=== PATIENT | male | born 1960 | race Caucasian/White ===

== ENCOUNTER 2020-11-04 15:15 | Outpatient (REF) | payer MEDICARE, SELFPAY | END 2020-11-04 15:16 | disposition home or self-care (01) | LOC: HO.LNP 15:15 | PROVIDERS: Visit Provider Internal Medicine | DX: S90.511A Abrasion, right ankle, initial encounter (principal); X58.XXXA Exposure to other specified factors, initial encounter; Y93.9 Activity, unspecified; Y92.9 Unspecified place or not applicable; Y99.9 Unspecified external cause status | CPT/HCPCS: 87071; 87077; 87186; 87205 ==

== ENCOUNTER 2020-12-09 09:47 | Outpatient (REF) | payer MEDICARE, SELFPAY ==
[2020-12-09 11:23] LABS: MANUAL DIFF FLAG NO
[2020-12-09 11:31] LABS: Basophils Percent Auto 0.4 % (0-2); Eosinophils Absolute Auto 0.1 X10*3/uL (0.0-0.4); Eosinophils Percent Auto 0.9 % (0-4); Hematocrit 45.7 % (42-52); Hemoglobin 15.3 g/dl (14.0-18.0); Imm Gran Abs Auto 0.03 X10*3/uL (0.00-0.03); Imm Gran Pct Auto 0.5 % (0.0-0.4); Lymphocytes Absolute Auto 1.3 X10*3/uL (1.2-4.9); Lymphocytes Percent Auto 23.7 % (20-40); Mean Corpuscular HGB Conc 33.5 g/dl (31.0-36.0); Mean Corpuscular Hemoglobin 31.7 pg (27.0-33.0); Mean Corpuscular Volume 94.8 fL (80-98); Mean Platelet Volume 9.1 fL (9.4-12.4); Monocytes Absolute Auto 0.7 X10*3/uL (0.1-1.2); Monocytes Percent Auto 12.5 % (2-11); Neutrophils Absolute Auto 3.4 X10*3/uL (2.0-8.3); Platelet Count 234 X10*3/uL (160-400); Red Blood Count 4.82 X10*6/uL (4.60-5.80); Red Cell Distribution Width 12.8 % (11.0-16.0); White Blood Count 5.5 X10*3/uL (4.8-10.8)
[2020-12-09 11:45] LABS: Lithium 0.26 mmol/L (0.60-1.20)
[2020-12-09 11:48] LABS: Alanine Aminotransferase 26 U/L (0-40); Albumin Level 4.5 g/dL (3.5-5.0); Alkaline Phosphatase 56 U/L (39-117); Anion Gap 12 (12-20); Aspartate Amino Transferase 20 U/L (5-37); Blood Urea Nitrogen 14 mg/dL (9-16); Calcium 9.5 mg/dL (8.4-10.2); Carbon Dioxide 25 mmol/L (22-29); Chloride 105 mmol/L (96-108); Cholesterol 202 mg/dL; Estimated Glomerular Filt Rate > 60; Glucose Fasting 99 mg/dL (60-99); HDL Cholesterol 53 mg/dL; LDL Cholesterol Calculated 138 mg/dl; Potassium 4.4 mmol/L (3.3-5.1); Sodium 138 mmol/L (135-145); Total Protein 7.7 g/dL (6.5-8.0); Triglycerides 59 mg/dL
[2020-12-09 11:59] LABS: Prostate Specific Antigen 1.25 ng/mL (<0.05-4.0)
== END 2020-12-09 09:48 | disposition home or self-care (01) ==
LOC: HO.HMGCLDS 09:47
PROVIDERS: PCP Internal Medicine; Visit Provider Internal Medicine
DX: Z00.00 Encounter for general adult medical examination without abnormal findings (principal); Z12.5 Encounter for screening for malignant neoplasm of prostate
CPT/HCPCS: 36415; 80053; 80061; 80178; 84153; 85025

== ENCOUNTER 2021-05-18 12:08 | Outpatient (REF) | payer MEDICARE, SELFPAY ==
[2021-05-18 14:17] LABS: Influenza A PCR NEGATIVE (Negative); Influenza B PCR NEGATIVE (Negative); Resp Syncy Virus RNA Qual PCR NEGATIVE (Negative); SARS COV2 PCR INHOUSE POSITIVE (Negative)
== END 2021-05-18 12:09 | disposition home or self-care (01) ==
LOC: HO.10HDLNP 12:08
PROVIDERS: Visit Provider Internal Medicine
DX: J02.9 Acute pharyngitis, unspecified (principal); R51.9 Headache, unspecified; Z20.822 Contact with and (suspected) exposure to COVID-19
CPT/HCPCS: 0241U

== ENCOUNTER 2021-10-20 09:46 | Outpatient (REF) | payer MEDICARE, SELFPAY ==
--- NOTE | ~2021-10-20 | XR_ITS ---
EXAMINATION: XR HIP, RIGHT CLINICAL INFORMATION: Right hip pain. ?osteoarthritis. COMPARISON: None. TECHNIQUE: Two views of the right hip. FINDINGS: There is no evidence of acute fracture or dislocation of the right hip. There is marginal spurring seen about the acetabulum. No destructive bony lesions are identified. There is some calcification with question of some degree of fragmentation of the superior labrum. There is a small bump seen about the superior aspect of the femoral neck which may be related to impingement syndrome. XR/XR hip RT min 2V IMPRESSION: Degenerative change of the right hip with findings suggestive of impingement syndrome. No acute fracture, dislocation, or destructive bony lesion appreciated.
== END 2021-10-20 09:47 | disposition home or self-care (01) ==
LOC: HO.HMGCX 09:46
PROVIDERS: PCP Internal Medicine; Visit Provider Internal Medicine
DX: M25.552 Pain in left hip (principal)
CPT/HCPCS: 73502

== ENCOUNTER → 2021-12-01 12:38 | Outpatient (BNVA) | payer MEDICARE, SELFPAY | PROVIDERS: PCP Internal Medicine; Visit Provider Physician Assistant | DX: M16.11 Unilateral primary osteoarthritis, right hip (principal) | CPT/HCPCS: 99202 ==

== ENCOUNTER 2021-12-14 13:19 | Outpatient (REF) | payer MEDICARE, SELFPAY ==
--- NOTE | ~2021-12-14 | FL_ITS ---
EXAMINATION: FL ARTHROGRAM HIP, RIGHT PROCEDURE: STEROID INJECTION HIP, RIGHT CLINICAL INFORMATION: Osteoarthritis right hip. COMPARISON: None TECHNIQUE: Following explaining fluoroscopy-guided right hip steroid injection procedure, benefits and risks, a written consent was obtained. Patient was placed supine on fluoroscopy table and anterior aspect of right hip was marked for entry site. The entry site was cleaned and draped in usual sterile manner. 1% lidocaine was injected at puncture site. A 22-gauge spinal needle was advanced from the skin to the lateral border of right femoral neck. 1-2% of contrast was injected and a single image was obtained confirming needle position in the joint space. 80 mg of prednisone and 8 mL of 1% lidocaine was injected and needle withdrawn. Complete hemostasis achieved at puncture site with a sterile Band-Aid applied. Patient tolerated procedure well. FINDINGS: On preliminary right hip imaging there is mild right periarticular spurring. No visible acute fracture or bony abnormality seen. The soft tissues are normal. Fluoroscopy-guided right hip steroid injection was performed. FLUOROSCOPY TIME: 0.8 minutes. DOSE AREA PRODUCT: 4.696 uGy-m2 (microgray-meter squared) FL/FL arthrogram hip RT IMPRESSION: Successful fluoroscopy-guided right hip steroid injection performed without immediate complications.
== END 2021-12-14 13:20 | disposition home or self-care (01) ==
LOC: HO.XRAY 13:19
PROVIDERS: PCP Internal Medicine; Visit Provider Physician Assistant
DX: M16.11 Unilateral primary osteoarthritis, right hip (principal)
CPT/HCPCS: 27093; 73525

== ENCOUNTER → 2022-01-12 09:29 | Outpatient (BNVA) | payer MEDICARE, SELFPAY | PROVIDERS: PCP Internal Medicine; Visit Provider Physician Assistant | DX: M16.11 Unilateral primary osteoarthritis, right hip (principal) | CPT/HCPCS: 99212 ==

== ENCOUNTER 2022-03-04 07:15 | Outpatient (REF) | payer MEDICARE, SELFPAY ==
[2022-03-04 11:00] LABS: MANUAL DIFF FLAG NO
[2022-03-04 11:14] LABS: Basophils Percent Auto 0.6 % (0-2); Eosinophils Absolute Auto 0.2 X10*3/uL (0.0-0.4); Hemoglobin 14.2 g/dl (14.0-18.0); Imm Gran Abs Auto 0.01 X10*3/uL (0.00-0.03); Imm Gran Pct Auto 0.2 % (0.0-0.4); Lymphocytes Absolute Auto 1.2 X10*3/uL (1.2-4.9); Lymphocytes Percent Auto 21.9 % (20-40); Mean Corpuscular HGB Conc 33.8 g/dl (31.0-36.0); Mean Corpuscular Hemoglobin 31.4 pg (27.0-33.0); Mean Corpuscular Volume 92.9 fL (80.0-98.0); Mean Platelet Volume 9.3 fL (9.4-12.4); Monocytes Absolute Auto 0.6 X10*3/uL (0.1-1.2); Neutrophils Absolute Auto 3.3 x10*3/uL (2.0-8.3); Neutrophils Percent Auto 63.3 % (45-73); Platelet Count 244 X10*3/uL (160-400); Red Blood Count 4.52 X10*6/uL (4.60-5.80); Red Cell Distribution Width 12.8 % (11.0-16.0); White Blood Count 5.3 X10*3/uL (4.8-10.8)
[2022-03-04 11:28] LABS: Alanine Aminotransferase 18 U/L (0-40); Alkaline Phosphatase 48 U/L (39-117); Anion Gap 11 (12-20); Aspartate Amino Transferase 13 U/L (5-37); Bilirubin Total 0.2 mg/dL (0.0-1.0); Blood Urea Nitrogen 9 mg/dL (9-16); Carbon Dioxide 30 mmol/L (22-29); Chloride 106 mmol/L (96-108); Cholesterol 146 mg/dL; Estimated Glomerular Filt Rate > 60; Glucose Fasting 89 mg/dL (60-99); HDL Cholesterol 41 mg/dL; LDL Cholesterol Calculated 90 mg/dl; Potassium 4.3 mmol/L (3.3-5.1); Sodium 143 mmol/L (135-145); Total Protein 6.5 g/dL (6.5-8.0); Triglycerides 78 mg/dL
[2022-03-04 11:35] LABS: Lithium 0.14 mmol/L (0.60-1.20)
[2022-03-04 11:51] LABS: Prostate Specific Antigen 1.67 ng/mL (<0.05-4.0)
[2022-03-04 12:02] LABS: Thyroid Stimulating Hormone 0.78 uIU/mL (0.32-4.0)
[2022-03-05 12:06] LABS: Calcium (PTHI) 9.3 mg/dL (8.6-10.3); PTHI 60 pg/mL (16-77)
== END 2022-03-04 07:16 | disposition home or self-care (01) ==
LOC: HO.HMGCLDS 07:15
PROVIDERS: Absent Provider Psychiatry & Neurology Psychiatry; PCP Internal Medicine; Visit Provider Internal Medicine
DX: Z00.00 Encounter for general adult medical examination without abnormal findings (principal); F31.9 Bipolar disorder, unspecified; Z12.5 Encounter for screening for malignant neoplasm of prostate; Z79.899 Other long term (current) drug therapy
CPT/HCPCS: 36415; 80053; 80061; 80178; 83970; 84153; 84443; 85025

== ENCOUNTER 2022-09-01 09:54 | Outpatient (REF) | payer MEDICARE, MEDICAID, SELFPAY ==
--- NOTE | 2022-09-01 10:02 | ECG_ITS ---
Test Reason : qtc check Blood Pressure : / mmHG Vent. Rate : 073 BPM Atrial Rate : 073 BPM P-R Int : 182 ms QRS Dur : 098 ms QT Int : 382 ms P-R-T Axes : 059 003 050 degrees QTc Int : 420 ms Normal sinus rhythm Normal ECG When compared with ECG of 01-SEP-2013 11:06, No significant change was found Referred By: Nam Mcknight Electronically Signed By:VALERY LEDEZMA MD
[2022-09-01 10:16] LABS: MANUAL DIFF FLAG NO
[2022-09-01 10:56] LABS: Basophils Percent Auto 0.5 % (0-2); Eosinophils Absolute Auto 0.1 X10*3/uL (0.0-0.4); Eosinophils Percent Auto 2.6 % (0-4); Hematocrit 44.5 % (42.0-52.0); Hemoglobin 15.2 g/dl (14.0-18.0); Imm Gran Abs Auto 0.02 X10*3/uL (0.00-0.03); Imm Gran Pct Auto 0.4 % (0.0-0.4); Lymphocytes Absolute Auto 1.5 X10*3/uL (1.2-4.9); Lymphocytes Percent Auto 26.4 % (20-40); Mean Corpuscular HGB Conc 34.2 g/dl (31.0-36.0); Mean Corpuscular Hemoglobin 31.5 pg (27.0-33.0); Mean Corpuscular Volume 92.1 fL (80.0-98.0); Mean Platelet Volume 8.8 fL (9.4-12.4); Monocytes Absolute Auto 0.6 X10*3/uL (0.1-1.2); Monocytes Percent Auto 11.7 % (2-11); Neutrophils Absolute Auto 3.2 x10*3/uL (2.0-8.3); Neutrophils Percent Auto 58.4 % (45-73); Platelet Count 232 X10*3/uL (160-400); Red Blood Count 4.83 X10*6/uL (4.60-5.80); Red Cell Distribution Width 12.9 % (11.0-16.0); White Blood Count 5.5 X10*3/uL (4.8-10.8)
[2022-09-01 11:53] LABS: Lithium 0.17 mmol/L (0.60-1.20)
[2022-09-01 12:03] LABS: Alanine Aminotransferase 27 U/L (0-40); Albumin Level 4.2 g/dL (3.5-5.0); Alkaline Phosphatase 56 U/L (39-117); Anion Gap 10 (12-20); Aspartate Amino Transferase 19 U/L (5-37); Bilirubin Total 0.4 mg/dL (0.0-1.0); Blood Urea Nitrogen 16 mg/dL (9-16); Calcium 9.1 mg/dL (8.4-10.2); Carbon Dioxide 27 mmol/L (22-29); Chloride 105 mmol/L (96-108); Estimated Glomerular Filt Rate > 60; Glucose Random 93 mg/dL (60-115); Potassium 4.3 mmol/L (3.3-5.1); Sodium 138 mmol/L (135-145); Total Protein 6.9 g/dL (6.5-8.0)
[2022-09-01 12:22] LABS: Thyroid Stimulating Hormone 0.65 uIU/mL (0.32-4.0)
== END 2022-09-01 09:55 | disposition home or self-care (01) ==
LOC: HO.LAB 09:54
PROVIDERS: PCP Internal Medicine; Visit Provider Psychiatry & Neurology Psychiatry
DX: Z79.899 Other long term (current) drug therapy (principal)
CPT/HCPCS: 36415; 80053; 80178; 84443; 85025; 93005

== ENCOUNTER 2022-09-28 12:14 | Outpatient (REF) | payer MEDICARE, SELFPAY ==
[2022-09-28 14:16] LABS: Lithium 0.44 mmol/L (0.60-1.20)
[2022-09-28 14:27] LABS: Anion Gap 8 (12-20); Blood Urea Nitrogen 9 mg/dL (9-16); C Reactive Protein < 0.10 mg/dL (< or = 0.50); Carbon Dioxide 26 mmol/L (22-29); Chloride 109 mmol/L (96-108); Estimated Glomerular Filt Rate > 60; Glucose Random 91 mg/dL (60-115); Potassium 4.2 mmol/L (3.3-5.1); Sodium 139 mmol/L (135-145)
== END 2022-09-28 12:15 | disposition home or self-care (01) ==
LOC: HO.10HDL 12:14
PROVIDERS: Visit Provider Internal Medicine
DX: M54.9 Dorsalgia, unspecified (principal); E78.00 Pure hypercholesterolemia, unspecified; Z79.899 Other long term (current) drug therapy
CPT/HCPCS: 36415; 80048; 80178; 86140

== ENCOUNTER 2022-09-29 11:25 | Outpatient (REF) | payer MEDICARE, MEDICAID, SELFPAY ==
--- NOTE | ~2022-09-29 | US_ITS ---
EXAMINATION: US RETROPERITONEAL COMPLETE (RENAL) CLINICAL INFORMATION: Left flank pain. COMPARISON: Ultrasound abdomen 09/03/2013. TECHNIQUE: Real-time imaging of the kidneys and bladder. FINDINGS: RIGHT KIDNEY: 11.1 x 6.4 x 6.4 cm (SAG x AP x TRV). The kidney is normal in size, contour, and echogenicity. Renal cortical thickness is normal. No calculi or focal parenchymal lesions. No hydronephrosis. LEFT KIDNEY: 12.1 x 6.4 x 5.5 cm (SAG x AP x TRV). The kidney is normal in size, contour, and echogenicity. Renal cortical thickness is normal. No calculi or focal parenchymal lesions. No hydronephrosis. BLADDER: Well distended and normal. Bilateral ureteral jets are demonstrated. Prevoid bladder volume is 359 mL. Postvoid bladder volume is 91 mL. ADDITIONAL FINDINGS: The prostate is enlarged with a volume of 60 mL. Normal kidneys. Mild prostate enlargement with a post void residual bladder volume. US/US retroperitoneal comp IMPRESSION: 1. Unremarkable renal ultrasound. 2. Small post void residual bladder volume. 3. Moderate prostate enlargement.
== END 2022-09-29 11:26 | disposition home or self-care (01) ==
LOC: HO.HMGCX 11:25
PROVIDERS: Visit Provider Internal Medicine
DX: R10.9 Unspecified abdominal pain (principal)
CPT/HCPCS: 76770

== ENCOUNTER 2022-10-21 08:36 | Outpatient (REF) | payer MEDICARE, SELFPAY ==
[2022-10-21 11:04] LABS: MANUAL DIFF FLAG NO
[2022-10-21 11:26] LABS: Basophils Percent Auto 0.7 % (0-2); Eosinophils Absolute Auto 0.1 X10*3/uL (0.0-0.4); Eosinophils Percent Auto 1.9 % (0-4); Hematocrit 44.3 % (42.0-52.0); Hemoglobin 14.9 g/dl (14.0-18.0); Imm Gran Abs Auto 0.01 X10*3/uL (0.00-0.03); Imm Gran Pct Auto 0.2 % (0.0-0.4); Lymphocytes Absolute Auto 1.3 X10*3/uL (1.2-4.9); Lymphocytes Percent Auto 22.2 % (20-40); Mean Corpuscular HGB Conc 33.6 g/dl (31.0-36.0); Mean Corpuscular Hemoglobin 31.2 pg (27.0-33.0); Mean Corpuscular Volume 92.9 fL (80.0-98.0); Monocytes Absolute Auto 0.5 X10*3/uL (0.1-1.2); Neutrophils Absolute Auto 3.9 x10*3/uL (2.0-8.3); Platelet Count 237 X10*3/uL (160-400); Red Blood Count 4.77 X10*6/uL (4.60-5.80); Red Cell Distribution Width 13.1 % (11.0-16.0); White Blood Count 5.9 X10*3/uL (4.8-10.8)
[2022-10-21 11:36] LABS: Alanine Aminotransferase 26 U/L (0-40); Albumin Level 4.3 g/dL (3.5-5.0); Alkaline Phosphatase 55 U/L (39-117); Anion Gap 10 (12-20); Aspartate Amino Transferase 17 U/L (5-37); Bilirubin Total 0.6 mg/dL (0.0-1.0); Blood Urea Nitrogen 9 mg/dL (9-16); Calcium 9.3 mg/dL (8.4-10.2); Carbon Dioxide 25 mmol/L (22-29); Chloride 105 mmol/L (96-108); Estimated Glomerular Filt Rate > 60; Glucose Random 106 mg/dL (60-115); Potassium 4.1 mmol/L (3.3-5.1); Sodium 136 mmol/L (135-145); Total Protein 7.2 g/dL (6.5-8.0)
== END 2022-10-21 08:37 | disposition home or self-care (01) ==
LOC: HO.HMGCLDS 08:36
PROVIDERS: Visit Provider Psychiatry & Neurology Psychiatry
DX: Z79.899 Other long term (current) drug therapy (principal)
CPT/HCPCS: 36415; 80053; 80178; 84443; 85025

== ENCOUNTER 2022-12-25 19:57 | Emergency (ER) | payer MEDICARE, MEDICAID, SELFPAY ==
[2022-12-25 20:10] VITALS: BP 136/78; PULSE 74; RESP 18; TEMP 36.6; O2SAT 99; BMI 31.9
--- NOTE | 2022-12-25 20:11 | ED_ITS ---
HPI - General Adult General Chief complaint: Overdose Stated complaint: mistakenly taken to much lithum Time Seen by Provider: 12/25/22 21:56 Source: patient Mode of arrival: ambulatory Limitations: no limitations History of Present Illness HPI narrative: With history of bipolar disorder, depression on lithium 300 mg daily feels confused and foggy,started taking 900 mg tablet says that with taking that for last 1 month and still has a medicine at home feels weak for last 10 days thinking maybe the toxicity of lithium but very confused a still has a medicine at home labs were done which showed normal lithium level no nausea no vomiting Related Data Home Medications Medication Instructions Recorded Confirmed alprazolam 0.5 mg tablet 0.5 mg PO BID PRN 12/01/21 atorvastatin 20 mg tablet 20 mg PO DAILY 12/01/21 gabapentin 800 mg tablet 800 mg PO QID 12/01/21 lamotrigine 100 mg tablet mg PO 12/01/21 lithium carbonate 300 mg tablet 300 mg PO BEDTIME 12/01/21 methylphenidate HCl 20 mg tablet 20 mg PO QID 12/01/21 trazodone 100 mg tablet 100 mg PO BEDTIME 12/01/21 Allergies Allergy/AdvReac Type Severity Reaction Status Date / Time No Known Allergies Allergy Unverified 01/12/22 09:37 [No Known Allergies*] Review of Systems Review of Systems: Yes all other systems are reviewed and are negative [facility] Past Medical History Medical History ADHD Bipolar 1 disorder Depression Social History Social History Patient Tobacco Use Status: Never used Tobacco Current occupational status: employed 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 Oriented X3. No acute distress. Eyes: PERRLA, No Nystagmus ENT: Pharynx normal. Oral Mucosa moist Neck: Normal inspection. Neck supple. CVS: Normal heart rate and rhythm. Pulses normal. Respiratory: No respiratory distress. Equal air entry bilateral, no wheezing/rales/rhonchi Abdomen: Soft and nontender. Bowel sounds are present, no mass palpable, no CVA tenderness Skin: Skin warm and dry. Normal skin color. Normal skin turgor. Extremities: No lower extremity edema. No calf tenderness Neuro: Oriented X 3. No motor deficit. No sensory deficit.No cerebellar signs , cranial nerves II-XII intact Course Course Course Narrative: This is an RME: Additional HPI, ROS, PE not included below will be deferred to primary provider. Patient is a 62-year-old male who presents emergency department concern for potential lithium toxicity. Reports that 3 weeks ago his dosage was increased from 200 mg daily to 300 mg daily. Accidentally he was taking too much reporting that he believed the capsule to be 100 mg so he was taking 3, in actuality they were 300 mg. He has been taking 900 mg daily for the past 3 weeks. Has been experiencing Shakiness, memory loss, confusion, weakness for the past 10 days. Worsening today, states he realized this morning he had been taking too much Medical Decision Making Medical Decision Making MDM Narrative: Patient has stable labs now lithium level will discharge patient Lab Data [facility] Lab Attestation statement: I reviewed the patient's lab results. 12/25/22 20:41 12/25/22 20:41 Labs: Lab Results 12/25/22 12/25/22 12/25/22 Range/Units 20:41 20:41 20:41 WBC (4.8-10.8) X10*3/uL RBC (4.60-5.80) X10*6/uL Hgb (14.0-18.0) g/dl Hct (42.0-52.0) % MCV (80.0-98.0) fL MCH (27.0-33.0) pg MCHC (31.0-36.0) g/dl RDW (11.0-16.0) % Plt Count (160-400) X10*3/uL MPV (9.4-12.4) fL Immature Gran % (Auto) (0.0-0.4) % Neut % (Auto) (45-73) % Lymph % (Auto) (20-40) % Russell % (Auto) (2-11) % Eos % (Auto) (0-4) % Baso % (Auto) (0-2) % Lymph # (Auto) (1.2-4.9) X10*3/uL Russell # (Auto) (0.1-1.2) X10*3/uL Eos # (Auto) (0.0-0.4) X10*3/uL Baso # (Auto) (0.0-0.2) X10*3/uL Abs Immat Gran (auto) (0.00-0.03) X10*3/uL Absolute Neuts (auto) (2.0-8.3) x10*3/uL Absolute Nucleated RBC (0.0-0.012) X10*3/uL Nucleated RBC % (auto) (0.0-0.2) /100WBC VBG pH (7.32-7.43) VBG pCO2 mmHg VBG pO2 mmHg VBG HCO3 (22-26) mmol/L VBG O2 Saturation % VBG Base Excess mmol/L Sodium 137 (135-145) mmol/L Potassium 4.7 (3.3-5.1) mmol/L Chloride 109 H (96-108) mmol/L Carbon Dioxide 16 L (22-29) mmol/L Anion Gap 17 (12-20) BUN 8 L (9-16) mg/dL Creatinine 1.00 (0.5-1.4) mg/dL Estim Creat Clear Calc 87.9 Estimated GFR > 60 Random Glucose 107 (60-115) mg/dL Calcium 9.3 (8.4-10.2) mg/dL Magnesium 2.7 H (1.6-2.6) mg/dL Total Bilirubin 0.4 (0.0-1.0) mg/dL AST 16 (5-37) U/L ALT 19 (0-40) U/L Alkaline Phosphatase 49 (39-117) U/L Troponin I High Sens < 2.7 (<3.5-35.0) ng/L Total Protein 7.0 (6.5-8.0) g/dL Albumin 3.9 (3.5-5.0) g/dL Urine Color Urine Appearance Urine pH (5.0-9.0) Ur Specific [place] (1.005-1.025) Urine Protein (Neg-Trace) mg/dL Urine Glucose (UA) (Negative) mg/dL Urine Ketones (Negative) mg/dL Urine Blood (Negative) Urine Nitrite (Negative) Ur Leukocyte Esterase (Negative) Salicylates (15-30) mg/dL Acetaminophen (<30) mcg/mL [place]yers 0.47 L (0.60-1.20) mmol/L 12/25/22 12/25/22 12/25/22 Range/Units 20:41 21:49 21:53 WBC 7.8 (4.8-10.8) X10*3/uL RBC 4.35 L (4.60-5.80) X10*6/uL Hgb 14.0 (14.0-18.0) g/dl Hct 41.6 L (42.0-52.0) % MCV 95.6 (80.0-98.0) fL MCH 32.2 (27.0-33.0) pg MCHC 33.7 (31.0-36.0) g/dl RDW 13.9 (11.0-16.0) % Plt Count 212 (160-400) X10*3/uL MPV 8.8 L (9.4-12.4) fL Immature Gran % (Auto) 0.3 (0.0-0.4) % Neut % (Auto) 59.4 (45-73) % Lymph % (Auto) 25.6 (20-40) % Russell % (Auto) 11.1 H (2-11) % Eos % (Auto) 3.1 (0-4) % Baso % (Auto) 0.5 (0-2) % Lymph # (Auto) 2.0 (1.2-4.9) X10*3/uL Russell # (Auto) 0.9 (0.1-1.2) X10*3/uL Eos # (Auto) 0.2 (0.0-0.4) X10*3/uL Baso # (Auto) 0.0 (0.0-0.2) X10*3/uL Abs Immat Gran (auto) 0.02 (0.00-0.03) X10*3/uL Absolute Neuts (auto) 4.7 (2.0-8.3) x10*3/uL Absolute Nucleated RBC 0.000 (0.0-0.012) X10*3/uL Nucleated RBC % (auto) 0.0 (0.0-0.2) /100WBC VBG pH 7.37 (7.32-7.43) VBG pCO2 45 mmHg VBG pO2 50 mmHg VBG HCO3 26 (22-26) mmol/L VBG O2 Saturation 82.0 % VBG Base Excess 0.8 mmol/L Sodium (135-145) mmol/L Potassium (3.3-5.1) mmol/L Chloride (96-108) mmol/L Carbon Dioxide (22-29) mmol/L Anion Gap (12-20) BUN (9-16) mg/dL Creatinine (0.5-1.4) mg/dL Estim Creat Clear Calc Estimated GFR Random Glucose (60-115) mg/dL Calcium (8.4-10.2) mg/dL Magnesium (1.6-2.6) mg/dL Total Bilirubin (0.0-1.0) mg/dL AST (5-37) U/L ALT (0-40) U/L Alkaline Phosphatase (39-117) U/L Troponin I High Sens (<3.5-35.0) ng/L Total Protein (6.5-8.0) g/dL Albumin (3.5-5.0) g/dL Urine Color Urine Appearance Urine pH (5.0-9.0) Ur Specific [place] (1.005-1.025) Urine Protein (Neg-Trace) mg/dL Urine Glucose (UA) (Negative) mg/dL Urine Ketones (Negative) mg/dL Urine Blood (Negative) Urine Nitrite (Negative) Ur Leukocyte Esterase (Negative) Salicylates < 5.0 L (15-30) mg/dL Acetaminophen < 17 (<30) mcg/mL [place] (0.60-1.20) mmol/L 12/25/22 Range/Units 23:36 WBC (4.8-10.8) X10*3/uL RBC (4.60-5.80) X10*6/uL Hgb (14.0-18.0) g/dl Hct (42.0-52.0) % MCV (80.0-98.0) fL MCH (27.0-33.0) pg MCHC (31.0-36.0) g/dl RDW (11.0-16.0) % Plt Count (160-400) X10*3/uL MPV (9.4-12.4) fL Immature Gran % (Auto) (0.0-0.4) % Neut % (Auto) (45-73) % Lymph % (Auto) (20-40) % Russell % (Auto) (2-11) % Eos % (Auto) (0-4) % Baso % (Auto) (0-2) % Lymph # (Auto) (1.2-4.9) X10*3/uL Russell # (Auto) (0.1-1.2) X10*3/uL Eos # (Auto) (0.0-0.4) X10*3/uL Baso # (Auto) (0.0-0.2) X10*3/uL Abs Immat Gran (auto) (0.00-0.03) X10*3/uL Absolute Neuts (auto) (2.0-8.3) x10*3/uL Absolute Nucleated RBC (0.0-0.012) X10*3/uL Nucleated RBC % (auto) (0.0-0.2) /100WBC VBG pH (7.32-7.43) VBG pCO2 mmHg VBG pO2 mmHg VBG HCO3 (22-26) mmol/L VBG O2 Saturation % VBG Base Excess mmol/L Sodium (135-145) mmol/L Potassium (3.3-5.1) mmol/L Chloride (96-108) mmol/L Carbon Dioxide (22-29) mmol/L Anion Gap (12-20) BUN (9-16) mg/dL Creatinine (0.5-1.4) mg/dL Estim Creat Clear Calc Estimated GFR Random Glucose (60-115) mg/dL Calcium (8.4-10.2) mg/dL Magnesium (1.6-2.6) mg/dL Total Bilirubin (0.0-1.0) mg/dL AST (5-37) U/L ALT (0-40) U/L Alkaline Phosphatase (39-117) U/L Troponin I High Sens (<3.5-35.0) ng/L Total Protein (6.5-8.0) g/dL Albumin (3.5-5.0) g/dL Urine Color Yellow Urine Appearance Clear Urine pH 5.5 (5.0-9.0) Ur Specific [place] 1.010 (1.005-1.025) Urine Protein Negative (Neg-Trace) mg/dL Urine Glucose (UA) Negative (Negative) mg/dL Urine Ketones Negative (Negative) mg/dL Urine Blood Negative (Negative) Urine Nitrite Negative (Negative) Ur Leukocyte Esterase Negative (Negative) Salicylates (15-30) mg/dL Acetaminophen (<30) mcg/mL [place] (0.60-1.20) mmol/L Discharge Plan Discharge Clinical Impression: Bipolar disease, chronic Patient Disposition: Home, Self-Care Instructions: Bipolar Disorder (ED) Additional Instructions: Continue medications as prescribed and follow-up with your therapist Prescriptions: No Action lithium carbonate 300 mg tablet 300 mg PO BEDTIME lamotrigine 100 mg tablet PO methylphenidate HCl 20 mg tablet 20 mg PO QID alprazolam 0.5 mg tablet 0.5 mg PO BID PRN atorvastatin 20 mg tablet 20 mg PO DAILY gabapentin 800 mg tablet 800 mg PO QID trazodone 100 mg tablet 100 mg PO BEDTIME Interventions: ED Discharge Assessment Last Done: 12/26/22 00:35 Discharge Date/Time: 12/26/22 00:39
--- NOTE | 2022-12-25 20:15 | ECG_ITS ---
Test Reason : ? LITHIUM TOXICITY Blood Pressure : / mmHG Vent. Rate : 061 BPM Atrial Rate : 061 BPM P-R Int : 198 ms QRS Dur : 100 ms QT Int : 428 ms P-R-T Axes : 033 000 041 degrees QTc Int : 430 ms Normal sinus rhythm cannot exclude Anterior infarct , age undetermined Abnormal ECG When compared with ECG of 01-SEP-2022 10:02, No significant change was found Referred By: Tatianna Costa Electronically Signed By:AINSLEY JCAKSON
[2022-12-25 21:17] LABS: Acetaminophen LAB < 17 mcg/mL (<30); Alanine Aminotransferase 19 U/L (0-40); Albumin Level 3.9 g/dL (3.5-5.0); Alkaline Phosphatase 49 U/L (39-117); Anion Gap 17 (12-20); Aspartate Amino Transferase 16 U/L (5-37); Bilirubin Total 0.4 mg/dL (0.0-1.0); Blood Urea Nitrogen 8 mg/dL (9-16); Calcium 9.3 mg/dL (8.4-10.2); Carbon Dioxide 16 mmol/L (22-29); Chloride 109 mmol/L (96-108); Creatinine Clr Calc Pharmacy 87.9; Estimated Glomerular Filt Rate > 60; Glucose Random 107 mg/dL (60-115); Magnesium 2.7 mg/dL (1.6-2.6); Potassium 4.7 mmol/L (3.3-5.1); Salicylate < 5.0 mg/dL (15-30); Sodium 137 mmol/L (135-145)
[2022-12-25 21:21] LABS: Lithium 0.47 mmol/L (0.60-1.20)
[2022-12-25 21:28] LABS: Troponin-I High Sensitivity < 2.7 ng/L (<3.5-35.0)
[2022-12-25 22:03] LABS: VBG Base Excess 0.8 mmol/L; VBG HCO3 26 mmol/L (22-26); VBG pCO2 45 mmHg; VBG pH 7.37 (7.32-7.43); VBG pO2 50 mmHg
[2022-12-25 22:16] LABS: Basophils Percent Auto 0.5 % (0-2); Eosinophils Absolute Auto 0.2 X10*3/uL (0.0-0.4); Eosinophils Percent Auto 3.1 % (0-4); Hematocrit 41.6 % (42.0-52.0); Imm Gran Abs Auto 0.02 X10*3/uL (0.00-0.03); Imm Gran Pct Auto 0.3 % (0.0-0.4); Lymphocytes Percent Auto 25.6 % (20-40); Mean Corpuscular HGB Conc 33.7 g/dl (31.0-36.0); Mean Corpuscular Hemoglobin 32.2 pg (27.0-33.0); Mean Corpuscular Volume 95.6 fL (80.0-98.0); Mean Platelet Volume 8.8 fL (9.4-12.4); Monocytes Absolute Auto 0.9 X10*3/uL (0.1-1.2); Monocytes Percent Auto 11.1 % (2-11); Neutrophils Absolute Auto 4.7 x10*3/uL (2.0-8.3); Neutrophils Percent Auto 59.4 % (45-73); Platelet Count 212 X10*3/uL (160-400); Red Blood Count 4.35 X10*6/uL (4.60-5.80); Red Cell Distribution Width 13.9 % (11.0-16.0); White Blood Count 7.8 X10*3/uL (4.8-10.8)
[2022-12-25 22:26] LABS: Venous Blood Gas Refer to POC result
[2022-12-25 22:27] VITALS: BP 123/72; PULSE 59; RESP 12; TEMP 36.7; O2SAT 97
--- NOTE | 2022-12-25 22:32 | PC.NURSE ---
Pt aox4 resting at the bedside. VSS. Reports no pain at this time. Took increased dose of lithium and reports feeling shakiness and weakness . Pending disposition. Pt aware of plan of care.
[2022-12-25 23:43] LABS: Appearance Urine Clear; Color Urine Yellow; Glucose Urine UA Negative (Negative); Leukocyte Esterase Urine Negative (Negative); Nitrite Urine Negative (Negative); PH 5.5 (5.0-9.0); Urine Blood Negative (Negative); Urine Ketones Negative (Negative); Urine Protein Negative (Neg-Trace)
[2022-12-26 00:35] VITALS: BP 123/71; PULSE 54; RESP 12; TEMP 36.7; O2SAT 96
== END 2022-12-26 00:39 | disposition home or self-care (01) ==
PROVIDERS: Nurse Practitioner Family; Emergency Provider Internal Medicine; PCP Internal Medicine
DX: F31.9 Bipolar disorder, unspecified (principal); Z79.899 Other long term (current) drug therapy
CPT/HCPCS: 36415; 80053; 80143; 80178; 80179; 81003; 82803; 83735; 84484; 85025; 93005; 99284; 99285

== ENCOUNTER → 2022-12-25 20:15 | Outpatient (BNV) | payer MEDICARE, MEDICAID, SELFPAY | PROVIDERS: Emergency Provider Internal Medicine; PCP Internal Medicine; Visit Provider Internal Medicine | DX: R94.31 Abnormal electrocardiogram [ECG] [EKG] (principal) | CPT/HCPCS: 93010 ==

== ENCOUNTER 2023-01-06 08:00 | Outpatient (RCR) | payer MEDICARE, MEDICAID, SELFPAY ==
--- NOTE | 2022-10-21 11:42 | MHC.PT.EP ---
[facility] [place] Office [place] Office [place] Office [address] Sebas Aguero [address] [phone] F: [phone] F: [phone] F: [phone] F: [phone] Physical Therapy Plan of Care Date of Evaluation: Date of Surgery: n/a Diagnosis: low back pain Assessment: Patient is a 62 year old male presenting to PT with complaints of pain in his low back. Pt reports onset of pain began about 2 months ago due to insidious onset. He presents today with impairments in pain, lumbar ROM, core strength, hip strength, soft tissue restrictions. 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 Pt expresses detention goal of reducing pain, and is motivated to work towards this in PT. Clinical presentation today is most consistent with signs and sx associated with low back pain and pt will benefit from skilled PT 2 week x 4 weeks to address the following problems and impairments noted upon evaluation: pain, lumbar ROM, core strength, hip strength, soft tissue restrictions. These problems limit the patient with the following functional activities: ADLs, bending, transfers, twisting, standing. The prescribed treatment plan of care is medically necessary. Co-morbidities of depression were identified and taken into considerations of plan of care. Pt was educated on HEP, role of PT, prognosis, POC. Frequency and Duration: The patient will be seen 2 x week x 4 weeks Short Term Goals: Pt will demonstrate improved lumbar ROM to be pain free in available range in 2 weeks. Pt will demonstrate improved hip MMT strength by 1/3 grade in 2 weeks. Pt will demonstrate ability to perform PPT with good core control in 2 weeks. Care Home Goals: Pt will demonstrate improved Melissa score by 10% in 4 weeks for improved functional mobility. Pt will demonstrate ability to bend with min to no pain for improved tolerance to dressing his LE in 4 weeks. Pt will demonstrate ability to transfer with min to no pain in 4 weeks for return to PLOF. Treatment Plan: Modalities to reduce pain, spasms and effusion. Manual therapy to restore motion and function. Therapeutic exercise to improve strength and flexibility. Neuromuscular re-education for posture and balance. Therapeutic activities to return to functional activities of daily living. Electronically signed by: Luz Boucher, PT, DPT, ATC Please sign and return to therapist. Thank you for your referral.
--- NOTE | 2023-02-09 14:25 | MHC.PT.DC ---
[facility] [place] Office [place] Office [place] Office [address] [phone] F: [phone] F: [phone] F: [phone] F: [phone] Physical Therapy Discharge Report Diagnosis: low back pain Date of Surgery: n/a Date of Evaluation: 10/21/22 Date of Discharge: 02/09/23 Treatments to Date: 18 Cancellations to Date: 3 No Shows to Date: 0 Discharge Status: Independent with HEP Discharge Summary: At last visit pt had been placed on 30 day hold. Pt has not called to be scheduled in >30 days and therefore to be d/c at this time. Electronically signed by: Luz Boucher, PT, DPT, ATC Please sign and return to therapist. Thank you for your referral.
== END 2023-02-09 14:26 | disposition home or self-care (01) ==
LOC: HO.PTCHIC 08:00
PROVIDERS: PCP Internal Medicine; Visit Provider Internal Medicine
DX: M54.50 Low back pain, unspecified (principal)
CPT/HCPCS: 97014; 97110; 97140; 97161

== ENCOUNTER 2023-01-07 08:06 | Outpatient (REF) | payer MEDICARE, MEDICAID, SELFPAY ==
[2023-01-07 11:50] LABS: Alanine Aminotransferase 44 U/L (0-40); Albumin Level 4.3 g/dL (3.5-5.0); Alkaline Phosphatase 52 U/L (39-117); Anion Gap 11 (12-20); Aspartate Amino Transferase 26 U/L (5-37); Bilirubin Total 0.4 mg/dL (0.0-1.0); Blood Urea Nitrogen 11 mg/dL (9-16); Calcium 9.3 mg/dL (8.4-10.2); Carbon Dioxide 25 mmol/L (22-29); Chloride 106 mmol/L (96-108); Estimated Glomerular Filt Rate > 60; Glucose Random 100 mg/dL (60-115); Potassium 4.2 mmol/L (3.3-5.1); Sodium 138 mmol/L (135-145); Total Protein 7.3 g/dL (6.5-8.0)
[2023-01-07 12:14] LABS: Lithium 0.75 mmol/L (0.60-1.20)
== END 2023-01-07 08:07 | disposition home or self-care (01) ==
LOC: HO.HMGCLDS 08:06
PROVIDERS: Visit Provider Psychiatry & Neurology Psychiatry
DX: Z79.899 Other long term (current) drug therapy (principal)
CPT/HCPCS: 36415; 80053; 80178

== ENCOUNTER 2023-01-31 09:31 | Outpatient (REF) | payer MEDICARE, MEDICAID, SELFPAY ==
--- NOTE | ~2023-01-31 | XR_ITS ---
EXAMINATION: XR THORACIC SPINE CLINICAL INFORMATION: Pain. COMPARISON: None available. TECHNIQUE: Frontal, lateral and swimmer's views of the thoracic spine were obtained. FINDINGS: There is no fracture or bone destruction seen and the vertebral alignment is normal. There is no disc space narrowing. There is no abnormality of the paraspinal soft tissues. XR/XR lumbar spine 2-3V IMPRESSION: Unremarkable examination. EXAMINATION: XR LUMBOSACRAL SPINE CLINICAL INFORMATION: Pain. COMPARISON: None available. TECHNIQUE: AP and lateral views of the lumbar spine and lateral view of the lumbosacral junction. FINDINGS: There is mild bony demineralization. There is a minimal lumbar levoscoliosis. The lumbar disc spaces are well-maintained. No acute fracture or spondylolisthesis is seen. There are small Schmorl's nodes of the T12 and L1 lower endplate. There is moderate anterior spondylosis of the L4 and L5 upper endplates. The posterior elements are intact. The paravertebral soft tissues are unremarkable. IMPRESSION: 1. No acute fracture or spondylolisthesis is seen. 2. There is a minimal lumbar levoscoliosis. 3. There is moderate anterior spondylosis of the L4 and L5 upper endplates.
--- NOTE | ~2023-01-31 | XR_ITS ---
EXAMINATION: XR THORACIC SPINE CLINICAL INFORMATION: Pain. COMPARISON: None available. TECHNIQUE: Frontal, lateral and swimmer's views of the thoracic spine were obtained. FINDINGS: There is no fracture or bone destruction seen and the vertebral alignment is normal. There is no disc space narrowing. There is no abnormality of the paraspinal soft tissues. XR/XR thoracic spine 3V IMPRESSION: Unremarkable examination. EXAMINATION: XR LUMBOSACRAL SPINE CLINICAL INFORMATION: Pain. COMPARISON: None available. TECHNIQUE: AP and lateral views of the lumbar spine and lateral view of the lumbosacral junction. FINDINGS: There is mild bony demineralization. There is a minimal lumbar levoscoliosis. The lumbar disc spaces are well-maintained. No acute fracture or spondylolisthesis is seen. There are small Schmorl's nodes of the T12 and L1 lower endplate. There is moderate anterior spondylosis of the L4 and L5 upper endplates. The posterior elements are intact. The paravertebral soft tissues are unremarkable. IMPRESSION: 1. No acute fracture or spondylolisthesis is seen. 2. There is a minimal lumbar levoscoliosis. 3. There is moderate anterior spondylosis of the L4 and L5 upper endplates.
== END 2023-01-31 09:32 | disposition home or self-care (01) ==
LOC: HO.HMGCX 09:31
PROVIDERS: PCP Internal Medicine; Visit Provider Chiropractor
DX: M54.6 Pain in thoracic spine (principal)
CPT/HCPCS: 72072; 72100

== ENCOUNTER 2023-02-26 09:37 | Outpatient (REF) | payer MEDICARE, MEDICAID, SELFPAY | END 2023-02-26 09:38 | disposition home or self-care (01) | LOC: HO.HMGCX 09:37 | PROVIDERS: PCP Internal Medicine; Visit Provider Internal Medicine | DX: R05.9 Cough, unspecified (principal); J34.2 Deviated nasal septum | CPT/HCPCS: 70220; 71046 ==

== ENCOUNTER 2023-03-15 11:21 | Outpatient (AMB) | payer MEDICARE, MEDICAID, SELFPAY ==
--- NOTE | 2023-03-15 11:29 | MHC.OFFVIS ---
Intake Vital Signs 03/15/23 11:30 Height 5 ft 8 in Weight 210 lb BMI 31.9 Intake Visit Reasons: OV - right hip pain Intake Note: Wang is a 63 year old male who presents today for a evaluation of his right hip pain. Patient reports his right hip is doing okay today. He states he would to know a diagnosis for what he has. Allergies No Known Allergies [No Known Allergies*] Allergy (Verified 03/15/23 11:29) HPI OV - right hip pain HPI Details 63-year-old male who presents in the office today for a follow up of right hip pain. The patient reports his right hip is doing okay. He would like to discuss his diagnosis. The patient had a right hip arthrogram on 12/14/2022. 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 No ecchymosis, erythema, or edema. Limitation with internal rotation. Full external rotation. No tenderness to palpation over the greater trochanteric bursa. 4/5 strength with resisted hip flexion, knee extension, abduction, and abduction. 5/5 strength with contralateral side. Able to perform straight leg raise with weakness and low back pain. NVI. Assessment & Plan Assessment & Plan (1) Osteoarthritis of right hip: Code(s): M16.11 - Unilateral primary osteoarthritis, right hip Qualifiers: Osteoarthritis type: unspecified Qualified Code(s): M16.11 - Unilateral primary osteoarthritis, right hip Plan Mr. Cross is a 63-year-old male who presents in the office today for a follow up of right hip pain. The patient reports his right hip is doing okay. He would like to discuss his diagnosis. The patient had a right hip arthrogram on 12/14/2022. In regard to the right hip he reports no groin pain at this time. He will contact the office should his symptoms return. He is currently being follow by [facility] for lower back spondylosis. He is currently scheduled for cortisone injection in the lower spine for his symptoms. He states his pain radiates from the back primarily to the right knee and ankle. Follow up will be PRN, or sooner if needed. X-rays of the right hip obtained while in the office today and reviewed by me, Pricila Bland PA-C, revealed no acute fracture or dislocation. Revealed regeneration of osteoarthritis. Patient Instructions: Scribed for Pricila Bland PA-C by Mame Kumar neuropsychology medical consultant, on 03/15/2023 at 11:26 am, EST. Coding Level of Care Code Est Pt Level 3 (05359) Diagnoses Osteoarthritis of right hip, unspecified osteoarthritis type M16.11 Osteoarthritis type: unspecified
[2023-03-15 11:30] VITALS: BMI 31.9
== END 2023-03-15 11:59 | disposition home or self-care (01) ==
PROVIDERS: PCP Internal Medicine; Visit Provider Physician Assistant
DX: M16.11 Unilateral primary osteoarthritis, right hip (principal)
CPT/HCPCS: 99213

== ENCOUNTER 2023-03-15 17:22 | Outpatient (REF) | payer MEDICARE, SELFPAY ==
--- NOTE | ~2023-03-15 | XR_ITS ---
EXAMINATION: XR HIP, RIGHT CLINICAL INFORMATION: Pain in unspecified hip. COMPARISON: Lumbar spine 01/31/2023. Right hip 10/20/2021. TECHNIQUE: Two views of the right hip. FINDINGS: Alignment is anatomic. Moderate degenerative changes in the right hip with joint space narrowing and hypertrophic change. Redemonstration of calcifications and ossicles/fragmentation along the right superior labrum. Redemonstration of previously noted bump along the superior aspect of the femoral neck, possibly related to impingement syndrome. Subchondral sclerosis in the right femoral head with possible subchondral lucencies. Degenerative changes in the imaged lower lumbar spine and bilateral sacroiliac joints. Mild degenerative changes on AP view of the left hip. XR/XR hip RT w [id number] IMPRESSION: Moderate degenerative changes in the right hip, as detailed above. Additional imaging with CT scan or MRI should be considered for better visualization as these modalities are much more sensitive for detection of fracture or other underlying pathology.
== END 2023-03-15 17:23 | disposition home or self-care (01) ==
LOC: HO.HOSX 17:22
PROVIDERS: Visit Provider Physician Assistant
DX: M16.11 Unilateral primary osteoarthritis, right hip (principal)
CPT/HCPCS: 73502; 99212

== ENCOUNTER 2023-04-08 12:32 | Outpatient (REF) | payer MEDICARE, SELFPAY ==
--- NOTE | ~2023-04-08 | MM_ITS ---
EXAMINATION: BONE DENSITOMETRY CLINICAL INDICATION: Osteopenia. COMPARISON: This is the patient's baseline examination. TECHNIQUE: Using a [employer] DXA System (software version: 13.1) manufactured by [employer], dual-energy x-ray absorptiometry was performed of the lumbar spine and left hip. The images are of good technical quality. Summary results are attached. FINDINGS: LEFT FEMUR, NECK: BMD 0.972 g/cm2, Z-score -0.1, T-score -0.8, normal. LEFT FEMUR, TOTAL: BMD 1.044 g/cm2, Z-score -0.2, T-score -0.4, normal. AP SPINE L1-L4: BMD 1.231 g/cm2, Z-score 0.0, T-score 0.1, normal. IDENTIFIED RISK FACTORS: Alcohol (3 or more units per day). HISTORY OF FRACTURE: None listed. MEDICATIONS: None listed. MM/XR DEXA axial skeleton IMPRESSION: 1. DIAGNOSIS: Normal bone density based on the lowest T-score value of -0.8 in the femoral neck applying World Health Organization criteria. 2. 10-YEAR FRACTURE RISK PREDICTION, FRAX: According to the guidelines, FRAX calculation should only be performed on patients in the osteopenia bone density category. Therefore, FRAX was not performed on this patient. 3. Treatment Recommendations: NOF guidelines recommend consideration for treatment in postmenopausal women and men age 50 and older presenting with the following: -A hip or vertebral (clinical or morphometric) fracture. -T-score less than or equal to -2.5 at the femoral neck or spine after appropriate evaluation to exclude secondary causes. -Low bone mass at the hip or spine and a 10-year fracture probability by FRAX of greater than or equal to 3% for hip fracture or greater than or equal to 20% for major osteoporotic fracture based on the [place] adapted WHO algorithm. 4. Other Recommendations: All treatment decisions require clinical judgment and consideration of individual patient factors, including patient preferences, comorbidities, previous drug use, risk factors not captured in the FRAX model (e.g. frailty, falls, vitamin D deficiency, increased bone turnover, interval significant decline in bone density) and possible under or overestimation of fracture risk by FRAX. FUTURE SCAN RECOMMENDATION: People with diagnosed cases of osteoporosis or at high risk for fracture should have regular bone mineral density tests. For patients eligible for Medicare, routine testing is allowed once every 2 years. The testing frequency can be increased to one year for patients who have rapidly progressing disease, those who are receiving or discontinuing medical therapy to restore bone mass, or have additional risk factors.
== END 2023-04-08 12:33 | disposition home or self-care (01) ==
LOC: HO.MAMMO 12:32
PROVIDERS: PCP Internal Medicine; Visit Provider Internal Medicine
DX: Z13.820 Encounter for screening for osteoporosis (principal); M85.88 Other specified disorders of bone density and structure, other site
CPT/HCPCS: 77080

== ENCOUNTER 2023-04-16 09:03 | Outpatient (REF) | payer MEDICARE, SELFPAY ==
[2023-04-16 11:02] LABS: MANUAL DIFF FLAG NO
[2023-04-16 11:04] LABS: Basophils Percent Auto 0.5 % (0-2); Eosinophils Absolute Auto 0.2 X10*3/uL (0.0-0.4); Eosinophils Percent Auto 2.6 % (0-4); Hemoglobin 14.9 g/dl (14.0-18.0); Imm Gran Abs Auto 0.02 X10*3/uL (0.00-0.03); Imm Gran Pct Auto 0.3 % (0.0-0.4); Lymphocytes Absolute Auto 1.4 X10*3/uL (1.2-4.9); Lymphocytes Percent Auto 21.1 % (20-40); Mean Corpuscular HGB Conc 33.1 g/dl (31.0-36.0); Mean Corpuscular Hemoglobin 32.2 pg (27.0-33.0); Mean Corpuscular Volume 97.2 fL (80.0-98.0); Mean Platelet Volume 8.9 fL (9.4-12.4); Monocytes Absolute Auto 0.7 X10*3/uL (0.1-1.2); Monocytes Percent Auto 10.4 % (2-11); Neutrophils Absolute Auto 4.2 x10*3/uL (2.0-8.3); Neutrophils Percent Auto 65.1 % (45-73); Platelet Count 229 X10*3/uL (160-400); Red Blood Count 4.63 X10*6/uL (4.60-5.80); Red Cell Distribution Width 13.6 % (11.0-16.0); White Blood Count 6.5 X10*3/uL (4.8-10.8)
[2023-04-16 11:38] LABS: Lithium 0.47 mmol/L (0.60-1.20)
[2023-04-16 11:53] LABS: Alanine Aminotransferase 24 U/L (0-40); Albumin Level 4.4 g/dL (3.5-5.0); Alkaline Phosphatase 55 U/L (39-117); Anion Gap 11 (12-20); Aspartate Amino Transferase 15 U/L (5-37); Bilirubin Total 0.6 mg/dL (0.0-1.0); Blood Urea Nitrogen 7 mg/dL (9-16); Calcium 9.5 mg/dL (8.4-10.2); Carbon Dioxide 29 mmol/L (22-29); Chloride 106 mmol/L (96-108); Estimated Glomerular Filt Rate > 60; Glucose Random 79 mg/dL (60-115); Potassium 4.2 mmol/L (3.3-5.1); Sodium 142 mmol/L (135-145); Total Protein 7.4 g/dL (6.5-8.0)
[2023-04-16 12:08] LABS: Thyroid Stimulating Hormone 0.75 uIU/mL (0.32-4.0)
== END 2023-04-16 09:04 | disposition home or self-care (01) ==
LOC: HO.HMGCLDS 09:03
PROVIDERS: Visit Provider Psychiatry & Neurology Psychiatry
DX: Z79.899 Other long term (current) drug therapy (principal)
CPT/HCPCS: 36415; 80053; 80178; 84443; 85025

== ENCOUNTER 2023-05-09 17:01 | Outpatient (REF) | payer MEDICARE, SELFPAY ==
--- NOTE | ~2023-05-09 | MR_ITS ---
EXAMINATION: MR LUMBAR SPINE WITHOUT CONTRAST CLINICAL INFORMATION: Back pain. COMPARISON: X-ray lumbar spine dated 01/31/2023. TECHNIQUE: Multiplanar, multisequence imaging was obtained. FINDINGS: VERTEBRAL BODIES AND PARASPINAL STRUCTURES: There is a rightward curvature at the thoracolumbar junction and a leftward curvature of the lower lumbar spine. No compression fractures are seen. There are endplate Schmorl's nodes with reduced intradiscal signal and mild disc space narrowing at the lower thoracic levels. Additional right anterolateral marrow edema noted in the T12 and L1 vertebral bodies. At the L4-L5 level on the right side, there is qfor-tj-gudosxoj endplate edema posterolaterally with endplate Schmorl's node formation. Mild posterior subluxation also noted at the L4-L5 level. The paraspinal soft tissues are normal. The imaged bony pelvis is unremarkable. CONUS MEDULLARIS AND CAUDA EQUINA: The distal cord, conus tip, and cauda equina nerve roots are normal. SPINAL LEVELS: L1-L2: Mild disc bulge and retrosubluxation. No central canal stenosis or foraminal narrowing. L2-L3: Mild disc bulge and facet arthropathy without central canal stenosis or foraminal encroachment. Small endplate Schmorl's nodes. L3-L4: Mild generalized disc bulge. No central canal stenosis. Mild right foraminal narrowing. L4-L5: Posterior subluxation with kqcy-mq-mutldfra facet arthropathy and a broad-based disc bulge. Shallow left subarticular zone disc protrusion as well. Disc mildly impresses upon the L5 nerve roots in the subarticular zones. Bacm-og-qxvvgwya central canal stenosis and foraminal narrowing. Right posterolateral endplate edema as well. L5-S1: Severe right-sided facet arthropathy encroaching upon the right subarticular zone. No visible nerve root impingement. Minimal disc bulge. Mild right foraminal narrowing. MR/MR lumbar spine wo con IMPRESSION: 1. Scoliotic curvature of the thoracolumbar spine with heav-zp-goetkndn spondylitic changes. No compression fractures. 2. Tiut-cc-evjbdwxv central canal stenosis and shallow left subarticular zone disc protrusion at the L4-L5 level with mild impression upon the L5 nerve roots. Ohkz-jb-lndczsod right lateral endplate edema as well. 3. Severe right-sided facet arthropathy at the L5-S1 level.
== END 2023-05-09 17:02 | disposition home or self-care (01) ==
LOC: HO.MRI 17:01
PROVIDERS: PCP Internal Medicine; Visit Provider Physical Medicine & Rehabilitation
DX: M48.061 Spinal stenosis, lumbar region without neurogenic claudication (principal); G54.9 Nerve root and plexus disorder, unspecified
CPT/HCPCS: 72148

== ENCOUNTER 2023-06-17 07:47 | Outpatient (REF) | payer MEDICARE, SELFPAY ==
[2023-06-17 11:34] LABS: MANUAL DIFF FLAG NO
[2023-06-17 12:05] LABS: Basophils Percent Auto 0.7 % (0-2); Eosinophils Absolute Auto 0.1 X10*3/uL (0.0-0.4); Eosinophils Percent Auto 2.1 % (0-4); Hematocrit 44.8 % (42.0-52.0); Hemoglobin 14.9 g/dl (14.0-18.0); Imm Gran Abs Auto 0.01 X10*3/uL (0.00-0.03); Imm Gran Pct Auto 0.2 % (0.0-0.4); Lymphocytes Absolute Auto 1.1 X10*3/uL (1.2-4.9); Lymphocytes Percent Auto 18.9 % (20-40); Mean Corpuscular HGB Conc 33.3 g/dl (31.0-36.0); Mean Corpuscular Hemoglobin 32.8 pg (27.0-33.0); Mean Corpuscular Volume 98.7 fL (80.0-98.0); Mean Platelet Volume 8.8 fL (9.4-12.4); Monocytes Absolute Auto 0.5 X10*3/uL (0.1-1.2); Monocytes Percent Auto 9.6 % (2-11); Neutrophils Absolute Auto 3.9 x10*3/uL (2.0-8.3); Neutrophils Percent Auto 68.5 % (45-73); Platelet Count 263 X10*3/uL (160-400); Red Blood Count 4.54 X10*6/uL (4.60-5.80); Red Cell Distribution Width 13.2 % (11.0-16.0); White Blood Count 5.7 X10*3/uL (4.8-10.8)
[2023-06-17 12:18] LABS: Lithium 0.74 mmol/L (0.60-1.20)
[2023-06-17 12:35] LABS: Alanine Aminotransferase 18 U/L (0-40); Albumin Level 4.3 g/dL (3.5-5.0); Alkaline Phosphatase 61 U/L (39-117); Anion Gap 11 (12-20); Aspartate Amino Transferase 15 U/L (5-37); Bilirubin Total 0.5 mg/dL (0.0-1.0); Blood Urea Nitrogen 7 mg/dL (9-16); Calcium 9.4 mg/dL (8.4-10.2); Carbon Dioxide 26 mmol/L (22-29); Chloride 107 mmol/L (96-108); Estimated Glomerular Filt Rate > 60; Glucose Random 95 mg/dL (60-115); Potassium 4.2 mmol/L (3.3-5.1); Sodium 140 mmol/L (135-145); Total Protein 7.4 g/dL (6.5-8.0)
[2023-06-17 12:36] LABS: Thyroid Stimulating Hormone 0.65 uIU/mL (0.32-4.0)
== END 2023-06-17 07:48 | disposition home or self-care (01) ==
LOC: HO.HMGCLDS 07:47
PROVIDERS: PCP Internal Medicine; Visit Provider Psychiatry & Neurology Psychiatry
DX: Z79.899 Other long term (current) drug therapy (principal)
CPT/HCPCS: 36415; 80053; 80178; 84443; 85025

== ENCOUNTER 2023-08-09 07:40 | Outpatient (REF) | payer MEDICARE, SELFPAY ==
--- NOTE | ~2023-08-09 | FL_ITS ---
EXAMINATION: XR FLUOROSCOPY UPPER GI WITH AIR CLINICAL INFORMATION: Dysphagia. Reflux COMPARISON: None TECHNIQUE: Fluoroscopic air contrast upper GI examination was performed utilizing standard techniques with thin and thick barium and effervescent granules. Numerous spot images were obtained. FINDINGS: Lateral cine images of the oropharynx and hypopharynx demonstrate normal swallow mechanism with normal epiglottic inversion and soft palate elevation. No tracheal penetration, glottic or subglottic aspiration identified. No nasopharyngeal reflux present. Hypopharyngeal structures appear normal without evidence of mass or diverticulum. There is moderate cricopharyngeal achalasia present. Dual and single contrast images of the esophagus demonstrate normal caliber, contour, and mucosal pattern. No evidence of stricture, mass, or ulcerations identified. Esophageal peristalsis is mildly disorganized. No evidence of hiatus hernia identified. Significant gastroesophageal reflux is seen up to the thoracic inlet. Dual contrast and single contrast images of the stomach demonstrated a normal contour. There are multiple tiny areas of contrast pooling in the fundus and body the stomach that may represent small superficial apthous ulcers. No masses are present. Contrast freely passed into the gastric antrum and duodenal bulb without delay. Single and air-contrast images of the duodenal bulb demonstrate no abnormality. The duodenal sweep has a normal appearance, course, and mucosal fold appearance. The imaged proximal jejunum has a normal fold pattern and caliber. FLUOROSCOPY TIME: 3 minutes 48 seconds Number of Spot Images: 16 Number of Cine: 10 DOSE AREA PRODUCT: 2823 uGy-m2 (microgray-meter squared) FL/FL barium swallow with air IMPRESSION: 1. Moderate cricopharyngeal achalasia 2. Mildly disorganized esophageal peristalsis 3. Severe gastroesophageal reflux 4. Stable tiny areas of contrast pooling in the fundus and body the stomach that may represents small superficial aphthous ulcers. Recommend correlation with EGD This procedure was performed by Mehdi Gabriel PA-C, and supervised by Dr. Romero
== END 2023-08-09 07:41 | disposition home or self-care (01) ==
LOC: HO.XRAY 07:40
PROVIDERS: PCP Internal Medicine; Visit Provider Otolaryngology
DX: R13.10 Dysphagia, unspecified (principal)
CPT/HCPCS: 74221

== ENCOUNTER → 2023-08-09 07:42 | Outpatient (BNV) | payer MEDICARE, SELFPAY | PROVIDERS: PCP Internal Medicine; Visit Provider Physician Assistant Surgical | DX: R13.10 Dysphagia, unspecified (principal); K21.9 Gastro-esophageal reflux disease without esophagitis | CPT/HCPCS: 74221 ==

== ENCOUNTER 2023-10-10 09:08 | Outpatient (REF) | payer MEDICARE, SELFPAY ==
[2023-10-10 10:34] LABS: Hematocrit 45.2 % (42.0-52.0); Hemoglobin 15.2 g/dl (14.0-18.0); Mean Corpuscular HGB Conc 33.6 g/dl (31.0-36.0); Mean Corpuscular Hemoglobin 33.1 pg (27.0-33.0); Mean Corpuscular Volume 98.5 fL (80.0-98.0); Mean Platelet Volume 8.6 fL (9.4-12.4); Platelet Count 237 X10*3/uL (160-400); Red Blood Count 4.59 X10*6/uL (4.60-5.80); Red Cell Distribution Width 13.6 % (11.0-16.0); White Blood Count 5.4 X10*3/uL (4.8-10.8)
[2023-10-10 10:54] LABS: Lithium 0.59 mmol/L (0.60-1.20)
[2023-10-10 10:58] LABS: Alanine Aminotransferase 26 U/L (0-40); Albumin Level 4.4 g/dL (3.5-5.0); Alkaline Phosphatase 62 U/L (39-117); Anion Gap 12 (12-20); Aspartate Amino Transferase 20 U/L (5-37); Bilirubin Total 0.5 mg/dL (0.0-1.0); Blood Urea Nitrogen 9 mg/dL (9-16); Calcium 9.3 mg/dL (8.4-10.2); Carbon Dioxide 26 mmol/L (22-29); Chloride 105 mmol/L (96-108); Estimated Glomerular Filt Rate > 60; Glucose Random 114 mg/dL (60-115); Potassium 4.2 mmol/L (3.3-5.1); Sodium 139 mmol/L (135-145); Total Protein 7.4 g/dL (6.5-8.0)
[2023-10-10 11:16] LABS: Free T4 (Free Thyroxine) 0.96 ng/dL (0.71-1.85); Thyroid Stimulating Hormone 1.01 uIU/mL (0.32-4.0)
== END 2023-10-10 09:09 | disposition home or self-care (01) ==
LOC: HO.HMGCLDS 09:08
PROVIDERS: PCP Internal Medicine; Visit Provider Psychiatry & Neurology Psychiatry
DX: Z79.899 Other long term (current) drug therapy (principal)
CPT/HCPCS: 36415; 80053; 80178; 84439; 84443; 85027

== ENCOUNTER 2023-12-14 14:40 | Outpatient (REF) | payer MEDICARE, SELFPAY ==
--- NOTE | ~2023-12-14 | XR_ITS ---
EXAMINATION: XR KNEE, RIGHT CLINICAL INFORMATION: Pain in the right knee. Evaluate for osteoarthritis. COMPARISON: None available. TECHNIQUE: Four views of the right knee. FINDINGS: No fracture or joint effusion. Alignment is anatomic. Joint spaces are maintained. No abnormal soft tissue calcification. XR/XR knee RT 4V IMPRESSION: Unremarkable right knee radiographs.
--- NOTE | ~2023-12-14 | XR_ITS ---
EXAMINATION: XR KNEE, LEFT CLINICAL INFORMATION: Left knee pain. Rule out osteoarthritis. COMPARISON: None available. TECHNIQUE: Four views of the left knee. FINDINGS: No fracture or joint effusion. Alignment is anatomic. Joint spaces are maintained. No abnormal soft tissue calcification. XR/XR knee LT 4V IMPRESSION: Unremarkable left knee radiographs.
[2023-12-14 16:21] LABS: C Reactive Protein < 0.10 mg/dL (< or = 0.50)
[2023-12-14 16:25] LABS: Rheumatoid Factor < 13.0 IU/mL (<15.0)
[2023-12-14 17:36] LABS: Erythrocyte Sedimentation Rate 2 MM/HR (0-15)
[2023-12-19 14:13] LABS: Anti Nuclear Antibody Screen NEGATIVE (NEGATIVE)
== END 2023-12-14 14:41 | disposition home or self-care (01) ==
LOC: HO.XRAY 14:40
PROVIDERS: PCP Internal Medicine; Visit Provider Internal Medicine
DX: M25.561 Pain in right knee (principal); M25.562 Pain in left knee; M25.50 Pain in unspecified joint
CPT/HCPCS: 36415; 73564; 82550; 85652; 86038; 86140; 86431

== ENCOUNTER 2024-01-06 10:11 | Outpatient (REF) | payer MEDICARE, SELFPAY ==
[2024-01-06 13:16] LABS: MANUAL DIFF FLAG NO
[2024-01-06 13:41] LABS: Basophils Percent Auto 0.4 % (0-2); Eosinophils Absolute Auto 0.1 X10*3/uL (0.0-0.4); Eosinophils Percent Auto 0.8 % (0-4); Hematocrit 41.8 % (42.0-52.0); Hemoglobin 14.2 g/dl (14.0-18.0); Imm Gran Abs Auto 0.03 X10*3/uL (0.00-0.03); Imm Gran Pct Auto 0.4 % (0.0-0.4); Lymphocytes Absolute Auto 1.3 X10*3/uL (1.2-4.9); Lymphocytes Percent Auto 18.7 % (20-40); Mean Corpuscular Hemoglobin 32.8 pg (27.0-33.0); Mean Corpuscular Volume 96.5 fL (80.0-98.0); Mean Platelet Volume 9.4 fL (9.4-12.4); Monocytes Absolute Auto 0.7 X10*3/uL (0.1-1.2); Monocytes Percent Auto 9.9 % (2-11); Neutrophils Percent Auto 69.8 % (45-73); Platelet Count 235 X10*3/uL (160-400); Red Blood Count 4.33 X10*6/uL (4.60-5.80); Red Cell Distribution Width 12.8 % (11.0-16.0); White Blood Count 7.1 X10*3/uL (4.8-10.8)
[2024-01-06 14:13] LABS: Lithium 0.61 mmol/L (0.60-1.20)
[2024-01-06 14:19] LABS: Alanine Aminotransferase 28 U/L (0-40); Albumin Level 4.4 g/dL (3.5-5.0); Alkaline Phosphatase 60 U/L (39-117); Anion Gap 10 (12-20); Aspartate Amino Transferase 19 U/L (5-37); Bilirubin Total 0.4 mg/dL (0.0-1.0); Blood Urea Nitrogen 9 mg/dL (9-16); Calcium 9.4 mg/dL (8.4-10.2); Carbon Dioxide 26 mmol/L (22-29); Chloride 108 mmol/L (96-108); Estimated Glomerular Filt Rate > 60; Glucose Random 90 mg/dL (60-115); Potassium 4.1 mmol/L (3.3-5.1); Sodium 140 mmol/L (135-145); Thyroid Stimulating Hormone 0.76 uIU/mL (0.32-4.0); Total Protein 7.2 g/dL (6.5-8.0)
== END 2024-01-06 10:12 | disposition home or self-care (01) ==
LOC: HO.HMGCLDS 10:11
PROVIDERS: PCP Internal Medicine; Visit Provider Psychiatry & Neurology Psychiatry
DX: Z79.899 Other long term (current) drug therapy (principal)
CPT/HCPCS: 36415; 80053; 80178; 84443; 85025

== ENCOUNTER 2024-04-06 09:42 | Outpatient (AMB) | payer MEDICARE, SELFPAY ==
--- NOTE | 2024-04-06 09:52 | A.OFFVIS_ITS ---
Intake Visit Reasons: OV - right hip OA, last Arthrogram 12/14/21 Intake Note: Wang is a 63 year old male who presents today for a follow up for his right hip OA, last Arthrogram 12/14/21. Patient reports his last injection gave him relief, however he is starting to get a burning sensation that is causing him a lot of pain. He mentions that his pain is moving down to his knee and to his ankle. Patient also mentions that since he's been adjusting his walk his left knee is causing him some discomfort. Allergies No Known Allergies [No Known Allergies*] Allergy (Verified 04/06/24 10:03) HPI HPI OV - right hip OA, last Arthrogram 12/14/21: Details: 64-year-old male who presents in the office today for a follow-up of right hip pain. I last saw the patient in the office on 03/15/23, when he reported on groin pain at that time and was advised to contact the office should his symptoms return. The patient mentioned he was following up with [facility] for lower back spondylosis. The patient had a right hip arthrogram on 12/14/2022. While in the office today, the patient reports his last injection gave him relief; however, he has been experiencing a burning sensation that is causing him severe pain. He mentions having groin pain that radiates to the anterior right thigh and down to his right ankle. He also mentions discomfort in his left knee due to his adjusted ambulation because of hip pain. The patient would like to have a repeat injection in the right hip. Of note, the patient did report that he had PRP injection in the lower back roughly 2 months ago, with mild benefit. 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 No ecchymosis, erythema, or edema. Full hip ROM in all planes. Reports mild right sided lower back pain with resisted hip flexion. Reports groin pain with internal and external rotation. No tenderness to palpation over the greater trochanteric bursa. 5/5 strength with resisted hip flexion, knee extension, abduction, and abduction. Able to perform straight leg raise. NVI. Assessment & Plan Assessment & Plan (1) Osteoarthritis of right hip: Code(s): M16.11 - Unilateral primary osteoarthritis, right hip Category: Medical Qualifiers: Osteoarthritis type: unspecified Qualified Code(s): M16.11 - Unilateral primary osteoarthritis, right hip Plan Mr. Cross is a 64-year-old male who presents in the office today for a follow-up of right hip pain. I last saw the patient in the office on 03/15/23, when he reported on groin pain at that time and was advised to contact the office should his symptoms return. The patient mentioned he was following up with [facility] for lower back spondylosis. The patient had a right hip arthrogram on 12/14/2022. While in the office today, the patient reports his last injection gave him relief; however, he has been experiencing a burning sensation that is causing him severe pain. He mentions having groin pain that radiates to the anterior right thigh and down to his right ankle. He also mentions discomfort in his left knee due to his adjusted ambulation because of hip pain. The patient would like to have a repeat injection in the right hip. Of note, the patient did report that he had PRP injection in the lower back roughly 2 months ago, with mild benefit. I have placed an order for repeat injection under x-ray guidance. Should the injection not be helpful in reducing his pain, then the next step would be a referral to Dr. Leonard for further evaluation and treatment on his lower back. Follow-up will be PRN, or sooner if needed. X-rays of the right hip, which were obtained while in the office today and were reviewed by me, Pricila Bland PA-C, revealed: Redemonstration of the right hip osteoarthritis. No acute fracture or dislocation. Orders: Orders FL arthrogram hip RT 04/06/24 M16.0 - Bilateral primary osteoarthritis of hip XR hip RT min 2V 04/06/24 M25.559 - Pain in unspecified hip Patient Instructions: Scribed by Heide Ferris faculty i on call medical assistant, for Pricila Bland PA-C on 04/06/24 at 10:10 am EST. Coding Level of Care Code Est Pt Level 3 (34160) Diagnoses Osteoarthritis of right hip, unspecified osteoarthritis type M16.11 Osteoarthritis type: unspecified
== END 2024-04-06 10:13 | disposition home or self-care (01) ==
PROVIDERS: PCP Internal Medicine; Visit Provider Physician Assistant
DX: M16.11 Unilateral primary osteoarthritis, right hip (principal)
CPT/HCPCS: 99213

== ENCOUNTER 2024-04-06 12:45 | Outpatient (REF) | payer MEDICARE, SELFPAY | END 2024-04-06 12:46 | disposition home or self-care (01) | LOC: HO.HOSX 12:45 | PROVIDERS: Visit Provider Physician Assistant | DX: M25.551 Pain in right hip (principal); M16.11 Unilateral primary osteoarthritis, right hip | CPT/HCPCS: 73502; 99212 ==

== ENCOUNTER 2024-04-13 07:58 | Day surgery (SDC) | payer MEDICARE, SELFPAY ==
[2024-04-11 14:36] VITALS: BMI 30.9
--- NOTE | 2024-04-12 09:15 | P.CONAN_ITS ---
Documented by User: Suzette Christie NP 04/12/24 09:16 HPI - Anesthesia Eval Consult details Narrative: 64yo M for Upper Endoscopy and Colonoscopy PMFSH Active Problems Active Problems: All Active Problems Osteoarthritis of right hip (Acute) Past Medical History Medical History (Updated 04/11/24 @ 14:31 by Gloria Tinoco RN) Afib IBS (irritable bowel syndrome) Asthma Depression Bipolar 1 disorder ADHD Surgical History Surgical History (Updated 04/11/24 @ 14:31 by Gloria Tinoco RN) H/O colonoscopy Social History Social History Patient Tobacco Use Status: Never used Tobacco Have you been hit, kicked, punched, or otherwise hurt by someone within the past year? 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 Meds Allergies Allergy/AdvReac Type Severity Reaction Status Date / Time No Known Allergies Allergy Verified 04/06/24 10:03 [No Known Allergies*] Home Medications ?Medication ?Instructions ?Recorded ?Confirmed ?Last Taken ?Type gabapentin 800 mg tablet 800 mg PO QID 12/01/21 04/11/24 04/12/24 History lamotrigine 100 mg tablet 150 mg PO BEDTIME 12/01/21 04/11/24 04/12/24 History lithium carbonate 300 mg tablet 600 mg PO BEDTIME 12/01/21 04/11/24 04/12/24 History trazodone 100 mg tablet 100 mg PO BEDTIME 12/01/21 04/11/24 04/12/24 History calcium carbonate 500 mg PO DAILY 04/11/24 04/11/24 04/12/24 History fexofenadine 60 mg tablet 60 mg PO BID 04/11/24 04/11/24 04/12/24 History omeprazole 40 mg capsule,delayed 40 mg PO DAILY 04/11/24 04/11/24 04/12/24 History release Exam Height,Weight and Vital Signs: Height 5 ft 8.75 in Weight 94.347 kg Pertinent Lab Results Pertinent Lab Results: Laboratory Tests 01/06/24 10:19 WBC 7.1 Hgb 14.2 Hct 41.8 L Plt Count 235 Sodium 140 Potassium 4.1 Chloride 108 Carbon Dioxide 26 BUN 9 Creatinine 0.87 Assessment and Plan Assessment Anesthesia Assessment: Chart Reviewed Documented by User: Juan Keen MD 04/13/24 08:53 PMFSH Past Medical History Medical History (Updated 04/11/24 @ 14:31 by Gloria Tinoco, SUNNI) Afib IBS (irritable bowel syndrome) Asthma Depression Bipolar 1 disorder ADHD Family History Family history of problems with anesthesia: No Surgical History Surgical History (Updated 04/11/24 @ 14:31 by Gloria Tinoco RN) H/O colonoscopy History of Problems with Anesthesia: No Social History Social History Patient Tobacco Use Status: Never used Tobacco Have you been hit, kicked, punched, or otherwise hurt by someone within the past year? 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 Meds Allergies Allergy/AdvReac Type Severity Reaction Status Date / Time No Known Allergies Allergy Verified 04/06/24 10:03 [No Known Allergies*] Home Medications ?Medication ?Instructions ?Recorded ?Confirmed ?Last Taken ?Type gabapentin 800 mg tablet 800 mg PO QID 12/01/21 04/11/24 04/12/24 History lamotrigine 100 mg tablet 150 mg PO BEDTIME 12/01/21 04/11/24 04/12/24 History lithium carbonate 300 mg tablet 600 mg PO BEDTIME 12/01/21 04/11/24 04/12/24 History trazodone 100 mg tablet 100 mg PO BEDTIME 12/01/21 04/11/24 04/12/24 History calcium carbonate 500 mg PO DAILY 04/11/24 04/11/24 04/12/24 History fexofenadine 60 mg tablet 60 mg PO BID 04/11/24 04/11/24 04/12/24 History omeprazole 40 mg capsule,delayed 40 mg PO DAILY 04/11/24 04/11/24 04/12/24 History release Exam Airway Mallampati Class: II TM Dist: >3cm Neck ROM: Full Assessment and Plan Assessment Anesthesia Assessment: Anesthesia Plan Discussed Final Anesthetic Review Family History of Problems with Anesthesia: No History of Problems with Anesthesia: No NPO: Yes ASA Class: II Final Preanesthetic Review: No Changes in Pt Med Stat, Meds/Allgs Chart Reviewed, Consent Obtained/Reviewed and Anes Risks/Benef Reviewed Patient Risk: Low Procedure Risk: Low Anesthetic Plan Anesthetic Plan: TIVA Disposition: Standard PACU
[2024-04-13 08:07] VITALS: BP 158/79; PULSE 70; RESP 18; TEMP 36.9; O2SAT 97; BMI 31.3
[2024-04-13] MEDS: Lactated Ringers 1,000 ML 100 ML IVCONT (08:21)
--- NOTE | 2024-04-13 10:53 | P.BOP_ITS ---
Brief Operative Note Date of Service: 04/13/24 Pre-op diagnosis: GERD, Screening Post-op diagnosis: other (Hiatal hernia, Polyps) Procedure: EGD with biopsies, Colonoscopy to the cecum with hot snare polypectomy x 2 with placement of 2 resolution clips on the hepatic flexure polypectomy site Surgeon: Toi Garsia MD Anesthesia: MAC Was an Tempering Oven Operator used for this Procedure?: No Estimated blood loss (mL): 2.0 Pathology: other (A. Gastric antrum B. EG Junction at 38cm C. Gastric polyps D. Ascending colon polyp E. Hepatic flexure polyp) Condition: stable Disposition: PACU
[2024-04-13 10:55] VITALS: BP 123/65; PULSE 66; RESP 16; TEMP 36.6; O2SAT 98
[2024-04-13 11:10] VITALS: BP 128/69; PULSE 65; RESP 18; TEMP 36.7; O2SAT 98
[2024-04-13 11:22] VITALS: BP 114/66; PULSE 64; RESP 18; TEMP 36.7; O2SAT 98
--- NOTE | 2024-04-14 01:10 | OP_ITS ---
DATE OF SERVICE: 04/13/2024 SURGEON: Toi Garsia MD INDICATIONS: The patient presents for evaluation of chronic gastroesophageal reflux with associated coughing and colorectal cancer screening. Full consent was obtained from him for this, including risks of bleeding and perforation. PREOPERATIVE DIAGNOSIS: POSTOPERATIVE DIAGNOSIS: PROCEDURE PERFORMED: ESTIMATED BLOOD LOSS: COMPLICATIONS: ANESTHESIA: Medication used monitored anesthesia care. ASSISTANTS: SPECIMENS: PREOPERATIVE DIAGNOSES: Gastroesophageal reflux, coughing, and colorectal cancer screening. POSTOPERATIVE DIAGNOSES: Gastroesophageal reflux, coughing, colorectal cancer screening, hiatal hernia, rule out Adan's esophagus, gastric polyps, mild gastritis, colon polyps, diverticulosis, and internal hemorrhoids. PROCEDURES PERFORMED: Esophagogastroduodenoscopy with biopsy and colonoscopy to the cecum with hot snare polypectomy x 2 and placement of 2 Resolution clips on the polypectomy site at the area of the hepatic flexure. DESCRIPTION OF PROCEDURE: The patient was placed in left lateral decubitus position. The Olympus video gastroscope was passed in the posterior oropharynx and upper esophagus under direct vision. The scope was passed slowly to the distal esophagus. The gastroesophageal junction appeared at 38 cm. This area was notable for some slight irregularity and small, less than 1 cm areas of possible Adan's mucosa. There was no esophagitis, masses, nor other lesions. The scope entered the stomach. There was a small hiatal hernia. The scope was advanced to the pylorus and the duodenum was cannulated to the descending portion. The duodenum including the bulb appeared normal without mass or ulceration. Scope was withdrawn back to stomach. The gastric antrum had some changes of erythema and edema, but no erosions or ulceration. Biopsies were obtained. There was good peristalsis. Scope was retroflexed, visualizing proximal stomach carefully, which appeared normal, without mass or ulceration, other than hyperplastic-appearing gastric polyps. Two of these were biopsied. The scope was straightened and withdrawn back to the esophagus. Biopsies were obtained at the EG junction at 38 cm. Proximal to that, the esophageal mucosa appeared normal. Scope was withdrawn from the patient. He was turned around for the colonoscopy. The digital rectal exam revealed no abnormalities. The [employer] video pediatric colonoscope was entered into the rectum and advanced to the cecum. Advancement to the cecum was difficult and required abdominal pressure and turning him into the supine position. Once in the cecum, I did identify normal-appearing cecal pouch with appendiceal orifice and normal-appearing ileocecal valve. The scope was slowly withdrawn, assessing all mucosal surfaces carefully. Preparation was excellent. In the proximal ascending colon was an approximately 10 to 12 mm polyp, which was removed by hot snare polypectomy recovered by suction. The polypectomy site appeared clean, without any sign of residual polyp nor bleeding. In the region of the hepatic flexure was an approximately 1.5 cm polyp, which was removed in piecemeal fashion and recovered by suction. The polypectomy site ultimately appeared clean, without any sign of residual polyp nor bleeding. Two Resolution clips were applied to the polypectomy site with good deployment and good hemostasis. I did not visualize any other polyps, colitis, nor angiodysplasia. There was a mild amount of sigmoid diverticulosis. In the rectum, scope was retroflexed visualizing internal hemorrhoids, but no other pathology. The rectal mucosa appeared normal. Scope was straightened and withdrawn from the patient. He tolerated both procedures well, was returned to recovery area in stable condition. IMPRESSION: 1. Hiatal hernia, rule out Adan's esophagus. 2. Gastric polyps. 3. Gastritis. 4. Colon polyps. 5. Diverticulosis. 6. Internal hemorrhoids. PLAN: The results of the pathology will be checked. I would recommend a repeat colonoscopy within 2 years for further surveillance. He was advised not to use any aspirin, NSAIDs for 2 weeks. He was advised to continue omeprazole to treat any component of reflux and cough secondary to that. Of note, he has been on cimetidine and I advised him to stop that. I did ask him to speak with Dr. Swartz about a referral for some pulmonary testing in regard to the chronic coughing to see if there might be some underlying asthma or other issue. I will arrange for followup office visit for him. He does have a hiatal hernia and some evidence of reflux, both on the GI series that he had recently and on today's exam, and therefore one could make a potential case to have the hiatal hernia surgically corrected if the coughing persists so as to treat any component of reflux-induced coughing. Prior to that, I would recommend a pH study with a Leone study and an esophageal motility study. However, for the time being, I would recommend he continue his omeprazole and seek a pulmonary consult to rule out any underlying pulmonary cause of coughing such as asthma. This has all been discussed with the patient's as well. Toi Garsia MD RMNorris/MADDIE BAGLEY: 04/13/2024 17:59:29 / [id number] FELIPE
== END 2024-04-13 11:51 | disposition home or self-care (01) ==
PROVIDERS: PCP Internal Medicine; Visit Provider Internal Medicine
PROC: (CPT 45385; principal; 2024-04-13 09:10)
DX: Z12.11 Encounter for screening for malignant neoplasm of colon (principal); Z86.0101 Personal history of adenomatous and serrated colon polyps; D12.2 Benign neoplasm of ascending colon; D12.3 Benign neoplasm of transverse colon; K57.30 Diverticulosis of large intestine without perforation or abscess without bleeding; K64.8 Other hemorrhoids; K58.9 Irritable bowel syndrome, unspecified; K21.9 Gastro-esophageal reflux disease without esophagitis; R05.9 Cough, unspecified; K29.60 Other gastritis without bleeding; K31.7 Polyp of stomach and duodenum; K44.9 Diaphragmatic hernia without obstruction or gangrene; J45.990 Exercise induced bronchospasm; F31.9 Bipolar disorder, unspecified; Z79.899 Other long term (current) drug therapy
CPT/HCPCS: 45385; 43239; 88305; 88313; 88342; J2003; J2405; J2704

== ENCOUNTER 2024-04-30 12:37 | Outpatient (REF) | payer MEDICARE, SELFPAY ==
--- NOTE | ~2024-04-30 | FL_ITS ---
FLUOROSCOPIC RIGHT HIP INTRA-ARTICULAR STEROID INJECTION INDICATIONS: Right hip pain. For steroid injection. PROCEDURE: Risks and benefits and possible complications were discussed with the patient and the consent form was signed. The patient was placed hip on the fluoroscopy table. The right hip was prepped and draped in normal sterile fashion. 1% buffered lidocaine was used for anesthesia. A 22-gauge spinal needle was used to access the hip joint. Intra-articular position of the needle within the hip joint was verified using 3 cc of Omnipaque 300. A total of 5 mL 1% lidocaine and 80 mg Depo-Medrol was then injected into the hip joint. The needle was then removed and a Band-Aid was applied to the injection site. The patient tolerated the procedure well. There were no immediate complications. FL/FL arthrogram hip RT IMPRESSION: Successful fluoroscopic right hip intra-articular steroid injection. The procedure was performed by Mehdi Gabriel PA-C, and directly supervised by Dr. Romero. Electronically signed by: Forrest Romero MD 05/01/2024 02:41 PM [facility]
--- OUTSIDE RECORDS SUMMARY | 2024-05-02 15:28 | XMS_ITS ---
Author Organization [facility] Address [address] [place] [address] Care Team Providers Care Custom Tailor Apprentice Name Role Phone Omero Swartz MD Primary Care Provider Unavaila Toi Moore Unavailable [phone] REASON FOR VISIT needs ov with Dr. Garsia/see update Encounters Encounter Location Date Provider Diagnosis [facility] [address] [place] [address] 04/17/2024 Toi Garsia PLAN OF TREATMENT Next Appt Details Provider Name:Toi Garsia , 08/15/2024 01:20:00 PM, [address], [address], [place], [address],
--- OUTSIDE RECORDS SUMMARY | 2024-05-02 15:28 | XMS_ITS ---
Author Organization [facility] Address [address] [place] [address] Care Team Providers Care Process Project Engineer Name Role Phone Omero Swartz MD Primary Care Provider Unavaila Toi Moore Unavailable [phone] REASON FOR VISIT REFLUX,COUGH,HX OF POLYPS,SCREENING PROBLEMS Problem Type ICD Code Onset Dates Problem Status W/U Status Risk SNOMED Code Notes Problem Diverticulosis of large intestine without perforation or abscess without bleeding (K57.30) Active confirmed Diverticul ar disease of colon (140514839) Problem Gastroesophageal reflux disease (K21.9) Active confirmed Gastroesophagea l reflux disease (565196436) Problem Gastric polyps (K31.7) Active confirmed Benign neoplasm of stomach (27892030) Problem Chronic gastritis (K29.50) Active confirmed Chronic gastrit is (8851128) Encounters Encounter Location Date Provider Diagnosis [facility] Out[place] [address] [place] [phone] 04/13/2024 Toi Garsia Colon cancer screeni ng Z12.11 ; Colon polyps K63.5 ; Diverticulosis of large intestine without perforation or abscess without bleeding K57.30 ; Other hemorrhoids K64.8 ; Gastroesophageal reflux disease K21.9 ; Other specified disease of esophagus K22.89 ; Hiatal hernia K44.9 ; Gastric polyps K31.7 ; Chronic gastritis K29.50 and Chronic cough R05.3 ASSESSMENTS Encounter Date Diagnosis Assessment Notes Treatment Notes Treatment Clinical Notes 04/13/2024 Colon cancer screeni ng (ICD-10 - Z12.11) 04/13/2024 Colon polyps (ICD-10 - K63.5) 04/13/2024 Diverticulosis of la rge intestine without perforation or abscess without bleeding (ICD-10 - K57.30) 04/13/2024 Other hemorrhoids (ICD-10 - K64.8) 04/13/2024 Gastroesophageal ref lux disease (ICD-10 - K21.9) 04/13/2024 Other specified dise ase of esophagus (ICD-10 - K22.89) 04/13/2024 Hiatal hernia (ICD-1 0 - K44.9) 04/13/2024 Gastric polyps (ICD- 10 - K31.7) 04/13/2024 Chronic gastritis (ICD-10 - K29.50) 04/13/2024 Chronic cough (ICD-1 0 - R05.3) PLAN OF TREATMENT Next Appt Details Provider Name:Toi Garsia , 08/15/2024 01:20:00 PM, [address] [place] [address], [address], [place], [address],
--- OUTSIDE RECORDS SUMMARY | 2024-05-02 15:28 | XMS_ITS ---
Author Organization [facility] Address [address] [place] [address] Care Team Providers Care Inbound Ingredient Logistics Specialist Name Role Phone Omero Swartz MD Primary Care Provider Unavaila Toi Moore Unavailable [phone] REASON FOR VISIT scheduled for colon and egd in March Encounters Encounter Location Date Provider Diagnosis [facility] [address] [place] [address] 02/21/2024 Toi Garsia PLAN OF TREATMENT Next Appt Details Provider Name:Toi Garsia , 08/15/2024 01:20:00 PM, [address], [address], [place], [address],
--- OUTSIDE RECORDS SUMMARY | 2024-05-02 15:29 | XMS_ITS | Patient Health Record ---
Author Organization [facility] Address [address] [place] [address] Care Team Providers Care Metallurgical Analyst Name Role Phone Omero Swartz MD Primary Care Provider Toi Henderson Unavailable [phone] ALLERGIES No Known Allergies RESULTS Component Value Reference Range Notes Pathology Reviewed date:04/22/2024 11:02:56 PM Interpretation: Performing Lab:[facility], [address] [place] [id number] Notes/Report: REASON FOR REFERRAL No Information MEDICATIONS Medication SIG (Take, Route, Frequency, Duration) Notes Start Date End Date Status lamoTRIgine 100 MG TAKE 1 & 1/2 TABLETS BY MOUTH EVERY NIGHT Oral as directed Active Omeprazole 40 MG TAKE 1 CAPSULE BY MO UTH EVERY DAY Oral for 90 Active traZODone HCl 100 MG TAKE 1 TABLET BY MO UTH EVERY NIGHT Oral Once a day Acti ve Turlock Carbonate 300 MG TAKE 2 TABLETS BY MOUTH AT BEDTIME Oral as directed Active Tums 500 MG 1 tablet Orally Once a day for 30 day(s) 12/07/2023 Active Jumana 60 MG as directed Orally Active Gabapentin 800 MG TAKE 3 TABLETS BY MO UTH EVERY DAY AT BEDTIME Oral Once a day Active IMMUNIZATIONS Vaccine Route Administration Date Status Comme nts Influenza Unknown 11/01/2018 Refused Influenza Unknown 12/07/2023 Refused SOCIAL HISTORY Sex Assigned At : Social History Observation Description Sex Assigned At Unknown PROBLEMS Problem Type ICD Code Onset Dates Problem Status W/U Status Risk SNOMED Code Notes Problem Gastro-esophageal reflux disease without esophagitis (K21.9) Active confirmed Gastro-esophage al reflux disease without esophagitis (148208363) Problem Encounter for screening for malignant neoplasm of colon (Z12.11) Active confirmed 702895060 Problem History of adenomatous polyp of colon (Z86.010) Active confirmed 831937833 Problem Diverticulosis of large intestine without perforation or abscess without bleeding (K57.30) Active confirmed Diverticul ar disease of colon (722032485) Problem Irritable bowel syndrome with diarrhea (K58.0) Active confirmed 540476188 Problem Gastroesophageal reflux disease (K21.9) Active confirmed Gastroesophagea l reflux disease (180113746) Problem Gastric polyps (K31.7) Active confirmed Benign neoplasm of stomach (51461684) Problem Chronic gastritis (K29.50) Active confirmed Chronic gastrit is (3420213) Problem Cough (R05.9) Active confirmed Cough (4 0531953) VITAL SIGNS Temperature 98.6 degrees Fahrenheit 12/07/2023 Blood pressure diastolic 00 mm Hg 12/07/2023 Height 68.75 in 12/07/2023 Blood pressure systolic 000 mm Hg 12/07/2023 Weight 208 lb 8 oz lbs 12/07/2023 BMI 31.01 kg/m2 12/07/2023 Encounters Encounter Location Date Provider Diagnosis [facility] [place] Outpatient [address] [place] [phone] 04/13/2024 Toi Garsia Colon cancer screeni ng Z12.11 ; Colon polyps K63.5 ; Diverticulosis of large intestine without perforation or abscess without bleeding K57.30 ; Other hemorrhoids K64.8 ; Gastroesophageal reflux disease K21.9 ; Other specified disease of esophagus K22.89 ; Hiatal hernia K44.9 ; Gastric polyps K31.7 ; Chronic gastritis K29.50 and Chronic cough R05.3 [facility] [address] [place] [phone] 12/07/2023 Toi Garsia Cough R05.9 ; Gastro-esophageal reflux disease without esophagitis K21.9 ; History of adenomatous polyp of colon Z86.010 and Encounter for screening for malignant neoplasm of colon Z12.11 [facility] [address] [place] [phone] 11/22/2023 Toi Garsia [facility] [address] [place] [phone] 02/21/2024 Toi Garsia [facility] [address] [place] [phone] 04/17/2024 Toi Garsia ASSESSMENTS Encounter Date Diagnosis Assessment Notes Treatment Notes Treatment Clinical Notes 04/13/2024 Colon cancer screeni ng (ICD-10 - Z12.11) 04/13/2024 Colon polyps (ICD-10 - K63.5) 12/07/2023 Gastro-esophageal reflux disease without esophagitis (ICD-10 - K21.9) 12/07/2023 Cough (ICD-10 - R05.9) Ask Lindsay Swartz about some Pulmonary Function Tests and/or a Pulmonary consultation in regard to the cough 04/13/2024 Diverticulosis of large intestine without perforation or abscess without bleeding (ICD-10 - K57.30) 12/07/2023 History of adenomato us polyp of colon (ICD-10 - Z86.010) 04/13/2024 Other hemorrhoids (ICD-10 - K64.8) 12/07/2023 Encounter for screening for malignant neoplasm of colon (ICD-10 - Z12.11) 04/13/2024 Gastroesophageal reflux disease (ICD-10 - K21.9) 04/13/2024 Other specified disease of esophagus (ICD-10 - K22.89) 04/13/2024 Hiatal hernia (ICD-1 0 - K44.9) 04/13/2024 Gastric polyps (ICD- 10 - K31.7) 04/13/2024 Chronic gastritis (ICD-10 - K29.50) 04/13/2024 Chronic cough (ICD-1 0 - R05.3) PLAN OF TREATMENT Pending Test Test Name Order Date ENDOMYSIAL IGA 06/13/2012 TRANSGLUTAMINASE AB IGA 06/13/2012 TRANSGLUTAMINASE AB IGG 06/13/2012 Future Test Test Name Order Date COLONOSCOPY 06/13/2012 COLONOSCOPY 11/01/2018 UPPER GI ENDOSCOPY 12/07/2023 COLONOSCOPY 12/07/2023 Next Appt Details Provider Name:Toi Garsia , 08/15/2024 01:20:00 PM, [address] [place] [address], [address], [place], [address], Insurance Providers Payer Name Payer Address Payer Phone Subscriber Number Group Number Insured Name Patient Relationship to Insured Coverage Start Date Coverage End Date [facility] [address] [place] [address] [id number] TAYE EATON Self - patient is the insured MEDICAL (GENERAL) HISTORY Medical History History ICD Code Asthma--exercise-induced asthma Bipolar disease Denies [place],DM,CVA,renal disease Colonoscopy in 07/2012-1 small tubular ad enoma removed IBS-neg celiac disease labs 2012 History of atrial fib > 25 yrs ago Colonoscopy 01/2019 with a tubular adenom a removed from the ICV Surgical History Surgery Date(Month/Year)
--- OUTSIDE RECORDS SUMMARY | 2024-05-02 15:29 | XMS_ITS ---
Author Organization [facility] Address [address] [place] [address] Care Team Providers Care Box Spring Maker Name Role Phone Omero Swartz MD Primary Care Provider Delmi Sandoval [phone] Encounters Encounter Location Date Provider Diagnosis [address] [address] 09/12/2023 Delmi Contreras Plan Of Treatment No Information Progress Notes * Wang EATONDOB:1960 (64 yo M)Acc No.[id number]:09/12/2023 Progress Notes Patient:?Wang EATON Provider:?Delmi Contreras DPM :1960???Age:63 Y???Sex:Male Aidan e:09/12/2023 Address:[address] [place] [address] [id number] Pcp:Omero Swartz MD Subjective: * Chief Complaints: * ??? * Medical History:? Objective: * Vitals:? Assessment: Plan: * Treatment: * Images: * The named appointment provid er may or may not be the originator of this progress note, and it is not deemed complete until electronically signed by the appointment provider. Sign off status: Pending * Provider:?Delmi Contreras DPM Date:? Generated for Maya armenta/Ronald/Richardsmitting on:?05/02/2024 03:28 PM EST
--- OUTSIDE RECORDS SUMMARY | 2024-05-02 15:29 | XMS_ITS | Patient Health Record ---
Author Organization [facility] Address [address] [place] [address] Care Team Providers Care Duplicating Machine Servicer Name Role Phone Omero Swartz MD Primary Care Provider Delmi Sandoval Unavailable [phone] Reason For Referral No Information Plan Of Treatment No Information Insurance Providers Payer Name Payer Address Payer Phone Subscriber Number Group Number Insured Name Patient Relationship to Insured Coverage Start Date Coverage End Date [employer] Medicare [id number] [address] [address] [place] [address] [id number] Wang Cross Self - patient is the insured
== END 2024-04-30 12:38 | disposition home or self-care (01) ==
LOC: HO.XRAY 12:37
PROVIDERS: PCP Internal Medicine; Visit Provider Physician Assistant
DX: M16.0 Bilateral primary osteoarthritis of hip (principal)
CPT/HCPCS: 27093; 73525

== ENCOUNTER → 2024-04-30 12:40 | Outpatient (BNV) | payer MEDICARE, SELFPAY | PROVIDERS: PCP Internal Medicine; Visit Provider Physician Assistant Surgical | DX: M25.551 Pain in right hip (principal) | CPT/HCPCS: 20610; 77002 ==

== ENCOUNTER 2024-05-25 06:54 | Outpatient (REF) | payer MEDICARE, SELFPAY ==
--- OUTSIDE RECORDS SUMMARY | 2024-05-25 06:57 | XMS_ITS | Patient Health Record ---
Author Organization [facility] Address [address] [place] [address] Care Team Providers Care Ecclesiastical Worker Name Role Phone Omero Swartz MD Primary Care Provider Toi Henderson Unavailable [phone] ALLERGIES No Known Allergies RESULTS Component Value Reference Range Notes Pathology Reviewed date:04/22/2024 11:02:56 PM Interpretation: Performing Lab:[facility], [address] [place] [phone] Notes/Report: REASON FOR REFERRAL No Information MEDICATIONS [...] NIGHT Oral Once a day Acti ve [place] Carbonate 300 MG TAKE 2 TABLETS BY [...] confirmed Gastro-esophage al reflux disease without esophagitis (724675638) Problem Encounter for screening for malignant neoplasm of colon (Z12.11) Active confirmed 664644331 Problem History of adenomatous polyp of colon (Z86.010) Active confirmed 530566072 Problem Diverticulosis of large intestine without perforation or abscess without bleeding (K57.30) Active confirmed Diverticul ar disease of colon (835673361) Problem Irritable bowel syndrome with diarrhea (K58.0) Active confirmed 902048775 Problem Gastroesophageal reflux disease (K21.9) Active confirmed Gastroesophagea l reflux disease (105994422) Problem Gastric polyps (K31.7) Active confirmed Benign neoplasm of stomach (34507725) Problem Chronic gastritis (K29.50) Active confirmed Chronic gastrit is (5782077) Problem Cough (R05.9) Active confirmed Cough (4 8925721) VITAL SIGNS Temperature 98.6 degrees Fahrenheit 12/07/2023 Blood pressure diastolic 00 mm Hg 12/07/2023 Height 68.75 in 12/07/2023 Blood pressure systolic 000 mm Hg 12/07/2023 Weight 208 lb 8 oz lbs 12/07/2023 BMI 31.01 kg/m2 12/07/2023 Encounters Encounter Location Date Provider Diagnosis [facility] [place] Outpatient [address] [place] [phone] 04/13/2024 Toi Garsia Colon cancer screeni ng Z12.11 ; Colon polyps K63.5 ; Diverticulosis of large intestine without perforation or abscess without bleeding K57.30 ; Other hemorrhoids K64.8 ; Gastroesophageal reflux disease K21.9 ; Other specified disease of esophagus K22.89 ; Hiatal hernia K44.9 ; Gastric polyps K31.7 ; Chronic gastritis K29.50 and Chronic cough R05.3 [facility] [address] [place] [phone] 12/07/2023 Toi Garsia Cough R05.9 ; Gastro-esophageal reflux disease without esophagitis K21.9 ; History of adenomatous polyp of colon Z86.010 and Encounter for screening for malignant neoplasm of colon Z12.11 [facility] [address] [place] [phone] 11/22/2023 Toi Garsia [facility] [address] [place] [phone] 02/21/2024 Toi Garsia [facility] [address] [place] [phone] 04/17/2024 Toi Gasria ASSESSMENTS Encounter Date Diagnosis Assessment Notes Treatment [...] Provider Name:Toi Garsia , 08/15/2024 01:20:00 PM, [address] [place] [address], [address], [place], [address], Insurance Providers Payer Name Payer Address Payer Phone Subscriber Number Group Number Insured Name Patient Relationship to Insured Coverage Start Date Coverage End Date [facility] [address] [place] [id number] TAYE EATON Self - patient is the insured MEDICAL (GENERAL) HISTORY Medical History History ICD Code Asthma--exercise-induced asthma Bipolar disease Denies [place],DM,CVA,renal disease Colonoscopy in 07/2012-1 small tubular ad enoma removed IBS-neg celiac disease labs 2012 History of atrial fib > 25 yrs ago Colonoscopy 01/2019 with a tubular adenom a removed from the [facility] Surgical History Surgery Date(Month/Year)
--- OUTSIDE RECORDS SUMMARY | 2024-05-25 06:57 | XMS_ITS ---
Author Organization [facility] Address [address] [place] [address] Care Team Providers Care Facilities Custodian Name Role Phone Omero Swartz MD Primary Care Provider Unavaila Toi Moore Unavailable [phone] REASON FOR VISIT scheduled for colon and egd in March Encounters Encounter Location Date Provider Diagnosis [facility] [address] [place] [address] 02/21/2024 Toi Garsia PLAN OF TREATMENT Next Appt Details Provider Name:Toi Garsia , 08/15/2024 01:20:00 PM, [address], [address], [place], [address],
--- OUTSIDE RECORDS SUMMARY | 2024-05-25 06:57 | XMS_ITS ---
Author Organization [facility] Address [address] [place] [address] Care Team Providers Care Tool Die Maker Name Role Phone Omero Swartz MD Primary Care Provider Unavaila Toi Moore Unavailable [phone] REASON FOR VISIT REFLUX,COUGH,HX OF POLYPS,SCREENING PROBLEMS Problem Type ICD Code Onset Dates Problem Status W/U Status Risk SNOMED Code Notes Problem Diverticulosis of large intestine without perforation or abscess without bleeding (K57.30) Active confirmed Diverticul ar disease of colon (805550308) Problem Gastroesophageal reflux disease (K21.9) Active confirmed Gastroesophagea l reflux disease (310420831) Problem Gastric polyps (K31.7) Active confirmed Benign neoplasm of stomach (67255566) Problem Chronic gastritis (K29.50) Active confirmed Chronic gastrit is (9482140) Encounters Encounter Location Date Provider Diagnosis [facility] [place] [address] [place] [phone] 04/13/2024 Toi Garsia Colon cancer screeni ng [...] Provider Name:Toi Garsia , 08/15/2024 01:20:00 PM, [address] [place] [address], [address], [place], [address],
--- OUTSIDE RECORDS SUMMARY | 2024-05-25 06:57 | XMS_ITS ---
Author Organization [facility] Address [address] [place] [address] Care Team Providers Care Stained Glass Painter Name Role Phone Omero Swartz MD Primary Care Provider Delmi Sandoval [phone] Encounters Encounter Location Date Provider Diagnosis [address] [address] 09/12/2023 Delmi Contreras Plan Of Treatment No Information Progress Notes * Wang EATONDOB:1960 (64 yo M)Acc No.[id number]:09/12/2023 Progress Notes Patient:?Wang EATON Provider:?Delmi Contreras DPM :1960???Age:63 Y???Sex:Male Aidan e:09/12/2023 Address:[address] [place] [address] [phone] Pcp:Omero Swartz MD Subjective: * Chief Complaints: [...] Contreras DPM Date:? Generated for Maya armenta/Ronald/Richardsmitting on:?05/25/2024 06:57 AM EST
--- OUTSIDE RECORDS SUMMARY | 2024-05-25 06:57 | XMS_ITS | Patient Health Record ---
Author Organization [facility] Address [address] [place] [address] Care Team Providers Care Relocation Manager Name Role Phone Omero Swartz MD Primary Care Provider Delmi Sandoval Unavailable [phone] Reason For Referral No Information Plan Of Treatment No Information Insurance Providers Payer Name Payer Address Payer Phone Subscriber Number Group Number Insured Name Patient Relationship to Insured Coverage Start Date Coverage End Date [employer] Medicare [id number] [address] [address] [place] [address] [id number] Wang Cross Self - patient is the insured
[2024-05-25 10:01] LABS: MANUAL DIFF FLAG NO
[2024-05-25 10:04] LABS: Basophils Percent Auto 0.3 % (0-2); Eosinophils Absolute Auto 0.1 X10*3/uL (0.0-0.4); Eosinophils Percent Auto 1.6 % (0-4); Hematocrit 42.1 % (42.0-52.0); Hemoglobin 13.8 g/dl (14.0-18.0); Imm Gran Abs Auto 0.04 X10*3/uL (0.00-0.03); Imm Gran Pct Auto 0.5 % (0.0-0.4); Lymphocytes Absolute Auto 2.7 X10*3/uL (1.2-4.9); Lymphocytes Percent Auto 30.7 % (20-40); Mean Corpuscular HGB Conc 32.8 g/dl (31.0-36.0); Mean Corpuscular Hemoglobin 32.1 pg (27.0-33.0); Mean Corpuscular Volume 97.9 fL (80.0-98.0); Mean Platelet Volume 9.1 fL (9.4-12.4); Monocytes Absolute Auto 0.9 X10*3/uL (0.1-1.2); Monocytes Percent Auto 10.2 % (2-11); Neutrophils Percent Auto 56.7 % (45-73); Platelet Count 248 X10*3/uL (160-400); Red Cell Distribution Width 13.7 % (11.0-16.0); White Blood Count 8.8 X10*3/uL (4.8-10.8)
[2024-05-25 10:24] LABS: Alanine Aminotransferase 34 U/L (0-40); Albumin Level 4.1 g/dL (3.5-5.0); Alkaline Phosphatase 54 U/L (39-117); Anion Gap 9 (12-20); Aspartate Amino Transferase 21 U/L (5-37); Bilirubin Total 0.3 mg/dL (0.0-1.0); Blood Urea Nitrogen 11 mg/dL (9-16); Calcium 9.1 mg/dL (8.4-10.2); Carbon Dioxide 28 mmol/L (22-29); Chloride 109 mmol/L (96-108); Cholesterol 152 mg/dL (<200); Estimated Glomerular Filt Rate > 60; Glucose Random 86 mg/dL (60-115); HDL Cholesterol 56 mg/dL (>40); LDL Cholesterol Calculated 85 mg/dL (<100); Sodium 142 mmol/L (135-145); Total Protein 6.7 g/dL (6.5-8.0); Triglycerides 56 mg/dL (<150)
[2024-05-25 10:40] LABS: Thyroid Stimulating Hormone 1.28 uIU/mL (0.32-4.0)
[2024-05-25 10:45] LABS: Lithium 0.63 mmol/L (0.60-1.20)
== END 2024-05-25 06:55 | disposition home or self-care (01) ==
LOC: HO.HMGCLDS 06:54
PROVIDERS: PCP Internal Medicine; Visit Provider Psychiatry & Neurology Psychiatry
DX: Z79.899 Other long term (current) drug therapy (principal)
CPT/HCPCS: 36415; 80053; 80061; 80178; 84443; 85025

== ENCOUNTER 2024-06-25 13:16 | Outpatient (REF) | payer MEDICARE, MEDICAID, SELFPAY ==
[2024-06-27 03:58] LABS: Class Alternaria alternata 0; Class Aspergillus fumigatus 0; Class Bermuda Grass 0; Class Birch 0; Class Cat Dander 2; Class Cladosporium herbarum 0; Class Cockroach 0; Class Common Ragweed 0; Class Cottonwood 0; Class Derm. pterony 0; Class Dermatophagoides farinae 0; Class Dog Dander 0/1; Class Elm 0; Class Maple Box Elder 0; Class Mountain Cedar 0; Class Mouse Urine Protein 0; Class Mugwort 0; Class Oak 0; Class Penicillium crysogenum 0; Class Rough Pigweed 0; Class Sheep Sorrel 0; Class Sycamore 0; Class Timothy Grass 0; Class Walnut Tree 0; Class White Ash 0; Class White Mulberry 0; D001 IgE D pteronyssinus <0.10 kU/L; D002 - IgE D farinae <0.10 kU/L; E001 - IgE Cat Dander 2.07 kU/L; E005 - IgE Dog Dander 0.17 kU/L; E072-IgE Mouse Urine <0.10 kU/L; G002 IgE Bermuda Grass <0.10 kU/L; G006 - IgE Timothy Grass <0.10 kU/L; I006-IgE Cockroach, German <0.10 kU/L; Immunoglobulin E 54 kU/L (<OR=114); Immunoglobulin E 57 kU/L (<OR=114); M001 IgE Penicillium chrysogen <0.10 kU/L; M002 - IgE Cladosporium herbar <0.10 kU/L; M003 - IgE Aspergillus fumigat <0.10 kU/L; M006 - IgE Alternaria alternat <0.10 kU/L; T001 IgE Maple/Box Elder <0.10 kU/L; T003 IgE Common Silver Birch <0.10 kU/L; T006 - IgE Cedar, Mountain <0.10 kU/L; T007 - IgE Oak, White <0.10 kU/L; T008 IgE Elm, American <0.10 kU/L; T010 - IgE Walnut <0.10 kU/L; T011 - IgE Maple Leaf Sycamore <0.10 kU/L; T014 - IgE Cottonwood <0.10 kU/L; T015 - IgE Ash, White <0.10 kU/L; T070 - IgE White Mulberry <0.10 kU/L; W001 - IgE Ragweed, Short <0.10 kU/L; W006 - IgE Mugwort <0.10 kU/L; W014 IgE Pigweed, Common <0.10 kU/L; W018 IgE Sheep Sorrel <0.10 kU/L
== END 2024-06-25 13:17 | disposition home or self-care (01) ==
LOC: HO.LAB 13:16
PROVIDERS: PCP Internal Medicine; Referring Provider Internal Medicine; Visit Provider Nurse Practitioner Family
DX: J45.909 Unspecified asthma, uncomplicated (principal); Z91.09 Other allergy status, other than to drugs and biological substances
CPT/HCPCS: 36415; 82785; 86003; 99202

== ENCOUNTER 2024-06-25 13:16 | Outpatient (AMB) | payer MEDICARE, MEDICAID, SELFPAY ==
--- NOTE | 2024-06-25 12:54 | MHC.OFFVIS ---
Vital Signs 06/25/24 13:26 Height 5 ft 8.75 in Weight 212 lb 11.937 oz BMI 31.6 BP 134/80 Blood Pressure Location Lt brachial Position Sitting Pulse 85 Pulse Source Pulse Oximeter Pulse Oximetry (%) 96 Oxygen Delivery Method Room Air Intake Visit Reasons: cough Bouffant Curtain Machine Tender Required: No Technician Submarine Cable Equipment: Technician Submarine Cable Equipment offered & declined Allergies No Known Allergies [No Known Allergies*] Allergy (Verified 06/25/24 13:29) Medication List - Last Reconciled 06/25/24 by Mehnaz Mclaughlin LPN alprazolam 1 mg PO BID PRN atorvastatin 10 mg PO DAILY calcium carbonate 500 mg PO DAILY fexofenadine 60 mg PO BID gabapentin 800 mg PO QID lamotrigine 200 mg PO DAILY lithium carbonate One tablet qam and 2 tablets at bedtime orally bedtime; methylphenidate HCl ER 72 mg PO DAILY omeprazole 40 mg PO DAILY trazodone 100 mg PO BEDTIME HPI HPI cough: Details: Wang is a pleasant 64 year old male, never smoker, with underlying asthma, GERD, allergic rhinitis, eczema and Bipolar. He was referred by GI for pulmonary evaluation for chronic cough. On GI work up hiatal hernia noted and severe reflux noted on prior barium swallow test. He has been on Omeprazole with minimal change in symptoms. He continues to report persistent throat clearing with associated dyspnea, inability to fully inspire and intermittent wheezing. He was dx with asthma as an adult, never requiring intubation. He reports occasional post nasal drip, endorses possible seasonal allergies, no recent allergy testing. Using nurai with suboptimal effect. Two dogs at home. He denies any occupational exposures. He denies any pertinent family history. He was evaluated by ENT for persistent throat clearing with no significant findings. Uses Flonase with no improvement. 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 Review of Systems Const Denies chills, Denies excessive sweating, Denies fever(s), Denies headache(s) and Denies night sweats Eyes Denies dry eyes, Denies irritation and Denies itchy eyes ENT Reports Normal hearing present, Denies headache(s), Denies nasal congestion, Denies nasal discharge and Denies sore throat Card Denies chest pain, Denies chest pain at rest, Denies chest pain with activity, Denies claudication, Denies leg edema, Denies orthopnea and Denies paroxysmal nocturnal dyspnea Resp Denies chest congestion, Denies excessive phlegm production, Denies pain on inspiration, Denies pain with cough and Denies stridor Musc Denies myalgias Neuro Reports Normal hearing present and Denies headache(s) Endo Denies excessive sweating Branden/Lymph Denies lymphadenopathy Aller/Immun Denies itchy eyes and Denies seasonal rhinorrhea Physical Exam Vital Signs: Last Vital Signs Pulse 85 06/25/24 13:26 BP 134/80 06/25/24 13:26 Pulse Ox 96 06/25/24 13:26 Oxygen Delivery Method Room Air 06/25/24 13:26 BMI result Body Mass Index 31.6 Const General: cooperative, healthy appearing, comfortable, no acute distress, well developed and alert Nutritional Appearance: obese Orientation/consciousness: patient oriented x3 Limitations: no limitations HEENT Head: Yes normal to inspection, Yes normocephalic and Yes atraumatic Ears: hearing grossly normal bilaterally and external ears normal Eyes General: appearance normal, both eyes and all related structures Eyelids: Yes eyelids normal Sclerae: sclerae normal EOM: EOMs intact bilaterally Neck Neck: Yes normal visual inspection and Yes no lymphadenopathy Lymphatic: no lymphadenopathy noted Chest Chest palpation & inspection: normal inspection of the chest Resp Other: persistent throat clearing throughout visit Effort & Inspection: normal respiratory effort, able to speak in complete sentences, no audible wheezes, no cough, no stridor, not tachypneic, no tripod positioning and no use of accessory muscles Auscultation: diminished lung sounds Cardio Jugular venous distension: no JVD Rate: regular rate Rhythm: regular rhythm Skin Other: warm, dry General skin exam: no rashes or lesions noted Neuro General: patient oriented x3 Cranial nerves: Yes Normal hearing present Cognition (Neuro): normal cognition Gait exam (Neuro): Normal gait present Extrem General: Yes normal to inspection, Yes capillary refill normal, Yes no clubbing, cyanosis or edema and Yes no pedal edema Psych Appearance: grossly normal and well kempt Speech and movement: Normal speech and movement present and Clear speech present Affect: normal affect Attitude: cooperative Thought process: Normal thought process present Thought content: Normal thought content present Insight: Good insight present (Psych) Judgement: Good judgement present (Psych) Assessment & Plan Assessment & Plan (1) Asthma: Code(s): J45.909 - Unspecified asthma, uncomplicated Category: Medical (2) Environmental allergies: Code(s): Z91.09 - Other allergy status, other than to drugs and biological substances Category: Medical Plan Wang presents for pulmonary evaluation for dyspnea, wheezing and inability to fully inspire which is likely related to uncontrolled asthma. Patient previously prescribed albuterol MDI however not using. Prior PFT noted significant bronchodilator response. Prior CXR unremarkable. Will empirically start on Breo. His most bothersome symptom of throat clearing may be multifactorial with allergic and reflux contribution. Will send for RAST and trial ipratropium nasal spray. Will also send for repeat PFT as prior was from 2006. All questions were answered and patient is in agreement of plan. Will follow up in 6-8 weeks or sooner if needed. Orders: Orders PFT pulmonary function test Today J45.909 - Unspecified asthma, uncomplicated Resp Allergy Profile Region I Today Z91.09 - Other allergy status, other than to drugs and biological substances Immunoglobulin E Today Z91.09 - Other allergy status, other than to drugs and biological substances Medications: New fluticasone furoate-vilanterol 100-25 mcg/dose (Breo Ellipta) 1 inh inhalation DAILY 60 ea 3RF ipratropium bromide administer into each nostril 2 sprays intranasal BID 30 mL 2RF Coding Level of Care Code New Pt Level 4 (99003) Diagnoses Asthma J45.909 Environmental allergies Z91.09
[2024-06-25 13:26] VITALS: BP 134/80; PULSE 85; O2SAT 96; BMI 31.6
== END 2024-06-25 14:12 | disposition home or self-care (01) ==
PROVIDERS: PCP Internal Medicine; Referring Provider Internal Medicine; Visit Provider Nurse Practitioner Family
DX: J45.909 Unspecified asthma, uncomplicated (principal); Z91.09 Other allergy status, other than to drugs and biological substances
CPT/HCPCS: 99204

== ENCOUNTER 2024-08-01 09:49 | Outpatient (REF) | payer MEDICARE, MEDICAID, SELFPAY ==
--- NOTE | 2024-08-01 09:57 | PFT_ITS ---
Flows: FEV1: 89 % of predicted at 2.92 L FVC: 84 % of predicted at 3.56 L FEV1/FVC: 82 % Bronchodilator response: Absent Volumes: Total lung capacity: 77 % of predicted at 5.21 L Residual volume: 77 % of predicted at 1.66 L Slow vital capacity: 76 % of predicted at 3.54 L Expiratory reserve volume: 61 % of predicted at 0.72 L Diffusion capacity: Normal Impression: Mild restrictive ventilatory defect with no bronchodilator response. MTDD
[2024-08-01 10:54] VITALS: PULSE 73
--- OUTSIDE RECORDS SUMMARY | 2024-08-01 10:54 | XMS_ITS | Patient Health Record ---
Author Organization [facility] Address [address] [place] [address] Care Team Providers Care Live Out Nanny Name Role Phone Omero Swartz MD Primary Care Provider Delmi Sandoval Unavailable [phone] Reason For Referral No Information Plan Of Treatment No Information Insurance Providers Payer Name Payer Address Payer Phone Subscriber Number Group Number Insured Name Patient Relationship to Insured Coverage Start Date Coverage End Date [employer] Medicare [id number] [address] [address] [place] [address] [id number] Wang Cross Self - patient is the insured
--- OUTSIDE RECORDS SUMMARY | 2024-08-01 10:54 | XMS_ITS ---
Author Organization [facility] Address [address] [place] [address] Care Team Providers Care Pig Lead Melter Helper Name Role Phone Omero Swartz MD Primary Care Provider Unavaila Toi Moore Unavailable [phone] REASON FOR VISIT scheduled for colon and egd in March Encounters Encounter Location Date Provider Diagnosis [facility] [address] [facility] [address] [place] [address] 02/21/2024 Toi Garsia Plan Of Treatment Next Appt Details Provider Name:Toi Garsia , 08/15/2024 01:20:00 PM, [address], [address], [place], [address], Progress Notes * TAYE EATONDOB:1960 (64 yo M)Acc No.[id number]:02/21/2024 Patient:?TAYE EATON :1960???Age:64 Y???Sex:Male Address:[address], [place], [address] * true * Date:? Generated for Printi geovany/Ronald/eTransmitting on:?08/01/2024 10:54 AM EDT
--- OUTSIDE RECORDS SUMMARY | 2024-08-01 10:54 | XMS_ITS ---
Author Organization [facility] Address [address] [place] [address] Care Team Providers Care Cytologist Name Role Phone Omero Swartz MD Primary Care Provider Briana Toi Moore Unavailable [phone] REASON FOR VISIT needs ov with Dr. Garsia/see update Encounters Encounter Location Date Provider Diagnosis [facility] [address] [place] [address] 04/17/2024 Toi Garsia Plan Of Treatment Next Appt Details Provider Name:Toi Garsia , 08/15/2024 01:20:00 PM, [address], [address], [place], [address], Progress Notes * TAYE EATONDOB:1960 (64 yo M)Acc No.[id number]:04/17/2024 Patient:?TAYE EATON :1960???Age:64 Y???Sex:Male Address:[address], [place], [address] * true * Date:? Generated for Printi geovany/Ronald/eTransmitting on:?08/01/2024 10:54 AM EDT
--- OUTSIDE RECORDS SUMMARY | 2024-08-01 10:55 | XMS_ITS | Patient Health Record ---
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 Roller Operator Name Role Phone Omero Swartz MD Primary Care Provider Briana Toi Moore Unavailable [phone] Allergies No Known Allergies Results Component Value Reference Range Notes Pathology Reviewed date:04/22/2024 11:02:56 PM Interpretation: Performing Lab:[facility], [address] [place] [phone] Notes/Report: Name: Taye Eaton Ag e/Sex: 64/M : 1960 Unit#: [id number] Attend Dr: Toi Garsia MD Re04/13/24 [place] [facility] [place] Disch: SPEC : [id number] RECD : 04/13/24 STATUS: RAHUL NICOLAS NUM: [id number] [facility]OLA: 04/13/24-[address] [facility] [address]: Toi Garsia MD ENTERED: 04/13/24- 34 SP TYPE: Surgical OTHR DR: Omero Swartz MD ORDERED: HE Stain/15 , Gross Micro L4/5, IHC, Special st. 2/3, H. pylori/2, AB/PAS/3 Diagnosis A. Stomach, antrum, biopsy: Reactive gastropathy with background mild chronic inactive inflammation; no Helicobacter organisms seen. B. EG junction, 38 cm, biopsy: - Cardiofundic-type mucosa with moderate chronic inactive inflammation; no intestinal metaplasia seen. - Active esophagitis (maximum eosinophil count 2 per high powered field). C. Stomach, polyp, b iopsy: Fundic gland polyp with background mild chronic inactive inflammation; no Hel icobacter organisms seen. D. Colon, ascending, polypectomy: Fragments of tubular adenoma; negative for high-grade dysplasia or carcinoma. E. Colon, hepatic fl exure, polypectomy: Fragments of tubular adenoma; negative for high-grade dysplasia or carcinoma. Clinical History Pre-Op Dx: Screening , history of polyps, GERD, coughing Post-Op Dx: Hiatal h ernia, reflux, gastritis, colon polyps, diverticulosis and hemorrhoids Microscopic Description A-E. Microscopic sec tions examined. No metaplastic changes are seen, supported by AB/PAS stains (A, B and C); no Helicobacter organisms are seen, supported by H. pylori immunostain (A and C). Material Received A. Gastric antrum bx B. EG junction bx at 38 C. Gastric polyp bx D. Ascending colon polyp E. Hepatic flexure polyp CONTINUED ON NEXT PAGE Name: Taye Eaton e/Sex: 64/M : 1960 Unit#: [id number] Attend Dr: Toi Garsia MD Re04/13/24 Status : [facility] Location: [facility] Disch: SPEC : [id number] RECD : 04/13/24 STATUS: RAHUL NICOLAS NUM: [id number] [facility]A: 04/13/[address] [facility] [address]: Toi Garsia MD ENTERED: 04/13/24 34 SP TYPE: Surgical OTHR DR: Omero Swartz MD ORDERED: HE Stain/15 , Gross Micro L4/5, IHC, Special st. 2/3, H. pylori/2, AB/PAS/3 Gross Description Received in five parts. Part A: Received in formalin labeled ?gastric antrum bx? is a 0.6 cm blake-pink rectangular tissue fragment, sub mitted in toto in a cassette labeled A. Part B: Received in formalin labeled ?EG junction bx at 38? are 6 blake-pink irregular and rectangular tissue f ragments ranging from 0.15-0.25 cm, submitted in toto in a labeled B. Part C: Received in formalin labeled ?gastric polyp bx? are 2 blake-pink irregular tissue fragments each measu ring 0.25 cm, submitted in toto in a cassette labeled C. Part D: Received in formalin labeled ?ascending colon polyp? are several minute to 0.3 cm blake and blake-pink irr egular and rectangular tissue fragments, submitted in toto in a cassette labeled D. Part E: Received in formalin labeled ?hepatic flexure polyp along with blake-yellow mucus are several blake-pink and hyperemic and congested pink-maroon irregular and papular tissue fragments ranging fr om 0.15-0.3 cm, submitted in toto in a cassette labeled E. CEDS Special studies orde red and performed: Immunostain for H. pylori on A and C; AB/PAS stains on A, B and C Copies To: Omero Swartz MD [facility] [address] [place] [address] [place] [address] Toi Garsia MD [facility] [address] [place] [address] Signed (si gnature on file) Bird Brown MD 04/17/24 1524 END OF REPORT Reason For Referral No Information Medications Medication SIG (Take, Route, Frequency, Duration) Notes Start Date End Date Status lamoTRIgine 100 MG TAKE 1 & 1/2 TABLETS BY MOUTH EVERY NIGHT Oral as directed Active Omeprazole 40 MG TAKE 1 CAPSULE BY MO UTH EVERY DAY Oral for 90 Active traZODone HCl 100 MG TAKE 1 TABLET BY MO UTH EVERY NIGHT Oral Once a day Acti ve [place] Carbonate 300 MG TAKE 2 TABLETS BY MOUTH AT BEDTIME Oral as directed Active Tums 500 MG 1 tablet Orally Once a day for 30 day(s) 12/07/2023 Active Jumana 60 MG as directed Orally Active Gabapentin 800 MG TAKE 3 TABLETS BY MO UTH EVERY DAY AT BEDTIME Oral Once a day Active Immunizations Vaccine Route Administration Date Status Comme nts Influenza Unknown 11/01/2018 Refused Influenza Unknown 12/07/2023 Refused Problems Problem Type SNOMED Code ICD Code Onset Dates Problem Status W/U Status Risk Notes Problem Gastro-esophageal reflux disease without esophagitis (771109319) Gastro-esophageal reflux disease without esophagitis (K21.9) Active confirmed Problem 631212675 Encounter for screening for malignant neoplasm of colon (Z12.11) Active confirmed Problem 320791702 History of adenomatous polyp of colon (Z86.010) Active confirmed Problem Diverticular disease of colon (463877755) Diverticulosis of large intestine without perforation or abscess without bleeding (K57.30) Active confirmed Problem 838566705 Irritable bowel syndrome with diarrhea (K58.0) Active confirmed Problem Gastroesophageal reflux disease (506248685) Gastroesophageal reflux disease (K21.9) Active confirmed Problem Benign neoplasm of stomach (34355398) Gastric polyps (K31.7) Active confirmed Problem Chronic gastritis (5473408) Chronic gastritis (K29.50) Active confirmed Problem Cough (83636622) Cough (R05.9) Active confirmed Vital Signs Temperature 98.6 degrees Fahrenheit 12/07/2023 Blood pressure diastolic 00 mm Hg 12/07/2023 Height 68.75 in 12/07/2023 Blood pressure systolic 000 mm Hg 12/07/2023 Weight 208 lb 8 oz lbs 12/07/2023 BMI 31.01 kg/m2 12/07/2023 Encounters Encounter Location Date Provider Diagnosis [facility] [place] [facility] [address] [place] [id number] 04/13/2024 Toi Garsia Colon cancer screeni ng Z12.11 ; Colon polyps K63.5 ; Diverticulosis of large intestine without perforation or abscess without bleeding K57.30 ; Other hemorrhoids K64.8 ; Gastroesophageal reflux disease K21.9 ; Other specified disease of esophagus K22.89 ; Hiatal hernia K44.9 ; Gastric polyps K31.7 ; Chronic gastritis K29.50 and Chronic cough R05.3 [facility] [address] [place] [address] 12/07/2023 Toi Garsia Cough R05.9 ; Gastro-esophageal reflux disease without esophagitis K21.9 ; History of adenomatous polyp of colon Z86.010 and Encounter for screening for malignant neoplasm of colon Z12.11 [facility] [address] [place] [address] 11/22/2023 Toi Garsia [facility] [address] [place] [address] 02/21/2024 Toi Garsia [facility] [address] [place] [phone] 04/17/2024 Toi Garsia Assessments Encounter Date Diagnosis (ICD Code) Assessment Notes Treatment Notes Treatment Clinical Notes Section Notes 04/13/2024 Colon cancer screening (ICD-10 - Z12.11) 04/13/2024 Colon polyps (ICD-10 - K63.5) 12/07/2023 Gastro-esophageal reflux disease without esophagitis (ICD-10 - K21.9) Overall, Taye appears quite well from a clinical standpoint. I did recommend a followup colonoscopy for screening purposes given his history of tubular adenomas and his last colonoscopy being just about 5 years ago. We did review the rationale for that in regard to colon cancer prevention. In regard to his chronic coughing it is hard to say whether this is related to reflux given no symptoms of reflux and no improvement on his PPI. However, the upper GI series did describe significant reflux . I did advise Taye that I am not overly convinced that reflux is contributing to the coughing and throat clearing symptoms, but I did recommend he undergo an upper endoscopy on the same day as the colonoscopy for further evaluation of the possible connection to any reflux. Full consent was obtained from him for both procedures, including risks of bleeding and perforation. The procedures will be done with monitored anesthesia care. In the meantime, I did advise Taye to ask you about some pulmonary function studies and a possible pulmonary consultation for further evaluation of his chronic coughing as well. He does have some underlying history of exercise-induce d asthma and perhaps these current symptoms are an atypical manifestation of some asthma symptoms. Taye was comfortable with this plan. Thank you again for allowing me to participate in Taye's care. I shall continue to keep you advised of his progress. 12/07/2023 Cough (ICD-10 - R05.9) Ask Dr. Swartz about some Pulmonary Function Tests and/or a Pulmonary consultation in regard to the cough Overall, Taye appears quite well from a clinical standpoint. I did recommend a followup colonoscopy for screening purposes given his history of tubular adenomas and his last colonoscopy being just about 5 years ago. We did review the rationale for that in regard to colon cancer prevention. In regard to his chronic coughing it is hard to say whether this is related to reflux given no symptoms of reflux and no improvement on his PPI. However, the upper GI series did describe significant reflux . I did advise Taye that I am not overly convinced that reflux is contributing to the coughing and throat clearing symptoms, but I did recommend he undergo an upper endoscopy on the same day as the colonoscopy for further evaluation of the possible connection to any reflux. Full consent was obtained from him for both procedures, including risks of bleeding and perforation. The procedures will be done with monitored anesthesia care. In the meantime, I did advise Taye to ask you about some pulmonary function studies and a possible pulmonary consultation for further evaluation of his chronic coughing as well. He does have some underlying history of exercise-induce d asthma and perhaps these current symptoms are an atypical manifestation of some asthma symptoms. Taye was comfortable with this plan. Thank you again for allowing me to participate in Taye's care. I shall continue to keep you advised of his progress. 04/13/2024 Diverticulosis of large intestine without perforation or abscess without bleeding (ICD-10 - K57.30) 12/07/2023 History of adenomatous polyp of colon (ICD-10 - Z86.010) Overall, Taye appears quite well from a clinical standpoint. I did recommend a followup colonoscopy for screening purposes given his history of tubular adenomas and his last colonoscopy being just about 5 years ago. We did review the rationale for that in regard to colon cancer prevention. In regard to his chronic coughing it is hard to say whether this is related to reflux given no symptoms of reflux and no improvement on his PPI. However, the upper GI series did describe significant reflux . I did advise Taye that I am not overly convinced that reflux is contributing to the coughing and throat clearing symptoms, but I did recommend he undergo an upper endoscopy on the same day as the colonoscopy for further evaluation of the possible connection to any reflux. Full consent was obtained from him for both procedures, including risks of bleeding and perforation. The procedures will be done with monitored anesthesia care. In the meantime, I did advise Taye to ask you about some pulmonary function studies and a possible pulmonary consultation for further evaluation of his chronic coughing as well. He does have some underlying history of exercise-induce d asthma and perhaps these current symptoms are an atypical manifestation of some asthma symptoms. Taye was comfortable with this plan. Thank you again for allowing me to participate in Taye's care. I shall continue to keep you advised of his progress. 04/13/2024 Other hemorrhoids (ICD-10 - K64.8) 12/07/2023 Encounter for screening for malignant neoplasm of colon (ICD-10 - Z12.11) Overall, Taye appears quite well from a clinical standpoint. I did recommend a followup colonoscopy for screening purposes given his history of tubular adenomas and his last colonoscopy being just about 5 years ago. We did review the rationale for that in regard to colon cancer prevention. In regard to his chronic coughing it is hard to say whether this is related to reflux given no symptoms of reflux and no improvement on his PPI. However, the upper GI series did describe significant reflux . I did advise Taye that I am not overly convinced that reflux is contributing to the coughing and throat clearing symptoms, but I did recommend he undergo an upper endoscopy on the same day as the colonoscopy for further evaluation of the possible connection to any reflux. Full consent was obtained from him for both procedures, including risks of bleeding and perforation. The procedures will be done with monitored anesthesia care. In the meantime, I did advise Taye to ask you about some pulmonary function studies and a possible pulmonary consultation for further evaluation of his chronic coughing as well. He does have some underlying history of exercise-induce d asthma and perhaps these current symptoms are an atypical manifestation of some asthma symptoms. Taye was comfortable with this plan. Thank you again for allowing me to participate in Taye's care. I shall continue to keep you advised of his progress. 04/13/2024 Gastroesophageal reflux disease (ICD-10 - K21.9) 04/13/2024 Other specified disease of esophagus (ICD-10 - K22.89) 04/13/2024 Hiatal hernia (ICD-10 - K44.9) 04/13/2024 Gastric polyps (ICD-10 - K31.7) 04/13/2024 Chronic gastritis (ICD-10 - K29.50) 04/13/2024 Chronic cough (ICD-10 - R05.3) Plan Of Treatment Pending Test Test Name Order Date ENDOMYSIAL IGA 06/13/2012 TRANSGLUTAMINASE AB IGA 06/13/2012 TRANSGLUTAMINASE AB IGG 06/13/2012 Future Test Test Name Order Date COLONOSCOPY 06/13/2012 COLONOSCOPY 11/01/2018 UPPER GI ENDOSCOPY 12/07/2023 COLONOSCOPY 12/07/2023 Next Appt Details Provider Name:Toi Garsia , 08/15/2024 01:20:00 PM, [address], [address], [place], [address], Insurance Providers Payer Name Payer Address Payer Phone Subscriber Number Group Number Insured Name Patient Relationship to Insured Coverage Start Date Coverage End Date [facility] [address] [address] [place] [address] [id number] TAYE EATON Self - patient is the insured Medical (General) History Medical History History ICD Code Asthma--exercise-induced asthma Bipolar disease Denies NC,DM,CVA,renal disease Colonoscopy in 07/2012-1 small tubular ad enoma removed IBS-neg celiac disease labs 2012 History of atrial fib > 25 yrs ago Colonoscopy 01/2019 with a tubular adenom a removed from the ICV Surgical History Surgery Date(Month/Year)
--- OUTSIDE RECORDS SUMMARY | 2024-08-01 10:55 | XMS_ITS ---
Author Organization [facility] Address [address] [place] [address] Care Team Providers Care E Commerce Project Manager Name Role Phone Omero Swartz MD Primary Care Provider Delmi Sandoval [phone] Encounters Encounter Location Date Provider Diagnosis [address] [address] 09/12/2023 Delmi Contreras Plan Of Treatment No Information Progress Notes * Wang EATONDOB:1960 (64 yo M)Acc No.[id number]:09/12/2023 Progress Notes Patient:?Wang EATON Provider:?Delmi Contreras DPM :1960???Age:63 Y???Sex:Male Aidan e:09/12/2023 Address:[address] [place] [address] [phone] Pcp:Omero Swartz MD Subjective: * Chief Complaints: [...] Contreras DPM Date:? Generated for Maya armenta/Ronald/Richardsmitting on:?08/01/2024 10:55 AM EDT
--- OUTSIDE RECORDS SUMMARY | 2024-08-01 10:55 | XMS_ITS ---
Author Organization [facility] Address [address] [place] [address] Care Team Providers Care Traffic Worker Name Role Phone Omero Swartz MD Primary Care Provider Unavaila Toi Moore Unavailable [phone] REASON FOR VISIT REFLUX,COUGH,HX OF POLYPS,SCREENING Problems Problem Type SNOMED Code ICD Code Onset Dates Problem Status W/U Status Risk Notes Problem Diverticular disease of colon (610371023) Diverticulosis of large intestine without perforation or abscess without bleeding (K57.30) Active confirmed Problem Gastroesophageal reflux disease (254364442) Gastroesophageal reflux disease (K21.9) Active confirmed Problem Benign neoplasm of stomach (07644169) Gastric polyps (K31.7) Active confirmed Problem Chronic gastritis (2807112) Chronic gastritis (K29.50) Active confirmed Encounters Encounter Location Date Provider Diagnosis [facility] [place] [facility] [address] [place], [place] [phone] 04/13/2024 Toi Garsia Colon cancer screeni ng [...] cough (ICD-10 - R05.3) Plan Of Treatment Next Appt Details Provider Name:Toi Garsia , 08/15/2024 01:20:00 PM, [address] [facility], [address], [place], [address], Progress Notes * TAYE EATONDOB:1960 (64 yo M)Acc No.[id number]:04/13/2024 EGD and COL/MAC Patient:?TAYE EATON Provider:?Toi Garsia MD :1960???Age:64 Y???Sex:Male Aidan e:04/13/2024 Address:[address] [place] [phone] Pcp:Omero Swartz MD Subjective: * Chief Complaints: * ???1. REFLUX,COUGH,HX OF DARIWN YPS,SCREENING. * Medical History:? Objective: * Vitals:? Assessment: * Assessment: 1.?Colon cancer screening - Z12.11 (Primary)???2.?Colon polyps - K63.5???3.?Diverticulosis of large intestine without perforation or abscess without bleeding - K57.30???4.?Other hemorrhoids - K64.8???5.?Gastroesophageal reflux disease - K21.9???6.?Other specified disease of esophagus - K22.89???7.?Hiatal hernia - K44.9???8.?Gastric polyps - K31.7???9.?Chronic gastritis - K29.50???10.?Chronic cough - R05.3??? Plan: * Treatment: * Procedure Codes:?70490 LESIO N REMOVAL COLONOSCOPY, Modifiers: 99 , 09110 UPPER GI ENDOSCOPY, BIOPSY * * The named appointment provid er may or may not be the originator of this progress note, and it is not deemed complete until electronically signed by the appointment provider. Sign off status: Pending * Provider:?Toi Garsia MD Date:? 024 Generated for Maya armenta/Ronald/Ethanitting on:?08/01/2024 10:54 AM EDT
== END 2024-08-01 09:50 | disposition home or self-care (01) ==
LOC: HO.RESP 09:49
PROVIDERS: PCP Internal Medicine; Visit Provider Nurse Practitioner Family
DX: J45.909 Unspecified asthma, uncomplicated (principal)
CPT/HCPCS: 94010; 94640; 94727; 94729

== ENCOUNTER → 2024-08-01 09:57 | Outpatient (BNV) | payer MEDICARE, MEDICAID, SELFPAY | PROVIDERS: PCP Internal Medicine; Visit Provider Internal Medicine Pulmonary Disease | DX: J45.909 Unspecified asthma, uncomplicated (principal) | CPT/HCPCS: 94060; 94727; 94729 ==

== ENCOUNTER 2024-08-02 11:31 | Outpatient (AMB) | payer MEDICARE, MEDICAID, SELFPAY ==
[2024-08-02 11:32] VITALS: BP 142/82; PULSE 82; RESP 16; TEMP 36.5; O2SAT 99; BMI 31.8
--- NOTE | 2024-08-02 11:32 | A.OFFPC_ITS ---
Vital Signs 08/02/24 11:32 Height 5 ft 8 in Weight 209 lb BMI 31.8 BP 142/82 H Respiration 16 Pulse 82 Pulse Source Pulse Oximeter Temp 97.7 F Temp Source Temporal Artery Scan Pulse Oximetry (%) 99 Oxygen Delivery Method Room Air Intake Visit Reasons: Routine Internet Salesperson Required: No Accompanied by: Self / Same As Patient Allergies No Known Allergies [No Known Allergies*] Allergy (Verified 08/02/24 11:38) Medication List - Last Reconciled 08/03/24 by Madeleine Zambrano MD atorvastatin 10 mg PO DAILY dextroamphetamine-amphetamine 30 mg (Adderall) 40 mg PO BID fluticasone furoate-vilanterol 100-25 mcg/dose (Breo Ellipta) 1 inh inhalation DAILY gabapentin 800 mg PO QID ipratropium bromide 2 sprays intranasal BID lamotrigine 200 mg PO DAILY lamotrigine 200 mg PO DAILY lithium carbonate One tablet qam and 2 tablets at bedtime orally bedtime; pantoprazole Take 2 tab oral twice daily for 2 weeks then take 1 tab oral once daily trazodone 100 mg PO BEDTIME Tobacco use date assessed: 08/02/24 Dental Screening Dental Screen Date: 08/02/24 Did you have a dental visit in the last 12 months?: Yes Did you have a dental problem in the last 6 months where you did not have access to dental care?: No HPI HPI Comments History of Present Illness Details The patient is a 64 year old male with a past medical history of hyperlipidemia, low back pain, polyarthralgia, bipolar disorder, presenting for follow up He has a few concerns today. 1. Frequent front thigh, right knee pain , love and ankle pain. Initially thought to be perhaps due to right hip OA. Has gotten an injection in the hip which has helped the hip but not improved leg symptoms Left leg similar symptoms but less severe Symptoms worsens with laying on the left side Improves with laying on the right side History of low back pain DDD -this has been stable Hasnt tried off statins. ESR negative. Needs lyme 2. Reports 2 weeks ago on vacation pulle d himself up on a pool ladder. Thereafter developed pain under the right scrotum. Worse with laying. 3. Patient reports ongoing throat discom fort, clearing, cough. Had barium swallow ordered by ENT. Says no flex laryngoscopy. 1. Moderate cricopharyngeal achalasia 2. Mildly disorganized esophageal perist alsis 3. Severe gastroesophageal reflux 4. Stable tiny areas of contrast pooling in the fundus and body the stomach that may represents small superficial aphthous ulcers. Recommend correlation with EGD Had EGD/colonoscopy with GI: consistent with gastiritis/inflammation Is on 40mg omeprazole with no improvement 4. Reports pain at the base of the right thumb from the wrist all the way up the thumb. Difficult grasping items, wrist pain Follows with behavoiral health. Stable bipolar. ROS see HPI PHYSICAL EXAM: GENERAL: Alert and oriented x 3. NAD EYES: EOMI. Anicteric. HENT: Moist mucous membranes. No scleral icterus. No cervical lymphadenopathy. LUNGS: Clear to auscultation bilaterally. CARDIOVASCULAR: Regular rate and rhythm. No murmur. No JVD. ABDOMEN: Soft, non-tender +bs EXTREMITIES: No edema. Non-tender. : Normal penis, scrotum. In the right perneum just under the scrotum there is a tender swelling without overlying skin changes SKIN: No rashes or lesions. Warm. NEUROLOGIC: No focal neurological deficits. CN II-XII grossly intact PSYCHIATRIC: Cooperative. 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 1. Little interest or pleasure in doing things: more than half the days 2. Feeling down, depressed, or hopeless: more than half the days 3. Trouble falling or staying asleep, or sleeping too much: more than half the days 4. Feeling tired or having little energy: more than half the days 5. Poor appetite or overeating: not at all 6. Feeling bad about yourself - or that you are a failure or have let yourself or your family down: not at all 7. Trouble concentrating on things, such as reading the newspaper or watching television: not at all 8. Moving or speaking so slowly that other people could have noticed. Or the opposite - being so fidgety or restless that you have been moving around a lot more than usual: not at all 9. Thoughts that you would be better off or of hurting yourself in some way: not at all Total score: 8 Depression Screening Interpretation: Positive Depression Screening Done: Yes 57891 - PHQ-9 Billing: Yes Source: Developed by Drs. Tio Mcgill, Carlota Haines, Angelito Issa and colleagues, with an educational bia from [employer]. Thrive Questionnaire Date Thrive assessed: 08/02/24 I am a: Patient What is your living situation today?: I have a steady place to live Within the past 12 months, did the food you bought not last and you didn't have the money to get more?: Never true Within the past 12 months, did you worry whether your food would run out before you got money to buy more?: Never true Do you have trouble paying for medicines?: No Do you have trouble getting transportation to medical appointments?: No Do you have trouble paying your heating and electricity bill?: No Do you have trouble taking care of your child, family member or friend?: No Do you have trouble with day-to-day activities such as bathing, preparing meals, shopping, managing finances, etc.?: No Are you currently unemployed and looking for a job?: No Are you interested in more education?: No THRIVE Score: 0 AUDIT C Alcohol Use Questionnaire (AUDIT-C) 1. How often do you have a drink containing alcohol?: Never 3. How often do you have six or more drinks on one occasion?: Never Total Score: 0 JO-7 AMB Questionnaire JO-7 Date JO - 7 assessed: 08/02/24 Feeling nervous, anxious, or on edge: 1 = Several days Not being able to stop or control worryin = Several days Worrying too much about different things: 1 = Several days Trouble relaxin = Several days Being so restless that it is hard to sit still: 1 = Several days Becoming easily annoyed or irritable: 1 = Several days Feeling afraid as if something awful might happen: 1 = Several days Total JO-7 score (0-4 normal; 5-9 mild; 10-14 moderate; 15-21 severe): 7 Source: Developed by Drs. Toi Mcgill, Carlota Haines, Angelito Issa and colleagues, with an educational bia from [employer]. Physical exam (Primary Care) Vital Signs: Last Vital Signs Temp 97.7 F 08/02/24 11:32 Pulse 82 08/02/24 11:32 Resp 16 08/02/24 11:32 BP 142/82 H 08/02/24 11:32 Pulse Ox 99 08/02/24 11:32 Oxygen Delivery Method Room Air 08/02/24 11:32 BMI result Body Mass Index 31.8 Tobacco/Smoking Status: Tobacco use Status Tobacco use date assessed 08/02/24 08/02/24 11:45 Patient Tobacco Use Status Never used Tobacco 08/02/24 11:45 PHQ-9: PHQ-9 Score PHQ-9: Total score 8 08/03/24 09:06 Depression Screening Interpretation: Positive Thrive Assessment: Date of Thrive Assessment Date Thrive assessed 08/02/24 08/02/24 11:45 Coding Level of Care Code Est Pt Level 5 (34186) Complex EM visit Add On G2211 Diagnoses Polyarthralgia M25.50 Chronic cough R05.3 Right inguinal pain R10.31 Laterality: right Additional Codes PHQ-9 - 56413 - PHQ-9 Billing: Yes ([id number]) Time Spent (min) 55 Assessment & Plan Assessment & Plan (1) Polyarthralgia: Code(s): M25.50 - Pain in unspecified joint Category: Medical Plan: Trial stop statin Check lyme Possible repeat low back imaging (2) Chronic cough: Code(s): R05.3 - Chronic cough Category: Medical Plan: Return to ENT, consideration of laryngoscopy Switch PPI (3) Groin pain: Code(s): R10.30 - Lower abdominal pain, unspecified Category: Medical Qualifiers: Laterality: right Qualified Code(s): R10.31 - Right lower quadrant pain Plan: No overlying skin changes, there is some swelling possible mass in the right perineal area. Prostate exam with tenderness. Will get u/s, UA Urology referral Orders: Orders Lyme IgG/IgM w/reflex to WB 08/02/24 M25.50 - Pain in unspecified joint, M65.4 - Radial styloid tenosynovitis [de Quervain] Referrals Ear/Nose/Throat Referral R05.3 - Chronic cough, R49.0 - Dysphonia Medications: New pantoprazole Take 2 tab oral twice daily for 2 weeks then take 1 tab oral once daily 180 tabs 3RF
--- OUTSIDE RECORDS SUMMARY | 2024-08-02 14:54 | XMS_ITS ---
Author Organization [facility] Address [address] [place] [address] Care Team Providers Care Loan Interviewer Mortgage Name Role Phone Omero Swartz MD Primary Care Provider Unavaila Toi Moore Unavailable [phone] REASON FOR VISIT scheduled for colon and egd in March Encounters Encounter Location Date Provider Diagnosis [facility] [address] [place] [address] 02/21/2024 Toi Garsia Plan Of Treatment Next Appt Details Provider Name:Toi Garsia , 08/15/2024 01:20:00 PM, [address], [address], [place], [address], Progress Notes * TAYE EATONDOB:1960 (64 yo M)Acc No.[id number]:02/21/2024 Patient:?TAYE EATON :1960???Age:64 Y???Sex:Male Address:[address], [place], [address] * true * Date:? Generated for Sienai geovany/Ronald/eTransmitting on:?08/02/2024 02:54 PM EDT
--- OUTSIDE RECORDS SUMMARY | 2024-08-02 14:54 | XMS_ITS ---
Author Organization [facility] Address [address] [place] [address] Care Team Providers Care Division Supervisor Name Role Phone Omero Swartz MD Primary Care Provider Briana Toi Moore Unavailable [phone] REASON FOR VISIT needs ov with Dr. Garsia/see update Encounters Encounter Location Date Provider Diagnosis [facility] [address] [place] [address] 04/17/2024 Toi Garsia Plan Of Treatment Next Appt Details Provider Name:Toi Garsia , 08/15/2024 01:20:00 PM, [address], [address], [place], [address], Progress Notes * TAYE EATONDOB:1960 (64 yo M)Acc No.[id number]:04/17/2024 Patient:?TAYE EATON :1960???Age:64 Y???Sex:Male Address:[address], [place], [address] * true * Date:? Generated for Printi geovany/Ronald/eTransmitting on:?08/02/2024 02:54 PM EDT
--- OUTSIDE RECORDS SUMMARY | 2024-08-02 14:54 | XMS_ITS | Patient Health Record ---
Author Organization [facility] Address [address] [place] [address] Care Team Providers Care Work Station Support Specialist Name Role Phone Omero Swartz MD Primary Care Provider Delmi Sandoval Unavailable [phone] Reason For Referral No Information Plan Of Treatment No Information Insurance Providers Payer Name Payer Address Payer Phone Subscriber Number Group Number Insured Name Patient Relationship to Insured Coverage Start Date Coverage End Date [employer] Medicare [id number] [address] [address] [place] [address] [id number] Wang Cross Self - patient is the insured
--- OUTSIDE RECORDS SUMMARY | 2024-08-02 14:55 | XMS_ITS ---
Author Organization [facility] Address [address] [place] [address] Care Team Providers Care Geological Engineer Name Role Phone Omero Swartz MD Primary Care Provider Delmi Sandoval [phone] Encounters Encounter Location Date Provider Diagnosis [address] [address] 09/12/2023 Delmi Contreras Plan Of Treatment No Information Progress Notes * Wang EATONDOB:1960 (64 yo M)Acc No.[id number]:09/12/2023 Progress Notes Patient:?Wang EATON Provider:?Delmi Contreras DPM :1960???Age:63 Y???Sex:Male Aidan e:09/12/2023 Address:[address] [place] [address] [id number] Pcp:Omero Swartz MD Subjective: * Chief Complaints: [...] Contreras DPM Date:? Generated for Maya armenta/Ronald/Richardsmitting on:?08/02/2024 02:55 PM EDT
--- OUTSIDE RECORDS SUMMARY | 2024-08-02 14:55 | XMS_ITS ---
Author Organization [facility] Address [address] [place] [address] Care Team Providers Care Clinical Services Consultant Name Role Phone Omero Swartz MD Primary Care Provider Unavaila Toi Moore Unavailable [phone] REASON FOR VISIT REFLUX,COUGH,HX OF POLYPS,SCREENING Problems Problem Type SNOMED Code ICD Code Onset Dates Problem Status W/U Status Risk Notes Problem Diverticular disease of colon (536971866) Diverticulosis of large intestine without perforation or abscess without bleeding (K57.30) Active confirmed Problem Gastroesophageal reflux disease (303823725) Gastroesophageal reflux disease (K21.9) Active confirmed Problem Benign neoplasm of stomach (22341649) Gastric polyps (K31.7) Active confirmed Problem Chronic gastritis (8808467) Chronic gastritis (K29.50) Active confirmed Encounters Encounter Location Date Provider Diagnosis [facility] Outpatient [address] [place], [place] [id number] 04/13/2024 Toi Garsia Colon cancer screeni ng [...] Name:Toi Garsia , 08/15/2024 01:20:00 PM, [address] [facility], [address], [place], [address], Progress Notes * TAYE EATONDOB:1960 (64 yo M)Acc No.[id number]:04/13/2024 EGD and COL/MAC Patient:?TAYE EATON Provider:?Toi Garsia MD :1960???Age:64 Y???Sex:Male Aidan e:04/13/2024 Address:[address] [place] [address] [id number] Pcp:Omero Swartz MD Subjective: * Chief Complaints: * ???1. REFLUX,COUGH,HX OF DARWIN YPS,SCREENING. * Medical History:? Objective: * Vitals:? Assessment: * Assessment: 1.?Colon cancer screening - Z12.11 (Primary)???2.?Colon polyps - K63.5???3.?Diverticulosis of large intestine without perforation or abscess without bleeding - K57.30???4.?Other hemorrhoids - K64.8???5.?Gastroesophageal reflux disease - K21.9???6.?Other specified disease of esophagus - K22.89???7.?Hiatal hernia - K44.9???8.?Gastric polyps - K31.7???9.?Chronic gastritis - K29.50???10.?Chronic cough - R05.3??? Plan: * Treatment: * Procedure Codes:?25786 LESIO N REMOVAL COLONOSCOPY, Modifiers: 28 , 97302 UPPER GI ENDOSCOPY, BIOPSY * * The named appointment provid er may or may not be the originator of this progress note, and it is not deemed complete until electronically signed by the appointment provider. Sign off status: Pending * Provider:?Toi Garsia MD Date:? 024 Generated for Maya armenta/Ronald/Ethanitting on:?08/02/2024 02:54 PM EDT
--- OUTSIDE RECORDS SUMMARY | 2024-08-02 14:55 | XMS_ITS | Patient Health Record ---
Author Organization [facility] Address [address] [place] [address] Care Team Providers Care Yeast Pumper Name Role Phone Omero Swartz MD Primary Care Provider Briana Toi Moore Unavailable [phone] Allergies No Known Allergies Results Component Value Reference Range Notes Pathology Reviewed date:04/22/2024 11:02:56 PM Interpretation: Performing Lab:[facility], [address] [place] [address] Notes/Report: Name: Taye Eaton Ag e/Sex: 64/M : 1960 Unit#: [id number] Attend Dr: Toi Garsia MD Re04/13/24 Status : [facility] Disch: SPEC : [id number] RECD : 04/13/24 STATUS: RAHUL NICOLAS NUM: [id number] [facility]OLA: 04/13/24-[address] [facility] [address]: Toi Garsia MD ENTERED: 04/13/24- [...] Taye Eaton e/Sex: 64/M : 1960 Unit#: [id number] Attend Dr: Toi Garsia MD Re04/13/24 Status : [facility] Location: [facility] Disch: SPEC : [id number] RECD : 04/13/24 STATUS: RAHUL NICOLAS NUM: [id number] HOLA: 04/13/[address] [facility] [address]: Toi Garsia MD ENTERED: 04/13/24 [...] To: Omero Swartz MD [facility] [address] [place] [address] [place] [address] Toi Garsia MD [facility] [address] [place] [address] Signed (si gnature on file) Bird Brown [...] NIGHT Oral Once a day Acti ve Hull Carbonate 300 MG TAKE 2 TABLETS BY [...] Notes Problem Gastro-esophageal reflux disease without esophagitis (201743973) Gastro-esophageal reflux disease without esophagitis (K21.9) Active confirmed Problem 670166253 Encounter for screening for malignant neoplasm of colon (Z12.11) Active confirmed Problem 930174742 History of adenomatous polyp of colon (Z86.010) Active confirmed Problem Diverticular disease of colon (231514633) Diverticulosis of large intestine without perforation or abscess without bleeding (K57.30) Active confirmed Problem 117174353 Irritable bowel syndrome with diarrhea (K58.0) Active confirmed Problem Gastroesophageal reflux disease (400985626) Gastroesophageal reflux disease (K21.9) Active confirmed Problem Benign neoplasm of stomach (03055266) Gastric polyps (K31.7) Active confirmed Problem Chronic gastritis (1803569) Chronic gastritis (K29.50) Active confirmed Problem Cough (18050814) Cough (R05.9) Active confirmed Vital Signs Temperature 98.6 degrees Fahrenheit 12/07/2023 Blood pressure diastolic 00 mm Hg 12/07/2023 Height 68.75 in 12/07/2023 Blood pressure systolic 000 mm Hg 12/07/2023 Weight 208 lb 8 oz lbs 12/07/2023 BMI 31.01 kg/m2 12/07/2023 Encounters Encounter Location Date Provider Diagnosis [facility] Outpatient [address] [place], [place] [phone] 04/13/2024 Toi Garsia Colon cancer screeni ng Z12.11 ; Colon polyps K63.5 ; Diverticulosis of large intestine without perforation or abscess without bleeding K57.30 ; Other hemorrhoids K64.8 ; Gastroesophageal reflux disease K21.9 ; Other specified disease of esophagus K22.89 ; Hiatal hernia K44.9 ; Gastric polyps K31.7 ; Chronic gastritis K29.50 and Chronic cough R05.3 [facility] [address] [place] [address] 12/07/2023 Toi Garsia Cough R05.9 ; Gastro-esophageal reflux disease without esophagitis K21.9 ; History of adenomatous polyp of colon Z86.010 and Encounter for screening for malignant neoplasm of colon Z12.11 [facility] [address] [place] [address] 11/22/2023 Toi Garsia [facility] [address] [place] [address] 02/21/2024 Toi Garsia [facility] [address] [place] [address] 04/17/2024 Toi Garsia Assessments Encounter Date Diagnosis [...] 01:20:00 PM, [address], [address], [place], [address], Insurance Providers Payer Name Payer Address Payer Phone Subscriber Number Group Number Insured Name Patient Relationship to Insured Coverage Start Date Coverage End Date [facility] [address] [address] [place] [address] [id number] TAYE EATON Self - patient is the insured Medical (General) History Medical History History ICD Code Asthma--exercise-induced asthma Bipolar disease Denies NM,DM,CVA,renal disease Colonoscopy in 07/2012-1 small tubular ad enoma removed IBS-neg celiac disease labs 2012 History of atrial fib > 25 yrs ago Colonoscopy 01/2019 with a tubular adenom a removed from the [facility] Surgical History Surgery Date(Month/Year)
== END 2024-08-02 12:36 | disposition home or self-care (01) ==
LOC: HO.HMCHD 11:31
PROVIDERS: PCP Internal Medicine; Visit Provider Internal Medicine
DX: R05.3 Chronic cough (principal); R10.31 Right lower quadrant pain; M25.50 Pain in unspecified joint

== ENCOUNTER 2024-08-02 12:37 | Outpatient (REF) | payer MEDICARE, MEDICAID, SELFPAY ==
[2024-08-03 13:23] LABS: Lyme Abs Screen <0.90 index
== END 2024-08-02 12:38 | disposition home or self-care (01) ==
LOC: HO.10HDL 12:37
PROVIDERS: Visit Provider Internal Medicine
DX: M65.4 Radial styloid tenosynovitis [de Quervain] (principal); M25.50 Pain in unspecified joint
CPT/HCPCS: 36415; 86617; 86618; 96127; 99212

== ENCOUNTER 2024-08-13 09:56 | Outpatient (AMB) | payer MEDICARE, MEDICAID, SELFPAY ==
[2024-08-13 09:58] VITALS: BP 124/68; PULSE 70; O2SAT 100; BMI 31.5
--- NOTE | 2024-08-13 09:58 | A.OFFVIS_ITS ---
Vital Signs 08/13/24 09:58 Height 5 ft 8 in Weight 207 lb 3.752 oz BMI 31.5 BP 124/68 Blood Pressure Location Lt brachial Position Sitting Pulse 70 Pulse Source Pulse Oximeter Pulse Oximetry (%) 100 Oxygen Delivery Method Room Air Intake Visit Reasons: Cough/PFT Follow Up Poiser Balance Required: No Stitch Burnisher: Stitch Burnisher offered & declined Accompanied by: Self / Same As Patient Allergies atorvastatin Adverse Reaction (Verified 08/13/24 10:07) Muscle Pain Medication List - Last Reconciled 08/13/24 by Mehnaz Mclaughlin LPN atorvastatin 10 mg PO DAILY dextroamphetamine-amphetamine 30 mg (Adderall) 40 mg PO BID fluticasone furoate-vilanterol 100-25 mcg/dose (Breo Ellipta) 1 inh inhalation DAILY gabapentin 800 mg PO QID ipratropium bromide 2 sprays intranasal BID lamotrigine 200 mg PO DAILY lamotrigine 200 mg PO DAILY lithium carbonate One tablet qam and 2 tablets at bedtime orally bedtime; pantoprazole Take 2 tab oral twice daily for 2 weeks then take 1 tab oral once daily trazodone 100 mg PO BEDTIME HPI HPI Cough/PFT Follow Up: Details: Wang is a pleasant 64 year old male, never smoker, with underlying asthma, GERD, allergic rhinitis, eczema and Bipolar disorder. He was initially referred by GI for pulmonary evaluation for chronic cough/persistent throat clearing. Evaluation from GI revealed hiatal hernia and severe reflux noted on prior barium swallow test. Omeprazole provided no change in throat clearing, recently switched to Pantoprazole and continues to note no change. PCP recently referred to ENT, prior ENT evaluation reportedly unremarkable. At the last visit, he was placed on Breo for dyspnea, inability to fully inspire and intermittent wheezing, reporting mild improvement in respiratory symptoms. He denies any visits to urgent care or hospitalizations related to respiratory distress. Today he present to review PFT and RAST. 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 Cognitive needs: No Hearing needs: No Vision needs: Yes (rx glasses) Review of Systems Const Denies chills, Denies excessive sweating, Denies fever(s), Denies headache(s) and Denies night sweats Eyes Denies dry eyes, Denies irritation and Denies itchy eyes ENT Reports Normal hearing present, Denies headache(s), Denies nasal congestion and Denies nasal discharge Card Denies chest pain, Denies chest pain at rest, Denies chest pain with activity, Denies claudication, Denies leg edema, Denies orthopnea and Denies paroxysmal nocturnal dyspnea Resp Denies chest congestion, Denies excessive phlegm production, Denies pain on inspiration, Denies pain with cough and Denies stridor Musc Denies myalgias Neuro Reports Normal hearing present and Denies headache(s) Endo Denies excessive sweating Branden/Lymph Denies lymphadenopathy Aller/Immun Denies itchy eyes and Denies seasonal rhinorrhea Physical Exam Vital Signs: Last Vital Signs Pulse 70 08/13/24 09:58 BP 124/68 08/13/24 09:58 Pulse Ox 100 08/13/24 09:58 Oxygen Delivery Method Room Air 08/13/24 09:58 BMI result Body Mass Index 31.5 Const General: cooperative, healthy appearing, comfortable, no acute distress, well developed and alert Nutritional Appearance: obese Orientation/consciousness: patient oriented x3 Limitations: no limitations HEENT Head: Yes normal to inspection, Yes normocephalic and Yes atraumatic Ears: hearing grossly normal bilaterally and external ears normal Eyes General: appearance normal, both eyes and all related structures Eyelids: Yes eyelids normal Sclerae: sclerae normal EOM: EOMs intact bilaterally Neck Neck: Yes normal visual inspection and Yes no lymphadenopathy Lymphatic: no lymphadenopathy noted Chest Chest palpation & inspection: normal inspection of the chest Resp Other: persistent throat clearing throughout visit Effort & Inspection: normal respiratory effort, able to speak in complete sentences, no audible wheezes, no cough, no stridor, not tachypneic, no tripod positioning and no use of accessory muscles Auscultation: diminished lung sounds Cardio Jugular venous distension: no JVD Rate: regular rate Rhythm: regular rhythm Skin Other: warm, dry General skin exam: no rashes or lesions noted Neuro General: patient oriented x3 Cranial nerves: Yes Normal hearing present Cognition (Neuro): normal cognition Gait exam (Neuro): Normal gait present Extrem General: Yes normal to inspection, Yes capillary refill normal, Yes no clubbing, cyanosis or edema and Yes no pedal edema Psych Appearance: grossly normal and well kempt Speech and movement: Normal speech and movement present and Clear speech present Affect: normal affect Attitude: cooperative Thought process: Normal thought process present Thought content: Normal thought content present Insight: Good insight present (Psych) Judgement: Good judgement present (Psych) Assessment & Plan Assessment & Plan (1) Asthma: Code(s): J45.909 - Unspecified asthma, uncomplicated Category: Medical (2) Environmental allergies: Code(s): Z91.09 - Other allergy status, other than to drugs and biological substances Category: Medical Plan Reviewed PFT which revealed mild restrictive ventilatory defect with no bronchodilator response, except in small to medium airways. Lung volumes slightly decreased, DLCO normal high. Will obtain CXR to further assess restrictive defect. RAST + cat and dog, otherwise unremarkable. He reports some improvements especially at night in regards to dyspnea on Breo, however suboptimal. Will increase to Breo 200 mcg. His most concerning symptoms is persistent throat clearing and PCP recently placed order to ENT for further evaluation and he has upcoming GI appt next week. All questions were answered and patient is in agreement of plan. Will follow up in 3 months or sooner if needed. Orders: Orders XR chest 2V Today R94.2 - Abnormal results of pulmonary function studies Medications: New fluticasone furoate-vilanterol 200-25 mcg/dose (Breo Ellipta) 1 inh inhalation DAILY 60 ea 6RF Coding Level of Care Code Est Pt Level 4 (84550) Diagnoses Asthma J45.909 Environmental allergies Z91.09
== END 2024-08-13 10:23 | disposition home or self-care (01) ==
LOC: HO.HPS 09:57
PROVIDERS: PCP Internal Medicine; Visit Provider Nurse Practitioner Family
DX: J45.909 Unspecified asthma, uncomplicated (principal); Z91.09 Other allergy status, other than to drugs and biological substances
CPT/HCPCS: 99214

== ENCOUNTER → 2024-08-13 09:56 | Outpatient (BNVA) | payer MEDICARE, MEDICAID, SELFPAY | PROVIDERS: PCP Internal Medicine; Visit Provider Nurse Practitioner Family | DX: J45.909 Unspecified asthma, uncomplicated (principal); R94.2 Abnormal results of pulmonary function studies; Z91.09 Other allergy status, other than to drugs and biological substances | CPT/HCPCS: 99212 ==

== ENCOUNTER 2024-08-28 09:23 | Outpatient (REF) | payer MEDICARE, MEDICAID, SELFPAY ==
--- OUTSIDE RECORDS SUMMARY | 2024-08-28 10:30 | XMS_ITS | Patient Health Record ---
[facility] Organization [facility] Address [address] [place] [address] Care Team Providers Care Barge Pilot Name Role Phone Omero Swartz MD Primary Care Provider Delmi Sandoval Unavailable [phone] Reason For Referral No Information Plan Of Treatment No Information Insurance Providers Payer Name Payer Address Payer Phone Subscriber Number Group Number Insured Name Patient Relationship to Insured Coverage Start Date Coverage End Date [employer] Medicare [id number] [address] [address] [place] [address] [id number] Wang Cross Self - patient is the insured
--- OUTSIDE RECORDS SUMMARY | 2024-08-28 10:30 | XMS_ITS ---
Author Organization [facility] Address [address] [place] [address] Care Team Providers Care Senior Oracle Database Administrator Name Role Phone Madeleine Zambrano M.D. Primary Care Provider Unavail Toi Sánchez Unavailable [phone] REASON FOR VISIT needs ov with Dr. Garsia/see update Encounters Encounter Location Date Provider Diagnosis [facility] [address] [place] [address] 04/17/2024 Toi Garsia Plan Of Treatment No Information Progress Notes * TAYE EATONDOB:1960 (64 yo M)Acc No.[id number]:04/17/2024 Patient:?TAYE EATON :1960???Age:64 Y???Sex:Male Address:[address], [place], [address] * true * Date:? Generated for Maya armenta/Ronald/eTransmitting on:?08/28/2024 10:30 AM EDT
--- OUTSIDE RECORDS SUMMARY | 2024-08-28 10:30 | XMS_ITS ---
Author Organization [facility] Address [address] [place] [address] Care Team Providers Care International Marketing Manager Name Role Phone Madeleine Zambrano M.D. Primary Care Provider Unavail Toi Sánchez Unavailable [phone] Allergies No Known Allergies REASON FOR VISIT Patient presents today for gerd Medications Medication SIG (Take, Route, Frequency, Duration) Notes Start Date End Date Status Amphetamine-Dextroamphetami ne 20 MG TAKE 1 TABLET BY MOUTH TWICE A DAY Oral for 30 Days Active Pantoprazole Sodium 40 MG TAKE 2 TAB ORA L TWICE DAILY FOR 2 WEEKS THEN TAKE 1 TAB ORAL ONCE DAILY Oral for 30 Days Active lamoTRIgine 200 MG Oral for 90 Days Active Fluticasone Furoate-Vilanterol 200-25 MCG/ACT Inhalation for 30 Days Activ e Vanderbilt Carbonate ER 300 MG TAKE 3 TABLE TS BY MOUTH EVERY EVENING Oral for 66 Days Active Breo Ellipta 100-25 MCG/ACT Inhalation for 30 Days Active Amphetamine-Dextroamphetami ne 20 MG Oral for 30 Days Active Tums 500 MG 1 tablet Orally Once a day for 30 day(s) 12/07/2023 Active Pantoprazole Sodium 40 MG Oral for 30 Days Active Jumana 60 MG as directed Orally Active Gabapentin 800 MG TAKE 3 TABLETS BY MO UTH EVERY DAY AT BEDTIME Oral Once a day Active traZODone HCl 100 MG TAKE 1 TABLET BY MO UTH EVERY NIGHT Oral Once a day Active Vanderbilt Carbonate 300 MG TAKE 2 TABLETS BY MOUTH AT BEDTIME Oral as directed Active lamoTRIgine 100 MG TAKE 1 & 1/2 TABLETS BY MOUTH EVERY NIGHT Oral as directed Active Vital Signs Temperature 98.7 degrees Fahrenheit 08/16/19 25 Blood pressure systolic 001 mm Hg 08/16/19 25 Blood pressure diastolic 01 mm Hg 025 Height 68.75 in 08/15/2024 Weight 205.8 lbs 08/15/2024 BMI 30.61 kg/m2 08/15/2024 Encounters Encounter Location Date Provider Diagnosis [facility] [address] [place] [address] 08/15/2024 Toi Garsia Colon cancer screening Z12.11 ; Colon polyps K63.5 ; Hiatal hernia K44.9 and Chronic cough R05.3 Assessments Encounter Date Diagnosis (ICD Code) Assessment Notes Treatment Notes Treatment Clinical Notes Section Notes 08/15/2024 Colon cancer screening (ICD-10 - Z12.11) Repeat colonoscopy in 03/2026 Overall, Taye appears well. We did review the colonoscopy findings and I have recommended a follow-up colonoscopy toward the latter part of 2025 as a 2-year follow-up given the relatively large and flat tubular adenoma removed last year. In regard to his chronic coughing and throat clearing I advised her that this does not seem to be related to reflux based on the upper endoscopy findings, his clinical history of no reflux symptoms whatsoever, and his thus far lack of response to PPI therapy. I advised him they could give the pantoprazole another month or 2 trial but if it does not work for the coughing and throat clearing he should then stop it as he has no other symptoms of actual acid reflux. I did advise him to speak with you about a possible sleep study to rule out sleep apnea as a contributing factor to his chronic throat clearing and coughing. He also advised me that he does have the second ENT opinion and I advised him to try to call there for a sooner appointment if they have any cancellations. I will otherwise see Taye in the interim as needed. Taye was comfortable with this plan. Thank you again for allowing me to participate in Taye's care. I shall continue to keep you advised of his progress as needed. Please do not hesitate to contact me if I can be of any further assistance in the future. 08/15/2024 Colon polyps (ICD-10 - K63.5) Overall, Taye appears well. We did review the colonoscopy findings and I have recommended a follow-up colonoscopy toward the latter part of 2025 as a 2-year follow-up given the relatively large and flat tubular adenoma removed last year. In regard to his chronic coughing and throat clearing I advised her that this does not seem to be related to reflux based on the upper endoscopy findings, his clinical history of no reflux symptoms whatsoever, and his thus far lack of response to PPI therapy. I advised him they could give the pantoprazole another month or 2 trial but if it does not work for the coughing and throat clearing he should then stop it as he has no other symptoms of actual acid reflux. I did advise him to speak with you about a possible sleep study to rule out sleep apnea as a contributing factor to his chronic throat clearing and coughing. He also advised me that he does have the second ENT opinion and I advised him to try to call there for a sooner appointment if they have any cancellations. I will otherwise see Taye in the interim as needed. Taye was comfortable with this plan. Thank you again for allowing me to participate in Taye's care. I shall continue to keep you advised of his progress as needed. Please do not hesitate to contact me if I can be of any further assistance in the future. 08/15/2024 Hiatal hernia (ICD-10 - K44.9) Overall, Taye appears well. We did review the colonoscopy findings and I have recommended a follow-up colonoscopy toward the latter part of 2025 as a 2-year follow-up given the relatively large and flat tubular adenoma removed last year. In regard to his chronic coughing and throat clearing I advised her that this does not seem to be related to reflux based on the upper endoscopy findings, his clinical history of no reflux symptoms whatsoever, and his thus far lack of response to PPI therapy. I advised him they could give the pantoprazole another month or 2 trial but if it does not work for the coughing and throat clearing he should then stop it as he has no other symptoms of actual acid reflux. I did advise him to speak with you about a possible sleep study to rule out sleep apnea as a contributing factor to his chronic throat clearing and coughing. He also advised me that he does have the second ENT opinion and I advised him to try to call there for a sooner appointment if they have any cancellations. I will otherwise see Taye in the interim as needed. Taye was comfortable with this plan. Thank you again for allowing me to participate in Taye's care. I shall continue to keep you advised of his progress as needed. Please do not hesitate to contact me if I can be of any further assistance in the future. 08/15/2024 Chronic cough (ICD-10 - R05.3) Ask your PCP about a sleep study in regard to the coughing. See another ENT MD for an opinion regarding the cough as well. Stop Pantoprazole if no improvement in the cough after a couple of months. Overall, Taye appears well. We did review the colonoscopy findings and I have recommended a follow-up colonoscopy toward the latter part of 2025 as a 2-year follow-up given the relatively large and flat tubular adenoma removed last year. In regard to his chronic coughing and throat clearing I advised her that this does not seem to be related to reflux based on the upper endoscopy findings, his clinical history of no reflux symptoms whatsoever, and his thus far lack of response to PPI therapy. I advised him they could give the pantoprazole another month or 2 trial but if it does not work for the coughing and throat clearing he should then stop it as he has no other symptoms of actual acid reflux. I did advise him to speak with you about a possible sleep study to rule out sleep apnea as a contributing factor to his chronic throat clearing and coughing. He also advised me that he does have the second ENT opinion and I advised him to try to call there for a sooner appointment if they have any cancellations. I will otherwise see Taye in the interim as needed. Taye was comfortable with this plan. Thank you again for allowing me to participate in Taye's care. I shall continue to keep you advised of his progress as needed. Please do not hesitate to contact me if I can be of any further assistance in the future. Plan Of Treatment Treatment Notes Assessment Notes Colon cancer screening Repeat colonoscop y in 03/2026 Chronic cough Ask your PCP about a sleep study in regard to the coughing. See another ENT MD for an opinion regarding the cough as well. Stop Pantoprazole if no improvement in the cough after a couple of months. Progress Notes * TAYE EATONDOB:1960 (64 yo M)Acc No.[id number]:08/15/2024 Progress Notes Patient:?TAYE EATON Provider:?Toi Garsia MD :1960???Age:64 Y???Sex:Male Aidan e:08/15/2024 Address:[address] [place], [place] [address] [id number] Pcp:Madeleine Zambrano M.D. Subjective: * Chief Complaints: * ???1. Patient presents today for gerd. * HPI: ???incontinence:? I saw Taye in follow-up today and go to his chronic throat clearing, history of colon polyps, and question of gastroesophageal reflux. I last saw Taye in March 2024, at which time he underwent a follow-up colonoscopy for screening as well as an upper endoscopy in regard to his chronic throat clearing and possible association with reflux reflux. His upper endoscopy revealed only a small hiatal hernia but no significant esophagitis, Adan's esophagus, nor ulcer disease. There are some mild gastritis but biopsies were negative for H. pylori. Prior to the procedure he had been on a course of omeprazole without any improvement in his throat clearing and coughing. He presently was started on pantoprazole a couple weeks ago but has not yet noticed any improvement in his coughing or throat clearing symptoms. He denies any symptomatic heartburn, dysphagia, nausea, nor vomiting. He denies abdominal pain. He describes that he has been seen by ENT here in [place], but is scheduled for a another opinion later this year in [place]. He was also seen by pulmonary who does not think his coughing and throat clearing are related to his underlying asthma. His colonoscopy revealed 2 tubular adenomas that were removed, including one that was relatively large and somewhat flat. His bowel movements have been regular and without any bleeding. * Medical History:?Asthma--exe rcise-induced asthma, Bipolar disease, Denies AR,DM,CVA,renal disease, Colonoscopy in 07/2012-1 small tubular adenoma removed, IBS-neg celiac disease labs 2012, History of atrial fib > 25 yrs ago, Colonoscopy 01/2019 with a tubular adenoma removed from the ICV, Colonoscopy in March 2024 revealed 2 tubular adenomas that were removed, including a relatively large and flat polyp in the area of the hepatic flexure, Upper endoscopy in March 2024 revealed a small hiatal hernia and some mild gastritis, but no evidence of any esophagitis, Adan's esophagus, nor H. pylori.. * Family History:?Father: dece ased.?Mother: , diagnosed with Heart disease.? Denies family hx. of colorectal cancer, celiac disease, IBD. Father from liver cancer. * Social History:?Tobacco Use:?Tobacco Use/Smoking?Are you a: nonsmoker.?Drugs/Alcohol:?Alcohol Screen?Points: 0, Interpretation: Negative.?Miscellaneous:?Marital status: . 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 ???Nonsmoker; no alcohol. * Medications:?Taking Jumana 60 MG Capsule as directed Orally , Taking Gabapentin 800 MG Tablet TAKE 3 TABLETS BY MOUTH EVERY DAY AT BEDTIME Oral Once a day , Taking traZODone HCl 100 MG Tablet TAKE 1 TABLET BY MOUTH EVERY NIGHT Oral Once a day , Taking Vanderbilt Carbonate 300 MG Tablet TAKE 2 TABLETS BY MOUTH AT BEDTIME Oral as directed , Taking lamoTRIgine 100 MG Tablet TAKE 1 & 1/2 TABLETS BY MOUTH EVERY NIGHT Oral as directed , Taking Tums 500 MG Tablet Chewable 1 tablet Orally Once a day , Taking Pantoprazole Sodium 40 MG Tablet Delayed Release Oral , Taking Vanderbilt Carbonate ER 300 MG Tablet Extended Release TAKE 3 TABLETS BY MOUTH EVERY EVENING Oral , Taking Breo Ellipta 100-25 MCG/ACT Aerosol Powder Breath Activated Inhalation , Taking Amphetamine-Dextroamphetamine 20 MG Tablet Oral , Taking Amphetamine-Dextroamphetamine 20 MG Tablet TAKE 1 TABLET BY MOUTH TWICE A DAY Oral , Taking Pantoprazole Sodium 40 MG Tablet Delayed Release TAKE 2 TAB ORAL TWICE DAILY FOR 2 WEEKS THEN TAKE 1 TAB ORAL ONCE DAILY Oral , Taking lamoTRIgine 200 MG Tablet Oral , Taking Fluticasone Furoate-Vilanterol 200-25 MCG/ACT Aerosol Powder Breath Activated Inhalation , Discontinued Omeprazole 40 MG Capsule Delayed Release TAKE 1 CAPSULE BY MOUTH EVERY DAY Oral , Medication List reviewed and reconciled with the patient * Allergies:?N.K.D.A. Objective: * Vitals:?Wt:205.8lbs, Ht: 68. 75 in, BMI:30.61Index, BP:001/01mm Hg, Temp:98.7, Wt-k.35. Assessment: * Assessment: 1.?Colon cancer screening - Z12.11 (Primary)???2.?Colon polyps - K63.5???3.?Hiatal hernia - K44.9???4.?Chronic cough - R05.3??? Overall, Taye appears well. We did review the colonoscopy findings and I have recommended a follow-up colonoscopy toward the latter part of 2025 as a 2-year follow-up given the relatively large and flat tubular adenoma removed last year. In regard to his chronic coughing and throat clearing I advised her that this does not seem to be related to reflux based on the upper endoscopy findings, his clinical history of no reflux symptoms whatsoever, and his thus far lack of response to PPI therapy. I advised him they could give the pantoprazole another month or 2 trial but if it does not work for the coughing and throat clearing he should then stop it as he has no other symptoms of actual acid reflux. I did advise him to speak with you about a possible sleep study to rule out sleep apnea as a contributing factor to his chronic throat clearing and coughing. He also advised me that he does have the second ENT opinion and I advised him to try to call there for a sooner appointment if they have any cancellations. I will otherwise see Taye in the interim as needed. Taye was comfortable with this plan. Thank you again for allowing me to participate in Taye's care. I shall continue to keep you advised of his progress as needed. Please do not hesitate to contact me if I can be of any further assistance in the future. Plan: * Treatment: 2.?Chronic cough? Notes: Ask your PCP about a sleep study in regard to the coughing. See another ENT MD for an opinion regarding the cough as well. Stop Pantoprazole if no improvement in the cough after a couple of months.?? * Preventive Medicine:? ??Counseling:?Care goal follow-up plan:?Above Normal BMI Follow-up?Dietary management education, guidance, and counseling,?BMI management provided?Yes.? * * The named appointment provid er may or may not be the originator of this progress note, and it is not deemed complete until electronically signed by the appointment provider. Sign off status: Pending * Provider:?Toi Garsia MD Date:? 025 Generated for Maya armenta/Ronald/Lorena on:?08/28/2024 10:30 AM EDT
--- OUTSIDE RECORDS SUMMARY | 2024-08-28 10:31 | XMS_ITS ---
Author Organization [facility] Address [address] [place] [address] Care Team Providers Care Continuous Pillowcase Cutter Name Role Phone Madeleine Zambrano M.D. Primary Care Provider Unavail able Toi Garsia Unavailable [phone] REASON FOR VISIT REFLUX,COUGH,HX OF POLYPS,SCREENING Problems Problem Type SNOMED Code ICD Code Onset Dates Problem Status W/U Status Risk Notes Problem Diverticular disease of colon (711422202) Diverticulosis of large intestine without perforation or abscess without bleeding (K57.30) Active confirmed Problem Gastroesophageal reflux disease (728539275) Gastroesophageal reflux disease (K21.9) Active confirmed Problem Benign neoplasm of stomach (77502613) Gastric polyps (K31.7) Active confirmed Problem Chronic gastritis (5415319) Chronic gastritis (K29.50) Active confirmed Encounters Encounter Location Date Provider Diagnosis [facility] [place] [address] [place] [phone] 04/13/2024 Toi Garsia Colon cancer screeni ng [...] Notes * TAYE EATONDOB:1960 (64 yo M)Acc No.[id number]:04/13/2024 EGD and COL/MAC Patient:?TAYE EATON Provider:?Toi Garsia MD :1960???Age:64 Y???Sex:Male Aidan e:04/13/2024 Address:[address] [place] [address] Pcp:Madeleine Zambrano M.D. Subjective: * Chief Complaints: * ???1. REFLUX,COUGH,HX [...] - R05.3??? Plan: * Treatment: * Procedure Codes:?67942 LESIO N REMOVAL COLONOSCOPY, Modifiers: 33 , 05210 UPPER GI ENDOSCOPY, BIOPSY * * The named appointment provid er may or may not be the originator of this progress note, and it is not deemed complete until electronically signed by the appointment provider. Sign off status: Pending * Provider:?Toi Garsia MD Date:? 024 Generated for Maya armenta/Ronald/Lorena on:?08/28/2024 10:31 AM EDT
--- OUTSIDE RECORDS SUMMARY | 2024-08-28 10:31 | XMS_ITS ---
Author Organization [facility] Address [address] [place] [address] Care Team Providers Care Buildings And Grounds Superintendent Name Role Phone Omero Swartz MD Primary Care Provider Delmi Sandoval [phone] Encounters Encounter Location Date Provider Diagnosis [address] [address] 09/12/2023 Delmi Contreras Plan Of Treatment No Information Progress Notes * Wang EATONDOB:1960 (64 yo M)Acc No.[id number]:09/12/2023 Progress Notes Patient:?Wang EATON Provider:?Delmi Contreras DPM :1960???Age:63 Y???Sex:Male Aidan e:09/12/2023 Address:[address] [place] [address] [id number] Pcp:Omero Swartz MD Subjective: * Chief Complaints: [...] Contreras DPM Date:? Generated for Maya armenta/Ronald/Richardsmitting on:?08/28/2024 10:31 AM EDT
--- OUTSIDE RECORDS SUMMARY | 2024-08-28 10:31 | XMS_ITS | Patient Health Record ---
Author Organization [facility] Address [address] [place] [address] Care Team Providers Care Blanking Machine Operator Name Role Phone Madeleine Zmabrano M.D. Primary Care Provider Toi Ochoa Unavailable [phone] Allergies No Known Allergies Results Component Value Reference Range Notes Pathology Reviewed date:04/22/2024 11:02:56 PM Interpretation: Performing Lab:[facility], [address] [place] [phone] Notes/Report: Name: Taye Eaton Ag e/Sex: 64/M : 1960 Unit#: [id number] Attend Dr: Toi Garsia MD Re04/13/24 Status : [facility] Location: [facility] Disch: SPEC : [id number] RECD : 04/13/24 STATUS: RAHUL NICOLAS NUM: [id number] [facility]: 04/13/24 [facility] DR: Toi Garsia MD ENTERED: 04/13/24- 34 [...] flexure polyp CONTINUED ON NEXT PAGE Name: TayTaye Alex Marinelli e/Sex: 64/M : 1960 Unit#: [id number] Attend Dr: Toi Garsia MD Re04/13/24 Status : [facility] Location: [facility] Disch: SPEC : [id number] RECD : 04/13/24 STATUS: RAHUL NICOLAS NUM: [id number] [facility]: 04/13/24 [facility] DR: Toi Garsia MD ENTERED: 04/13/24 34 [...] To: Omero Swartz MD [facility] [address] [place] [address] Toi Garsia MD [facility] [address] [place] [address] Signed (si gnature on file) Bird Brown MD 04/17/24 1524 END OF REPORT Reason For Referral No Information Medications Medication SIG (Take, Route, Frequency, Duration) Notes Start Date End Date Status Bernice Carbonate ER 300 MG TAKE 3 TABLE TS BY MOUTH EVERY EVENING Oral for 66 Days Active Breo Ellipta 100-25 MCG/ACT Inhalation for 30 Days Active Amphetamine-Dextroamphetami ne 20 MG Oral for 30 Days Active Amphetamine-Dextroamphetami ne 20 MG TAKE 1 TABLET BY MOUTH TWICE A DAY Oral for 30 Days Active Jumana 60 MG as directed Orally Active Pantoprazole Sodium 40 MG TAKE 2 TAB ORA L TWICE DAILY FOR 2 WEEKS THEN TAKE 1 TAB ORAL ONCE DAILY Oral for 30 Days Active Gabapentin 800 MG TAKE 3 TABLETS BY MO UTH EVERY DAY AT BEDTIME Oral Once a day Active lamoTRIgine 200 MG Oral for 90 Days Active traZODone HCl 100 MG TAKE 1 TABLET BY MO UTH EVERY NIGHT Oral Once a day Active Fluticasone Furoate-Vilanterol 200-25 MCG/ACT Inhalation for 30 Days Activ e Bernice Carbonate 300 MG TAKE 2 TABLETS BY MOUTH AT BEDTIME Oral as directed Active lamoTRIgine 100 MG TAKE 1 & 2 TABLETS BY MOUTH EVERY NIGHT Oral as directed Active Tums 500 MG 1 tablet Orally Once a day for 30 day(s) 12/07/2023 Active Pantoprazole Sodium 40 MG Oral for 30 Days Active Immunizations Vaccine Route Administration Date Status Comme nts Influenza Unknown 11/01/2018 Refused Influenza Unknown 12/07/2023 Refused Problems Problem Type SNOMED Code ICD Code Onset Dates Problem Status W/U Status Risk Notes Problem Gastro-esophageal reflux disease without esophagitis (332344390) Gastro-esophageal reflux disease without esophagitis (K21.9) Active confirmed Problem 511367119 Encounter for screening for malignant neoplasm of colon (Z12.11) Active confirmed Problem 057024767 History of adenomatous polyp of colon (Z86.010) Active confirmed Problem Diverticular disease of colon (689476290) Diverticulosis of large intestine without perforation or abscess without bleeding (K57.30) Active confirmed Problem 719191473 Irritable bowel syndrome with diarrhea (K58.0) Active confirmed Problem Gastroesophageal reflux disease (654632729) Gastroesophageal reflux disease (K21.9) Active confirmed Problem Benign neoplasm of stomach (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) Gastric polyps (K31.7) Active confirmed Problem Chronic gastritis (2004092) Chronic gastritis (K29.50) Active confirmed Problem Cough (18195015) Cough (R05.9) Active confirmed Vital Signs Temperature 98.7 degrees Fahrenheit 08/15/2024 Blood pressure diastolic 01 mm Hg 08/15/2024 Height 68.75 in 08/15/2024 Blood pressure systolic 001 mm Hg 08/15/2024 Weight 205.8 lbs 08/15/2024 BMI 30.61 kg/m2 08/15/2024 Encounters Encounter Location Date Provider Diagnosis [facility] [place] [address] [place], [place] [phone] 04/13/2024 Toi Garsia Colon cancer screeni ng Z12.11 ; Colon polyps K63.5 ; Diverticulosis of large intestine without perforation or abscess without bleeding K57.30 ; Other hemorrhoids K64.8 ; Gastroesophageal reflux disease K21.9 ; Other specified disease of esophagus K22.89 ; Hiatal hernia K44.9 ; Gastric polyps K31.7 ; Chronic gastritis K29.50 and Chronic cough R05.3 [facility] [address] [facility] [facility] [address] [place] [address] 08/15/2024 Toi Garsia Colon cancer screeni ng Z12.11 ; Colon polyps K63.5 ; Hiatal hernia K44.9 and Chronic cough R05.3 [facility] [address] [place] [address] 12/07/2023 Toi Garsia Cough R05.9 ; Gastro-esophageal reflux disease without esophagitis K21.9 ; History of adenomatous polyp of colon Z86.010 and Encounter for screening for malignant neoplasm of colon Z12.11 [facility] [address] [place] [phone] 11/22/2023 Toi Garsia [facility] [address] [place] [address] 02/21/2024 Toi Garsia [facility] [address] [place] [phone] 04/17/2024 Toi Garsia Assessments Encounter Date Diagnosis (ICD Code) Assessment Notes Treatment Notes Treatment Clinical Notes Section Notes 04/13/2024 Colon cancer screening (ICD-10 - Z12.11) 04/13/2024 Colon polyps (ICD-10 - K63.5) 08/15/2024 Colon cancer screening (ICD-10 - Z12.11) [...] of any further assistance in the future. 12/07/2023 Gastro-esophageal reflux disease without esophagitis (ICD-10 [...] or abscess without bleeding (ICD-10 - K57.30) 08/15/2024 Colon polyps (ICD-10 - K63.5) Overall, [...] of any further assistance in the future. 12/07/2023 History of adenomatous polyp of colon [...] progress. 04/13/2024 Other hemorrhoids (ICD-10 - K64.8) 08/15/2024 Hiatal hernia (ICD-10 - K44.9) Overall, [...] of any further assistance in the future. 12/07/2023 Encounter for screening for malignant neoplasm [...] 04/13/2024 Gastroesophageal reflux disease (ICD-10 - K21.9) 08/15/2024 Chronic cough (ICD-10 - R05.3) Ask [...] of any further assistance in the future. 04/13/2024 Other specified disease of esophagus (ICD-10 [...] 11/01/2018 UPPER GI ENDOSCOPY 12/07/2023 COLONOSCOPY 12/07/2023 Insurance Providers Payer Name Payer Address Payer Phone Subscriber Number Group Number Insured Name Patient Relationship to Insured Coverage Start Date Coverage End Date [facility] [address] [address] [place] [address] [phone] [id number] TAYE EATON Self - patient is the insured MEDICAID OF [employer] [address] [place] [phone] [phone] [id number] TAYE EATON Self - patient is the insured Medical (General) History Medical History History ICD Code Asthma--exercise-induced asthma Bipolar disease Denies [place],DM,CVA,renal disease Colonoscopy in 07/2012-1 small tubular ad enoma removed IBS-neg celiac disease labs 2012 History of atrial fib > 25 yrs ago Colonoscopy 01/2019 with a tubular adenom a removed from the ICV Colonoscopy in March 2024 revealed 2 tubular adenomas that were removed, including a relatively large and flat polyp in the area of the hepatic flexure Upper endoscopy in March 2024 revealed a small hiatal hernia and some mild gastritis, but no evidence of any esophagitis, Adan's esophagus, nor H. pylori. Surgical History Surgery Date(Month/Year)
[2024-08-28 11:10] LABS: Rheumatoid Factor < 13.0 IU/mL (<15.0)
[2024-08-28 11:20] LABS: Erythrocyte Sedimentation Rate 2 MM/HR (0-15)
[2024-08-29 08:48] LABS: CRP High Sensitivity 0.7 mg/L
[2024-08-30 11:19] LABS: Cyclic Citrullinated Peptide <16 UNITS
== END 2024-08-28 09:24 | disposition home or self-care (01) ==
LOC: HO.LAB 09:23
PROVIDERS: PCP Internal Medicine; Visit Provider Internal Medicine
DX: M25.50 Pain in unspecified joint (principal)
CPT/HCPCS: 36415; 85652; 86141; 86200; 86431

== ENCOUNTER 2024-09-11 14:51 | Outpatient (REF) | payer MEDICARE, MEDICAID, SELFPAY ==
--- NOTE | ~2024-09-11 | XR_ITS ---
EXAMINATION: XR LUMBOSACRAL SPINE CLINICAL INFORMATION: M54.16 - Radiculopathy, lumbar region COMPARISON: January 31, 2023. TECHNIQUE: Three views of the lumbosacral spine. FINDINGS: Right facet joint hypertrophy L5-S1. Myelination curvature of the lumbar spine. Endplate sclerosis at L5-S1 and L4-5 level. No acute cortical disruption or malalignment. No lytic or blastic lesions. Vascular clips in the upper abdomen seen on the lateral projection likely right upper quadrant abdomen. XR/XR lumbar spine 2-3V IMPRESSION: Lumbar spondylosis L5-S1. Electronically signed by: Selvin Corona MD 09/12/2024 12:31 PM EDT
--- OUTSIDE RECORDS SUMMARY | 2024-09-11 17:43 | XMS_ITS ---
Author Organization [facility] Address [address] [place] [address] Care Team Providers Care Skip Pit Worker Name Role Phone Madeleine Zambrano M.D. Primary Care Provider Unavail Toi Sánchez Unavailable [phone] REASON FOR VISIT needs ov with Dr. Garsia/see update Encounters Encounter Location Date Provider Diagnosis [facility] [address] [place] [address] 04/17/2024 Toi Garsia Plan Of Treatment No Information Progress Notes * TAYE EATONDOB:1960 (64 yo M)Acc No.[id number]:04/17/2024 Patient:?TAYE EATON :1960???Age:64 Y???Sex:Male Address:[address], [place], [address] * true * Date:? Generated for Maya armenta/Ronald/eTransmitting on:?09/11/2024 05:43 PM EDT
--- OUTSIDE RECORDS SUMMARY | 2024-09-11 17:43 | XMS_ITS | Patient Health Record ---
Author Organization [facility] Address [address] [place] [address] Care Team Providers Care Thread Tool Grinder Set Up Operator Name Role Phone Madeleine Zambrano M.D. Primary Care Provider Toi Ochao Unavailable [phone] Allergies No Known Allergies Results Component Value Reference Range Notes Pathology Reviewed date:04/22/2024 11:02:56 PM Interpretation: Performing Lab:[facility], [address] [place] [phone] Notes/Report: Name: Taye Eaton Ag e/Sex: 64/M : 1960 Unit#: [id number] Attend Dr: Toi Garsia MD Re04/13/24 Status : [facility] Location: [facility] Disch: SPEC : [id number] RECD : 04/13/24 STATUS: RAHUL NICOLAS NUM: [id number] [facility]: 04/13/24 [facility] DR: Toi Garsia MD ENTERED: 04/13/24- 34 [...] Alex Marinelli e/Sex: 64/M : 1960 Unit#: [id number] Attend Dr: Toi Garsia MD Re04/13/24 Status : [facility] Location: [facility] Disch: SPEC : [id number] RECD : 04/13/24 STATUS: RAHUL NICOLAS NUM: [id number] [facility]: 04/13/24 [facility] DR: Toi Garsia MD ENTERED: 04/13/24 34 [...] [address] [place] [address] Toi Garsia MD [facility] [address] [place] [address] Signed (si gnature on file) Bird Brown MD 04/17/24 1524 END OF REPORT Reason For Referral No Information Medications Medication SIG (Take, Route, Frequency, Duration) Notes Start Date End Date Status Nile Carbonate ER 300 MG TAKE 3 TABLE [...] MCG/ACT Inhalation for 30 Days Activ e Nile Carbonate 300 MG TAKE 2 TABLETS BY [...] Notes Problem Gastro-esophageal reflux disease without esophagitis (421357828) Gastro-esophageal reflux disease without esophagitis (K21.9) Active confirmed Problem 136190834 Encounter for screening for malignant neoplasm of colon (Z12.11) Active confirmed Problem 147036362 History of adenomatous polyp of colon (Z86.010) Active confirmed Problem Diverticular disease of colon (072857275) Diverticulosis of large intestine without perforation or abscess without bleeding (K57.30) Active confirmed Problem 625154960 Irritable bowel syndrome with diarrhea (K58.0) Active confirmed Problem Gastroesophageal reflux disease (499343911) Gastroesophageal reflux disease (K21.9) Active confirmed Problem Benign neoplasm of stomach (63839004) Gastric polyps (K31.7) Active confirmed Problem Chronic gastritis (5246525) Chronic gastritis (K29.50) Active confirmed Problem Cough (77606923) Cough (R05.9) Active confirmed Vital Signs Temperature 98.7 degrees Fahrenheit 08/15/2024 Blood pressure diastolic 01 mm Hg 08/15/2024 Height 68.75 in 08/15/2024 Blood pressure systolic 001 mm Hg 08/15/2024 Weight 205.8 lbs 08/15/2024 BMI 30.61 kg/m2 08/15/2024 Encounters Encounter Location Date Provider Diagnosis [facility] [place] Out[place] [address] [place], [place] [phone] 04/13/2024 Toi Garsia Colon cancer screeni ng Z12.11 ; Colon polyps K63.5 ; Diverticulosis of large intestine without perforation or abscess without bleeding K57.30 ; Other hemorrhoids K64.8 ; Gastroesophageal reflux disease K21.9 ; Other specified disease of esophagus K22.89 ; Hiatal hernia K44.9 ; Gastric polyps K31.7 ; Chronic gastritis K29.50 and Chronic cough R05.3 [facility] [address] [facility] [address] [place] [address] 12/07/2023 Toi Garsia Cough R05.9 ; Gastro-esophageal reflux disease without esophagitis K21.9 ; History of adenomatous polyp of colon Z86.010 and Encounter for screening for malignant neoplasm of colon Z12.11 [facility] [address] [place] [address] 08/15/2024 Toi Garsia Colon cancer screeni ng Z12.11 ; Chronic cough R05.3 ; Colon polyps K63.5 and Hiatal hernia K44.9 [facility] [address] [place] [phone] 11/22/2023 Toi Garsia [facility] [address] [place] [phone] 02/21/2024 Toi Garsia [facility] [address] [place] [phone] 04/17/2024 Toi Garsia Assessments Encounter Date Diagnosis [...] to keep you advised of his progress. 08/15/2024 Colon cancer screening (ICD-10 - Z12.11) Repeat colonoscopy in 03/2026 Overall, Taye appears well. We did review the colonoscopy findings and I have recommended a follow-up colonoscopy toward the latter part of 2025 as a 2-year follow-up given the relatively large and flat tubular adenoma removed last year. In regard to his chronic coughing and throat clearing I advised him that this does not seem to be related to reflux based on the upper endoscopy findings, his clinical history of no reflux symptoms whatsoever, and his thus far lack of response to PPI therapy. I advised him he could give the pantoprazole another month or 2 of a trial but if it does not work [...] chronic coughing and throat clearing I advised him that this does not seem to be related to reflux based on the upper endoscopy findings, his clinical history of no reflux symptoms whatsoever, and his thus far lack of response to PPI therapy. I advised him he could give the pantoprazole another month or 2 of a trial but if it does not work [...] any further assistance in the future. 04/13/2024 Diverticulosis of large intestine without perforation [...] to keep you advised of his progress. 08/15/2024 Colon polyps (ICD-10 - K63.5) Overall, Taye appears well. We did review the colonoscopy findings and I have recommended a follow-up colonoscopy toward the latter part of 2025 as a 2-year follow-up given the relatively large and flat tubular adenoma removed last year. In regard to his chronic coughing and throat clearing I advised him that this does not seem to be related to reflux based on the upper endoscopy findings, his clinical history of no reflux symptoms whatsoever, and his thus far lack of response to PPI therapy. I advised him he could give the pantoprazole another month or 2 of a trial but if it does not work [...] further assistance in the future. 04/13/2024 Other hemorrhoids (ICD-10 - K64.8) 12/07/2023 [...] to keep you advised of his progress. 08/15/2024 Hiatal hernia (ICD-10 - K44.9) Overall, Taye appears well. We did review the colonoscopy findings and I have recommended a follow-up colonoscopy toward the latter part of 2025 as a 2-year follow-up given the relatively large and flat tubular adenoma removed last year. In regard to his chronic coughing and throat clearing I advised him that this does not seem to be related to reflux based on the upper endoscopy findings, his clinical history of no reflux symptoms whatsoever, and his thus far lack of response to PPI therapy. I advised him he could give the pantoprazole another month or 2 of a trial but if it does not work [...] any further assistance in the future. 04/13/2024 Gastroesophageal reflux disease (ICD-10 - K21.9) [...] Insured Coverage Start Date Coverage End Date [facility] [address] [address] [place] [address] [phone] [id number] TAYE EATON Self - patient is the insured MEDICAID OF [employer] [facility] [address] [place] [address] [phone] [id number] TAYE EATON Self - patient is the insured Medical (General) History Medical History History ICD Code Asthma--exercise-induced asthma Bipolar disease Denies [place],DM,CVA,renal disease Colonoscopy in 07/2012-1 small tubular ad [...]
--- OUTSIDE RECORDS SUMMARY | 2024-09-11 17:43 | XMS_ITS ---
Author Organization [facility] Address [address] [place] [address] Care Team Providers Care [employer] Consultant Name Role Phone Madeleine Zambrano M.D. Primary Care Provider Unavail able Toi Garsia Unavailable [phone] REASON FOR VISIT REFLUX,COUGH,HX OF POLYPS,SCREENING Problems Problem Type SNOMED Code ICD Code Onset Dates Problem Status W/U Status Risk Notes Problem Diverticular disease of colon (624871131) Diverticulosis of large intestine without perforation or abscess without bleeding (K57.30) Active confirmed Problem Gastroesophageal reflux disease (513395567) Gastroesophageal reflux disease (K21.9) Active confirmed Problem Benign neoplasm of stomach (44025545) Gastric polyps (K31.7) Active confirmed Problem Chronic gastritis (1253753) Chronic gastritis (K29.50) Active confirmed Encounters Encounter Location Date Provider Diagnosis [facility] [place] [address] [place] [phone] 04/13/2024 Toi Garsia Colon cancer screeni ng [...] Notes * TAYE EATONDOB:1960 (64 yo M)Acc No.[id number]:04/13/2024 EGD and COL/MAC Patient:?TAYE EATON Provider:?Toi Garsia MD :1960???Age:64 Y???Sex:Male Aidan e:04/13/2024 Address:[address] [place] [address] Pcp:Madeleine Zambrano M.D. Subjective: * Chief Complaints: [...] - R05.3??? Plan: * Treatment: * Procedure Codes:?82688 LESIO N REMOVAL COLONOSCOPY, Modifiers: 33 , 49300 UPPER GI ENDOSCOPY, BIOPSY * * The named appointment provid er may or may not be the originator of this progress note, and it is not deemed complete until electronically signed by the appointment provider. Sign off status: Pending * Provider:?Toi Garsia MD Date:? 024 Generated for Maya armenta/Ronald/Lorena on:?09/11/2024 05:43 PM EDT
--- OUTSIDE RECORDS SUMMARY | 2024-09-11 17:43 | XMS_ITS | Patient Health Record ---
Author Organization [facility] Address [address] [place] [address] Care Team Providers Care Sound Effects Manager Name Role Phone Omero Swartz MD Primary Care Provider Delmi Sandoval Unavailable [phone] Reason For Referral No Information Plan Of Treatment No Information Insurance Providers Payer Name Payer Address Payer Phone Subscriber Number Group Number Insured Name Patient Relationship to Insured Coverage Start Date Coverage End Date [employer] Medicare [id number] [address] [address] [place] [phone] [id number] Wang Cross Self - patient is the insured
--- OUTSIDE RECORDS SUMMARY | 2024-09-11 17:43 | XMS_ITS ---
Author Organization [facility] Address [address] [place] [address] Care Team Providers Care Train Crew Member Name Role Phone Madeleine Zambrano M.D. Primary Care Provider Unavail Toi Sánchez Unavailable [phone] Allergies No Known Allergies REASON FOR VISIT [...] MCG/ACT Inhalation for 30 Days Activ e [place] Carbonate ER 300 MG TAKE 3 TABLE [...] EVERY NIGHT Oral Once a day Active [place] Carbonate 300 MG TAKE 2 TABLETS BY [...] 08/15/2024 Encounters Encounter Location Date Provider Diagnosis [facility] [address] [place] [address] 08/15/2024 Toi Garsia Colon cancer screening Z12.11 ; Chronic cough R05.3 ; Colon polyps K63.5 and Hiatal hernia K44.9 Assessments Encounter Date Diagnosis (ICD Code) Assessment [...] the cough after a couple of months. Next Appt Details Follow Up: prn, Reason: Progress Notes * TAYE EATONDOB:1960 (64 yo M)Acc No.[id number]:08/15/2024 Progress Notes Patient:?TAYE EATON Provider:?Toi Garsia MD :1960???Age:64 Y???Sex:Male Aidan e:08/15/2024 Address:[address] [place] [address], [id number] Pcp:Madeleine Zambrano M.D. Subjective: * Chief Complaints: * ???Patient presents today fo r gerd * HPI: ???incontinence:? I saw Taye in follow-up today in regard to his chronic throat clearing, history of [...] esophagitis, Adan's esophagus, nor ulcer disease. There was some mild gastritis but biopsies were negative [...] has been seen by ENT here in [place], but is scheduled for a another opinion later this year in [place]. He was also seen by pulmonary who does not think his coughing and throat clearing are related to his underlying asthma.. His colonoscopy revealed 2 tubular adenomas that were removed, including one that was relatively large and somewhat flat. His bowel movements have been regular and without any bleeding. * ROS:?General/Constitutional:?Change in appetite?denies.?Chills?denies.?Fatigue?denies.?Ophthalmologic:?Patient denies? Negative..?ENT:?Patient denies?Negative..?Respiratory:?Patient denies?Cough but no hemoptysis..?Cardiovascular:?Patient denies? No chest pain/orthopnea..?Gastrointestinal:?Comments?See HPI for details.?Genitourinary:?Patient denies? No dysuria/hematuria..?Musculoskeletal:?Patient denies? No specific arthralgias/myalgias..?Skin:?Patient denies?No rash/pruritus..?Neurologic:?Patient denies? No headaches/seizures..?Psychiatric:?Patient complaining of? Per PMH.? * Medical History:? * Surgical History:?No Surgica l History documented. * Hospitalization/Major Diagno stic Procedure:?No Hospitalization History. * Family History:?Father: dece ased.?Mother: , diagnosed with Heart disease.? Denies family hx. of colorectal cancer, celiac disease, IBD. Father from liver cancer. * Social History:?Tobacco Use:?Tobacco Use/Smoking?Are you a: nonsmoker.?Drugs/Alcohol:?Alcohol Screen?Points: 0, Interpretation: Negative.?Miscellaneous:?Marital status: . 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 ???Nonsmoker; no alcohol. * Medications:?TakingAllegra 6 0 MG Capsule as directed Orally Gabapentin 800 MG Tablet TAKE 3 TABLETS BY MOUTH EVERY DAY AT BEDTIME Oral Once a day traZODone HCl 100 MG Tablet TAKE 1 TABLET BY MOUTH EVERY NIGHT Oral Once a day [place] Carbonate 300 MG Tablet TAKE 2 TABLETS BY MOUTH AT BEDTIME Oral as directed lamoTRIgine 100 MG Tablet TAKE 1 & 1/2 TABLETS BY MOUTH EVERY NIGHT Oral as directed Tums 500 MG Tablet Chewable 1 tablet Orally Once a day Pantoprazole Sodium 40 MG Tablet Delayed Release Oral [place] Carbonate ER 300 MG Tablet Extended Release TAKE 3 TABLETS BY MOUTH EVERY EVENING Oral Breo Ellipta 100-25 MCG/ACT Aerosol Powder Breath Activated Inhalation Amphetamine-Dextroamphetamine 20 MG Tablet Oral Amphetamine-Dextroamphetamine 20 MG Tablet TAKE 1 TABLET BY MOUTH TWICE A DAY Oral Pantoprazole Sodium 40 MG Tablet Delayed Release TAKE 2 TAB ORAL TWICE DAILY FOR 2 WEEKS THEN TAKE 1 TAB ORAL ONCE DAILY Oral lamoTRIgine 200 MG Tablet Oral Fluticasone Furoate-Vilanterol 200-25 MCG/ACT Aerosol Powder Breath Activated Inhalation Taking Jumana 60 MG Capsule as directed Orally Taking Gabapentin 800 MG Tablet TAKE 3 TABLETS BY MOUTH EVERY DAY AT BEDTIME Oral Once a day Taking traZODone HCl 100 MG Tablet TAKE 1 TABLET BY MOUTH EVERY NIGHT Oral Once a day Taking [place] Carbonate 300 MG Tablet TAKE 2 TABLETS BY MOUTH AT BEDTIME Oral as directed Taking lamoTRIgine 100 MG Tablet TAKE 1 & 1/2 TABLETS BY MOUTH EVERY NIGHT Oral as directed Taking Tums 500 MG Tablet Chewable 1 tablet Orally Once a day Taking Pantoprazole Sodium 40 MG Tablet Delayed Release Oral Taking [place] Carbonate ER 300 MG Tablet Extended Release TAKE 3 TABLETS BY MOUTH EVERY EVENING Oral Taking Breo Ellipta 100-25 MCG/ACT Aerosol Powder Breath Activated Inhalation Taking Amphetamine-Dextroamphetamine 20 MG Tablet Oral Taking Amphetamine-Dextroamphetamine 20 MG Tablet TAKE 1 TABLET BY MOUTH TWICE A DAY Oral Taking Pantoprazole Sodium 40 MG Tablet Delayed Release TAKE 2 TAB ORAL TWICE DAILY FOR 2 WEEKS THEN TAKE 1 TAB ORAL ONCE DAILY Oral Taking lamoTRIgine 200 MG Tablet Oral Taking Fluticasone Furoate-Vilanterol 200-25 MCG/ACT Aerosol Powder Breath Activated Inhalation DiscontinuedOmeprazole 40 MG Capsule Delayed Release TAKE 1 CAPSULE BY MOUTH EVERY DAY Oral Medication List reviewed and reconciled with the patientDiscontinued Omeprazole 40 MG Capsule Delayed Release TAKE 1 CAPSULE BY MOUTH EVERY DAY Oral Medication List reviewed and reconciled with the patient * Allergies:?N.K.D.A.yes[Aller gies Verified] Objective: * Vitals:?Wt:205.8lbs, Ht: 68. 75 in, BMI:30.61Index, BP:001/01mm Hg, Temp:98.7, Wt-k.35. * Examination: ???General Examination: ?GENERAL APPEARANCE:?pleasant, well nourished, well developed, in no acute distress.?EYES:?sclera non-icteric.?ORAL CAVITY:?mucosa moist.?NECK/THYROID:?no cervical lymphadenopathy, neck supple.?SKIN:?nonjaundiced, no spider angiomata..?HEART:?S1, S2 normal.?LUNGS:?clear to auscultation bilaterally.?ABDOMEN:?normal bowel sounds, no guarding or rigidity, no hepatosplenomegaly, no masses palpable, soft, nontender, nondistended..?EXTREMITIES:?no edema.?NEUROLOGIC:?alert and oriented.? Assessment: * Assessment: 1.?Chronic cough - R05.3 (Pr imary)???2.?Colon cancer screening - Z12.11???3.?Colon polyps - K63.5???4.?Hiatal hernia - K44.9??? Overall, Taye appears well. We did review [...] assistance in the future. Plan: * Treatment: 2.?Colon cancer screening? Notes: Repeat colonoscopy in 03/2026?? * Procedure Codes:?3017F COLOR ECTAL CA SCREEN DOC [id number] TOBACCO NON-FGHJP8901 BP SCR NOT PRFRM REC REASON NOS * Preventive Medicine:? ??Counseling:?Care goal follow-up plan:?Above Normal BMI Follow-up?Dietary management education, guidance, and counseling,?BMI management provided?Yes.? * Follow Up:?prn * * Sign off status: Completed true * Provider:?Toi Garsia MD Date:? 025 Generated for Printi ng/Faaltong/eTransmitting on:?09/11/2024 05:42 PM EDT History and Physical Notes * Examination Category Sub-Category Detail Notes Category Not es General Examination GENERAL APPEARANCE: pleasant , well nourished, well developed, in no acute distress EYES: sclera non-icteric NECK/THYROID: no cervical lymphade nopathy, neck supple HEART: S1, S2 normal LUNGS: clear to auscultatio n bilaterally ABDOMEN: normal bowel sounds, no guarding or rigidity, no hepatosplenomegaly, no masses palpable, soft, nontender, nondistended. NEUROLOGIC: alert and oriented SKIN: nonjaundiced, no spi lucius angiomata. EXTREMITIES: no edema ORAL CAVITY: mucosa moist
--- OUTSIDE RECORDS SUMMARY | 2024-09-11 17:43 | XMS_ITS ---
Author Organization [facility] Address [address] [place] [address] Care Team Providers Care Freelance Writer Name Role Phone Omero Swartz MD Primary Care Provider Delmi Sandoval [phone] Encounters Encounter Location Date Provider Diagnosis [address] [address] 09/12/2023 Delmi Contreras Plan Of Treatment No Information Progress Notes * Wang EATONDOB:1960 (64 yo M)Acc No.[id number]:09/12/2023 Progress Notes Patient:?Wang EATON Provider:?Delmi Contreras DPM :1960???Age:63 Y???Sex:Male Aidan e:09/12/2023 Address:[address] [place] [address] [place] Pcp:Omero Swartz MD Subjective: * Chief Complaints: [...] Contreras DPM Date:? Generated for Maya armenta/Ronald/Richardsmitting on:?09/11/2024 05:43 PM EDT
== END 2024-09-11 14:52 | disposition home or self-care (01) ==
LOC: HO.HMGCX 14:51
PROVIDERS: PCP Internal Medicine; Visit Provider Internal Medicine
DX: M54.16 Radiculopathy, lumbar region (principal); M51.379 Other intervertebral disc degeneration, lumbosacral region without mention of lumbar back pain or lower extremity pain
CPT/HCPCS: 72100

== ENCOUNTER → 2024-09-11 14:55 | Outpatient (BNV) | payer MEDICARE, MEDICAID, SELFPAY | PROVIDERS: PCP Internal Medicine; Visit Provider Radiology Diagnostic Radiology | DX: M47.816 Spondylosis without myelopathy or radiculopathy, lumbar region (principal) | CPT/HCPCS: 72100 ==

== ENCOUNTER 2024-09-17 13:57 | Outpatient (REF) | payer MEDICARE, SELFPAY ==
--- NOTE | ~2024-09-17 | US_ITS ---
CLINICAL HISTORY: R10.2 - perineum pain - pain under right scrotum Limited soft tissue ultrasound of right perineum at level of concern Comparison: None Findings: No evidence of mass lesion or fluid collection. No significant abnormality. Impression: No evidence of mass lesion or fluid collection. This document has been electronically signed by: Chanell Wood MD on 09/20/2024 10:10:18
--- OUTSIDE RECORDS SUMMARY | 2024-09-17 16:43 | XMS_ITS | Patient Health Record ---
Author Organization [facility] Address [address] [place] [address] Care Team Providers Care Rags Laborer Name Role Phone Omero Swartz MD Primary Care Provider Delmi Sandoval Unavailable [phone] Reason For Referral No Information Plan Of Treatment No Information Insurance Providers Payer Name Payer Address Payer Phone Subscriber Number Group Number Insured Name Patient Relationship to Insured Coverage Start Date Coverage End Date [employer] Medicare [id number] [address] [address] [place] [phone] [id number] Wang Cross Self - patient is the insured
--- OUTSIDE RECORDS SUMMARY | 2024-09-17 16:44 | XMS_ITS ---
Author Organization [facility] Address [address] [place] [address] Care Team Providers Care Fuel Verification Technician Name Role Phone Omero Swartz MD Primary Care Provider Delmi Sandoval [phone] Encounters Encounter Location Date Provider Diagnosis [address] [address] 09/12/2023 Delmi Contreras Plan Of Treatment No Information Progress Notes * Wang EATONDOB:1960 (64 yo M)Acc No.[id number]:09/12/2023 Progress Notes Patient:?Wang EATON Provider:?Delmi Contreras DPM :1960???Age:63 Y???Sex:Male Aidan e:09/12/2023 Address:[address] [place] [address] [id number] Pcp:Omero Swartz MD Subjective: * Chief Complaints: [...] Contreras DPM Date:? Generated for Maya armenta/Ronald/Richardsmitting on:?09/17/2024 04:43 PM EDT
== END 2024-09-17 13:58 | disposition home or self-care (01) ==
LOC: HO.HMGCX 13:57
PROVIDERS: PCP Internal Medicine; Visit Provider Internal Medicine
DX: R10.2 Pelvic and perineal pain (principal)
CPT/HCPCS: 76857

== ENCOUNTER → 2024-09-17 14:00 | Outpatient (BNV) | payer MEDICARE, SELFPAY | PROVIDERS: PCP Internal Medicine; Visit Provider Radiology Diagnostic Radiology | DX: R10.2 Pelvic and perineal pain (principal) | CPT/HCPCS: 76857 ==

== ENCOUNTER 2024-10-05 07:25 | Outpatient (REF) | payer MEDICARE, SELFPAY ==
--- OUTSIDE RECORDS SUMMARY | 2024-10-05 07:30 | XMS_ITS | Patient Health Record ---
Author Organization [facility] Address [address] [place] [address] Care Team Providers Care Software Writer Name Role Phone Omero Swartz MD Primary Care Provider Delmi Sandoval Unavailable [phone] Reason For Referral No Information Plan Of Treatment No Information Insurance Providers Payer Name Payer Address Payer Phone Subscriber Number Group Number Insured Name Patient Relationship to Insured Coverage Start Date Coverage End Date [employer] Medicare [id number] [address] [address] [place] [address] [id number] Wang Cross Self - patient is the insured
--- OUTSIDE RECORDS SUMMARY | 2024-10-05 07:30 | XMS_ITS ---
Author Organization [facility] Address [address] [place] [address] Care Team Providers Care Power Shear Operator Name Role Phone Madeleine Zambrano M.D. 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 Subjective: * Chief Complaints: [...] - R05.3??? Plan: * Treatment: * Procedure Codes:?74438 LESIO N REMOVAL COLONOSCOPY, Modifiers: 33 , 23966 UPPER GI ENDOSCOPY, BIOPSY * * The named appointment provid er may or may not be the originator of this progress note, and it is not deemed complete until electronically signed by the appointment provider. Sign off status: Pending * Provider:?Toi Garsia MD Date:? 024 Generated for Maya armenta/Ronald/Lorena on:?10/05/2024 07:30 AM EDT
--- OUTSIDE RECORDS SUMMARY | 2024-10-05 07:30 | XMS_ITS | Patient Health Record ---
Author Organization [facility] Address [address] [place] [address] Care Team Providers Care Experience Specialist Name Role Phone Madeleine Zambrano M.D. Primary Care Provider Toi Ochoa Unavailable [phone] Allergies No Known Allergies Results Component Value Reference Range Notes Pathology Reviewed date:04/22/2024 11:02:56 PM Interpretation: Performing Lab:[facility], [address] [place] [address] Notes/Report: Name: Taye Eaton Ag e/Sex: 64/M : 1960 Unit#: [id number] Attend Dr: Toi Garsia MD Re04/13/24 Status : [facility] Location: [facility] Disch: SPEC : [id number] RECD : 04/13/24 STATUS: RAHUL NICOLAS NUM: [id number] [facility]OLA: 04/13/24 [facility] DR: Toi Garsia MD ENTERED: 04/13/24- 34 [...] Alex Marinelli e/Sex: 64/M : 1960 Unit#: [id number] Attend Dr: Toi Garsia MD Re04/13/24 Status : [facility] Location: [facility] Disch: SPEC : [id number] RECD : 04/13/24 STATUS: RAHUL NICOLAS NUM: [id number] [facility]: 04/13/24 [facility] DR: Toi Garsia MD ENTERED: 04/13/24 34 [...] [address] [place] [address] Toi Garsia MD [facility] [address] [place] [address] Signed (si gnature on file) Bird Brown MD 04/17/24 1524 END OF REPORT Reason For Referral No Information Medications Medication SIG (Take, Route, Frequency, Duration) Notes Start Date End Date Status [place] Carbonate ER 300 MG TAKE 3 TABLE [...] MCG/ACT Inhalation for 30 Days Activ e [place] Carbonate 300 MG TAKE 2 TABLETS BY [...] Notes Problem Gastro-esophageal reflux disease without esophagitis (489315940) Gastro-esophageal reflux disease without esophagitis (K21.9) Active confirmed Problem 645117340 Encounter for screening for malignant neoplasm of colon (Z12.11) Active confirmed Problem 461042205 History of adenomatous polyp of colon (Z86.010) Active confirmed Problem Diverticular disease of colon (478118251) Diverticulosis of large intestine without perforation or abscess without bleeding (K57.30) Active confirmed Problem 716702873 Irritable bowel syndrome with diarrhea (K58.0) Active confirmed Problem Gastroesophageal reflux disease (133572857) Gastroesophageal reflux disease (K21.9) Active confirmed Problem Benign neoplasm of stomach (38855032) Gastric polyps (K31.7) Active confirmed Problem Chronic gastritis (8623812) Chronic gastritis (K29.50) Active confirmed Problem Cough (96517467) Cough (R05.9) Active confirmed Vital Signs Temperature 98.7 degrees Fahrenheit 08/15/2024 Blood pressure diastolic 01 mm Hg 08/15/2024 Height 68.75 in 08/15/2024 Blood pressure systolic 001 mm Hg 08/15/2024 Weight 205.8 lbs 08/15/2024 BMI 30.61 kg/m2 08/15/2024 Encounters Encounter Location Date Provider Diagnosis [facility] [address] [place], [place] [phone] 04/13/2024 Toi Garsia Colon cancer screeni ng Z12.11 ; Colon polyps K63.5 ; Diverticulosis of large intestine without perforation or abscess without bleeding K57.30 ; Other hemorrhoids K64.8 ; Gastroesophageal reflux disease K21.9 ; Other specified disease of esophagus K22.89 ; Hiatal hernia K44.9 ; Gastric polyps K31.7 ; Chronic gastritis K29.50 and Chronic cough R05.3 [facility] [address] [facility] [address] [place] [address] 12/07/2023 Toi Garsia Cough R05.9 ; Gastro-esophageal reflux disease without esophagitis K21.9 ; History of adenomatous polyp of colon Z86.010 and Encounter for screening for malignant neoplasm of colon Z12.11 [facility] [address] [place] [address] 08/15/2024 Toi Garsia Colon cancer screeni ng Z12.11 ; Chronic cough R05.3 ; Colon polyps K63.5 and Hiatal hernia K44.9 [facility] [address] [place] [address] 11/22/2023 Toi Garsia [facility] [address] [place] [address] 02/21/2024 Toi Garsia [facility] [address] [place] [address] 04/17/2024 Toi Garsia Assessments Encounter Date Diagnosis [...] Insured Coverage Start Date Coverage End Date [facility] [address] [address] [place] [address] [phone] [id number] TAYE EATON Self - patient is the insured [facility] [facility] [address] [place] [address] [phone] [id number] TAYE EATON Self - patient is the insured Medical (General) History Medical History History ICD Code Asthma--exercise-induced asthma Bipolar disease Denies [place],DM,CVA,renal disease Colonoscopy in 07/2012-1 small tubular ad [...]
--- OUTSIDE RECORDS SUMMARY | 2024-10-05 07:30 | XMS_ITS ---
Author Organization [facility] Address [address] [place] [address] Care Team Providers Care Director Of Engineering Name Role Phone Madeleine Zambrano M.D. Primary Care Provider Toi Ochoa Unavailable [phone] REASON FOR VISIT needs ov with Dr. Garsia/see update Encounters Encounter Location Date Provider Diagnosis [facility] [address] [place] [address] 04/17/2024 Toi Garsia Plan Of Treatment No Information Progress Notes * TAYE EATONDOB:1960 (64 yo M)Acc No.[id number]:04/17/2024 Patient:?TAYE EATON :1960???Age:64 Y???Sex:Male Address:[address] [facility], [place], [address] * true * Date:? Generated for Maya armenta/Ronald/eTransmitting on:?10/05/2024 07:30 AM EDT
--- OUTSIDE RECORDS SUMMARY | 2024-10-05 07:30 | XMS_ITS ---
Author Organization [facility] Address [address] [place] [address] Care Team Providers Care Dish Stacker Name Role Phone Madeleine Zambrano M.D. Primary Care Provider Unavail Toi Sánchez Unavailable [phone] Allergies No Known Allergies REASON FOR VISIT [...] MCG/ACT Inhalation for 30 Days Activ e [place] Carbonate ER 300 MG TAKE 3 TABLE [...] EVERY NIGHT Oral Once a day Active [place] Carbonate 300 MG TAKE 2 TABLETS BY [...] 08/15/2024 Encounters Encounter Location Date Provider Diagnosis [facility] [address] [place] [address] 08/15/2024 Toi Garsia Colon cancer screening Z12.11 [...] cough after a couple of months. Overall, Tyae appears well. We did review the colonoscopy [...] have any cancellations. I will otherwise see Tyae in the interim as needed. Taye was [...] Notes * TAYE EATONDOB:1960 (64 yo M)Acc No.[id number]:08/15/2024 Progress Notes Patient:?TAYE EATON Provider:?Toi Garsia MD :1960???Age:64 Y???Sex:Male Aidan e:08/15/2024 Address:[address] [place] [address], [place] Pcp:Madeleine Zambrano M.D. Subjective: * Chief Complaints: [...] has been seen by ENT here in [place], but is scheduled for a another opinion later this year in [place]. He was also seen by pulmonary who [...] Screen?Points: 0, Interpretation: Negative.?Miscellaneous:?Marital status: . 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 ???Nonsmoker; no alcohol. * Medications:?TakingAllegra 6 0 MG Capsule as directed Orally Gabapentin 800 MG Tablet TAKE 3 TABLETS BY MOUTH EVERY DAY AT BEDTIME Oral Once a day traZODone HCl 100 MG Tablet TAKE 1 TABLET BY MOUTH EVERY NIGHT Oral Once a day [place] Carbonate 300 MG Tablet TAKE 2 TABLETS BY MOUTH AT BEDTIME Oral as directed lamoTRIgine 100 MG Tablet TAKE 1 & 1/2 TABLETS BY MOUTH EVERY NIGHT Oral as directed Tums 500 MG Tablet Chewable 1 tablet Orally Once a day Pantoprazole Sodium 40 MG Tablet Delayed Release Oral [place] Carbonate ER 300 MG Tablet Extended Release [...] EVERY NIGHT Oral Once a day Taking [place] Carbonate 300 MG Tablet TAKE 2 TABLETS BY MOUTH AT BEDTIME Oral as directed Taking lamoTRIgine 100 MG Tablet TAKE 1 & 1/2 TABLETS BY MOUTH EVERY NIGHT Oral as directed Taking Tums 500 MG Tablet Chewable 1 tablet Orally Once a day Taking Pantoprazole Sodium 40 MG Tablet Delayed Release Oral Taking [place] Carbonate ER 300 MG Tablet Extended Release [...] Procedure Codes:?3017F COLOR ECTAL CA SCREEN DOC [id number] TOBACCO NON-KTWTU6400 BP SCR NOT PRFRM REC REASON NOS * Preventive Medicine:? ??Counseling:?Care goal follow-up plan:?Above Normal BMI Follow-up?Dietary management education, guidance, and counseling,?BMI management provided?Yes.? * Follow Up:?prn * * Sign off status: Completed true * Provider:?Toi Garsia MD Date:? 025 Generated for Printi ng/Faaltong/eTransmitting on:?10/05/2024 07:30 AM EDT History and Physical Notes * Examination [...]
--- OUTSIDE RECORDS SUMMARY | 2024-10-05 07:31 | XMS_ITS ---
Author Organization [facility] Address [address] [place] [address] Care Team Providers Care Institution Librarian Name Role Phone Omero Swartz MD Primary Care Provider Delmi Sandoval [phone] Encounters Encounter Location Date Provider Diagnosis [address] [address] 09/12/2023 Delmi Contreras Plan Of Treatment No Information Progress Notes * Wang EATONDOB:1960 (64 yo M)Acc No.[id number]:09/12/2023 Progress Notes Patient:?Wang EATON Provider:?Delmi Contreras DPM :1960???Age:63 Y???Sex:Male Aidan e:09/12/2023 Address:[address] [place] [address] [place] Pcp:Omero Swartz MD Subjective: * Chief Complaints: [...] Contreras DPM Date:? Generated for Maya armenta/Ronald/Richardsmitting on:?10/05/2024 07:30 AM EDT
[2024-10-05 10:21] LABS: MANUAL DIFF FLAG NO
[2024-10-05 10:24] LABS: Basophils Percent Auto 0.2 % (0-2); Eosinophils Absolute Auto 0.1 X10*3/uL (0.0-0.4); Eosinophils Percent Auto 1.4 % (0-4); Hematocrit 42.7 % (42.0-52.0); Hemoglobin 14.2 g/dl (14.0-18.0); Imm Gran Abs Auto 0.03 X10*3/uL (0.00-0.03); Imm Gran Pct Auto 0.4 % (0.0-0.4); Lymphocytes Absolute Auto 2.2 X10*3/uL (1.2-4.9); Lymphocytes Percent Auto 27.9 % (20-40); Mean Corpuscular HGB Conc 33.3 g/dl (31.0-36.0); Mean Corpuscular Hemoglobin 32.3 pg (27.0-33.0); Monocytes Absolute Auto 0.7 X10*3/uL (0.1-1.2); Monocytes Percent Auto 9.1 % (2-11); Neutrophils Absolute Auto 4.9 x10*3/uL (2.0-8.3); Platelet Count 294 X10*3/uL (160-400); Red Cell Distribution Width 13.2 % (11.0-16.0)
[2024-10-05 10:53] LABS: Alanine Aminotransferase 19 U/L (0-40); Albumin Level 4.5 g/dL (3.5-5.0); Alkaline Phosphatase 56 U/L (39-117); Anion Gap 11 (12-20); Aspartate Amino Transferase 17 U/L (5-37); Bilirubin Total 0.9 mg/dL (0.0-1.0); Blood Urea Nitrogen 9 mg/dL (9-16); Calcium 9.7 mg/dL (8.4-10.2); Carbon Dioxide 29 mmol/L (22-29); Chloride 104 mmol/L (96-108); Estimated Glomerular Filt Rate > 60; Glucose Random 89 mg/dL (60-115); Potassium 3.9 mmol/L (3.3-5.1); Sodium 140 mmol/L (135-145); Total Protein 7.2 g/dL (6.5-8.0)
[2024-10-05 11:18] LABS: Lithium 0.88 mmol/L (0.60-1.20)
[2024-10-09 19:08] LABS: Lamotrigine Lamictal 6.9 mcg/mL (2.5-15.0)
== END 2024-10-05 07:26 | disposition home or self-care (01) ==
LOC: HO.HMGCLDS 07:25
PROVIDERS: PCP Internal Medicine; Visit Provider Psychiatry & Neurology Psychiatry
DX: Z79.899 Other long term (current) drug therapy (principal)
CPT/HCPCS: 36415; 80053; 80175; 80178; 85025

== ENCOUNTER 2024-10-12 14:13 | Outpatient (AMB) | payer MEDICARE, MEDICAID, SELFPAY ==
--- NOTE | 2024-10-12 14:16 | MHC.PC.OV ---
Vital Signs 10/12/24 14:22 Height 5 ft 8 in Weight 92.079 kg BMI 30.9 BP 150/76 H Respiration 14 Pulse 76 Pulse Source Pulse Oximeter Temp 98.2 F Temp Source Temporal Artery Scan Pulse Oximetry (%) 98 Oxygen Delivery Method Room Air Intake Visit Reasons: Routine [place] Customs And Border Officer Required: No Accompanied by: Self / Same As Patient Allergies atorvastatin Adverse Reaction (Verified 10/12/24 14:20) Muscle Pain Tobacco use date assessed: 08/02/24 Dental Screening Dental Screen Date: 08/02/24 HPI HPI Comments History of Present Illness Details 64-year-old male with history of bipolar disorder, asthma presents to the office for follow-up. He was seen in the office 2 months ago when he developed perineal pain after pulling himself up on a pool ladder. He did have ultrasound performed which did not reveal any masses. However she is still has significant discomfort primarily when lying down and states this it does not bother him as much when he is active. It has not improved since prior visit. He is also still complaining of difficulty clearing his throat. This happens quite often throughout the day as well as at night. He will be following up with a new ENT specialist next month. He reports he has been more depressed than previously over the last month pertaining to his though reports symptoms are improving. He does follow regularly with therapy and Psychiatry. He denies any SI/HI. He does continue in a a. He reports that the leg pain that he had been experiencing was related to statin had has resolved since discontinuing this. He is also reporting increased urinary frequency and weak urinary stream. ROS: General: No fevers, malaise, unintentional weight loss HEENT: see hpi Cardiovascular: No chest pain, palpitations, or leg edema Respiratory: No shortness of breath, wheezing, cough : see hpi Neuro: No headaches, weakness, paresthesias Skin: No rashes or lesions Exam: Constitutional - Awake and Alert, No apparent distress Eyes - PERRLA, EOMI Cardiovascular - S1S2, RRR, No edema Respiratory - Normal lung expansion, Normal respiratory effort, No respiratory distress, CTA bilaterally - deferred Extremities - no calf tenderness bilaterally, no swelling Skin - Warm/Dry Neurological - Alert & oriented x3 Psychological - Appropriate affect [facility] Medical History (Updated 10/12/24 @ 14:48 by MARRY Millan) Afib IBS (irritable bowel syndrome) Asthma Depression Bipolar 1 disorder ADHD Surgical History H/O colonoscopy Family History Mother Diabetes Hypertension Father Hypertension Social History Housing: House Patient Tobacco Use Status: Never used Tobacco service: No Current occupational status: retired 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 Toi Mcgill, Carlota Haines, Angelito Issa and colleagues, with an educational bia from [employer]. Physical exam (Primary Care) Vital Signs: Last Vital Signs Temp 98.2 F 10/12/24 14:22 Pulse 76 10/12/24 14:22 Resp 14 10/12/24 14:22 BP 150/76 H 10/12/24 14:22 Pulse Ox 98 10/12/24 14:22 Oxygen Delivery Method Room Air 10/12/24 14:22 BMI result Body Mass Index 30.9 Tobacco/Smoking Status: Tobacco use Status Tobacco use date assessed 08/02/24 10/12/24 14:16 Patient Tobacco Use Status Never used Tobacco 10/12/24 14:16 Thrive Assessment: Date of Thrive Assessment Date Thrive assessed 08/02/24 10/12/24 14:16 Coding Level of Care Code Est Pt Level 4 (66888) Complex EM visit Add On G2211 Diagnoses Perineal mass in male N50.89 Bipolar 1 disorder F31.9 Asthma J45.909 Urinary urgency R39.15 Assessment & Plan Assessment & Plan (1) Perineal mass in male: Code(s): N50.89 - Other specified disorders of the male genital organs Category: Medical Plan: Discussed exam findings with diagnosing provider. MRI of the pelvis with and without contrast ordered for better evaluation of perineal pain and mass in a male. He is also referred to urology for further evaluation and management (2) Bipolar 1 disorder: Code(s): F31.9 - Bipolar disorder, unspecified Category: Medical Plan: Stable. Continue following with Psychiatry and counselor. Continue lithium, Lamictal, Adderall. (3) Asthma: Code(s): J45.909 - Unspecified asthma, uncomplicated Category: Medical Plan: Stable. Continue Breo Ellipta and use albuterol inhaler only as needed for shortness of breath and wheezing. (4) Urinary urgency: Code(s): R39.15 - Urgency of urination Category: Medical Plan: Based on clinical picture, suspect BPH. Will initiate Flomax 0.4 mg nightly. PSA ordered. Referred to urology as above. Plan Follow up in 6 months. Referred to urology. PSA and MR pelvis ordered. Tamsulosin ordered Orders: Orders PSA, Ultra Sensitive Today R10.2 - Pelvic and perineal pain, R39.15 - Urgency of urination MR pelvis wo/w con Today N50.89 - Other specified disorders of the male genital organs, R10.2 - Pelvic and perineal pain Referrals Urology Referral N50.89 - Other specified disorders of the male genital organs, R10.2 - Pelvic and perineal pain, R39.15 - Urgency of urination Medications: New tamsulosin 0.4 mg PO BEDTIME 90 caps 1RF
--- OUTSIDE RECORDS SUMMARY | 2024-10-12 14:16 | XMS_ITS ---
Author Organization [facility] Address [address] [place] [address] Care Team Providers Care Receptionist/Telephone Operator Name Role Phone Madeleine Zambrano M.D. Primary Care Provider Toi Ochoa Unavailable [phone] REASON FOR VISIT needs ov with Dr. Garsia/see update Encounters Encounter Location Date Provider Diagnosis [facility] [address] [place] [address] 04/17/2024 Toi Garsia Plan Of Treatment No Information Progress Notes * TAYE EATONDOB:1960 (64 yo M)Acc No.[id number]:04/17/2024 Patient:?TAYE EATON :1960???Age:64 Y???Sex:Male Address:[address], [place], [address] * true * Date:? Generated for Maya armenta/Ronald/eTransmitting on:?10/12/2024 02:15 PM EDT
[2024-10-12 14:22] VITALS: BP 150/76; PULSE 76; RESP 14; TEMP 36.8; O2SAT 98; BMI 30.9
== END 2024-10-12 14:54 | disposition home or self-care (01) ==
LOC: HO.HMCHD 14:13
PROVIDERS: PCP Internal Medicine; Visit Provider Physician Assistant
DX: N50.89 Other specified disorders of the male genital organs (principal); F31.9 Bipolar disorder, unspecified; J45.909 Unspecified asthma, uncomplicated; R39.15 Urgency of urination

== ENCOUNTER → 2024-10-12 14:13 | Outpatient (BNVA) | payer MEDICARE, MEDICAID, SELFPAY | PROVIDERS: PCP Internal Medicine; Visit Provider Physician Assistant | DX: N50.89 Other specified disorders of the male genital organs (principal); F31.9 Bipolar disorder, unspecified; J45.909 Unspecified asthma, uncomplicated; R39.15 Urgency of urination | CPT/HCPCS: 99212 ==

== ENCOUNTER → 2024-10-19 15:42 | Outpatient (BNV) | payer MEDICARE, MEDICAID, SELFPAY | PROVIDERS: PCP Internal Medicine; Visit Provider Radiology Diagnostic Radiology | DX: M71.351 Other bursal cyst, right hip (principal) | CPT/HCPCS: 72197 ==

== ENCOUNTER 2024-10-19 15:43 | Outpatient (REF) | payer MEDICARE, MEDICAID, SELFPAY ==
--- NOTE | ~2024-10-19 | MR_ITS ---
EXAMINATION: MR PELVIS WITHOUT THEN WITH IV CONTRAST HISTORY: N50.89 - Other specified disorders of the male genital organs. TECHNIQUE: Axial T1, fat-suppressed T1, fat-suppressed T2, and sagittal and coronal T2-weighted images of the pelvis were obtained. Subsequently, axial and sagittal fat-suppressed T1-weighted images were obtained after the intravenous administration of 9 mL Gadavist. COMPARISON: There are no prior studies available for comparison. FINDINGS: There is a subchondral cyst in the superior right acetabulum. There is mild osteoarthritis of the hip joints. Bone marrow signal intensity is normal. The visualized muscles demonstrate normal signal intensity. The peripheral zone of the prostate demonstrates a striated appearance, particularly on the left can be seen in the setting of prostatitis of scarring. The urinary bladder is unremarkable in appearance. There is no ascites or pelvic lymphadenopathy. MR/MR pelvis wo/w con IMPRESSION: No mass or muscular abnormality is seen to correspond to the patient's pain. Incidental findings as described above. Electronically signed by: Toi Swenson MD 10/22/2024 08:24 AM EDT
--- OUTSIDE RECORDS SUMMARY | 2024-10-19 15:46 | XMS_ITS ---
Author Organization [facility] Address [address] [place] [address] Care Team Providers Care Chemical Handler Name Role Phone Madeleine Zambrano M.D. Primary Care Provider Toi Ochoa Unavailable [phone] REASON FOR VISIT needs ov with Dr. Garsia/see update Encounters Encounter Location Date Provider Diagnosis [facility] [address] [place] [address] 04/17/2024 Toi Garsia Plan Of Treatment No Information Progress Notes * TAYE EATONDOB:1960 (64 yo M)Acc No.[id number]:04/17/2024 Patient:?TAYE EATON :1960???Age:64 Y???Sex:Male Address:[address] [facility], [place], [address] * true * Date:? Generated for Maya armenta/Ronald/eTransmitting on:?10/19/2024 03:46 PM EDT
[2024-10-19] MEDS: gadobutroL 10 ML VIAL IVPUSH (16:39)
== END 2024-10-19 15:44 | disposition home or self-care (01) ==
LOC: HO.MRI 15:43
PROVIDERS: PCP Internal Medicine; Visit Provider Physician Assistant
DX: N50.89 Other specified disorders of the male genital organs (principal); R10.2 Pelvic and perineal pain
CPT/HCPCS: 72197; A9585

== ENCOUNTER 2024-11-10 09:29 | Outpatient (REF) | payer MEDICARE, MEDICAID, SELFPAY ==
--- NOTE | ~2024-11-10 | XR_ITS ---
CLINICAL HISTORY: abnormal results of pulmonary function test 2 view chest x-ray. Comparison: None Findings: The lungs are adequately expanded. No focal consolidation. No effusion or pneumothorax. Cardiac and mediastinal contours are within normal limits. No acute osseous abnormality Impression: No acute process. This document has been electronically signed by: Adrián Connell MD on 11/10/2024 10:13:11
== END 2024-11-10 09:30 | disposition home or self-care (01) ==
LOC: HO.HMGCX 09:29
PROVIDERS: PCP Internal Medicine; Visit Provider Nurse Practitioner Family
DX: R94.2 Abnormal results of pulmonary function studies (principal)
CPT/HCPCS: 71046

== ENCOUNTER → 2024-11-10 09:33 | Outpatient (BNV) | payer MEDICARE, MEDICAID, SELFPAY | PROVIDERS: PCP Internal Medicine; Visit Provider Radiology Vascular & Interventional Radiology | DX: R94.2 Abnormal results of pulmonary function studies (principal) | CPT/HCPCS: 71046 ==

== ENCOUNTER 2024-11-12 11:00 | Outpatient (AMB) | payer MEDICARE, MEDICAID, SELFPAY ==
--- NOTE | 2024-11-12 11:07 | MHC.OFFVIS ---
Vital Signs 11/12/24 11:17 Height 5 ft 8 in Weight 192 lb 14.472 oz BMI 29.3 BP 104/62 Blood Pressure Location Rt brachial Position Sitting Pulse 60 Pulse Source Pulse Oximeter Pulse Oximetry (%) 97 Oxygen Delivery Method Room Air Intake Visit Reasons: Cough Allergies atorvastatin Adverse Reaction (Verified 11/12/24 11:19) Muscle Pain HPI HPI Cough: Details: Wang is a pleasant 64 year old male, never smoker, with underlying asthma, GERD, allergic rhinitis, eczema and Bipolar disorder. He was initially referred by GI for pulmonary evaluation for chronic cough/persistent throat clearing. Evaluation from GI revealed hiatal hernia and severe reflux noted on prior barium swallow test, currently on Pantoprazole. He reports cough is rare and overall respiratory symptoms have been controlled on Breo. He does note occasional inability to fully inspire and intermittent wheezing, however not using albuterol MDI when this occurs. He notes working towards weight loss with diet changes and has noticed less dyspnea. He continues with throat clearing, some days more persistent than others and will be having another ENT evaluation next month. He denies any visits to urgent care or hospitalizations related to respiratory distress. 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 Cognitive needs: No Hearing needs: No Vision needs: Yes (rx glasses) Review of Systems Const Denies chills, Denies excessive sweating, Denies fever(s), Denies headache(s) and Denies night sweats Eyes Denies dry eyes, Denies irritation and Denies itchy eyes ENT Reports Normal hearing present, Denies headache(s), Denies nasal congestion, Denies nasal discharge, Denies post nasal drip and Denies sore throat Card Denies chest pain, Denies chest pain at rest, Denies chest pain with activity, Denies claudication, Denies leg edema, Denies orthopnea and Denies paroxysmal nocturnal dyspnea Resp Denies chest congestion, Denies excessive phlegm production, Denies pain on inspiration, Denies pain with cough and Denies stridor Musc Denies myalgias Neuro Reports Normal hearing present and Denies headache(s) Endo Denies excessive sweating Branden/Lymph Denies lymphadenopathy Aller/Immun Denies itchy eyes and Denies seasonal rhinorrhea Physical Exam Vital Signs: Last Vital Signs Pulse 60 11/12/24 11:17 BP 104/62 11/12/24 11:17 Pulse Ox 97 11/12/24 11:17 Oxygen Delivery Method Room Air 11/12/24 11:17 BMI result Body Mass Index 29.3 Const General: cooperative, healthy appearing, comfortable, no acute distress, well developed and alert Nutritional Appearance: obese Orientation/consciousness: patient oriented x3 Limitations: no limitations HEENT Head: Yes normal to inspection, Yes normocephalic and Yes atraumatic Ears: hearing grossly normal bilaterally and external ears normal Eyes General: appearance normal, both eyes and all related structures Eyelids: Yes eyelids normal Sclerae: sclerae normal EOM: EOMs intact bilaterally Neck Neck: Yes normal visual inspection and Yes no lymphadenopathy Lymphatic: no lymphadenopathy noted Chest Chest palpation & inspection: normal inspection of the chest Resp Effort & Inspection: normal respiratory effort, able to speak in complete sentences, no audible wheezes, no cough, no stridor, not tachypneic, no tripod positioning and no use of accessory muscles Auscultation: clear to auscultation bilaterally Cardio Jugular venous distension: no JVD Rate: regular rate Rhythm: regular rhythm Skin Other: warm, dry General skin exam: no rashes or lesions noted Neuro General: patient oriented x3 Cranial nerves: Yes Normal hearing present Cognition (Neuro): normal cognition Gait exam (Neuro): Normal gait present Extrem General: Yes normal to inspection, Yes capillary refill normal, Yes no clubbing, cyanosis or edema and Yes no pedal edema Psych Appearance: grossly normal and well kempt Speech and movement: Normal speech and movement present and Clear speech present Affect: normal affect Attitude: cooperative Thought process: Normal thought process present Thought content: Normal thought content present Insight: Good insight present (Psych) Judgement: Good judgement present (Psych) Results Reviewed Results Reviewed: [facility] 1959 [facility] [address] XRay Report Signed Patient: Wang Cross MR#: [id number] : 1960 Acct:[id number] Age/Sex: 64 / M ADM Date: 11/10/24 Loc: HO.[facility] Attending Dr: Ivon Alvarez NP Ordering Physician: Ivon Alvarez NP Date of Service: 11/10/24 Procedure(s): XR chest 2V Accession Number(s): [id number] cc: Madeleine Zambrano MD; Ivon Alvarez NP~ CLINICAL HISTORY: abnormal results of pulmonary function test 2 view chest x-ray. Comparison: None Findings: The lungs are adequately expanded. No focal consolidation. No effusion or pneumothorax. Cardiac and mediastinal contours are within normal limits. No acute osseous abnormality Impression: No acute process. This document has been electronically signed by: Adrián Connell MD on 11/10/2024 10:13:11 Dictated By: Adrián Connell MD Signed By: <Electronically signed by Adrián Connell MD in OV> 11/10/24 1014 DD/ 1013 TD/TT: 11/10/24 1013 Prototyper: Assessment & Plan Assessment & Plan (1) Asthma: Code(s): J45.909 - Unspecified asthma, uncomplicated Category: Medical (2) Environmental allergies: Code(s): Z91.09 - Other allergy status, other than to drugs and biological substances Category: Medical Plan At this time, Wang reports good control of respiratory symptoms with Breo. Encouraged increased use of albuterol MDI for intermittent dyspnea, chest tightness and wheezing. He is aware to call if symptoms become less controlled. All questions were answered and patient is in agreement of plan. Will follow up in 3-6 months or sooner if needed. Coding Level of Care Code Est Pt Level 4 (08581) Diagnoses Asthma J45.909 Environmental allergies Z91.09
[2024-11-12 11:17] VITALS: BP 104/62; PULSE 60; O2SAT 97; BMI 29.3
--- OUTSIDE RECORDS SUMMARY | 2024-11-12 12:34 | XMS_ITS ---
Author Name [facility] Organization Unknown Care Team Organization Name Specialty Phone Email Start Date End [facility] 10/05/2024
== END 2024-11-12 11:39 | disposition home or self-care (01) ==
LOC: HO.HPS 11:01
PROVIDERS: PCP Internal Medicine; Visit Provider Nurse Practitioner Family
DX: J45.909 Unspecified asthma, uncomplicated (principal); Z91.09 Other allergy status, other than to drugs and biological substances
CPT/HCPCS: 99214

== ENCOUNTER → 2024-11-12 11:00 | Outpatient (BNVA) | payer MEDICARE, MEDICAID, SELFPAY | PROVIDERS: PCP Internal Medicine; Visit Provider Nurse Practitioner Family | DX: J45.909 Unspecified asthma, uncomplicated (principal); Z91.09 Other allergy status, other than to drugs and biological substances | CPT/HCPCS: 99212 ==

== ENCOUNTER 2024-12-27 09:23 | Outpatient (AMB) | payer MEDICARE, MEDICAID, SELFPAY ==
[2024-12-27 09:42] VITALS: BMI 28.9
--- NOTE | 2024-12-27 09:42 | A.OFFVIS_ITS ---
Vital Signs 12/27/24 09:42 Height 5 ft 8 in Weight 190 lb BMI 28.9 Intake Visit Reasons: New Pt - back pain Intake Note: Wang is a 64 year old male who presents today as a new patient for Lower back pain. Patient was referred by Jovanni Mcnulty on 04.06.25, at that visit an X -ray was done. Patient was seen at physical therapy 10/21/22- 02/09/23 for Lower Back pain, and he followed [facility] for lower back spondylosis, where he was given a cortisone injection. At today's visit he states injection did not help at all, he was also seen at [facility] where he tried PRP and states he had a little relief. He has radiating pain down his right leg, pain worsens with prolong laying. States he had an MRI about 2 years ago at [facility]. Allergies atorvastatin Adverse Reaction (Verified 12/27/24 09:46) Muscle Pain Medication List - Last Reconciled 12/27/24 by Tamie Saravia MD dextroamphetamine-amphetamine 30 mg (Adderall) 40 mg PO BID fluticasone furoate-vilanterol 200-25 mcg/dose (Breo Ellipta) 1 inh inhalation DAILY gabapentin 800 mg PO QID ipratropium bromide 2 sprays intranasal BID lamotrigine 200 mg PO DAILY lamotrigine 200 mg PO DAILY lithium carbonate One tablet qam and 2 tablets at bedtime orally bedtime; pantoprazole Take 2 tab oral twice daily for 2 weeks then take 1 tab oral once daily tamsulosin 0.4 mg PO BEDTIME trazodone 100 mg PO BEDTIME HPI Comments Details: Used to get lumbar facet injections in [facility], did not help, will not go back to [facility]. Had PRP and bone marrow aspirate/injection at [facility], partial relief. Does not think he's had epidural injections. Also had right hip injection for right hip (I suspect GT injections from [facility]). He describes pain that come from top of right hip/thigh with soreness and thigh/leg/knee/ankle. No numbness. This happens regularly at night. Able to lay right side side though. Occasional right groin pain. Denies weakness. Also has axial back pain, bothers him depending on position only, manageable. Does admit to claudication symptoms, but only right leg symptoms with prolonged walking. Been going to PT for the hip and leg, both helps and exacerbates it. MRI 2 years ago. But his pain has not changed since, always right sided leg pain. 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 Patient was appropriately conversant and oriented. Good historian. MSK: No specific abnormalities found on inspection of the spine and all extremities. No pain with palpation over the lumbar area. SI joint nontender. GT nontender. No tenderness over hamstrings, ITB, gluteus. Lumbar ROM was full. Bilateral hip, knee and ankle ROM WNL. No ligamentous laxity or crepitance. No increased effusion. Straight-leg raising test negative. FABERE test right positive back pain. Strength on right hip flexion 4/5 only because the results of shaking with the effort. Neurological: Strength as above. Reflexes intact and brisk, symmetric. Kidd?s negative bilaterally. Babinski was down going bilaterally. Clonus was negative. Gait is non-antalgic without loss of balance. Vital Signs: BMI result Body Mass Index 28.9 Results Reviewed Results Reviewed: I independently reviewed the results of the following: MRI reviewed, shared with patient, Moderate spinal stenosis L4-5 with foraminal stenosis, bilateral. Ordering Physician: Ayesha Archer Date of Service: 10/19/24 Procedure(s): MR pelvis wo/w con Accession Number(s): [id number] cc: Ayesha Archer; Madeleine Zambrano MD~ EXAMINATION: MR PELVIS WITHOUT THEN WITH IV CONTRAST HISTORY: N50.89 - Other specified disorders of the male genital organs. TECHNIQUE: Axial T1, fat-suppressed T1, fat-suppressed T2, and sagittal and coronal T2-weighted images of the pelvis were obtained. Subsequently, axial and sagittal fat-suppressed T1-weighted images were obtained after the intravenous administration of 9 mL Gadavist. COMPARISON: There are no prior studies available for comparison. FINDINGS: There is a subchondral cyst in the superior right acetabulum. There is mild osteoarthritis of the hip joints. Bone marrow signal intensity is normal. The visualized muscles demonstrate normal signal intensity. The peripheral zone of the prostate demonstrates a striated appearance, particularly on the left can be seen in the setting of prostatitis of scarring. The urinary bladder is unremarkable in appearance. There is no ascites or pelvic lymphadenopathy. MR/MR pelvis wo/w con IMPRESSION: No mass or muscular abnormality is seen to correspond to the patient's pain. Incidental findings as described above. Electronically signed by: Toi Swenson MD 10/22/2024 08:24 AM EDT RP Ordering Physician: Madeleine Zambrano MD Date of Service: 09/11/24 Procedure(s): XR lumbar spine 2-3V Accession Number(s): [id number] cc: Madeleine Zambrano MD~ EXAMINATION: XR LUMBOSACRAL SPINE CLINICAL INFORMATION: M54.16 - Radiculopathy, lumbar region COMPARISON: January 31, 2023. TECHNIQUE: Three views of the lumbosacral spine. FINDINGS: Right facet joint hypertrophy L5-S1. Myelination curvature of the lumbar spine. Endplate sclerosis at L5-S1 and L4-5 level. No acute cortical disruption or malalignment. No lytic or blastic lesions. Vascular clips in the upper abdomen seen on the lateral projection likely right upper quadrant abdomen. XR/XR lumbar spine 2-3V IMPRESSION: Lumbar spondylosis L5-S1. Electronically signed by: Selvin Corona MD 09/12/2024 12:31 PM EDT RP Ordering Physician: FANY WOLF MD Date of Service: 05/09/23 Procedure(s): MR lumbar spine wo con Accession Number(s): [id number] cc: Omero Swartz MD; FANY WOLF MD~ EXAMINATION: MR LUMBAR SPINE WITHOUT CONTRAST CLINICAL INFORMATION: Back pain. COMPARISON: X-ray lumbar spine dated 01/31/2023. TECHNIQUE: Multiplanar, multisequence imaging was obtained. FINDINGS: VERTEBRAL BODIES AND PARASPINAL STRUCTURES: There is a rightward curvature at the thoracolumbar junction and a leftward curvature of the lower lumbar spine. No compression fractures are seen. There are endplate Schmorl's nodes with reduced intradiscal signal and mild disc space narrowing at the lower thoracic levels. Additional right anterolateral marrow edema noted in the T12 and L1 vertebral bodies. At the L4-L5 level on the right side, there is xfwr-co-wgshhgmk endplate edema posterolaterally with endplate Schmorl's node formation. Mild posterior subluxation also noted at the L4-L5 level. The paraspinal soft tissues are normal. The imaged bony pelvis is unremarkable. CONUS MEDULLARIS AND CAUDA EQUINA: The distal cord, conus tip, and cauda equina nerve roots are normal. SPINAL LEVELS: L1-L2: Mild disc bulge and retrosubluxation. No central canal stenosis or foraminal narrowing. L2-L3: Mild disc bulge and facet arthropathy without central canal stenosis or foraminal encroachment. Small endplate Schmorl's nodes. L3-L4: Mild generalized disc bulge. No central canal stenosis. Mild right foraminal narrowing. L4-L5: Posterior subluxation with yhqt-ou-cakgawyw facet arthropathy and a broad-based disc bulge. Shallow left subarticular zone disc protrusion as well. Disc mildly impresses upon the L5 nerve roots in the subarticular zones. Iirp-bn-fruveiwj central canal stenosis and foraminal narrowing. Right posterolateral endplate edema as well. L5-S1: Severe right-sided facet arthropathy encroaching upon the right subarticular zone. No visible nerve root impingement. Minimal disc bulge. Mild right foraminal narrowing. MR/MR lumbar spine wo con IMPRESSION: 1. Scoliotic curvature of the thoracolumbar spine with opyf-ec-cereqtpr spondylitic changes. No compression fractures. 2. Iplb-nw-cgvykpgf central canal stenosis and shallow left subarticular zone disc protrusion at the L4-L5 level with mild impression upon the L5 nerve roots. Nfsp-pp-fkdcdmyk right lateral endplate edema as well. 3. Severe right-sided facet arthropathy at the L5-S1 level. I reviewed records from the following: Patient follows with several specialists including Orthopedics, GI, end ocrinology, pulmonology Reviewed last PCP note Assessment & Plan Assessment & Plan (1) Right lumbar radiculitis: Code(s): M54.16 - Radiculopathy, lumbar region Category: Medical (2) Lumbar spondylosis: Code(s): M47.816 - Spondylosis without myelopathy or radiculopathy, lumbar region Category: Medical Plan Still unsure where the right leg pain is coming from. Whether it is lumbar radiculitis versus hip arthritis. He does have lumbar spinal stenosis seen on MRI, L4-5, with foraminal stenosis, that could be contributory to the right leg symptoms. Only has mild arthritis in the hip and he denies any groin pain. We discussed possibility of trying a right L4-5 TFE, could both be diagnostic and therapeutic. I will have to refer him to pain management for such injection. Patient is agreeable. Assessment and plan discussed with patient, and patient was agreeable. All questions were answered thoroughly. Follow up with me a few weeks after injection. Tamie Saravia MD, ED Board Certified, [place] Board [employer] and Rehabilitation (ABPMR) Board Certified, [place] Board of Electrodiagnostic Medicine (ABEM) Orders: Referrals Pain Management Referral M47.816 - Spondylosis without myelopathy or radiculopathy, lumbar region, M54.16 - Radiculopathy, lumbar region Coding Level of Care Code New Pt Level 4 (97254) Diagnoses Right lumbar radiculitis M54.16 Lumbar spondylosis M47.816
--- OUTSIDE RECORDS SUMMARY | 2024-12-27 09:47 | XMS_ITS | Patient Health Record ---
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
--- OUTSIDE RECORDS SUMMARY | 2024-12-27 09:47 | XMS_ITS | Clinical Summary ---
Author Organization [facility] Address [address] [place] [address] Care Team Providers Care Teleprinter Name Role Phone Madeleine Zambrano MD Primary Care Provider [phone] Allergies No known active allergies Medications No known medications Encounters Date Type Department Care Team Description 12/05/2024 7:00 AM EDT Office Visit [facility] [address], [place] [address] Maurilio Douglass MD Laryngopharyngeal reflux (LPR) (Primary Dx); Deviated septum; Chronic cough; Pharyngoesophageal dysphagia from Last 3 Months Social History Tobacco Use Types Packs/Day Years Used Date Smoking Tobacco: Never Assessed Sex and Gender Information Value Date Recorded Sex Assigned at Male 10/05/2024 2:29 PM EDT Legal Sex Male 2:28 PM EDT Gender Identity Male 10/05/2024 2:29 PM EDT Sexual Orientation Heterosexual (straight) 10/05 2:29 PM EDT Plan of Treatment Health Maintenance Due Date Last Done Comments Hepatitis C Virus Screening 1960 HIV Screening 1975 DTaP/Tdap/Td Vaccines (1 - Tdap) 1981 Colonoscopy 2007 Pneumococcal Vaccines 50+ (1 of 1 - PCV) 01/19/2012 Zoster (Shingles) Vaccine (1 of 2) 01/19/2012 COVID-19 Vaccine ( - 2023-2 5 season) 2024 Influenza Vaccine 12/21/2024 RSV Vaccine 60 years and old er and Patients (1 - 1-dose 75+ series) 2037 Hepatitis B Vaccines Aged Out No long er eligible based on patient's age to complete this topic Insurance [facility] MEDICARE Care Teams Teleprinter Relationship Specialty Start Date End Date Madeleine Zambrano MD [address] [place] [address] PCP - General Internal Medicine 12/05/24
--- OUTSIDE RECORDS SUMMARY | 2024-12-27 09:47 | XMS_ITS ---
Author Name [facility] Organization Unknown Encounters Encounter Type Encounter Reason Primary Diagnosis Location Date Ambulatory [facility] [employer] Mobile Payment 12/05/2024 Care Team Organization Name Specialty Phone Email Start Date End Da te [facility] 12/05/2024 [facility] Madeleine Zambrano Primary Care 12/05/2024 [facility] 10/05/2024
--- OUTSIDE RECORDS SUMMARY | 2024-12-27 09:47 | XMS_ITS | Patient Health Record ---
Author Organization [facility] Address [address] [place] [address] Care Team Providers Care Conference Specialist Name Role Phone Madeleine Zambrano M.D. Primary Care Provider Unavail able Garsia Toi Unavailable [phone] Allergies No Known Allergies Results Component Value Reference Range Notes Pathology Reviewed date:04/22/2024 11:02:56 PM Interpretation: Performing Lab:[facility], [address] [place] [id number] Notes/Report: Reason For Referral No Information Medications Medication SIG (Take, Route, Frequency, Duration) Notes Start Date End Date Status Poneto Carbonate ER 300 MG TAKE 3 TABLE [...] MCG/ACT Inhalation for 30 Days Activ e Poneto Carbonate 300 MG TAKE 2 TABLETS BY [...] Notes Problem Gastro-esophageal reflux disease without esophagitis (859562659) Gastro-esophageal reflux disease without esophagitis (K21.9) Active confirmed Problem 206493577 Encounter for screening for malignant neoplasm of colon (Z12.11) Active confirmed Problem 408598921 History of adenomatous polyp of colon (Z86.010) Active confirmed Problem Diverticular disease of colon (269777990) Diverticulosis of large intestine without perforation or abscess without bleeding (K57.30) Active confirmed Problem 127213159 Irritable bowel syndrome with diarrhea (K58.0) Active confirmed Problem Gastroesophageal reflux disease (556491468) Gastroesophageal reflux disease (K21.9) Active confirmed Problem 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) Gastric polyps (K31.7) Active confirmed Problem Chronic gastritis (2759388) Chronic gastritis (K29.50) Active confirmed Problem Cough (27863543) Cough (R05.9) Active confirmed Vital Signs Temperature 98.7 degrees Fahrenheit 08/15/2024 Blood pressure diastolic 01 mm Hg 08/15/2024 Height 68.75 in 08/15/2024 Blood pressure systolic 001 mm Hg 08/15/2024 Weight 205.8 lbs 08/15/2024 BMI 30.61 kg/m2 08/15/2024 Encounters Encounter Location Date Provider Diagnosis [facility] Outpatient [address] [place] [phone] 04/13/2024 Toi Garsia Colon cancer screeni ng Z12.11 ; Colon polyps K63.5 ; Diverticulosis of large intestine without perforation or abscess without bleeding K57.30 ; Other hemorrhoids K64.8 ; Gastroesophageal reflux disease K21.9 ; Other specified disease of esophagus K22.89 ; Hiatal hernia K44.9 ; Gastric polyps K31.7 ; Chronic gastritis K29.50 and Chronic cough R05.3 [facility] [address] [place] [address] 08/15/2024 Toi Garsia Colon cancer screeni ng Z12.11 ; Chronic cough R05.3 ; Colon polyps K63.5 and Hiatal hernia K44.9 [facility] [address] [place] [address] 02/21/2024 Toi Garsia [facility] [address] [place] [address] 04/17/2024 Toi Garsia Assessments Encounter Date Diagnosis [...] future. 04/13/2024 Other hemorrhoids (ICD-10 - K64.8) 08/15/2024 [...] Insured Coverage Start Date Coverage End Date [facility] [address] [address] [place] [address] [id number] TAYE EATON Self - patient is the insured MEDICAID OF [employer] [address] [place] [address] [id number] TAYE EAOTN Self - patient is the insured Medical (General) History Medical History History ICD Code Asthma--exercise-induced asthma Bipolar disease Denies AR,DM,CVA,renal disease Colonoscopy in 07/2012-1 small tubular ad [...]
== END 2024-12-27 10:11 | disposition home or self-care (01) ==
LOC: HO.HOS 09:23
PROVIDERS: PCP Internal Medicine; Visit Provider Physical Medicine & Rehabilitation
DX: M54.16 Radiculopathy, lumbar region (principal); M47.816 Spondylosis without myelopathy or radiculopathy, lumbar region
CPT/HCPCS: 99204

== ENCOUNTER → 2024-12-27 09:23 | Outpatient (BNVA) | payer MEDICARE, MEDICAID, SELFPAY | PROVIDERS: PCP Internal Medicine; Visit Provider Physical Medicine & Rehabilitation | DX: M47.26 Other spondylosis with radiculopathy, lumbar region (principal); R39.15 Urgency of urination; R10.2 Pelvic and perineal pain | CPT/HCPCS: 81003; 99202 ==

== ENCOUNTER 2024-12-27 10:47 | Outpatient (AMB) | payer MEDICARE, MEDICAID, SELFPAY ==
--- NOTE | 2024-12-27 11:05 | A.OFFVIS_ITS ---
Intake Visit Reasons: urinary urgency Intake Note: New patient presents today for initial visit for urinary urgency Urology Medication:Tamsulosin Blood Thinner:none Antibiotic Allergies:None PVR:203ml Allergies atorvastatin Adverse Reaction (Verified 12/27/24 11:07) Muscle Pain Medication List - Last Reconciled 12/27/24 by Bernadette Oliver MD dextroamphetamine-amphetamine 30 mg (Adderall) 40 mg PO BID fluticasone furoate-vilanterol 200-25 mcg/dose (Breo Ellipta) 1 inh inhalation DAILY gabapentin 800 mg PO QID ipratropium bromide 2 sprays intranasal BID lamotrigine 200 mg PO DAILY lamotrigine 200 mg PO DAILY lithium carbonate One tablet qam and 2 tablets at bedtime orally bedtime; pantoprazole Take 2 tab oral twice daily for 2 weeks then take 1 tab oral once daily tamsulosin 0.4 mg PO BEDTIME trazodone 100 mg PO BEDTIME HPI Comments Details: 12/27/24 History of Present Illness - The patient is a 64-year-old male presenting with urinary urgency. - He reports urinary urgency and nocturia for about three years, with urgency sometimes preventing timely bathroom access. - Post-void dribbling is noted, with a sensation of incomplete bladder emptying. - No previous prostate issues or urological consultations have been reported. - In June, the patient experienced perineal pain after a physical activity, initially suspecting a hernia, but an ultrasound showed no significant issues. Results - Urine analysis: Clear, no blood or signs of infection - Pelvic MRI: Evaluated prostate and bladder, no significant issues noted Plan - Conduct a PSA test to evaluate prostate health. - Prescribe medication to enhance urine flow by relaxing prostate muscles. - Schedule a cystoscopy for bladder and urethra examination. - Advise the patient to be aware of dizziness as a medication side effect. - Arrange a follow-up to assess medication impact and consider further evaluations. 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 Cognitive needs: No Hearing needs: No Vision needs: Yes (rx glasses) Review of Systems Const All systems reviewed & are unremarkable except as noted in HPI and below Reports no additional complaints Eyes Reports no additional complaints ENT Reports no additional complaints Card Reports no additional complaints Resp Reports no additional complaints GI Reports no additional complaints Reports as per HPI Musc Reports no additional complaints Skin/Breast Reports system reviewed and no additional complaints, except as documented Neuro Reports no additional complaints Psych Reports no additional complaints Endo Reports no additional complaints Branden/Lymph Reports no additional complaints Aller/Immun Reports no additional complaints Physical Exam Const General: healthy appearing, no acute distress and well developed Orientation/consciousness: patient oriented x3 HEENT Head: Yes normocephalic and Yes atraumatic Eyes Conjunctivae: conjunctivae normal Neck Neck: Yes normal visual inspection Chest Chest palpation & inspection: normal inspection of the chest Resp Effort & Inspection: normal respiratory effort GI Inspection: Yes normal to inspection Neuro General: patient oriented x3 Psych Appearance: grossly normal Affect: normal affect Results AMB Urinalysis, Automated UA Leukoctes 0 Thom/uL Last Edit by Aby Sloan on 12/27/24 15:16 UA Nitrite Negative Last Edit by Aby Sloan on 12/27/24 15:16 UA Urobilinogen 3.5 mg/dL Last Edit by bAy Sloan on 12/27/24 15:16 UA Protein 0 mg/dL Last Edit by Aby Sloan on 12/27/24 15:16 UA pH 6.0 Last Edit by Aby Sloan on 12/27/24 15:16 UA Blood 0 Kody/uL Last Edit by Aby Sloan on 12/27/24 15:16 UA Specific [place] 1.005 Last Edit by Aby Sloan on 12/27/24 15:16 UA Ketone Negative Last Edit by Aby Sloan on 12/27/24 15:16 UA Bilirubin 0 mg/dL Last Edit by Aby Sloan on 12/27/24 15:16 UA Glucose 0 mg/dL Last Edit by Aby Sloan on 12/27/24 15:16 Results Reviewed Results Reviewed: Date of Service: 10/19/24 EXAMINATION: MR PELVIS WITHOUT THEN WITH IV CONTRAST HISTORY: N50.89 - Other specified disorders of the male genital organs. TECHNIQUE: Axial T1, fat-suppressed T1, fat-suppressed T2, and sagittal and coronal T2-weighted images of the pelvis were obtained. Subsequently, axial and sagittal fat-suppressed T1-weighted images were obtained after the intravenous administration of 9 mL Gadavist. COMPARISON: There are no prior studies available for comparison. FINDINGS: There is a subchondral cyst in the superior right acetabulum. There is mild osteoarthritis of the hip joints. Bone marrow signal intensity is normal. The visualized muscles demonstrate normal signal intensity. The peripheral zone of the prostate demonstrates a striated appearance, particularly on the left can be seen in the setting of prostatitis of scarring. The urinary bladder is unremarkable in appearance. There is no ascites or pelvic lymphadenopathy. IMPRESSION: No mass or muscular abnormality is seen to correspond to the patient's pain. Incidental findings as described above. Assessment & Plan Assessment & Plan (1) Screening PSA (prostate specific antigen): Code(s): Z12.5 - Encounter for screening for malignant neoplasm of prostate Category: Medical Orders: Orders AMB Post Void Residual by ultrasound Today R39.15 - Urgency of urination, Z12.5 - Encounter for screening for malignant neoplasm of prostate PSA,Total (Free>4and<10) Today Z12.5 - Encounter for screening for malignant neoplasm of prostate AMB Urinalysis Automated Today R39.15 - Urgency of urination, Z12.5 - Encounter for screening for malignant neoplasm of prostate Medications: Changed From tamsulosin 0.4 mg PO BEDTIME 90 caps 1RF To tamsulosin 0.4 mg PO BID 90 caps 1RF Coding Diagnoses Screening PSA (prostate specific antigen) Z12.5
== END 2024-12-27 11:53 | disposition home or self-care (01) ==
LOC: HO.HUSH 10:48
PROVIDERS: PCP Internal Medicine; Visit Provider Urology
DX: Z12.5 Encounter for screening for malignant neoplasm of prostate (principal); R39.15 Urgency of urination

== ENCOUNTER 2025-02-01 14:44 | Emergency (ER) | payer MEDICARE, MEDICAID, SELFPAY ==
--- OUTSIDE RECORDS SUMMARY | 2023-09-12 09:00 | XMS_ITS ---
Author Organization [facility] Address [address] [place] [id number] Care Team Providers Care Batch Room Technician Name Role Phone Omero Swartz MD Primary Care Provider Delmi Sandoval Unavailable [phone] Encounters Encounter Location Date Provider Diagnosis [address] [address] 09/12/2023 Delmi Contreras Plan Of Treatment No Information Progress Notes * Wang EATONDOB:1960 (65 yo M)Acc No.[id number]:09/12/2023 Progress Notes Patient: Wang WILEY Provider: Corie Contreras DPM :1960 A ge:63 Y S ex:Male Date:09/12/2023 Address:[address] [place] [address] Pcp:Omero Swartz MD Subjective: * Chief Complaints: * * Medical History: Objective: * Vitals: Assessment: Plan: * Treatment: * Images: * The named appointment provid er may or may not be the originator of this progress note, and it is not deemed complete until electronically signed by the appointment provider. Sign off status: Pending * Provider: Corie Contreras DPM Date: 0 09/12/2023 Generated for Maya armenta/Ronald/eTjoshitting on: 0 02/01/2025 05:58 PM EDT
--- OUTSIDE RECORDS SUMMARY | 2024-04-13 05:10 | XMS_ITS ---
Author Organization [facility] Address [address] [place] [address] Care Team Providers Care Transfusion Nurse Name Role Phone Madeleine Zambrano M.D. Primary Care Provider Unavail able Toi Garsia Unavailable [phone] REASON FOR VISIT REFLUX,COUGH,HX OF POLYPS,SCREENING Problems Problem Type SNOMED Code ICD Code Onset Dates Problem Status W/U Status Risk Notes Problem Diverticular disease of colon (880618857) Diverticulosis of large intestine without perforation or abscess without bleeding (K57.30) Active confirmed Problem Gastroesophageal reflux disease (520524867) Gastroesophageal reflux disease (K21.9) Active confirmed Problem Benign neoplasm of stomach (58009093) Gastric polyps (K31.7) Active confirmed Problem Chronic gastritis (6555852) Chronic gastritis (K29.50) Active confirmed Encounters Encounter Location Date Provider Diagnosis [facility] Outpatient [address] [place] [phone] 04/13/2024 Toi Garsia Colon cancer screeni ng [...] Notes * TAYE EATONDOB:1960 (65 yo M)Acc No.[id number]:04/13/2024 EGD and COL/MAC Patient: TAYE WILEY Provider: Tanya Garsia MD :1960 A ge:64 Y S ex:Male Date:04/13/2024 Address:[address] [place], [place] [phone] Pcp:Madeleine Zambrano M.D. Subjective: * Chief Complaints: * 1 . REFLUX,COUGH,HX OF POLYPS,SCREENING. * Medical History: Objective: * Vitals: Assessment: * Assessment: 1. C olon cancer [...] hronic cough - R05.3 ? Plan: * Treatment: * Procedure Codes: 4 5385 LESION REMOVAL COLONOSCOPY, Modifiers: 33 , 82542 UPPER GI ENDOSCOPY, BIOPSY * * The named appointment provid er may or may not be the originator of this progress note, and it is not deemed complete until electronically signed by the appointment provider. Sign off status: Pending * Provider: Tanya Garsia MD Date: 1 06/13/2023 Generated for Maya armenta/Ronald/Lorena on: 0 02/01/2025 05:58 PM EDT
--- OUTSIDE RECORDS SUMMARY | 2025-01-28 16:30 | XMS_ITS | Encounter Summary ---
Author Organization [facility] Address [address] [place] [address] Care Team Providers Care Reel Blade Bender Furnace Tender Name Role Phone Madeleine Zambrano MD Primary Care Provider [phone] Reason for Visit * Reason Comments ST Treatment * Evaluation and Treatment (Elective) - Authorized Specialty Diagnoses / Procedures Referred By Contact Referred To Contact Speech-Language Pathologist / Rehabilitation Diagnoses Chronic cough Pharyngoesophageal dysphagia Maurilio Douglass MD [address] [address] Phone: tel:[phone] fax:[phone] [address] Phone: tel: fax: Referral ID Status Reason Start Date Expiration Date Visits Requested Visits Authorized [id number] Authorized Support Services 01/14/2025 04/08/2025 12 12 Encounter Details Date Type Department Care Team (Late st Contact Info) Description 01/28/2025 4:30 PM EDT Treatment [address] [phone] System, Provider Not In Merari Maldonado, [facility] [address] [place] [id number] Chronic cough (Primary Dx); Esophageal dysphagia Social History Tobacco Use Types Packs/Day Years Used Date Smoking Tobacco: Never Smokeless Tobacco: Never Sex and Gender Information Value Date Recorded Sex Assigned at Male 10/05/2024 2:29 PM EDT Legal Sex Male 2:28 PM EDT Gender Identity Male 10/05/2024 2:29 PM EDT Sexual Orientation Heterosexual (straight) 10/05 2:29 PM EDT documented as of this encounter Miscellaneous Notes * Daily/Treatment Note - BETY White - 01/28/2025 5:10 PM EDT Speech Therapy Daily Note Diagnoses ICD-10-CM 1. Chronic cough R05.3 2. Esophageal dysphagia R13.19 Subjective: Subjective - TueJanuary 28, 2025 Row Name Treatment from 01/28/2025 in [facility] Subjective Subjective there was an improvement patient reports all of a sudden last Tuesday he noticed an improvement and by Tuesday it was fine. OTHER Precautions none Treatment Performed: Interventions - TueJanuary 28, 2025 Row Name Treatment from 01/28/2025 in [facility] HEALTH AIDE Intervention HEALTH AIDE Interventions Voice Pt/Family Education/Training Further education provided on chronic cough program. Discussed potential discharge as patient has had a significant improvement in symptoms over the last week. Home Exercise Program reviewed;updated Assessment/ Plan: Assessment - TueJanuary 28, 2025 Row Name Treatment from 01/28/2025 in [facility] Assessment/ Plan Assessment Patient reporting significant improvement in chronic cough symptoms. Within 30 min session 4 throat clears were noticed which is a significant improvement. Chronic cough program was reviewed and provided further training and demonstration of breathing exercises including: diaphragmatic breathing, straw breathing, diaphragmatic breathing and counting backward from 10, and taking a sip of water swallowing hard and exhaling. Encouraged patient to attempt better balance of diet in effortto reduced LPR symptoms. Plan continue with POC- will likely discharge documented in this encounter Plan of Treatment Not on file documented as of this encounter Goals Goal Patient Goal Type Associated Problems Recent Progress Patient-Stated? Author ST LTG 1 Speech Therapy No Merari Maldonado CCC-SLP Note: Patient will report reduced frequency and duration of coughing and vocal hoarseness during the day following chronic cough program targeting identification of triggers, improved vocal hygiene, suppressing cough, diaphragmatic and open throat breathing. documented as of this encounter Visit Diagnoses Diagnosis Chronic cough- Primary Cough Esophageal dysphagia Dysphagia, pharyngoesophageal phase documented in this encounter Care Teams Reel Blade Bender Furnace Tender Relationship Specialty Start Date End Date Madeleine Zambrano MD [address] [place] [phone] PCP - General Internal Medicine 12/05/24 documented as of this encounter
--- NOTE | ~2025-02-01 | US_ITS ---
EXAMINATION: US SCROTUM CLINICAL INFORMATION: Pain and swelling. COMPARISON: None available. TECHNIQUE: A sonogram of the scrotum was performed assessing wade-scale appearance and color Doppler flow. Spectral Doppler analysis of the arterial and venous flow were performed in the testes bilaterally. FINDINGS: RIGHT: Right testicle measures 3.8 x 2.0 x 2.5 cm, volume 10 mL. No focal testicular parenchymal lesions are visualized. Spectral Doppler analysis of the arterial and venous flow is documented in the right testis. Small hydrocele is present. Right epididymal head is normal in size. The body and tail are heterogeneous and mildly enlarged. Right epididymal Doppler flow is increased in the tail. Possible small right inguinal hernia may be present. LEFT: Left testicle measures 3.8 x 2.2 x 2.6 cm, volume 11 mL. No focal testicular parenchymal lesions are visualized. Spectral Doppler analysis of the arterial and venous flow is documented in the left testis. Left epididymal head is normal in size. Small left hydroceles present. Left epididymal Doppler flow is US/US scrotum IMPRESSION: Suspected right epididymitis involving the tail and possibly the body. Small bilateral hydroceles. Possible small right inguinal hernia. Electronically signed by: Chico Lorenzo MD 02/01/2025 04:14 PM EDT RP
--- NOTE | 2025-02-01 14:48 | ED_ITS ---
HPI - General Adult General Chief complaint: Urogenital-Male Stated complaint: testicular ultrasound Time Seen by Provider: 02/01/25 16:45 Source: patient Mode of arrival: ambulatory Limitations: no limitations History of Present Illness ED Provider: MARRY Hernandez HPI narrative: This is a 65-year-old male history of bipolar 1, degenerative disc disease, groin pain, de Quervain disease, asthma presenting to the emergency department with right-sided testicular pain since Tuesday progressively worsening. He feels like nothing seems to make it better. He reports associated tenderness to the right testicle and constant discomfort. Denies concerns for STDs. Denies changes in urinary or bowel habits. Denies fevers, chills, chest pain, shortness of breath, abdominal pain, headache, vision changes, dizziness and weakness. No history of this in the past. Related Data Home Medications ?Medication ?Instructions ?Recorded ?Confirmed gabapentin 800 mg tablet 800 mg PO QID 12/01/2112/27 trazodone 100 mg tablet 100 mg PO BEDTIME 12/01/21 0 12/27/24 lamotrigine 100 mg tablet 200 mg PO DAILY 06/25/2412/14 lithium carbonate 300 mg tablet See Rx Instructions PO BEDTIME 06/25/24 12/27/24 dextroamphetamine-amphetamine 30 40 mg PO BID 08/02/24 12/27/24 mg tablet (Adderall) lamotrigine 200 mg tablet 200 mg PO DAILY 08/02/2412/14 Previous Rx's ?Medication ?Instructions ?Recorded pantoprazole 40 mg tablet,delayed See Rx Instructions PO DAILY #180 08/02/24 release tabs fluticasone furoate 200 1 inh inhalation DAILY #60 e a 08/13/24 mcg-vilanterol 25 mcg/dose inhalation powder (Breo Ellipta) ipratropium bromide 21 mcg (0.03 2 spray intranasal BI D #90 mL 11/16/24 %) nasal spray tamsulosin 0.4 mg capsule 0.4 mg PO BID #90 caps 12/27 ketorolac 10 mg tablet 10 mg PO TID PRN pain 5 days #15 02/01/25 tabs levofloxacin 500 mg tablet 500 mg PO DAILY 10 days #10 tabs 02/01/25 Allergies Allergy/AdvReac Type Severity Reaction Status Date / Time atorvastatin AdvReac Muscle Pain Verified 02/01/25 14:50 Review of Systems 2 Review of Systems: Yes all other systems are reviewed and are negative [facility], [facility] Past Medical History Attestation statement: The following information was validated with the patient. 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 Oriented X3.? No acute distress.? Head: Normocephalic, atraumatic, no step-offs or deformities Eyes: Pupils equal, round and reactive to light.? ENT: Pharynx normal.? Neck: Normal inspection.? Neck supple.? CVS: Normal heart rate and rhythm.? Pulses normal.? Respiratory: No respiratory distress.? Breath sounds normal.? Abdomen: Soft and nontender.? Skin: Skin warm and dry.? Normal skin color.? Normal skin turgor.? Extremities: No lower extremity edema.? No calf ttp. 5/5 strength to bilateral upper and lower extremities Back: No midline tenderness, no C-spine tenderness, full range of motion, no CVA tenderness bilaterally Neuro: Oriented X 3.? No motor deficit.? No sensory deficit. CN 2-12 intact Sensitive exam: [place] PCT as sleeping car conductor tenderness to palpation to her right epididymis with overlying erythema and warmth to right testicle. Vital Signs: Vital Signs - 24 hr 02/01/25 14:49 Temperature 97.6 F Pulse Rate 67 Respiratory Rate 18 Blood Pressure 150/67 H Pulse Oximetry 99 Oxygen Delivery Method Room Air BMI result Body Mass Index 29.8 Vital signs stable Course Course Course Narrative: Rapid medical examination performed in triage by Trinh Garcia PA-C. Patient is a 65 year old assigned male at presenting to the emergency department with right testicular pain. Detailed physical exam and review of systems are deferred to the traffic operations engineer. Labs and imaging ordered. Patient placed back in the waiting room pending room availability and results. Reevaluation(s) Reevaluation #1: CBC without leukocytosis. Inflammatory markers negative. Chemistry no acute findings. Scrotal ultrasound with suspected right epididymitis involving the tail and possibly the body small bilateral hydroceles. Small possible inguinal hernia on the right. Time: 17:12 Reevaluation #2: I discussed plan with patient he will follow up with Urology as an appointment scheduled to see Dr. Renae in a few weeks. Educated patient on diagnosis and treatment plan, answered all question, patient verbalizes understanding. At this time patient will be discharged home, advised to return with new or worsening symptoms. Educated on worrisome signs and symptoms and when to return. At this time I feel comfortable discharge home. Time: 17:12 Medical Decision Making Medical Decision Making [facility] Narrative: 164 65-year-old male presents with right-sided testicular pain ongoing since Tuesday progressively worsening. No concerns for STDs or STIs. Denies fevers, chills, nausea, vomiting. Physical exam tenderness to palpation of right epididymis with overlying erythema and warmth Hx and physical exam concerning for epididymitis, low suspicion for cellulitis no signs of Betty gangrene. I do not suspect torsion. Will rule out sexually transmitted infections and UTI. Plan labs, imaging. Differential Diagnosis Differential Diagnoses: The differential diagnosis associated with the presentation includes (Hx and physical exam concerning for epididymitis, low suspicion for cellulitis no signs of Betty gangrene. I do not suspect torsion. Will rule out sexually transmitted infections and UTI.) Admission/Observation Consideration of admission/observation: Escalation of care including admission/observation considered Lab Data [facility] Lab Attestation statement: I reviewed the patient's lab results. 02/01/25 16:53 02/01/25 16:14 Labs: Lab Results 02/01/25 02/01/25 Range/Units 16:14 16:53 WBC 7.1 (4.8-10.8) X10*3/uL RBC 4.32 L (4.60-5.80) X10*6/uL Hgb 13.9 L (14.0-18.0) g/dl Hct 41.6 L (42.0-52.0) % MCV 96.3 (80.0-98.0) fL MCH 32.2 (27.0-33.0) pg MCHC 33.4 (31.0-36.0) g/dl RDW 12.8 (11.0-16.0) % Plt Count 211 D (160-400) X10*3/uL MPV 9.2 L (9.4-12.4) fL Immature Gran % (Auto) 0.3 (0.0-0.4) % Neut % (Auto) 62.3 (45-73) % Lymph % (Auto) 24.5 (20-40) % [place] % (Auto) 10.8 (2-11) % Eos % (Auto) 1.7 (0-4) % Baso % (Auto) 0.4 (0-2) % Lymph # (Auto) 1.7 (1.2-4.9) X10*3/uL [place] # (Auto) 0.8 (0.1-1.2) X10*3/uL Eos # (Auto) 0.1 (0.0-0.4) X10*3/uL Baso # (Auto) 0.0 (0.0-0.2) X10*3/uL Abs Immat Gran (auto) 0.02 (0.00-0.03) X10*3/uL Absolute Neuts (auto) 4.4 (2.0-8.3) x10*3/uL Absolute Nucleated RBC 0.000 (0.0-0.012) X10*3/uL Nucleated RBC % (auto) 0.0 (0.0-0.2) /100WBC ESR 2 (0-15) MM/HR Sodium 140 (135-145) mmol/L Potassium 4.0 (3.3-5.1) mmol/L Chloride 108 (96-108) mmol/L Carbon Dioxide 27 (22-29) mmol/L Anion Gap 9 L (12-20) BUN 11 (9-16) mg/dL Creatinine 0.85 (0.5-1.4) mg/dL Estim Creat Clear Calc 99.4 Estimated GFR > 60 Random Glucose 89 (60-115) mg/dL Calcium 9.0 D (8.4-10.2) mg/dL Total Bilirubin 0.3 (0.0-1.0) mg/dL AST 15 (5-37) U/L ALT 18 (0-40) U/L Alkaline Phosphatase 61 (39-117) U/L C-Reactive Protein < 0.10 (< or = 0.50) mg/dL Total Protein 7.2 (6.5-8.0) g/dL Albumin 4.5 (3.5-5.0) g/dL Urine Color Yellow Urine Appearance Clear Urine pH 6.5 (5.0-9.0) Ur Specific [place] <= 1.005 (1.005-1.025) Urine Protein Negative (Neg-Trace) mg/dL Urine Glucose (UA) Negative (Negative) mg/dL Urine Ketones Negative (Negative) mg/dL Urine Blood Negative (Negative) Urine Nitrite Negative (Negative) Ur Leukocyte Esterase Negative (Negative) Independent Interpretation I performed an independent interpretation of an: Ultrasound ( US/US scrotum IMPRESSION: Suspected right epididymitis involving the tail and possibly the body. Small bilateral hydroceles. Possible small right inguinal hernia.) Radiology Impression Discussion of test interpretation with radiology: I have reviewed the radiologist's reading. External Record Review External record reviewed: Inpatient record, Office record, Outpatient record, Prior outpatient labs, Prior outpatient radiology, Primary care record and Outside ED record Critical Care Time Critical Care Time Critical Care Time: No Discharge Plan Discharge Clinical Impression: Acute epididymitis, Cellulitis Patient Disposition: Home, Self-Care Instructions: Epididymitis (ED), Cellulitis (ED), Scrotal Pain (ED) Additional Instructions: Take your medications as prescribed. If you were prescribed antibiotics today, it is important that you take your medication to their entirety, do not skip any doses, do not finish them early. Follow-up with your primary care provider this week. Return to the emergency department with new or worsening symptoms. Such as fevers, chills, chest pain, shortness of breath, nausea, vomiting, dizziness, headache, vision changes, lethargy In case of emergency call 911 Please return if symptoms worsen. Or if you note no relief with antibiotics and a few days. Toradol has been sent to your pharmacy, you tolerated this well in the department. Please take this as prescribed do not take this with ibuprofen, or other NSAIDs, do not mix this with alcohol. Side effects of this medication including increased risk for bleeding and possible kidney injury. Prescriptions: New levofloxacin 500 mg tablet 500 mg PO DAILY 10 Days Qty: 10 0RF ketorolac 10 mg tablet 10 mg PO TID PRN (Reason: pain) 5 Days Qty: 15 0RF Rx Instructions: Tolerated IM or IV in department No Action ipratropium bromide 21 mcg (0.03 %) spray,non-aerosol 2 spray intranasal BID Qty: 90 0RF gabapentin 800 mg tablet 800 mg PO QID trazodone 100 mg tablet 100 mg PO BEDTIME lithium carbonate 300 mg tablet See Rx Instructions PO BEDTIME Rx Instructions: One tablet qam and 2 tablets at bedtime orally bedtime; lamotrigine 100 mg tablet 200 mg PO DAILY lamotrigine 200 mg tablet 200 mg PO DAILY dextroamphetamine-amphetamine [Adderall] 30 mg tablet 40 mg PO BID Rx Instructions: administer doses at least 4-6 hours apart pantoprazole 40 mg tablet,delayed release (DR/EC) See Rx Instructions PO DAILY Qty: 180 3RF Rx Instructions: Take 2 tab oral twice daily for 2 weeks then take 1 tab oral once daily fluticasone furoate-vilanterol [Breo Ellipta] 200-25 mcg/dose blister with device 1 inh inhalation DAILY Qty: 60 6RF tamsulosin 0.4 mg capsule 0.4 mg PO BID Qty: 90 1RF Ref[place] [facility] [Provider Group, Urology] Madeleine Zambrano MD [Primary Care Provider, Endocrinology] Stand Alone Forms: Work/School Release Print Language: Grenadian
[2025-02-01 14:49] VITALS: BP 150/67; PULSE 67; RESP 18; TEMP 36.4; O2SAT 99; BMI 29.8
[2025-02-01 16:25] LABS: Appearance Urine Clear; Glucose Urine UA Negative (Negative); PH 6.5 (5.0-9.0); Specific Gravity - Urine <= 1.005 (1.005-1.025)
[2025-02-01 16:37] LABS: Alanine Aminotransferase 18 U/L (0-40); Albumin Level 4.5 g/dL (3.5-5.0); Alkaline Phosphatase 61 U/L (39-117); Anion Gap 9 (12-20); Aspartate Amino Transferase 15 U/L (5-37); Blood Urea Nitrogen 11 mg/dL (9-16); Calcium 9.0 mg/dL (8.4-10.2); Carbon Dioxide 27 mmol/L (22-29); Chloride 108 mmol/L (96-108); Creatinine Clr Calc Pharmacy 99.4; Estimated Glomerular Filt Rate > 60; Potassium 4.0 mmol/L (3.3-5.1); Sodium 140 mmol/L (135-145); Total Protein 7.2 g/dL (6.5-8.0)
[2025-02-01 16:58] LABS: Hematocrit 41.6 % (42.0-52.0); Hemoglobin 13.9 g/dl (14.0-18.0); Imm Gran Abs Auto 0.02 X10*3/uL (0.00-0.03); Imm Gran Pct Auto 0.3 % (0.0-0.4); Lymphocytes Absolute Auto 1.7 X10*3/uL (1.2-4.9); Mean Corpuscular HGB Conc 33.4 g/dl (31.0-36.0); Mean Corpuscular Hemoglobin 32.2 pg (27.0-33.0); Mean Corpuscular Volume 96.3 fL (80.0-98.0); NRBC Abs Auto 0.000 X10*3/uL (0.0-0.012); NRBC Pct Auto 0.0 /100WBC (0.0-0.2); Platelet Count 211 X10*3/uL (160-400); Red Blood Count 4.32 X10*6/uL (4.60-5.80); White Blood Count 7.1 X10*3/uL (4.8-10.8)
[2025-02-01 17:34] VITALS: BP 150/67; PULSE 67; RESP 18; TEMP 36.4; O2SAT 99
--- OUTSIDE RECORDS SUMMARY | 2025-02-01 17:58 | XMS_ITS | Patient Health Record ---
Author Organization [facility] Address [address] [place] [address] Care Team Providers Care Housemaid Name Role Phone Madeleine Zambrano M.D. Primary Care Provider Unavail able Toi Garsia Unavailable [phone] Allergies No Known Allergies Results Component Value Reference Range Notes Pathology Reviewed date:04/22/2024 11:02:56 PM Interpretation: Performing Lab:[facility], [address] [place] [id number] Notes/Report: Reason For Referral No Information Medications Medication SIG (Take, Route, Frequency, Duration) Notes Start Date End Date Status [place] Carbonate ER 300 MG TAKE 3 TABLE [...] MCG/ACT Inhalation for 30 Days Activ e [place] Carbonate 300 MG TAKE 2 TABLETS BY [...] Notes Problem Gastro-esophageal reflux disease without esophagitis (310058100) Gastro-esophageal reflux disease without esophagitis (K21.9) Active confirmed Problem 018843209 Encounter for screening for malignant neoplasm of colon (Z12.11) Active confirmed Problem 860354694 History of adenomatous polyp of colon (Z86.010) Active confirmed Problem Diverticular disease of colon (181856391) Diverticulosis of large intestine without perforation or abscess without bleeding (K57.30) Active confirmed Problem 013342654 Irritable bowel syndrome with diarrhea (K58.0) Active confirmed Problem Gastroesophageal reflux disease (181347768) Gastroesophageal reflux disease (K21.9) Active confirmed Problem Benign neoplasm of stomach (95830626) Gastric polyps (K31.7) Active confirmed Problem Chronic gastritis (2112010) Chronic gastritis (K29.50) Active confirmed Problem Cough (69006946) Cough (R05.9) Active confirmed Vital Signs Temperature 98.7 degrees Fahrenheit 08/15/2024 Blood pressure diastolic 01 mm Hg 08/15/2024 Height 68.75 in 08/15/2024 Blood pressure systolic 001 mm Hg 08/15/2024 Weight 205.8 lbs 08/15/2024 BMI 30.61 kg/m2 08/15/2024 Encounters Encounter Location Date Provider Diagnosis [facility] [place] Out[place] [address] [place] [phone] 04/13/2024 Toi Garsia Colon cancer screeni ng Z12.11 ; Colon polyps K63.5 ; Diverticulosis of large intestine without perforation or abscess without bleeding K57.30 ; Other hemorrhoids K64.8 ; Gastroesophageal reflux disease K21.9 ; Other specified disease of esophagus K22.89 ; Hiatal hernia K44.9 ; Gastric polyps K31.7 ; Chronic gastritis K29.50 and Chronic cough R05.3 [facility] [address] [place] [address] 08/15/2024 Toi Garsia Colon cancer screeni ng Z12.11 ; Chronic cough R05.3 ; Colon polyps K63.5 and Hiatal hernia K44.9 [facility] [address] [place] [address] 02/21/2024 Toi Garsia [facility] [address] [place] [address] 04/17/2024 Toi Garsia Assessments Encounter Date Diagnosis [...] Coverage Start Date Coverage End Date [facility] [address] [address] [place] [address] [id number] TAYE EATON Self - patient is the insured MEDICA[employer] OF [employer] [address] [place] [address] [id number] TAYE ETAON Self - patient is the insured Medical (General) History Medical History History ICD Code Asthma--exercise-induced asthma Bipolar disease Denies AL,DM,CVA,renal disease Colonoscopy in 07/2012-1 small tubular ad [...]
--- OUTSIDE RECORDS SUMMARY | 2025-02-01 17:58 | XMS_ITS | Encounter Summary ---
Author Organization [facility] Address [address] [place] [address] Care Team Providers Care Survey Analyst Name Role Phone Madeleine Zambrano MD Primary Care Provider [phone] Encounter Details Date Type Department Care Team (Latest Contact Info) Description 01/28/2025 Travel Social History Tobacco Use Types Packs/Day Years Used Date Smoking Tobacco: Never Smokeless Tobacco: Never Sex and Gender Information Value Date Recorded Sex Assigned at Male 10/05/2024 2:29 PM EDT Legal Sex Male 2:28 PM EDT Gender Identity Male 10/05/2024 2:29 PM EDT Sexual Orientation Heterosexual (straight) 10/05 2:29 PM EDT documented as of this encounter Plan of Treatment Not on file documented as of this encounter Goals Goal Patient Goal Type Associated Problems Recent Progress Patient-Stated? Author ST LTG 1 Speech Therapy No Merari Maldonado, CCC-CYTOLOGY SUPERVISOR Note: Patient will report reduced frequency and duration of coughing and vocal hoarseness during the day following chronic cough program targeting identification of triggers, improved vocal hygiene, suppressing cough, diaphragmatic and open throat breathing. documented as of this encounter Visit Diagnoses Not on filedocumented in this encounter Care Teams Survey Analyst Relationship Specialty Start Date End Date Madeleine Zambrano MD [address] [place] [address] [place] [address] PCP - General Internal Medicine 12/05/24 documented as of this encounter
--- OUTSIDE RECORDS SUMMARY | 2025-02-01 17:58 | XMS_ITS | Clinical Summary ---
Author Organization [facility] Address [address] [place] [address] Care Team Providers Care Sports Administrator Name Role Phone Madeleine Zambrano MD Primary Care Provider [phone] Allergies No known active allergies Medications No known medications Encounters Date Type Department Care Team Description 01/28/2025 4:30 PM EDT Treatment [address] [address] System, Provider Not In Merari Maldonado CCC-PROCUREMENT PROFESSIONAL Chronic cough (Primary Dx); Esophageal dysphagia 01/28/2025 Travel 01/14/2025 10:00 AM EDT Evaluation [address] [address] Maurilio Douglass MD Eller, Liana K, CCC-PROCUREMENT PROFESSIONAL Chronic cough (Primary Dx); Esophageal dysphagia 01/14/2025 Travel 12/05/2024 7:00 AM EDT Office Visit [facility] [address] [phone] Maurilio Douglass MD Laryngopharyngeal reflux (LPR) (Primary Dx); Deviated septum; Chronic cough; Pharyngoesophageal dysphagia from Last 3 Months Social History Tobacco Use Types Packs/Day Years Used Date Smoking Tobacco: Never Smokeless Tobacco: Never Tobacco Cessation:Counseling Given: Not Answered Sex and Gender Information Value Date Recorded [...] Zoster (Shingles) Vaccine (1 of 2) 01/19/2012 Influenza Vaccine 12/21/2024 COVID-19 Vaccine (1 - 2023-2 5 season) 2025 RSV Vaccine 60 years and old er and Patients (1 - 1-dose 75+ series) 2037 Hepatitis B Vaccines Aged Out No long er eligible based on patient's age to complete this topic Goals Goal Patient Goal Type Associated Problems Recent Progress Patient-Stated? Author ST LTG 1 Speech Therapy No Merari Maldonado, [facility]-PROCUREMENT PROFESSIONAL Note: Patient will report reduced frequency and duration of coughing and vocal hoarseness during the day following chronic cough program targeting identification of triggers, improved vocal hygiene, suppressing cough, diaphragmatic and open throat breathing. Insurance [facility] [place] [address] MEDICARE PART A & B [employer] MGD MEDICARE Care Teams Sports Administrator Relationship Specialty Start Date End Date Madeleine Zambrano MD [address] [place] [phone] PCP - General Internal Medicine 12/05/24
--- OUTSIDE RECORDS SUMMARY | 2025-02-01 17:58 | XMS_ITS | Patient Health Record ---
Author Organization [facility] Address [address] [place] [address] Care Team Providers Care Hospital Sales Representative Name Role Phone Omero Swartz MD Primary Care Provider Delmi Sandoval Unavailable [phone] Reason For Referral No Information Plan Of Treatment No Information Insurance Providers Payer Name Payer Address Payer Phone Subscriber Number Group Number Insured Name Patient Relationship to Insured Coverage Start Date Coverage End Date [employer] Medicare [id number] [address] [address] [place] [address] [id number] [address] Self - patient is the insured
[2025-02-01 23:16] LABS: CT PCR Urine NOT DETECTED (Not Detect.); NG PCR Urine NOT DETECTED (Not Detect.)
== END 2025-02-01 17:34 | disposition home or self-care (01) ==
PROVIDERS: Physician Assistant Medical; Emergency Provider Emergency Medicine; PCP Internal Medicine
DX: N50.811 Right testicular pain (principal); N45.1 Epididymitis; L03.314 Cellulitis of groin; Z79.899 Other long term (current) drug therapy
CPT/HCPCS: 36415; 76870; 80053; 81003; 85025; 85652; 86140; 87491; 87591; 96372; 99283; 99284; J1885

== ENCOUNTER → 2025-02-01 14:49 | Outpatient (BNV) | payer MEDICARE, MEDICAID, SELFPAY | PROVIDERS: PCP Internal Medicine; Visit Provider Radiology Diagnostic Radiology | DX: N43.3 Hydrocele, unspecified (principal) | CPT/HCPCS: 76870 ==

== ENCOUNTER 2025-02-04 10:40 | Outpatient (REF) | payer MEDICARE, MEDICAID, SELFPAY ==
--- OUTSIDE RECORDS SUMMARY | 2023-09-12 09:00 | XMS_ITS ---
Author Organization [facility] Address [address] [place] [phone] Care Team Providers Care Nozzle Cement Sprayer Helper Name Role Phone Omero Swartz MD Primary Care Provider Delmi Sandoval Unavailable [phone] Encounters Encounter Location Date Provider Diagnosis [address] [address] 09/12/2023 Delmi Contreras Plan Of Treatment No Information Progress Notes * Wang EATONDOB:1960 (65 yo M)Acc No.[id number]:09/12/2023 Progress Notes Patient: Wang WILEY Provider: Corie Contreras DPM :1960 A ge:63 Y S ex:Male Date:09/12/2023 Address:[address] [place] [address] Pcp:Omero Swartz MD Subjective: * Chief Complaints: [...] DPM Date: 0 09/12/2023 Generated for Maya armenta/Ronald/eTcharlessmitting on: 02/04/2025 01:51 PM EDT
--- OUTSIDE RECORDS SUMMARY | 2024-04-13 05:10 | XMS_ITS ---
Author Organization [facility] Address [address] [place] [address] Care Team Providers Care Market Stall Vendor Name Role Phone Madeleine Zambrano M.D. Primary Care Provider Unavail able Toi Garsia Unavailable [phone] REASON FOR VISIT REFLUX,COUGH,HX OF POLYPS,SCREENING Problems Problem Type SNOMED Code ICD Code Onset Dates Problem Status W/U Status Risk Notes Problem Diverticular disease of colon (695263923) Diverticulosis of large intestine without perforation or abscess without bleeding (K57.30) Active confirmed Problem Gastroesophageal reflux disease (471421091) Gastroesophageal reflux disease (K21.9) Active confirmed Problem Benign neoplasm of stomach (35148389) Gastric polyps (K31.7) Active confirmed Problem Chronic gastritis (0048916) Chronic gastritis (K29.50) Active confirmed Encounters Encounter Location Date Provider Diagnosis [facility] [place] [address] [place] [phone] 04/13/2024 Toi Garsia Colon cancer screeni ng [...] Notes * TAYE EATONDOB:1960 (65 yo M)Acc No.[id number]:04/13/2024 EGD and COL/MAC Patient: TAYE WILEY Provider: Tanya Garsia MD :1960 A ge:64 Y S ex:Male Date:04/13/2024 Address:[address] [place], [place] [phone] Pcp:Madeleine Zambrano M.D. Subjective: * Chief Complaints: [...] 5385 LESION REMOVAL COLONOSCOPY, Modifiers: 33 , 40778 UPPER GI ENDOSCOPY, BIOPSY * * The named appointment provid er may or may not be the originator of this progress note, and it is not deemed complete until electronically signed by the appointment provider. Sign off status: Pending * Provider: Tanya Garsia MD Date: 1 06/13/2023 Generated for Maya armenta/Ronald/Lorena on: 0 02/04/2025 01:51 PM EDT
[2025-02-04 13:27] LABS: MANUAL DIFF FLAG NO
[2025-02-04 13:31] LABS: Hematocrit 43.9 % (42.0-52.0); Hemoglobin 14.4 g/dl (14.0-18.0); Imm Gran Abs Auto 0.03 X10*3/uL (0.00-0.03); Imm Gran Pct Auto 0.4 % (0.0-0.4); Lymphocytes Absolute Auto 1.1 X10*3/uL (1.2-4.9); Mean Corpuscular HGB Conc 32.8 g/dl (31.0-36.0); Mean Corpuscular Hemoglobin 32.1 pg (27.0-33.0); Mean Corpuscular Volume 97.8 fL (80.0-98.0); NRBC Abs Auto 0.000 X10*3/uL (0.0-0.012); NRBC Pct Auto 0.0 /100WBC (0.0-0.2); Platelet Count 270 X10*3/uL (160-400); Red Blood Count 4.49 X10*6/uL (4.60-5.80); White Blood Count 6.8 X10*3/uL (4.8-10.8)
--- OUTSIDE RECORDS SUMMARY | 2025-02-04 13:51 | XMS_ITS | Clinical Summary ---
Author Organization [facility] Address [address] [place] [address] Care Team Providers Care Clinical Rehabilitation Liaison Name Role Phone Madeleine Zambrano MD Primary Care Provider [phone] Allergies No known active allergies Medications No known medications Encounters Date Type Department Care Team Description 01/28/2025 4:30 PM EDT Treatment [address] [phone] System, Provider Not In Merari Maldonado CCC-CHORUS MASTER Chronic cough (Primary Dx); Esophageal dysphagia 01/28/2025 Travel 01/14/2025 10:00 AM EDT Evaluation [address] [address] Maurilio Douglass MD Eller, Liana K, CCC-CHORUS MASTER Chronic cough (Primary Dx); Esophageal dysphagia 01/14/2025 Travel 12/05/2024 7:00 AM EDT Office Visit [facility] [address] [phone] Maurilio Douglass MD Laryngopharyngeal reflux (LPR) (Primary [...] LTG 1 Speech Therapy No Merari Maldonado, [facility]-CHORUS MASTER Note: Patient will report reduced frequency and duration of coughing and vocal hoarseness during the day following chronic cough program targeting identification of triggers, improved vocal hygiene, suppressing cough, diaphragmatic and open throat breathing. Insurance [facility] MEDICARE MEDICARE PART A & B [employer] MGD MEDICARE Care Teams Clinical Rehabilitation Liaison Relationship Specialty Start Date End Date Madeleine Zambrano MD [address] [place] [phone] PCP - General Internal Medicine 12/05/24
--- OUTSIDE RECORDS SUMMARY | 2025-02-04 13:52 | XMS_ITS | Patient Health Record ---
Author Organization [facility] Address [address] [place] [address] Care Team Providers Care Hydraulic Bull Riveter Operator Name Role Phone Omero Swartz MD Primary Care Provider Delmi Sandoval Unavailable [phone] Reason For Referral No Information Plan Of Treatment No Information Insurance Providers Payer Name Payer Address Payer Phone Subscriber Number Group Number Insured Name Patient Relationship to Insured Coverage Start Date Coverage End Date [employer] Medicare [id number] [address] [address] [place] [phone] [id number] [place] Self - patient is the insured
--- OUTSIDE RECORDS SUMMARY | 2025-02-04 13:52 | XMS_ITS | Patient Health Record ---
Author Organization [facility] Address [address] [place] [address] Care Team Providers Care Principal Technical Specialist Name Role Phone Madeleine Zambrano M.D. Primary Care Provider Unavail able Toi Garsia Unavailable [phone] Allergies No Known Allergies Results Component Value Reference Range Notes Pathology Reviewed date:04/22/2024 11:02:56 PM Interpretation: Performing Lab:[facility], [address] [place] [phone] Notes/Report: Reason For Referral No Information Medications Medication SIG (Take, Route, Frequency, Duration) Notes Start Date End Date Status [place] Carbonate ER 300 MG TAKE 3 TABLE [...] MCG/ACT Inhalation for 30 Days Activ e [place] Carbonate 300 MG TAKE 2 TABLETS [...] Notes Problem Gastro-esophageal reflux disease without esophagitis (812791572) Gastro-esophageal reflux disease without esophagitis (K21.9) Active confirmed Problem 513413391 Encounter for screening for malignant neoplasm of colon (Z12.11) Active confirmed Problem 720774577 History of adenomatous polyp of colon (Z86.010) Active confirmed Problem Diverticular disease of colon (118956057) Diverticulosis of large intestine without perforation or abscess without bleeding (K57.30) Active confirmed Problem 673927947 Irritable bowel syndrome with diarrhea (K58.0) Active confirmed Problem Gastroesophageal reflux disease (752300945) Gastroesophageal reflux disease (K21.9) Active confirmed Problem 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) Gastric polyps (K31.7) Active confirmed Problem Chronic gastritis (5735464) Chronic gastritis (K29.50) Active confirmed Problem Cough (42899758) Cough (R05.9) Active confirmed Vital Signs Temperature 98.7 degrees Fahrenheit 08/15/2024 Blood pressure diastolic 01 mm Hg 08/15/2024 Height 68.75 in 08/15/2024 Blood pressure systolic 001 mm Hg 08/15/2024 Weight 205.8 lbs 08/15/2024 BMI 30.61 kg/m2 08/15/2024 Encounters Encounter Location Date Provider Diagnosis [facility] Outpatient [address] [place] [phone] 04/13/2024 Toi Garsia Colon cancer screeni ng Z12.11 ; Colon polyps K63.5 ; Diverticulosis of large intestine without perforation or abscess without bleeding K57.30 ; Other hemorrhoids K64.8 ; Gastroesophageal reflux disease K21.9 ; Other specified disease of esophagus K22.89 ; Hiatal hernia K44.9 ; Gastric polyps K31.7 ; Chronic gastritis K29.50 and Chronic cough R05.3 [facility] [address] [place] [address] 08/15/2024 Toi Garsia Colon cancer screeni ng Z12.11 ; Chronic cough R05.3 ; Colon polyps K63.5 and Hiatal hernia K44.9 [facility] [address] [place] [address] 02/21/2024 Toi Garsia [facility] [address] [place] [address] 04/17/2024 Toi Garsia Assessments Encounter Date Diagnosis [...] Insured Coverage Start Date Coverage End Date [facility] [address] [address] [place] [address] [id number] TAYE EATON Self - patient is the insured MEDICAID OF [place] [address] [place] [address] [id number] TAYE EATON Self - patient is the insured Medical (General) History Medical History History ICD Code Asthma--exercise-induced asthma Bipolar disease Denies [place],DM,CVA,renal disease Colonoscopy in 07/2012-1 small tubular ad [...]
[2025-02-04 13:57] LABS: Alanine Aminotransferase 20 U/L (0-40); Albumin Level 4.6 g/dL (3.5-5.0); Alkaline Phosphatase 60 U/L (39-117); Anion Gap 10 (12-20); Aspartate Amino Transferase 20 U/L (5-37); Blood Urea Nitrogen 10 mg/dL (9-16); Calcium 9.1 mg/dL (8.4-10.2); Carbon Dioxide 27 mmol/L (22-29); Chloride 106 mmol/L (96-108); Estimated Glomerular Filt Rate > 60; Potassium 3.9 mmol/L (3.3-5.1); Sodium 139 mmol/L (135-145); Total Protein 7.3 g/dL (6.5-8.0)
[2025-02-04 14:01] LABS: Lithium 0.60 mmol/L (0.60-1.20)
[2025-02-04 14:04] LABS: PSA,Total (Free>4and<10) 2.50 ng/mL (0.00-4.00)
[2025-02-04 14:05] LABS: Thyroid Stimulating Hormone 1.29 uIU/mL (0.32-4.0)
[2025-02-07 22:03] LABS: Lamotrigine Lamictal 5.5 mcg/mL (2.5-15.0)
== END 2025-02-04 10:41 | disposition home or self-care (01) ==
LOC: HO.HMGCLDS 10:40
PROVIDERS: Urology; PCP Internal Medicine; Visit Provider Psychiatry & Neurology Psychiatry
DX: Z12.5 Encounter for screening for malignant neoplasm of prostate (principal); N45.1 Epididymitis; Z79.899 Other long term (current) drug therapy
CPT/HCPCS: 36415; 80053; 80175; 80178; 84153; 84443; 85025; 99212

== ENCOUNTER 2025-02-04 14:59 | Outpatient (AMB) | payer MEDICARE, MEDICAID, SELFPAY ==
[2025-02-04 15:21] VITALS: BP 136/78; PULSE 80; TEMP 37; O2SAT 98; BMI 29.2
--- NOTE | 2025-02-04 15:21 | MHC.PC.OV ---
Vital Signs 02/04/25 15:21 Height 5 ft 9 in Weight 198 lb BMI 29.2 BP 136/78 Blood Pressure Location Lt brachial Position Sitting Pulse 80 Pulse Source Pulse Oximeter Temp 98.6 F Temp Source Temporal Artery Scan Pulse Oximetry (%) 98 Oxygen Delivery Method Room Air Intake Visit Reasons: RX Interaction w/ [facility] Order Control Clerk Required: No Accompanied by: Self / Same As Patient Allergies atorvastatin Adverse Reaction (Verified 02/04/25 15:22) Muscle Pain Medication List - Last Reconciled 02/04/25 by MARRY Dolan dextroamphetamine-amphetamine 30 mg (Adderall) 40 mg PO BID fluticasone furoate-vilanterol 200-25 mcg/dose (Breo Ellipta) 1 inh inhalation DAILY gabapentin 800 mg PO QID ipratropium bromide 2 sprays intranasal BID lamotrigine 200 mg PO DAILY lamotrigine 200 mg PO DAILY levofloxacin 500 mg PO DAILY 10 days lithium carbonate One tablet qam and 2 tablets at bedtime orally bedtime; pantoprazole Take 2 tab oral twice daily for 2 weeks then take 1 tab oral once daily sulfamethoxazole-trimethoprim 800-160 mg (Bactrim DS) 1 tab PO BID tamsulosin 0.4 mg PO BID trazodone 100 mg PO BEDTIME Tobacco use date assessed: 02/04/25 Dental Screening Dental Screen Date: 02/04/25 Did you have a dental visit in the last 12 months?: Yes Did you have a dental problem in the last 6 months where you did not have access to dental care?: No HPI HPI Comments History of Present Illness Details The patient is a 65-year-old male presenting with epididymitis. The condition began last Tuesday, with significant pain leading to a medical consultation at the ER on Tuesday. The patient reports worsening swelling since then, with pain radiating to the groin and a retracted scrotum resembling a baseball-sized right testicle. The patient was initially prescribed levofloxacin, but due to potential interactions with lithium, it was deemed unsuitable. The psychiatrist advised against levofloxacin due to the risk of lithium toxicity and QT prolongation, which could lead to arrhythmias. A lithium test conducted this morning showed normal results. The patient is currently on lithium for psychiatric management and was advised to switch to Bactrim, a sulfa-based antibiotic, to avoid drug interactions. The treatment plan includes a two to three-week course of Bactrim, along with ice application for symptom relief. The patient has a follow-up appointment with a urologist scheduled for March 01. 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 1. Little interest or pleasure in doing things: not at all 2. Feeling down, depressed, or hopeless: not at all 3. Trouble falling or staying asleep, or sleeping too much: not at all 4. Feeling tired or having little energy: not at all 5. Poor appetite or overeating: not at all 6. Feeling bad about yourself - or that you are a failure or have let yourself or your family down: not at all 7. Trouble concentrating on things, such as reading the newspaper or watching television: not at all 8. Moving or speaking so slowly that other people could have noticed. Or the opposite - being so fidgety or restless that you have been moving around a lot more than usual: not at all 9. Thoughts that you would be better off or of hurting yourself in some way: not at all Total score: 0 Source: Developed by Drs. Toi Mcgill, Carlota Haines, Angelito Issa and colleagues, with an educational bia from [employer]. Thrive Questionnaire Date Thrive assessed: 02/04/25 I am a: Patient Within the past 12 months, did the food you bought not last and you didn't have the money to get more?: Never true Within the past 12 months, did you worry whether your food would run out before you got money to buy more?: Never true Do you have trouble paying for medicines?: No Do you have trouble getting transportation to medical appointments?: No Do you have trouble paying your heating and electricity bill?: No Do you have trouble taking care of your child, family member or friend?: No Do you have trouble with day-to-day activities such as bathing, preparing meals, shopping, managing finances, etc.?: No Are you currently unemployed and looking for a job?: No Are you interested in more education?: No THRIVE Score: 0 AUDIT C Alcohol Use Questionnaire (AUDIT-C) 1. How often do you have a drink containing alcohol?: Never 3. How often do you have six or more drinks on one occasion?: Never Total Score: 0 JO-7 AMB Questionnaire JO-7 Date JO - 7 assessed: 02/04/25 Feeling nervous, anxious, or on edge: 0 = Not at all Not being able to stop or control worryin = Not at all Worrying too much about different things: 0 = Not at all Trouble relaxin = Not at all Being so restless that it is hard to sit still: 0 = Not at all Becoming easily annoyed or irritable: 0 = Not at all Feeling afraid as if something awful might happen: 0 = Not at all Total JO-7 score (0-4 normal; 5-9 mild; 10-14 moderate; 15-21 severe): 0 Source: Developed by Drs. Toi Mcgill, Carlota Haines, Angelito Issa and colleagues, with an educational bia from [employer]. Review of Systems Const Details: CONSTITUTIONAL No fever HEAD/NECK Negative RESPIRATORY Negative CARDIOVASCULAR Negative GENITOURINARY Right scrotal pain and swelling NEUROLOGICAL Negative PSYCHIATRIC Negative Physical exam (Primary Care) Vital Signs: Last Vital Signs Temp 98.6 F 02/04/25 15:21 Pulse 80 02/04/25 15:21 BP 136/78 02/04/25 15:21 Pulse Ox 98 02/04/25 15:21 Oxygen Delivery Method Room Air 02/04/25 15:21 BMI result Body Mass Index 29.2 GENERAL Well developed, Well nourished, in no apparent distress HEENT Head-Normocephalic Neck- Supple, No lymphadenopathy, thyroid WNL RESPIRATORY Normal I:E, Clear to auscultation CARDIOVASCULAR Regular, rate and rhythm, No murmurs or rubs Genitourinary pain and swelling in left scrotum NEUROLOGICAL Gait normal PSYCHIATRIC Oriented to person, place and time Mood and affect Depression Appearance WNL Speech WNL Thought processes WNL Tobacco/Smoking Status: Tobacco use Status Tobacco use date assessed 02/04/25 02/04/25 15:24 Patient Tobacco Use Status Never used Tobacco 02/04/25 15:24 e-Cigarette/Vaping Use Never Used 02/04/25 15:24 PHQ-9: PHQ-9 Score PHQ-9: Total score 0 02/04/25 18:24 Thrive Assessment: Date of Thrive Assessment Date Thrive assessed 02/04/25 02/04/25 15:34 Results Reviewed Results Reviewed: FINDINGS: RIGHT: Right testicle measures 3.8 x 2.0 x 2.5 cm, volume 10 mL. No focal testicular parenchymal lesions are visualized. Spectral Doppler analysis of the arterial and venous flow is documented in the right testis. Small hydrocele is present. Right epididymal head is normal in size. The body and tail are heterogeneous and mildly enlarged. Right epididymal Doppler flow is increased in the tail. Possible small right inguinal hernia may be present. LEFT: Left testicle measures 3.8 x 2.2 x 2.6 cm, volume 11 mL. No focal testicular parenchymal lesions are visualized. Spectral Doppler analysis of the arterial and venous flow is documented in the left testis. Left epididymal head is normal in size. Small left hydroceles present. Left epididymal Doppler flow is US/US scrotum IMPRESSION: Suspected right epididymitis involving the tail and possibly the body. Small bilateral hydroceles. Possible small right inguinal hernia. Coding Level of Care Code Established Pt Est Pt Level 3 (02164) Patient Type Established Diagnoses Epididymitis, right N45.1 Time Spent (min) 25 Comment Time spent on chart review, Medication review, H&P, patient education, placing orders Assessment & Plan Assessment & Plan (1) Epididymitis, right: Code(s): N45.1 - Epididymitis Category: Medical Plan: The patient is advised to switch from levofloxacin to Bactrim due to potential interactions with lithium, which could lead to QT prolongation and arrhythmias. Bactrim, a sulfa-based antibiotic, is recommended for a two to three-week course to effectively treat the epididymitis. Additionally, the patient is advised to apply ice to manage pain and swelling. A follow-up appointment with a urologist is scheduled for March 01 to monitor progress. Reviewed when to return to the ER. Plan During the consultation, I discussed the risks associated with the combination of levofloxacin and lithium, including the potential for QT prolongation and arrhythmias. I recommended switching to Bactrim, a sulfa-based antibiotic, which does not interact with lithium. I advised the patient to use ice for symptom management and emphasized the importance of attending the follow-up appointment with the urologist on March 01. Medications: New sulfamethoxazole-trimethoprim 800-160 mg (Bactrim DS) 1 tab PO BID 42 tabs 0RF for epididymitis Patient Instructions: - Switch to Bactrim as prescribed for two to three weeks. - Apply ice to reduce swelling and pain. - Attend the follow-up appointment with the urologist on March 01. - Return to the emergency room if pain or swelling worsens.
== END 2025-02-04 15:59 | disposition home or self-care (01) ==
LOC: HO.HMCHD 14:59
PROVIDERS: PCP Internal Medicine; Visit Provider Physician Assistant Medical
DX: N45.1 Epididymitis (principal)

== ENCOUNTER 2025-03-01 13:22 | Outpatient (AMB) | payer MEDICARE, MEDICAID, SELFPAY ==
--- NOTE | 2025-03-01 13:38 | A.OFFVIS_ITS ---
Intake Visit Reasons: cysto Intake Note: Patient presents today for cystoscopy Urology Medication:Tamsulosin Blood Thinner:none Antibiotic Allergies:None Allergies atorvastatin Adverse Reaction (Verified 03/01/25 13:39) Muscle Pain Medication List - Last Reconciled 03/01/25 by Bernadette Oliver MD dextroamphetamine-amphetamine 30 mg (Adderall) 40 mg PO BID finasteride (Proscar) 5 mg PO DAILY fluticasone furoate-vilanterol 200-25 mcg/dose (Breo Ellipta) 1 inh inhalation DAILY gabapentin 800 mg PO QID ipratropium bromide 2 sprays intranasal BID lamotrigine 200 mg PO DAILY lamotrigine 200 mg PO DAILY levofloxacin 500 mg PO DAILY 10 days lithium carbonate One tablet qam and 2 tablets at bedtime orally bedtime; pantoprazole Take 2 tab oral twice daily for 2 weeks then take 1 tab oral once daily sulfamethoxazole-trimethoprim 800-160 mg (Bactrim DS) 1 tab PO BID tamsulosin 0.4 mg PO BID trazodone 100 mg PO BEDTIME HPI Comments Details: 03/01/25--Wang is here scheduled for office cystoscopy. History of Present Illness The patient is a 65-year-old male presenting with follow-up for Benign Prostatic Hyperplasia (BPH) symptoms and testicular pain. The patient reports experiencing testicular pain, he was evaluated in the ED an ultrasound was done and he was treated with antibiotics, for orchitis, which resolved the pain. He reports a lack of ejaculate during ejaculation, which is concerning to him. I have reassured him the is a SE from the tamsulosin, (retrograde ejaculation/anejaculation). 30 minutes spent in review of records pertaining to this visit and including [id number] discussion with the patient and documentation of this visit. Results - 02/01/25--Ultrasound: right epididymitis - Office Cystoscopy today- Trilobar enlargment. Plan 1. Benign Prostatic Hyperplasia (Bph) - Increase tamsulosin for symptom management. - Add finasteride to help shrink the prostate and reduce symptoms. - Plan for Green light laser surgery 2. Testicular Pain - Pain resolved with antibiotic treatment. - No further intervention required as the pain has subsided. 12/27/24 - The patient is a 64-year-old male presenting with urinary urgency. - He reports urinary urgency and nocturia for about three years, with urgency sometimes preventing timely bathroom access. - Post-void dribbling is noted, with a sensation of incomplete bladder emptying. - No previous prostate issues or urological consultations have been reported. - In June, the patient experienced perineal pain after a physical activity, initially suspecting a hernia, but an ultrasound showed no significant issues. Results - Urine analysis: Clear, no blood or signs of infection - Pelvic MRI: Evaluated prostate and bladder, no significant issues noted Plan - Conduct a PSA test to evaluate prostate health. - Increase Tamsulosin to bid - Schedule a cystoscopy for bladder and urethra examination. - Advise the patient to be aware of dizziness as a medication side effect. - Arrange a follow-up to assess medication impact and consider further evaluations. 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 Cognitive needs: No Hearing needs: No Vision needs: Yes (rx glasses) Review of Systems Const All systems reviewed & are unremarkable except as noted in HPI and below Reports no additional complaints Eyes Reports no additional complaints ENT Reports no additional complaints Card Reports no additional complaints Resp Reports no additional complaints GI Reports no additional complaints Reports as per HPI Musc Reports no additional complaints Skin/Breast Reports system reviewed and no additional complaints, except as documented Neuro Reports no additional complaints Psych Reports no additional complaints Endo Reports no additional complaints Branden/Lymph Reports no additional complaints Aller/Immun Reports no additional complaints Office Procedures Cystoscopy Consent Discussed risk and benefit or proposed procedure with the patient. Information consent for procedure given to the patient. Discussed technical aspects, risks, benefits and alternatives in full. Addressed all of the patient's questions and concerns regarding the procedure. The patient demonstrated knowledge and understanding. They wish to proceed with this procedure. Preparation The patient was prepped in the usual manner. A senior software engineer analytics was present and in the room. Genitalia was prepped with betadine solution in a sterile manner. Lidocaine Jelly 2% was placed into the urethra and 16Fr flexible Olympus cystoscope was inserted into the meatus after adequate lubrication. Procedure Time out per protocol performed. The flexible cystoscope is passed transurethrally: The bladder was inspected in its entirety with utilization retroflexion displaying: Tumor(s): no suspicious bladder lesions visualized Trabeculation: Moderate with cellule changes, and diverticuli Mucosal Erthema: Orifices: normal shape and position Urethra: normal Cystoscopy findings: prostatic urethra trilobar enlargement, bulbous urethra WNL, no suspicious bladder lesions visualized [id number] DISPOSABLE SCOPE URO-G FLEXIBLE SCOPE Procedure code (CPT) selection complete Office Meds lidocaine HCl 2 % mucosal jelly in applicator Performing Provider: Bernadette Oliver MD Performing Location: [facility] Administered by: Samantha Hobbs RN on 03/01/25 14:28 Dose Route Admin Location Dispensed Lot Number Expiration Date ND Software Developer Consultant 10 mL intra-urethral 20 mL ciprofloxacin HCl 500 mg tablet Performing Provider: Bernadette Oliver MD Performing Location: [facility] [place] Administered by: Samantha Hobbs RN on 03/01/25 14:28 Dose Route Admin Location Dispensed Lot Number Expiration Date NDC Software Developer Consultant 500 mg PO 1 tab phenazopyridine 200 mg tablet Performing Provider: Bernadette Oliver MD Performing Location: [facility] [place] Administered by: Samantha Hobbs RN on 03/01/25 14:28 Dose Route Admin Location Dispensed Lot Number Expiration Date NDC Software Developer Consultant 200 mg PO 1 tab Results AMB Urinalysis, Automated UA Leukoctes 0 Thom/uL Last Edit by Aby Sloan on 03/01/25 17:07 UA Nitrite Negative Last Edit by Aby Sloan on 03/01/25 17:07 UA Urobilinogen 0.2 mg/dL Last Edit by Aby Sloan on 03/01/25 17:07 UA Protein 0 mg/dL Last Edit by Aby Sloan on 03/01/25 17:07 UA pH 6.0 Last Edit by Aby Sloan on 03/01/25 17:07 UA Blood 10 Kody/uL Last Edit by Aby Sloan on 03/01/25 17:07 UA Specific [place] 1.010 Last Edit by Aby Sloan on 03/01/25 17:07 UA Ketone Negative Last Edit by Aby Sloan on 03/01/25 17:07 UA Bilirubin 0 mg/dL Last Edit by Aby Sloan on 03/01/25 17:07 UA Glucose 0 mg/dL Last Edit by Aby Sloan on 03/01/25 17:07 Results Reviewed Results Reviewed: Laboratory Last Values Urine pH (Auto) 6.0 03/01/25 16:03 Specific [place] (Auto) 1.010 03/01/25 16:03 Urine Protein (Auto) 0 mg/dL 03/01/25 16:03 Glucose (UA)(Auto) 0 mg/dL 03/01/25 16:03 Urine Ketones (Auto) Negative 03/01/25 16:03 Urine Blood (Auto) 10 Kody/uL 03/01/25 16:03 Urine Nitrite (Auto) Negative 03/01/25 16:03 Urine Bilirubin (Auto) 0 mg/dL 03/01/25 16:03 Urine Urobilinogen (Auto) 0.2 mg/dL 03/01/25 16:03 Leukocyte Esterase (Auto) 0 Thom/uL 03/01/25 16:03 Date of Service: 02/01/25 US SCROTUM CLINICAL INFORMATION: Pain and swelling. COMPARISON: None available. TECHNIQUE: A sonogram of the scrotum was performed assessing wade-scale appearance and color Doppler flow. Spectral Doppler analysis of the arterial and venous flow were performed in the testes bilaterally. FINDINGS: RIGHT: Right testicle measures 3.8 x 2.0 x 2.5 cm, volume 10 mL. No focal testicular parenchymal lesions are visualized. Spectral Doppler analysis of the arterial and venous flow is documented in the right testis. Small hydrocele is present. Right epididymal head is normal in size. The body and tail are heterogeneous and mildly enlarged. Right epididymal Doppler flow is increased in the tail. Possible small right inguinal hernia may be present. LEFT: Left testicle measures 3.8 x 2.2 x 2.6 cm, volume 11 mL. No focal testicular parenchymal lesions are visualized. Spectral Doppler analysis of the arterial and venous flow is documented in the left testis. Left epididymal head is normal in size. Small left hydroceles present. Left epididymal Doppler flow is IMPRESSION: Suspected right epididymitis involving the tail and possibly the body. Small bilateral hydroceles. Possible small right inguinal hernia. Date of Service: 10/19/24 EXAMINATION: MR PELVIS WITHOUT THEN WITH IV CONTRAST HISTORY: N50.89 - Other specified disorders of the male genital organs. TECHNIQUE: Axial T1, fat-suppressed T1, fat-suppressed T2, and sagittal and coronal T2-weighted images of the pelvis were obtained. Subsequently, axial and sagittal fat-suppressed T1-weighted images were obtained after the intravenous administration of 9 mL Gadavist. COMPARISON: There are no prior studies available for comparison. FINDINGS: There is a subchondral cyst in the superior right acetabulum. There is mild osteoarthritis of the hip joints. Bone marrow signal intensity is normal. The visualized muscles demonstrate normal signal intensity. The peripheral zone of the prostate demonstrates a striated appearance, particularly on the left can be seen in the setting of prostatitis of scarring. The urinary bladder is unremarkable in appearance. There is no ascites or pelvic lymphadenopathy. IMPRESSION: No mass or muscular abnormality is seen to correspond to the patient's pain. Incidental findings as described above. Assessment & Plan Assessment & Plan (1) Screening PSA (prostate specific antigen): Code(s): Z12.5 - Encounter for screening for malignant neoplasm of prostate Category: Medical (2) Urinary urgency: Code(s): R39.15 - Urgency of urination Category: Medical (3) Epididymitis, right: Code(s): N45.1 - Epididymitis Category: Medical (4) Enlarged prostate: Code(s): N40.0 - Benign prostatic hyperplasia without lower urinary tract symptoms Category: Medical Plan Plan 1. Benign Prostatic Hyperplasia (Bph) - Increase tamsulosin for symptom management. - Add finasteride to help shrink the prostate and reduce symptoms. - Plan for Green light laser surgery 2. Testicular Pain - Pain resolved with antibiotic treatment. - No further intervention required as the pain has subsided. Orders: Orders AMB Urinalysis Automated 03/01/25 Z13.9 - Encounter for screening, unspecified AMB Cystoscopy 10/10/25 N50.89 - Other specified disorders of the male genital organs, R10.2 - Pelvic and perineal pain, R39.15 - Urgency of urination Medications: New finasteride (Proscar) 5 mg PO DAILY 90 tabs 3RF Scribe Plan - Not visible on output: Patient was informed and verbally consented to the use of an ambient scribe for clinic note documentation during this visit. Coding Level of Care Code Est Pt Level 4 (79791) Diagnoses Screening PSA (prostate specific antigen) Z12.5 Urinary urgency R39.15 Epididymitis, right N45.1 Enlarged prostate N40.0 CPT Codes Cystoscopy - CPT: 19885-Eicdpeqqxy ([id number])
== END 2025-03-01 15:30 | disposition home or self-care (01) ==
LOC: HO.HUSH 13:23
PROVIDERS: PCP Internal Medicine; Visit Provider Urology
DX: R10.20 Pelvic and perineal pain unspecified side (principal); N50.89 Other specified disorders of the male genital organs; R39.15 Urgency of urination
CPT/HCPCS: 52000

== ENCOUNTER → 2025-03-01 13:22 | Outpatient (BNVA) | payer MEDICARE, MEDICAID, SELFPAY | PROVIDERS: PCP Internal Medicine; Visit Provider Urology | DX: N40.1 Benign prostatic hyperplasia with lower urinary tract symptoms (principal); R39.15 Urgency of urination; N50.89 Other specified disorders of the male genital organs; R10.20 Pelvic and perineal pain unspecified side; Z13.9 Encounter for screening, unspecified; N45.1 Epididymitis | CPT/HCPCS: 52000; 81003; 99212 ==

== ENCOUNTER 2025-03-28 12:42 | Outpatient (REF) | payer MEDICARE, MEDICAID, SELFPAY ==
--- NOTE | ~2025-03-28 | FL_ITS ---
EXAMINATION: Right hip joint steroid injection. CLINICAL INDICATION: Unilateral primary osteoarthritis right hip. COMPARISON: MR pelvis without contrast 10/19/2024. TECHNIQUE: Following splinting of right hip steroid injection procedure, benefits and risk, a written consent was obtained. Patient was placed supine on fluoroscopy table and marker placed along the right hip needle insertion site on the fluoroscopy. The marked site was cleaned and draped in usual sterile manner. 1% lidocaine was injected puncture site. A 22-gauge spinal needle was inserted from the skin to the lateral border of right hip and neck junction and cervical 2 mL nonionic contrast abnormality was injected. Images were obtained for documentation. Subsequently 40 mg of dexamethasone, 3 mL of 0.25% bupivacaine and 3 mL of 1% lidocaine was injected as 9-10 mL of volume combination into the joint space and needle withdrawn. Complete hemostasis achieved at puncture site. Patient tolerated procedure extremely well. Simple Band-Aid applied postprocedure. FINDINGS: Right hip exam there is mild loss of right hip joint space with inferior right hip joint periarticular spurring. Initially there was contrast visualized along the subcutaneous soft tissues of the right hip joint. Eventually contrast is visualized in the right hip joint space. FL/FL Guided Asp Inj Major Jt RT IMPRESSION: Successful fluoroscopy-guided right hip steroid injection performed without immediate complications. Fluoroscopy time: 1 minute 27 seconds. Dose: 9.92 mGy. Electronically signed by: Timothy Shaw MD 03/29/2025 07:03 AM [facility]
[2025-03-28] MEDS: iohexoL 300 MG/ML 50 ML INFUS..BTL 10 ML INTRAARTIC (13:53)
[2025-03-28] MEDS: BUPivacaine MPF 0.25 % 10 ML VIAL 7 ML INFILTRATI (13:55)
--- OUTSIDE RECORDS SUMMARY | 2025-03-28 15:33 | XMS_ITS | Clinical Summary ---
Author Organization [facility] Address [address] [place] [id number] Care Team Providers Care Armored Car Guard And Driver Name Role Phone Madeleine Zambrano MD Primary Care Provider [phone] Allergies No known active allergies Medications No known medications Encounters Date Type Department Care Team Description 01/28/2025 4:30 PM EDT Treatment [address] [id number] System, Provider Not In Merari Maldonado, JULIETTE-STATION REPAIRER Chronic cough (Primary Dx); Esophageal dysphagia 01/28/2025 Travel 01/14/2025 10:00 AM EDT Evaluation [address] [address] Maurilio Douglass MD Eller, Liana K, CCC-STATION REPAIRER Chronic cough (Primary Dx); Esophageal dysphagia 01/14/2025 Travel from Last 3 Months Social History Tobacco [...] - 2023-2 5 season) 2025 RSV Vaccine 50 years and old er and Patients (1 - 1-dose 75+ series) 2037 Hepatitis B Vaccines Aged Out No long er eligible based on patient's age to complete this topic Goals Goal Patient Goal Type Associated Problems Recent Progress Patient-Stated? Author LTG 1 Speech Therapy No Merari Maldonado, [facility]-STATION REPAIRER Note: Patient will report reduced frequency and duration of coughing and vocal hoarseness during the day following chronic cough program targeting identification of triggers, improved vocal hygiene, suppressing cough, diaphragmatic and open throat breathing. Insurance [facility] MEDICARE MEDICARE PART A & B [facility] MEDICARE Care Teams Armored Car Guard And Driver Relationship Specialty Start Date End Date Madeleine Zambrano MD [address] [place] [phone] PCP - General Internal Medicine 12/05/24
== END 2025-03-28 12:43 | disposition home or self-care (01) ==
LOC: HO.XRAY 12:42
PROVIDERS: PCP Internal Medicine; Visit Provider Physician Assistant
DX: M16.11 Unilateral primary osteoarthritis, right hip (principal)
CPT/HCPCS: 20610; 77002; J0665; Q9967

== ENCOUNTER → 2025-03-28 13:00 | Outpatient (BNV) | payer MEDICARE, MEDICAID, SELFPAY | PROVIDERS: PCP Internal Medicine; Visit Provider Radiology Diagnostic Radiology | DX: M16.11 Unilateral primary osteoarthritis, right hip (principal) | CPT/HCPCS: 20610; 77002 ==

== ENCOUNTER 2025-04-08 10:56 | Outpatient (AMB) | payer MEDICARE, MEDICAID, SELFPAY ==
[2025-04-08 10:58] VITALS: BP 112/64; PULSE 79; O2SAT 98; BMI 30.9
--- NOTE | 2025-04-08 10:58 | A.OFFVIS_ITS ---
Vital Signs 04/08/25 10:58 Height 5 ft 9 in Weight 209 lb 7.026 oz BMI 30.9 BP 112/64 Blood Pressure Location Lt brachial Position Sitting Pulse 79 Pulse Source Pulse Oximeter Pulse Oximetry (%) 98 Oxygen Delivery Method Room Air Intake Visit Reasons: Cough Allergies atorvastatin Adverse Reaction (Verified 04/08/25 11:04) Muscle Pain HPI HPI Cough: Details: Wang is a pleasant 65 year old male, never smoker, with underlying asthma, chronic cough, GERD, allergic rhinitis, eczema and Bipolar disorder. He was initially referred by GI for pulmonary evaluation for chronic cough/persistent throat clearing. Evaluation from GI revealed hiatal hernia and severe reflux noted on prior barium swallow test, currently on Pantoprazole. Since the last visit, he was evaluated by speech therapy who thought persistent throat clearing was related to underlying reflux with recommendations to change diet as well as ENT evaluation which he has not scheduled at this time. He has taken recommendations with notable improvement in throat clearing however cough persists on a daily basis occasionally with wheezing. Prior CXR unremarkable. He is questioning effectiveness for Breo and would like to trial off. He does note occasional inability to fully inspire and intermittent wheezing with cough, however not using albuterol MDI when this occurs. He currently denies dyspnea or chest tightness, although admits to not being as active over the last few months secondary to rib fracture s/p fall. 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 Cognitive needs: No Hearing needs: No Vision needs: Yes (rx glasses) Review of Systems Const Denies chills, Denies excessive sweating, Denies fever(s), Denies headache(s) and Denies night sweats Eyes Denies dry eyes, Denies irritation and Denies itchy eyes ENT Reports Normal hearing present, Denies headache(s), Denies nasal congestion, Denies nasal discharge and Denies post nasal drip Card Denies chest pain, Denies chest pain at rest, Denies chest pain with activity, Denies claudication, Denies leg edema, Denies orthopnea and Denies paroxysmal nocturnal dyspnea Resp Denies chest congestion, Denies excessive phlegm production, Denies pain on inspiration, Denies pain with cough and Denies stridor Musc Denies myalgias Neuro Reports Normal hearing present and Denies headache(s) Endo Denies excessive sweating Branden/Lymph Denies lymphadenopathy Aller/Immun Denies itchy eyes and Denies seasonal rhinorrhea Physical Exam Vital Signs: Last Vital Signs Pulse 79 04/08/25 10:58 Pulse Ox 98 04/08/25 10:58 Oxygen Delivery Method Room Air 04/08/25 10:58 BMI result Body Mass Index 30.9 Const General: cooperative, healthy appearing, comfortable, no acute distress, well developed and alert Nutritional Appearance: obese Orientation/consciousness: patient oriented x3 Limitations: no limitations HEENT Head: Yes normal to inspection, Yes normocephalic and Yes atraumatic Ears: hearing grossly normal bilaterally and external ears normal Eyes General: appearance normal, both eyes and all related structures Eyelids: Yes eyelids normal Sclerae: sclerae normal EOM: EOMs intact bilaterally Neck Neck: Yes normal visual inspection and Yes no lymphadenopathy Lymphatic: no lymphadenopathy noted Chest Chest palpation & inspection: normal inspection of the chest Resp Other: minimal throat clearing initially however as appt proceeded throat clearing more persistent Effort & Inspection: normal respiratory effort, able to speak in complete sentences, no audible wheezes, no cough, no stridor, not tachypneic, no tripod positioning and no use of accessory muscles Auscultation: clear to auscultation bilaterally Cardio Jugular venous distension: no JVD Rate: regular rate Rhythm: regular rhythm Skin Other: warm, dry General skin exam: no rashes or lesions noted Neuro General: patient oriented x3 Cranial nerves: Yes Normal hearing present Cognition (Neuro): normal cognition Gait exam (Neuro): Normal gait present Extrem General: Yes normal to inspection, Yes capillary refill normal, Yes no clubbing, cyanosis or edema and Yes no pedal edema Psych Appearance: grossly normal and well kempt Speech and movement: Normal speech and movement present and Clear speech present Affect: normal affect Attitude: cooperative Thought process: Normal thought process present Thought content: Normal thought content present Insight: Good insight present (Psych) Judgement: Good judgement present (Psych) Results Reviewed Results Reviewed: [facility] [address] [place] [address] XRay Report Signed Patient: Wang Cross MR#: [id number] : 1960 Acct:[id number] Age/Sex: 64 / M ADM Date: 11/10/24 Loc: .[facility] Attending Dr: Ivon Alvarez NP Ordering Physician: Ivon Alvarez NP Date of Service: 11/10/24 Procedure(s): XR chest 2V Accession Number(s): [id number] cc: Madeleine Zambrano MD; Ivon Alavrez NP~ CLINICAL HISTORY: abnormal results of pulmonary function test 2 view chest x-ray. Comparison: None Findings: The lungs are adequately expanded. No focal consolidation. No effusion or pneumothorax. Cardiac and mediastinal contours are within normal limits. No acute osseous abnormality Impression: No acute process. This document has been electronically signed by: Adrián Connell MD on 11/10/2024 10:13:11 Dictated By: Adrián Connell MD Signed By: <Electronically signed by Adráin Connell MD in [place]> 11/10/24 1014 DD/ 1013 TD/TT: 11/10/24 1013 Information Technology Technician: Assessment & Plan Assessment & Plan (1) Chronic cough: Code(s): R05.3 - Chronic cough Category: Medical (2) Asthma: Code(s): J45.909 - Unspecified asthma, uncomplicated Category: Medical (3) Environmental allergies: Code(s): Z91.09 - Other allergy status, other than to drugs and biological substances Category: Medical Plan Discussed trialing off of Breo as requested by patient. He is aware if asthma symptoms occur to restart especially as he increases activity. In regards to wheezing discussed using albuterol MDI PRN which he has yet to use. Given chronic cough, will send for chest CT to assess for any underlying parenchymal condition contributing, as prior CXR unremarkable. He reports overall reduction in throat clearing with diet changes, encouraged patient to continue this and will refer to ENT when patient provides MD name recommended by speech therapist. All questions were answered and patient is in agreement of plan. Will follow up to review results or sooner if needed. Orders: Orders CT chest wo IV con Today R05.3 - Chronic cough Coding Level of Care Code Est Pt Level 4 (98920) Diagnoses Chronic cough R05.3 Asthma J45.909 Environmental allergies Z91.09
== END 2025-04-08 11:36 | disposition home or self-care (01) ==
LOC: HO.HPS 10:57
PROVIDERS: PCP Internal Medicine; Visit Provider Nurse Practitioner Family
DX: R05.3 Chronic cough (principal); J45.909 Unspecified asthma, uncomplicated; Z91.09 Other allergy status, other than to drugs and biological substances
CPT/HCPCS: 99214

== ENCOUNTER → 2025-04-08 10:56 | Outpatient (BNVA) | payer MEDICARE, MEDICAID, SELFPAY | PROVIDERS: PCP Internal Medicine; Visit Provider Nurse Practitioner Family | DX: R05.3 Chronic cough (principal); J45.909 Unspecified asthma, uncomplicated; Z91.09 Other allergy status, other than to drugs and biological substances | CPT/HCPCS: 99212 ==

== ENCOUNTER 2025-04-12 13:57 | Outpatient (AMB) | payer MEDICARE, MEDICAID, SELFPAY ==
--- OUTSIDE RECORDS SUMMARY | 2024-04-13 04:10 | XMS_ITS ---
Author Organization [facility] Address [address] [place] [address] Care Team Providers Care Clerical Assigner Name Role Phone Madeleine Zambrano M.D. Primary Care Provider Unavail able Toi Garsia Unavailable [phone] REASON FOR VISIT REFLUX,COUGH,HX OF POLYPS,SCREENING Problems Problem Type SNOMED Code ICD Code Onset Dates Problem Status W/U Status Risk Notes Problem Diverticular disease of colon (219826268) Diverticulosis of large intestine without perforation or abscess without bleeding (K57.30) Active confirmed Problem Gastroesophageal reflux disease (744031161) Gastroesophageal reflux disease (K21.9) Active confirmed Problem Benign neoplasm of stomach (92859545) Gastric polyps (K31.7) Active confirmed Problem Chronic gastritis (9600427) Chronic gastritis (K29.50) Active confirmed Encounters Encounter Location Date Provider Diagnosis [facility] [facility] [address] [place] [phone] 04/13/2024 Toi Garsia Colon cancer screeni ng Z12.11 ; Colon polyps K63.5 ; Diverticulosis of large intestine without perforation or abscess without bleeding K57.30 ; Other hemorrhoids K64.8 ; Gastroesophageal reflux disease K21.9 ; Other specified disease of esophagus K22.89 ; Hiatal hernia K44.9 ; Gastric polyps K31.7 ; Chronic gastritis K29.50 and Chronic cough R05.3 Assessments Encounter Date Diagnosis (ICD Code) Assessment Notes Treatment Notes Treatment Clinical Notes Section Notes 04/13/2024 Colon cancer screening (ICD-10 - Z12.11) 04/13/2024 Colon polyps (ICD-10 - K63.5) 04/13/2024 Diverticulosis of large intestine without perforation or abscess without bleeding (ICD-10 - K57.30) 04/13/2024 Other hemorrhoids (ICD-10 - K64.8) 04/13/2024 Gastroesophageal reflux disease (ICD-10 - K21.9) 04/13/2024 Other specified disease of esophagus (ICD-10 - K22.89) 04/13/2024 Hiatal hernia (ICD-10 - K44.9) 04/13/2024 Gastric polyps (ICD-10 - K31.7) 04/13/2024 Chronic gastritis (ICD-10 - K29.50) 04/13/2024 Chronic cough (ICD-10 - R05.3) Plan Of Treatment No Information Progress Notes * TAYE EATONDOB:1960 (65 yo M)Acc No.[id number]:04/13/2024 EGD and COL/MAC Patient: TAYE WILEY Provider: Tanya Garsia MD :1960 A ge:64 Y S ex:Male Date:04/13/2024 Address:[address] [place], [place] [id number] Pcp:Madeleine Zambrano M.D. Subjective: * Chief Complaints: * R EFLUX,COUGH,HX OF POLYPS,SCREENING Assessment: * Assessment: 1. C olon cancer screening - Z12.11 (Primary) 2 . C olon polyps - K63.5? 3. D iverticulosis of large intestine without perforation or abscess without bleeding - K57.30 4 . O ther hemorrhoids - K64.8 5 . G astroesophageal reflux disease - K21.9 6 . O ther specified disease of esophagus - K22.89? 7. H iatal hernia - K44.9 8 . G astric polyps - K31.7 ? 9 . C hronic gastritis - K29.50 1 0. C hronic cough - R05.3 ? Plan: * Procedure Codes: 4 5385 LESION REMOVAL COLONOSCOPY, Modifiers: 33 55585 UPPER GI ENDOSCOPY, BIOPSY Billing Information: * Procedure Codes: 75259 LESION REMOVAL COLONOSCOPY. Modifiers: 33 23221 UPPER GI ENDOSCOPY, BIOPSY. * The named appointment provid er may or may not be the originator of this progress note, and it is not deemed complete until electronically signed by the appointment provider. Sign off status: Pending * Provider: Tanya Garsia MD Date: 06/13/2023 Generated for Maya armenta/Ronald/Lorena on: 06/12/2024 02:24 PM EST
[2025-04-12 14:01] VITALS: BP 126/80; PULSE 89; TEMP 36.3; O2SAT 99; BMI 30.1
--- NOTE | 2025-04-12 14:01 | MHC.PC.OV ---
Vital Signs 04/12/25 14:01 Height 5 ft 9 in Weight 92.533 kg BMI 30.1 BP 126/80 Blood Pressure Location Lt brachial Position Sitting Pulse 89 Pulse Source Pulse Oximeter Temp 97.3 F Temp Source Temporal Artery Scan Pulse Oximetry (%) 99 Oxygen Delivery Method Room Air Intake Visit Reasons: 6 Month F/U - see comments Accompanied by: Self / Same As Patient Allergies atorvastatin Adverse Reaction (Verified 04/12/25 14:02) Muscle Pain Medication List - Last Reconciled 04/12/25 by MARRY Millan dextroamphetamine-amphetamine 30 mg (Adderall) 40 mg PO BID finasteride (Proscar) 5 mg PO DAILY fluticasone furoate-vilanterol 200-25 mcg/dose (Breo Ellipta) 1 ea inhalation DAILY gabapentin 800 mg PO QID ipratropium bromide 2 sprays intranasal BID lamotrigine 200 mg PO BID lithium carbonate One tablet qam and 2 tablets at bedtime orally bedtime; pantoprazole Take 2 tab oral twice daily for 2 weeks then take 1 tab oral once daily trazodone 100 mg PO BEDTIME Tobacco use date assessed: 04/12/25 Dental Screening Dental Screen Date: 04/12/25 Did you have a dental visit in the last 12 months?: Yes Did you have a dental problem in the last 6 months where you did not have access to dental care?: No HPI HPI Comments History of Present Illness Details 64-year-old male with history of bph, bipolar disorder, asthma presents to the office for follow-up. BPH- follows with Dr. Renae. Will be undering TURP. On finasteride improved but still symptomatic. Still with weak urinary stream. Bipolar disorder- having difficulty at home. MIL passed, is struggling still. He has been able to available/attentive to her. Following with psychiatry (Dr. Mcknight), Son Ivey counselor. Hospitalized 4 years at [place]. No SI Asthma- follows with pulm. On Breo with good control. Concerns: Constant throat clearing- has seen 2 ENT, but cannot get through. Reports in [place], vocal cords fluttering . Was seen by ST who recommended him to ENT Regan of [place] OA R hip lumbar- seeing [facility] ortho for hip, injection recently some improvement. Went to chiro and [facility] with cortisone injection. Went to [facility] with PRP in the back which helped Pain RLE- worse at night. Saw physiatry who recommended pain management. MRI lumbar spine this weekend. Takes tylenol arthritis which does help. Takes gabapentin 800mg QID ROS: General: No fevers, malaise, unintentional weight loss HEENT: see hpi Cardiovascular: No chest pain, palpitations, or leg edema Respiratory: No shortness of breath, wheezing, cough : see hpi Neuro: No headaches, weakness, paresthesias Skin: No rashes or lesions Exam: Constitutional - Awake and Alert, No apparent distress Eyes - PERRLA, EOMI Cardiovascular - S1S2, RRR, No edema Respiratory - Normal lung expansion, Normal respiratory effort, No respiratory distress, CTA bilaterally - deferred Extremities - no calf tenderness bilaterally, no swelling Skin - Warm/Dry Neurological - Alert & oriented x3 Psychological - Appropriate affect [facility] Medical History (Updated 04/12/25 @ 15:56 by MARRY Millan) Chronic throat clearing Epididymitis, right Afib IBS (irritable bowel syndrome) Asthma Depression Bipolar 1 disorder ADHD Surgical History H/O colonoscopy (~04/13/24) Family History Mother Diabetes Hypertension Father Hypertension Other Substance abuse Social History Housing: House Patient Tobacco Use Status: Never used Tobacco e-Cigarette/Vaping Use: Never Used service: No Current occupational status: retired 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 1. Little interest or pleasure in doing things: not at all 2. Feeling down, depressed, or hopeless: several days 3. Trouble falling or staying asleep, or sleeping too much: several days 4. Feeling tired or having little energy: several days 5. Poor appetite or overeating: not at all 6. Feeling bad about yourself - or that you are a failure or have let yourself or your family down: not at all 7. Trouble concentrating on things, such as reading the newspaper or watching television: not at all 8. Moving or speaking so slowly that other people could have noticed. Or the opposite - being so fidgety or restless that you have been moving around a lot more than usual: not at all 9. Thoughts that you would be better off or of hurting yourself in some way: not at all Total score: 3 Source: Developed by Drs. Toi Mcgill, Carlota Haines, Angelito Issa and colleagues, with an educational bia from [employer]. Thrive Questionnaire Date Thrive assessed: 04/12/25 I am a: Patient Within the past 12 months, did the food you bought not last and you didn't have the money to get more?: Never true Within the past 12 months, did you worry whether your food would run out before you got money to buy more?: Never true Do you have trouble paying for medicines?: No Do you have trouble getting transportation to medical appointments?: No Do you have trouble paying your heating and electricity bill?: No Do you have trouble taking care of your child, family member or friend?: No Do you have trouble with day-to-day activities such as bathing, preparing meals, shopping, managing finances, etc.?: No Are you currently unemployed and looking for a job?: No Are you interested in more education?: No THRIVE Score: 0 AUDIT C Alcohol Use Questionnaire (AUDIT-C) 1. How often do you have a drink containing alcohol?: Never 3. How often do you have six or more drinks on one occasion?: Never Total Score: 0 JO-7 AMB Questionnaire JO-7 Date JO - 7 assessed: 04/12/25 Feeling nervous, anxious, or on edge: 1 = Several days Not being able to stop or control worryin = Not at all Worrying too much about different things: 0 = Not at all Trouble relaxin = Not at all Being so restless that it is hard to sit still: 0 = Not at all Becoming easily annoyed or irritable: 0 = Not at all Feeling afraid as if something awful might happen: 0 = Not at all Total JO-7 score (0-4 normal; 5-9 mild; 10-14 moderate; 15-21 severe): 1 Source: Developed by Drs. Toi Mcgill, Carlota Haines, Angelito Issa and colleagues, with an educational bia from [employer]. Physical exam (Primary Care) Vital Signs: Last Vital Signs Temp 97.3 F 04/12/25 14:01 Pulse 89 04/12/25 14:01 BP 126/80 04/12/25 14:01 Pulse Ox 99 04/12/25 14:01 Oxygen Delivery Method Room Air 04/12/25 14:01 BMI result Body Mass Index 30.1 Tobacco/Smoking Status: Tobacco use Status Tobacco use date assessed 04/12/25 04/12/25 14:10 Patient Tobacco Use Status Never used Tobacco 04/12/25 14:10 e-Cigarette/Vaping Use Never Used 04/12/25 14:10 PHQ-9: PHQ-9 Score PHQ-9: Total score 3 04/12/25 14:13 Thrive Assessment: Date of Thrive Assessment Date Thrive assessed 04/12/25 04/12/25 14:10 Coding Level of Care Code Est Pt Level 4 (45622) Complex visit Add On G2211 Diagnoses Bipolar 1 disorder F31.9 Asthma J45.909 Enlarged prostate N40.0 Osteoarthritis of right hip, unspecified osteoarthritis type M16.11 Osteoarthritis type: unspecified Lumbar radiculopathy M54.16 Chronic throat clearing R09.89 Assessment & Plan Assessment & Plan (1) Bipolar 1 disorder: Code(s): F31.9 - Bipolar disorder, unspecified Category: Medical Plan: Stable. Continue following with Psychiatry and counselor. Continue lithium, Lamictal, Adderall. (2) Asthma: Code(s): J45.909 - Unspecified asthma, uncomplicated Category: Medical Plan: Stable. Continue Breo Ellipta and use albuterol inhaler only as needed for shortness of breath and wheezing. (3) Enlarged prostate: Code(s): N40.0 - Benign prostatic hyperplasia without lower urinary tract symptoms Category: Medical Plan: Continue following with Dr. Restrepo and use finasteride as prescribed. (4) Osteoarthritis of right hip: Code(s): M16.11 - Unilateral primary osteoarthritis, right hip Category: Medical Qualifiers: Osteoarthritis type: unspecified Qualified Code(s): M16.11 - Unilateral primary osteoarthritis, right hip Plan: Continue following with orthopedics for ongoing management of pain. Can continue using Tylenol arthritis (5) Lumbar radiculopathy: Code(s): M54.16 - Radiculopathy, lumbar region Category: Medical Plan: Follow-up with pain management as scheduled. MRI of the lumbar spine to be completed tomorrow (6) Chronic throat clearing: Code(s): R09.89 - Other specified symptoms and signs involving the circulatory and respiratory systems Category: Medical Plan: Follow-up with ENT for further evaluation of throat clearing and evaluation of the larynx Plan Follow up in 6 months. Labs to be completed several days prior to next appointment. Reviewed most recent labs Orders: Orders Lipid Panel 6 Months F31.9 - Bipolar disorder, unspecified, M54.16 - Radiculopathy, lumbar region, N40.0 - Benign prostatic hyperplasia without lower urinary tract symptoms, R09.89 - Other specified symptoms and signs involving the circulatory and respiratory systems Basic Metabolic Panel 6 Months F31.9 - Bipolar disorder, unspecified, M54.16 - Radiculopathy, lumbar region, N40.0 - Benign prostatic hyperplasia without lower urinary tract symptoms, R09.89 - Other specified symptoms and signs involving the circulatory and respiratory systems TSH reflex Free T4 6 Months F31.9 - Bipolar disorder, unspecified, M54.16 - Radiculopathy, lumbar region, N40.0 - Benign prostatic hyperplasia without lower urinary tract symptoms, R09.89 - Other specified symptoms and signs involving the circulatory and respiratory systems Hemoglobin A1c 6 Months F31.9 - Bipolar disorder, unspecified, M54.16 - Radiculopathy, lumbar region, N40.0 - Benign prostatic hyperplasia without lower urinary tract symptoms, R09.89 - Other specified symptoms and signs involving the circulatory and respiratory systems Liver Panel 6 Months F31.9 - Bipolar disorder, unspecified, M54.16 - Radiculopathy, lumbar region, N40.0 - Benign prostatic hyperplasia without lower urinary tract symptoms, R09.89 - Other specified symptoms and signs involving the circulatory and respiratory systems
--- OUTSIDE RECORDS SUMMARY | 2025-04-12 14:25 | XMS_ITS | Patient Health Record ---
Author Organization [facility] Address [address] [place] [address] Care Team Providers Care Jack Frame Tender Name Role Phone Madeleine Zambrano M.D. Primary Care Provider Unavail able Toi Garsia Unavailable [phone] Allergies No Known Allergies Results Component Value Reference Range Notes Pathology Reviewed date:04/22/2024 11:02:56 PM Interpretation: Performing Lab:[facility], [address] [place] [id number] Notes/Report: Reason For Referral No Information Medications Medication SIG (Take, Route, Frequency, Duration) Notes Start Date End Date Status [place] Carbonate ER 300 MG Tablet Extended Release TAKE 3 TABLETS BY MOUTH EVERY EVENING Oral; Duration: 66 Days Active Breo Ellipta 100-25 MCG/ACT Aerosol Powder Breath Activated Inhalation; Duration: 30 Days Active Amphetamine-Dextroamphetami ne 20 MG Tablet Oral; Duration: 30 Days A ctive Amphetamine-Dextroamphetami ne 20 MG Tablet TAKE 1 TABLET BY MOUTH TWICE A DAY Oral; Duration: 30 Days Active Jumana 60 MG Capsule as directed Orally Active Pantoprazole Sodium 40 MG Tablet Delayed Release TAKE 2 TAB ORAL TWICE DAILY FOR 2 WEEKS THEN TAKE 1 TAB ORAL ONCE DAILY Oral; Duration: 30 Days Active Gabapentin 800 MG Tablet TAKE 3 TABLETS BY MOUTH EVERY DAY AT BEDTIME Oral Once a day Active lamoTRIgine 200 MG Tablet Oral; Duration: 90 Days Active traZODone HCl 100 MG Tablet TAKE 1 TABLE T BY MOUTH EVERY NIGHT Oral Once a day Active Fluticasone Furoate-Vilanterol 200-25 MCG/ACT Aerosol Powder Breath Activated Inhalation; Duration: 30 Days Active [place] Carbonate 300 MG Tablet TAKE 2 TABLETS BY MOUTH AT BEDTIME Oral as directed Active lamoTRIgine 100 MG Tablet TAKE 1 & 1/2 T ABLETS BY MOUTH EVERY NIGHT Oral as directed Active Tums 500 MG Tablet Chewable 1 tablet Ora lly Once a day; Duration: 30 day(s) 12/07/2023 Active Pantoprazole Sodium 40 MG Tablet Delayed Release Oral; Duration: 30 Days Active Immunizations Vaccine Route Administration Date Status Comme nts Influenza Unknown 11/01/2018 Refused Influenza Unknown 12/07/2023 Refused Social History Social History Additional Details Category Social Info Options Details Miscellaneous: Marital status: 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 Section Notes: Nonsmoker; no alcohol Nonsmoker; no alcohol Nonsmoker; no alcohol Nonsmoker; no alcohol Problems Problem Type SNOMED Code ICD Code Onset Dates Problem Status W/U Status Risk Notes Problem Gastro-esophageal reflux disease without esophagitis (685059336) Gastro-esophageal reflux disease without esophagitis (K21.9) Active confirmed Problem Screening for malignant neoplasm of colon (910913642) Encounter for screening for malignant neoplasm of colon (Z12.11) Active confirmed Problem History of adenomatous polyp of colon (656332671) History of adenomatous polyp of colon (Z86.010) Active confirmed Problem Diverticular disease of colon (304513986) Diverticulosis of large intestine without perforation or abscess without bleeding (K57.30) Active confirmed Problem Irritable bowel syndrome with diarrhea (789617112) Irritable bowel syndrome with diarrhea (K58.0) Active confirmed Problem Gastroesophageal reflux disease (345387974) Gastroesophageal reflux disease (K21.9) Active confirmed Problem Benign neoplasm of stomach (27152528) Gastric polyps (K31.7) Active confirmed Problem Chronic gastritis (3695018) Chronic gastritis (K29.50) Active confirmed Problem Cough (21729379) Cough (R05.9) Active confirmed Vital Signs Temperature 98.7 degrees Fahrenheit 08/15/2024 Blood pressure diastolic 01 mm Hg 08/15/2024 Height 68.75 in 08/15/2024 Blood pressure systolic 001 mm Hg 08/15/2024 Weight 205.8 lbs 08/15/2024 BMI 30.61 kg/m2 08/15/2024 Encounters Encounter Location Date Provider Diagnosis [facility] [address] [place] [phone] 04/13/2024 Toi Garsia Colon cancer screeni Z12.11 ; Colon polyps K63.5 ; Diverticulosis of large intestine without perforation or abscess without bleeding K57.30 ; Other hemorrhoids K64.8 ; Gastroesophageal reflux disease K21.9 ; Other specified disease of esophagus K22.89 ; Hiatal hernia K44.9 ; Gastric polyps K31.7 ; Chronic gastritis K29.50 and Chronic cough R05.3 [facility] [address] [place] [address] 08/15/2024 Toi Garsia Colon cancer screeni ng Z12.11 ; Chronic cough R05.3 ; Colon polyps K63.5 and Hiatal hernia K44.9 [facility] [address] [place] [address] 04/17/2024 Toi Garsia Assessments Encounter Date Diagnosis [...] K57.30) 04/13/2024 Other hemorrhoids (ICD-10 - K64.8) 08/15/2024 [...] Insured Coverage Start Date Coverage End Date [facility] [address] [address] [place] [address] [id number] TAYE EATON Self - patient is the insured MEDICAID OF [employer] [address] [place] [address] [id number] TAYE EATON Self - patient is the insured Medical (General) History Medical History History ICD Code Asthma--exercise-induced asthma Bipolar disease Denies LA,DM,CVA,renal disease Colonoscopy in 07/2012-1 small tubular ad enoma removed IBS-neg celiac disease labs 2013 History of atrial fib > 25 yrs [...]
--- OUTSIDE RECORDS SUMMARY | 2025-04-12 14:25 | XMS_ITS | Clinical Summary ---
Author Organization [facility] Address [address] [place] [address] Care Team Providers Care Instructor Decorating Name Role Phone Madeleine Zambrano MD Primary Care Provider [phone] Allergies No known active allergies Medications No known medications Encounters Date Type Department Care Team Description 01/28/2025 4:30 PM EDT Treatment [address] [address] System, Provider Not In Mreari Maldonado, JULIETTE-[employer] [employer] Chronic cough (Primary Dx); Esophageal dysphagia 01/14/2025 10:00 AM EDT Evaluation [address] [address] Maurilio Douglass MD Eller, Liana K, CCC-[employer] Chronic cough (Primary Dx); Esophageal dysphagia from Last 3 Months Social History [...] LTG 1 Speech Therapy No Merari Maldonado, [facility] Note: Patient will report reduced frequency and duration of coughing and vocal hoarseness during the day following chronic cough program targeting identification of triggers, improved vocal hygiene, suppressing cough, diaphragmatic and open throat breathing. Insurance [facility] MEDICARE MEDICARE PART A & B [facility] MEDIC[facility] Care Teams Instructor Decorating Relationship Specialty Start Date End Date Madeleine Zambrano MD [address] [place] [phone] PCP - General Internal Medicine 12/05/24
== END 2025-04-12 14:29 | disposition home or self-care (01) ==
LOC: HO.HMCHD 13:58
PROVIDERS: PCP Internal Medicine; Visit Provider Physician Assistant
DX: F31.9 Bipolar disorder, unspecified (principal); J45.909 Unspecified asthma, uncomplicated; N40.0 Benign prostatic hyperplasia without lower urinary tract symptoms; M16.11 Unilateral primary osteoarthritis, right hip; M54.16 Radiculopathy, lumbar region; R09.89 Other specified symptoms and signs involving the circulatory and respiratory systems

== ENCOUNTER → 2025-04-12 13:57 | Outpatient (BNVA) | payer MEDICARE, MEDICAID, SELFPAY | PROVIDERS: PCP Internal Medicine; Visit Provider Physician Assistant | DX: F31.9 Bipolar disorder, unspecified (principal); J45.909 Unspecified asthma, uncomplicated; N40.0 Benign prostatic hyperplasia without lower urinary tract symptoms; M16.11 Unilateral primary osteoarthritis, right hip; M54.16 Radiculopathy, lumbar region; R09.89 Other specified symptoms and signs involving the circulatory and respiratory systems; Z79.899 Other long term (current) drug therapy; Z13.30 Encounter for screening examination for mental health and behavioral disorders, unspecified; Z13.39 Encounter for screening examination for other mental health and behavioral disorders | CPT/HCPCS: 96127; 99212 ==

== ENCOUNTER 2025-04-17 08:52 | Outpatient (AMB) | payer MEDICARE, MEDICAID, SELFPAY ==
--- OUTSIDE RECORDS SUMMARY | 2024-04-13 04:10 | XMS_ITS ---
Author Organization [facility] Address [address] [place] [address] Care Team Providers Care Network Security Officer Name Role Phone Madeleine Zambrano M.D. Primary Care Provider Unavail able Toi Garsia Unavailable [phone] REASON FOR VISIT REFLUX,COUGH,HX OF POLYPS,SCREENING Problems Problem Type SNOMED Code ICD Code Onset Dates Problem Status W/U Status Risk Notes Problem Diverticular disease of colon (938833986) Diverticulosis of large intestine without perforation or abscess without bleeding (K57.30) Active confirmed Problem Gastroesophageal reflux disease (051359711) Gastroesophageal reflux disease (K21.9) Active confirmed Problem Benign neoplasm of stomach (49346513) Gastric polyps (K31.7) Active confirmed Problem Chronic gastritis (3418674) Chronic gastritis (K29.50) Active confirmed Encounters Encounter Location Date Provider Diagnosis [facility] Outpatient [address] [place] [phone] 04/13/2024 Toi Garsia Colon cancer screeni ng [...] Notes * TAYE EATONDOB:1960 (65 yo M)Acc No.[id number]:04/13/2024 EGD and COL/MAC Patient: TAYE WILEY Provider: Tanya Garsia MD :1960 A ge:64 Y S ex:Male Date:04/13/2024 Address:[address] [place], [place] [phone] Pcp:Madeleine Zambrano M.D. Subjective: * Chief Complaints: [...] 4 5385 LESION REMOVAL COLONOSCOPY, Modifiers: 33 13094 UPPER GI ENDOSCOPY, BIOPSY Billing Information: * Procedure Codes: 93205 LESION REMOVAL COLONOSCOPY. Modifiers: 33 66757 UPPER GI ENDOSCOPY, BIOPSY. * The named appointment provid er may or may not be the originator of this progress note, and it is not deemed complete until electronically signed by the appointment provider. Sign off status: Pending * Provider: Tanya Garsia MD Date: 06/13/2023 Generated for Maya armenta/Ronald/Lorena on: 06/17/2024 09:19 AM EST
--- NOTE | 2025-04-17 08:54 | A.OFFVIS_ITS ---
Vital Signs 04/17/25 08:55 Height 5 ft 9 in Weight 207 lb BMI 30.6 BP 146/71 H Blood Pressure Location Rt brachial Position Sitting Respiration 16 Pulse 70 Pulse Source Pulse Oximeter Pulse Oximetry (%) 97 Oxygen Delivery Method Room Air Intake Visit Reasons: Low back pain, unspecified Aircraft Accessories Mechanic Required: No Accompanied by: Self / Same As Patient Allergies atorvastatin Adverse Reaction (Verified 04/17/25 08:59) Muscle Pain HPI Comments Details: Wang is very pleasant 65 years old gentleman who presents in my office with complains on pain in the right groin radiating down to the right lower extremity to the level of the knee and anterior love. He reports that this pain prevents him from sleeping normally and doing activities of daily living, he is able to take care of himself and he can not function normally. Most of his pain in the right groin and the right lower extremity he feels at night, he feels that pain alleviated if he turns on his right-hand side to sleep. 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 He describes his pain in terms of tissue damage as stabbing, lancinating, hot burning, scalding, searing, dull, hurting, heavy sensation. He reports this pain started 4 years ago. He reported lower back pain in the past as well. He had injections of steroids performed by [facility] and spine in the lower back. He had no effect from those injections. He had 2 injections of the platelet rich plasma in [facility] and that resulted in complete resolution of pain in the back. He had physical therapy to treat his back pain chiropractic manipulation to treat his back pain and acupuncture to treat his back pain which was not helpful. He received hip injections by Orthopedic surgery and by Dr. Shaw at [facility]. He reported initial good results from hip injections however after that he reported that last hip injection was not working for him. He is fairly convinced that his pain is coming from the pinched nerve in his back. 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 Cognitive needs: No Hearing needs: No Vision needs: Yes (rx glasses) Review of Systems Const All systems reviewed & are unremarkable except as noted in HPI and below ENT Reports Normal hearing present Neuro Reports Normal hearing present, Denies Abnormal speech present, Denies confusion and Denies Sensory deficit (Neuro) Psych Denies confusion Physical Exam Vital Signs: Last Vital Signs Pulse 70 04/17/25 08:55 Resp 16 04/17/25 08:55 BP 146/71 H 04/17/25 08:55 Pulse Ox 97 04/17/25 08:55 Oxygen Delivery Method Room Air 04/17/25 08:55 BMI result Body Mass Index 30.6 Const General: no acute distress; No confusion Orientation/consciousness: patient oriented x3 and No confusion Eyes General: appearance normal, both eyes and all related structures Pupils: Equal, round and reactive pupils present EOM: EOMs intact bilaterally Neck Neck: Yes full ROM Chest Chest palpation & inspection: normal inspection of the chest Resp Effort & Inspection: normal respiratory effort, able to speak in complete sentences, normal respiratory pattern, no audible wheezes and no cough Cardio Jugular venous distension: no JVD GI Inspection: Yes normal to inspection Back/Spine/Pelvis Other: No tenderness on palpation in paraspinal spinal region lumbar spine. SLR is equivocal on the right, maybe positive. Neuro General: patient oriented x3, gait normal and No confusion Cranial nerves: Yes CN's II-XII intact bilaterally, Yes Equal, round and reactive pupils present, Yes Normal hearing present and Yes Ability to bilaterally elevate shoulders present Speech: No Abnormal speech present Gait exam (Neuro): Normal gait present Motor exam (neuro): 5/5 motor strength present throughout Sensory Exam: No Sensory deficit (Neuro) Extrem Other: Lateral and medial rotation aggravate pain in the right groin. General: No pedal edema Psych Speech and movement: Normal speech and movement present Affect: normal affect Attitude: cooperative Thought process: Normal thought process present Thought content: Normal thought content present Insight: Good insight present (Psych) Judgement: Good judgement present (Psych) Assessment & Plan Assessment & Plan (1) Osteoarthritis of right hip: Code(s): M16.11 - Unilateral primary osteoarthritis, right hip Category: Medical Qualifiers: Osteoarthritis type: unspecified Qualified Code(s): M16.11 - Unilateral primary osteoarthritis, right hip (2) Disc degeneration, lumbar: Code(s): M51.369 - Other intervertebral disc degeneration, lumbar region without mention of lumbar back pain or lower extremity pain Category: Medical (3) Spondylosis of lumbar region without myelopathy or radiculopathy: Code(s): M47.816 - Spondylosis without myelopathy or radiculopathy, lumbar region Category: Medical Plan This patient is quite convinced that pain radiating down to his right lower extremity is resulting from the nerve root compression in the lumbar spine. To confirm or rule out this possibility I will schedule him for the MRI of the lum bar spine. If MRI of the lumbar spine will be negative for nerve root compressions I would consider meralgia paresthetica as 1 of the sources of his pain. Lateral femoral cutaneous nerve injection could be offered to the patient to help his pain. He is also suffering from hip arthritis and total hip replacement could be effective way to treat pain in the groin. His pain in the back will return we will address this issue. I will see this patient in the office after his MRI. He was instructed to give us a call the very moment he will to step out from the MRI machine. Orders: Orders MR lumbar spine wo con Today M47.816 - Spondylosis without myelopathy or radiculopathy, lumbar region, M51.369 - Other intervertebral disc degeneration, lumbar region without mention of lumbar back pain or lower extremity pain Coding Level of Care Code New Pt Level 3 (46583) Diagnoses Osteoarthritis of right hip, unspecified osteoarthritis type M16.11 Osteoarthritis type: unspecified Disc degeneration, lumbar M51.369 Spondylosis of lumbar region without myelopathy or radiculopathy M47.816
[2025-04-17 08:55] VITALS: BP 146/71; PULSE 70; RESP 16; O2SAT 97; BMI 30.6
--- OUTSIDE RECORDS SUMMARY | 2025-04-17 09:20 | XMS_ITS | Clinical Summary ---
Author Organization Formerly [facility] Address [address] [place] [address] Care Team Providers Care Stations Superintendent Name Role Phone Madeleine Zambrano MD Primary Care Provider [phone] Allergies No known active allergies Medications No known medications Encounters Date Type Department Care Team Description 01/28/2025 4:30 PM EDT Treatment [address] [phone] System, Provider Not In Merari Maldonado, CCC-ASSISTANT ATTORNEY GENERAL Chronic cough (Primary Dx); Esophageal dysphagia from [...] 2) 01/19/2012 Influenza Vaccine 12/21/2024 COVID-19 Vaccine ( - 2023-2 5 season) 2025 RSV Vaccine 50 years and old er and Patients (1 - 1-dose 75+ series) 2037 Hepatitis B Vaccines Aged Out No long er eligible based on patient's age to complete this topic Goals Goal Patient Goal Type Associated Problems Recent Progress Patient-Stated? Author LTG 1 Speech Therapy No Merari Maldonado, [facility]-ASSISTANT ATTORNEY GENERAL Note: Patient will report reduced frequency and duration of coughing and vocal hoarseness during the day following chronic cough program targeting identification of triggers, improved vocal hygiene, suppressing cough, diaphragmatic and open throat breathing. Insurance [facility] MEDICARE MEDICARE PART A & B [facility] MEDICARE Care Teams Stations Superintendent Relationship Specialty Start Date End Date Madeleine Zambrano MD [address] [place] [address] [place] [address] PCP - General Internal Medicine 12/05/24
--- OUTSIDE RECORDS SUMMARY | 2025-04-17 09:20 | XMS_ITS | Patient Health Record ---
Author Organization [facility] Address [address] [place] [address] Care Team Providers Care Sharepoint Application Developer Name Role Phone Madeleine Zambrano M.D. 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: Nonsmoker; no alcohol Nonsmoker; no alcohol Nonsmoker; no alcohol Nonsmoker; no alcohol Problems Problem Type SNOMED Code ICD Code Onset Dates Problem Status W/U Status Risk Notes Problem Gastro-esophageal reflux disease without esophagitis (544964224) Gastro-esophageal reflux disease without esophagitis (K21.9) Active confirmed Problem Screening for malignant neoplasm of colon (684338540) Encounter for screening for malignant neoplasm of colon (Z12.11) Active confirmed Problem History of adenomatous polyp of colon (749840886) History of adenomatous polyp of colon (Z86.010) Active confirmed Problem Diverticular disease of colon (841322063) Diverticulosis of large intestine without perforation or abscess without bleeding (K57.30) Active confirmed Problem Irritable bowel syndrome with diarrhea (120418017) Irritable bowel syndrome with diarrhea (K58.0) Active confirmed Problem Gastroesophageal reflux disease (082838283) Gastroesophageal reflux disease (K21.9) Active confirmed Problem Benign neoplasm of stomach (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) Gastric polyps (K31.7) Active confirmed Problem Chronic gastritis (9537387) Chronic gastritis (K29.50) Active confirmed Problem Cough (38617031) Cough (R05.9) Active confirmed Vital Signs Temperature 98.7 degrees Fahrenheit 08/15/2024 Blood pressure diastolic 01 mm Hg 08/15/2024 Height 68.75 in 08/15/2024 Blood pressure systolic 001 mm Hg 08/15/2024 Weight 205.8 lbs 08/15/2024 BMI 30.61 kg/m2 08/15/2024 Encounters Encounter Location Date Provider Diagnosis [facility] [address] [place] [phone] 08/15/2024 Toi Garsia Colon cancer screening Z12.11 ; Chronic cough R05.3 ; Colon polyps K63.5 and Hiatal hernia K44.9 [facility] [address] [place] [phone] 04/17/2024 Toi Garsia Assessments Encounter Date Diagnosis [...] assistance in the future. Plan Of Treatment Pending Test Test Name Order Date ENDOMYSIAL IGA 06/13/2012 TRANSGLUTAMINASE AB IGA 06/13/2012 TRANSGLUTAMINASE AB IGG 06/13/2012 Future Test Test Name Order Date COLONOSCOPY 06/13/2012 COLONOSCOPY 11/01/2018 UPPER GI ENDOSCOPY 12/07/2023 COLONOSCOPY 12/07/2023 Insurance Providers Payer Name Payer Address Payer Phone Subscriber Number Group Number Insured Name Patient Relationship to Insured Coverage Start Date Coverage End Date [facility] [address] [address] [place] [address] [id number] TAYE EATON Self - patient is the insured MEDICAID OF [facility] [address] [place] [address] [id number] TAYE EATON Self - patient is the insured Medical (General) History Medical History History ICD Code Asthma--exercise-induced asthma Bipolar disease Denies SD,DM,CVA,renal disease Colonoscopy in 07/2012-1 small tubular ad [...]
== END 2025-04-17 09:28 | disposition home or self-care (01) ==
LOC: HO.PMC 08:53
PROVIDERS: PCP Internal Medicine; Referring Provider Physical Medicine & Rehabilitation; Visit Provider Anesthesiology
DX: M16.11 Unilateral primary osteoarthritis, right hip (principal); M51.369 Other intervertebral disc degeneration, lumbar region without mention of lumbar back pain or lower extremity pain; M47.816 Spondylosis without myelopathy or radiculopathy, lumbar region
CPT/HCPCS: 99203

== ENCOUNTER → 2025-04-17 08:52 | Outpatient (BNVA) | payer MEDICARE, MEDICAID, SELFPAY | PROVIDERS: PCP Internal Medicine; Referring Provider Physical Medicine & Rehabilitation; Visit Provider Anesthesiology | DX: R10.31 Right lower quadrant pain (principal); M79.18 Myalgia, other site; M16.11 Unilateral primary osteoarthritis, right hip; M51.369 Other intervertebral disc degeneration, lumbar region without mention of lumbar back pain or lower extremity pain; M47.816 Spondylosis without myelopathy or radiculopathy, lumbar region; F10.11 Alcohol abuse, in remission; F19.11 Other psychoactive substance abuse, in remission | CPT/HCPCS: 99202 ==

== ENCOUNTER 2025-05-02 09:29 | Outpatient (REF) | payer MEDICARE, MEDICAID, SELFPAY ==
[2025-05-02 14:05] LABS: MANUAL DIFF FLAG NO
[2025-05-02 14:14] LABS: Hematocrit 42.9 % (42.0-52.0); Hemoglobin 14.5 g/dl (14.0-18.0); Imm Gran Abs Auto 0.02 X10*3/uL (0.00-0.03); Imm Gran Pct Auto 0.3 % (0.0-0.4); Lymphocytes Absolute Auto 1.4 X10*3/uL (1.2-4.9); Mean Corpuscular HGB Conc 33.8 g/dl (31.0-36.0); Mean Corpuscular Hemoglobin 32.0 pg (27.0-33.0); Mean Corpuscular Volume 94.7 fL (80.0-98.0); NRBC Abs Auto 0.000 X10*3/uL (0.0-0.012); NRBC Pct Auto 0.0 /100WBC (0.0-0.2); Platelet Count 288 X10*3/uL (160-400); Red Blood Count 4.53 X10*6/uL (4.60-5.80); White Blood Count 7.0 X10*3/uL (4.8-10.8)
[2025-05-02 14:28] LABS: Lithium 0.57 mmol/L (0.60-1.20)
[2025-05-02 14:42] LABS: Alanine Aminotransferase 34 U/L (0-40); Albumin Level 4.9 g/dL (3.5-5.0); Alkaline Phosphatase 60 U/L (39-117); Anion Gap 10 (12-20); Aspartate Amino Transferase 25 U/L (5-37); Blood Urea Nitrogen 12 mg/dL (9-16); Calcium 9.4 mg/dL (8.4-10.2); Carbon Dioxide 24 mmol/L (22-29); Chloride 107 mmol/L (96-108); Estimated Glomerular Filt Rate > 60; Potassium 4.0 mmol/L (3.3-5.1); Sodium 137 mmol/L (135-145); Total Protein 7.6 g/dL (6.5-8.0)
[2025-05-02 14:44] LABS: Thyroid Stimulating Hormone 1.21 uIU/mL (0.32-4.0)
== END 2025-05-02 09:30 ==
LOC: HO.HMGCLDS 09:29
PROVIDERS: PCP Internal Medicine; Visit Provider Psychiatry & Neurology Psychiatry
DX: Z51.81 Encounter for therapeutic drug level monitoring (principal); Z79.899 Other long term (current) drug therapy
CPT/HCPCS: 36415; 80053; 80178; 84443; 85025

== ENCOUNTER 2025-05-07 18:53 | Outpatient (REF) | payer MEDICARE, MEDICAID, SELFPAY ==
--- OUTSIDE RECORDS SUMMARY | 2024-04-13 04:10 | XMS_ITS ---
Author Organization [facility] Address [address] [place] [address] Care Team Providers Care Security Escort Name Role Phone Madeleine Zambrano M.D. Primary Care Provider Unavail able Toi Garsia Unavailable [phone] REASON FOR VISIT REFLUX,COUGH,HX OF POLYPS,SCREENING Problems Problem Type SNOMED Code ICD Code Onset Dates Problem Status W/U Status Risk Notes Problem Diverticular disease of colon (539318241) Diverticulosis of large intestine without perforation or abscess without bleeding (K57.30) Active confirmed Problem Gastroesophageal reflux disease (526936670) Gastroesophageal reflux disease (K21.9) Active confirmed Problem Benign neoplasm of stomach (03619069) Gastric polyps (K31.7) Active confirmed Problem Chronic gastritis (0917582) Chronic gastritis (K29.50) Active confirmed Encounters Encounter Location Date Provider Diagnosis [facility] [place] [address] [place] [phone] 04/13/2024 Toi Garsia Colon cancer screeni ng [...] Notes * TAYE EATONDOB:1960 (65 yo M)Acc No.[id number]:04/13/2024 EGD and COL/MAC Patient: TAYE WILEY Provider: Tanya Garsia MD :1960 A ge:64 Y S ex:Male Date:04/13/2024 Address:[address] [place], [place] [phone] Pcp:Madeleine Zambrano M.D. Subjective: * Chief Complaints: [...] 4 5385 LESION REMOVAL COLONOSCOPY, Modifiers: 33 73517 UPPER GI ENDOSCOPY, BIOPSY Billing Information: * Procedure Codes: 11773 LESION REMOVAL COLONOSCOPY. Modifiers: 33 04543 UPPER GI ENDOSCOPY, BIOPSY. * The named appointment provid er may or may not be the originator of this progress note, and it is not deemed complete until electronically signed by the appointment provider. Sign off status: Pending * Provider: Tanya Garsia MD Date: 06/13/2023 Generated for Maya armenta/Ronald/Lorena on: 07/08/2024 08:27 PM EST
--- NOTE | ~2025-05-07 | MR_ITS ---
EXAMINATION: MR LUMBAR SPINE WITHOUT CONTRAST CLINICAL INFORMATION: M 51.369. Other intervertebral disc degeneration, lumbar region. COMPARISON: May 09, 2023. TECHNIQUE: MRI of the lumbar spine was obtained using routine sequences without contrast. FINDINGS: Last rib-bearing vertebra labeled T12. No bone marrow STIR signal abnormality. Multilevel Schmorl nodes in the endplates of T11, T12 and to the vertebral bodies and the lumbar spine. Multilevel disc desiccation throughout the axial skeleton. Small marginal osteophyte formation, L3-4 and L4-5 levels 2 mm retrolisthesis, L5-S1. 1 mm retrolisthesis at L1-2. Dextroconvex curvature apex at L1 to. Conus medullaris ends at pedicle of L1 with normal signal. T11-12: Bilateral facet joint hypertrophy. Broad-based disc bulging. No compression upon neural elements. T12-L1: Broad-based disc bulging. Facet joint and ligamentum flavum hypertrophy. Reduced AP diameter of the thecal sac. No neuroforamina stenosis. L1-2: Broad-based disc bulging. Facet joint and ligamentum flavum hypertrophy. Reduced AP diameter of the thecal sac and neuroforamina. L3-4: Broad-based disc bulging. Facet joint and ligamentum flavum flavum hypertrophy. Reduced AP diameter of the thecal sac and bilateral neuroforamina narrowing likely encroaching the neural elements of the thecal sac. L4-5: Broad-based disc bulging. Facet joint and ligamentum flavum hypertrophy. Reduced AP diameter of the thecal sac and neuroforamina likely encroaching the neural elements of the thecal sac. L5-S1: Broad-based disc bulging. Facet joint and ligamentum flavum hypertrophy. Reduced AP diameter of the thecal sac and the likely encroaching the neural elements. No prevertebral compartment hematoma, mass or fluid collection. MR/MR lumbar spine wo con IMPRESSION: Multilevel spondylosis pronounced at L4-5, L5-S1 and to a lesser extent L3-4 and L2-3 levels likely encroaching the neural elements at L4-5, L5-S1 and L3-4. Electronically signed by: Selvin Corona MD 05/08/2025 06:57 AM EST
--- OUTSIDE RECORDS SUMMARY | 2025-05-07 20:27 | XMS_ITS | Clinical Summary ---
Author Organization [facility] Address [address] [place] [address] Care Team Providers Care Pie Chef Name Role Phone Madeleine Zambrano MD Primary Care Provider [phone] Allergies No known active allergies Medications No known medications Social History Tobacco Use Types Packs/Day Years [...] Influenza Vaccine 12/21/2024 COVID-19 Vaccine (1 - 2024-2 6 season) 2025 RSV Vaccine 50 years and old er and Patients (1 - 1-dose 75+ series) 2037 Hepatitis B Vaccines Aged Out No long er eligible based on patient's age to complete this topic Goals Goal Patient Goal Type Associated Problems Recent Progress Patient-Stated? Author ST LTG 1 Speech Therapy No Merari Maldonado, [facility]-DIRECTOR OF SPECIAL EVENTS Note: Patient will report reduced frequency and duration of coughing and vocal hoarseness during the day following chronic cough program targeting identification of triggers, improved vocal hygiene, suppressing cough, diaphragmatic and open throat breathing. Insurance [facility] MEDIC[facility] MEDICARE PART A & B [facility] MEDIC[facility] Care Teams Pie Chef Relationship Specialty Start Date End Date Madeleine Zambrano MD [address] [place] [phone] PCP - General Internal Medicine 12/05/24
--- OUTSIDE RECORDS SUMMARY | 2025-05-07 20:27 | XMS_ITS | Patient Health Record ---
Author Organization [facility] Address [address] [place] [address] Care Team Providers Care Senior Industrial Engineer Name Role Phone Madeleine Zambrano M.D. 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: Nonsmoker; no alcohol Nonsmoker; no alcohol Nonsmoker; no alcohol Nonsmoker; no alcohol Problems Problem Type SNOMED Code ICD Code Onset Dates Problem Status W/U Status Risk Notes Problem Gastro-esophageal reflux disease without esophagitis (893185612) Gastro-esophageal reflux disease without esophagitis (K21.9) Active confirmed Problem Screening for malignant neoplasm of colon (378107630) Encounter for screening for malignant neoplasm of colon (Z12.11) Active confirmed Problem History of adenomatous polyp of colon (057629055) History of adenomatous polyp of colon (Z86.010) Active confirmed Problem Diverticular disease of colon (288997836) Diverticulosis of large intestine without perforation or abscess without bleeding (K57.30) Active confirmed Problem Irritable bowel syndrome with diarrhea (297808824) Irritable bowel syndrome with diarrhea (K58.0) Active confirmed Problem Gastroesophageal reflux disease (501949296) Gastroesophageal reflux disease (K21.9) Active confirmed Problem Benign neoplasm of stomach (20011235) Gastric polyps (K31.7) Active confirmed Problem Chronic gastritis (4817974) Chronic gastritis (K29.50) Active confirmed Problem Cough (41024741) Cough (R05.9) Active confirmed Vital Signs Temperature 98.7 degrees Fahrenheit 08/15/2024 Blood pressure diastolic 01 mm Hg 08/15/2024 Height 68.75 in 08/15/2024 Blood pressure systolic 001 mm Hg 08/15/2024 Weight 205.8 lbs 08/15/2024 BMI 30.61 kg/m2 08/15/2024 Encounters Encounter Location Date Provider Diagnosis [facility] [address] [place] [address] 08/15/2024 Toi Garsia Colon cancer screening Z12.11 [...] Coverage Start Date Coverage End Date [facility] [address] [address] [place] [id number] TAYE EATON Self - patient is the insured MEDICAID OF [facility] [address] [place] [address] [phone] [id number] TAYE EATON Self - patient is the insured Medical (General) History Medical History History ICD Code Asthma--exercise-induced asthma Bipolar disease Denies [place],DM,CVA,renal disease Colonoscopy in 07/2012-1 small tubular ad [...]
== END 2025-05-07 18:54 | disposition home or self-care (01) ==
LOC: HO.MRI 18:53
PROVIDERS: PCP Internal Medicine; Visit Provider Student in an Organized Health Care Education/Training Program
DX: M47.26 Other spondylosis with radiculopathy, lumbar region (principal); M51.369 Other intervertebral disc degeneration, lumbar region without mention of lumbar back pain or lower extremity pain
CPT/HCPCS: 72148

== ENCOUNTER → 2025-05-07 19:12 | Outpatient (BNV) | payer MEDICARE, MEDICAID, SELFPAY | PROVIDERS: PCP Internal Medicine; Visit Provider Radiology Diagnostic Radiology | DX: M51.369 Other intervertebral disc degeneration, lumbar region without mention of lumbar back pain or lower extremity pain (principal); M47.817 Spondylosis without myelopathy or radiculopathy, lumbosacral region | CPT/HCPCS: 72148 ==

== ENCOUNTER 2025-05-22 11:03 | Outpatient (REF) | payer MEDICARE, MEDICAID, SELFPAY ==
--- NOTE | ~2025-05-22 | XR_ITS ---
EXAMINATION: XR KNEE, RIGHT CLINICAL INFORMATION: M25.561 - Pain in right knee COMPARISON: 12/14/2023. TECHNIQUE: Two views of the right knee. FINDINGS: No fracture, dislocation, or suspicious bone lesion. Normal bone mineralization. Normal alignment. Joint spaces demonstrate minimal narrowing in the lateral compartment. Medial and patellofemoral compartments appear preserved. No significant joint effusion. Soft tissues appear normal. XR/XR knee RT 2V IMPRESSION: 1. Minimal joint space narrowing lateral compartment. Otherwise normal exam. Electronically signed by: Forrest Romero MD 05/22/2025 01:30 PM EST
--- OUTSIDE RECORDS SUMMARY | 2025-05-22 13:18 | XMS_ITS ---
Author Organization Unknown ENCOUNTERS Encounter Performer Location Date Diagnosis Diagnosis Status Emergency [facility] [address] [place] [address] [id number] FRED Pre Admit Generic ED Physician [facility] [address] [place] [address] [id number] Pre Admit [facility] [address] [place] [address] [id number] Outpatient [facility] [address] [place] [address] [id number] FRED Emergency [facility] [address] [place] [address] [id number] FRED Pre Admit Generic ED Physician [facility] [address] [place] [address] [id number] Inpatient KRISTINA PINEDA [facility] [address] [place] [address] [id number] AHR Emergency [facility] [address] [place] [address] [id number] *Note: Encounters from your own facility or health system may be excluded. Allergies, Adverse Reactions, Alerts Allergen Type Severity Identification Date atorvastatin drug allergy 3 [id number] Medications Name Date Quantity Days Supplied [facility] Number
== END 2025-05-22 11:04 | disposition home or self-care (01) ==
LOC: HO.XRAY 11:03
PROVIDERS: PCP Internal Medicine; Visit Provider Anesthesiology
DX: M17.11 Unilateral primary osteoarthritis, right knee (principal); M16.11 Unilateral primary osteoarthritis, right hip; M51.369 Other intervertebral disc degeneration, lumbar region without mention of lumbar back pain or lower extremity pain; M47.816 Spondylosis without myelopathy or radiculopathy, lumbar region
CPT/HCPCS: 20610; 73560; 99212

== ENCOUNTER 2025-05-22 11:03 | Outpatient (AMB) | payer MEDICARE, MEDICAID, SELFPAY ==
--- OUTSIDE RECORDS SUMMARY | 2024-04-13 04:10 | XMS_ITS ---
Author Organization [facility] Address [address] [place] [address] Care Team Providers Care Wine Cellar Stock Clerk Name Role Phone Madeleine Zambrano M.D. Primary Care Provider Unavail able Toi Garsia Unavailable [phone] REASON FOR VISIT REFLUX,COUGH,HX OF POLYPS,SCREENING Problems Problem Type SNOMED Code ICD Code Onset Dates Problem Status W/U Status Risk Notes Problem Diverticular disease of colon (979214701) Diverticulosis of large intestine without perforation or abscess without bleeding (K57.30) Active confirmed Problem Gastroesophageal reflux disease (642244477) Gastroesophageal reflux disease (K21.9) Active confirmed Problem Benign neoplasm of stomach (81597195) Gastric polyps (K31.7) Active confirmed Problem Chronic gastritis (6005059) Chronic gastritis (K29.50) Active confirmed Encounters Encounter Location Date Provider Diagnosis [facility] Outpatient [address] [place] [phone] 04/13/2024 Toi Garsia Colon cancer screeni ng [...] Notes * TAYE EATONDOB:1960 (65 yo M)Acc No.[id number]:04/13/2024 EGD and COL/MAC Patient: TAYE WILEY Provider: Tanya Garsia MD :1960 A ge:64 Y S ex:Male Date:04/13/2024 Address:[address] [place], [place] [id number] Pcp:Madeleine Zambrano M.D. Subjective: * Chief Complaints: [...] 4 5385 LESION REMOVAL COLONOSCOPY, Modifiers: 33 44918 UPPER GI ENDOSCOPY, BIOPSY Billing Information: * Procedure Codes: 69258 LESION REMOVAL COLONOSCOPY. Modifiers: 33 55564 UPPER GI ENDOSCOPY, BIOPSY. * The named appointment provid er may or may not be the originator of this progress note, and it is not deemed complete until electronically signed by the appointment provider. Sign off status: Pending * Provider: Tanya Garsia MD Date: 06/13/2023 Generated for Maya armenta/Ronald/Lorena on: 12:42 PM EST
[2025-05-22 11:06] VITALS: BP 125/61; PULSE 63; RESP 16; O2SAT 98; BMI 31.0
--- NOTE | 2025-05-22 11:06 | A.OFFVIS_ITS ---
Vital Signs 05/22/25 11:06 Height 5 ft 9 in Weight 210 lb BMI 31.0 BP 125/61 Blood Pressure Location Rt brachial Position Sitting Respiration 16 Pulse 63 Pulse Source Pulse Oximeter Pulse Oximetry (%) 98 Oxygen Delivery Method Room Air Intake Visit Reasons: Lumbar Spine MRI review Leaf Blender Required: No Accompanied by: Self / Same As Patient Allergies atorvastatin Adverse Reaction (Verified 05/22/25 11:11) Muscle Pain HPI Comments Details: Wang is back in my office after he went for the MRI of the lumbar spine. There are multiple arthritic changes in his MRI however there is no nerve root compressions. We discussed today this patient's pain. He reports that when his pain in the knee is very severe he does not feel any pain in the lower back. Logical thinking it is unlikely that if pathology in the back the source of the both he would feel pain in both knee and the back. Therefore I suspected today that his pain is actually coming from the knee itself. I decided to perform diagnostic left knee injection see description as below. I also will send him for the x-ray of the left knee to confirm more rule out my suspicion. Prior: very pleasant 65 years old gentleman who presents in my office with complains on pain in the right groin radiating down to the right lower extremity to the level of the knee and anterior love. He reports that this pain prevents him from sleeping normally and doing activities of daily living, he is able to take care of himself and he can not function normally. Most of his pain in the right groin and the right lower extremity he feels at night, he feels that pain alleviated if he turns on his right-hand side to sleep. 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 He describes his pain in terms of tissue damage as stabbing, lancinating, hot burning, scalding, searing, dull, hurting, heavy sensation. He reports this pain started 4 years ago. He reported lower back pain in the past as well. He had injections of steroids performed by [facility] and spine in the lower back. He had no effect from those injections. He had 2 injections of the platelet rich plasma in [employer] and that resulted in complete resolution of pain in the back. He had physical therapy to treat his back pain chiropractic manipulation to treat his back pain and acupuncture to treat his back pain which was not helpful. He received hip injections by Orthopedic surgery and by Dr. Shaw at [facility]. He reported initial good results from hip injections however after that he reported that last hip injection was not working for him. He is fairly convinced that his pain is coming from the pinched nerve in his back. 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 Cognitive needs: No Hearing needs: No Vision needs: Yes (rx glasses) Review of Systems Const All systems reviewed & are unremarkable except as noted in HPI and below ENT Reports Normal hearing present Neuro Reports Normal hearing present, Denies Abnormal speech present, Denies confusion and Denies Sensory deficit (Neuro) Psych Denies confusion Physical Exam Vital Signs: Last Vital Signs Pulse 63 05/22/25 11:06 Resp 16 05/22/25 11:06 BP 125/61 05/22/25 11:06 Pulse Ox 98 05/22/25 11:06 Oxygen Delivery Method Room Air 05/22/25 11:06 BMI result Body Mass Index 31.0 Const General: no acute distress; No confusion Orientation/consciousness: patient oriented x3 and No confusion Eyes General: appearance normal, both eyes and all related structures Pupils: Equal, round and reactive pupils present EOM: EOMs intact bilaterally Neck Neck: Yes full ROM Chest Chest palpation & inspection: normal inspection of the chest Resp Effort & Inspection: normal respiratory effort, able to speak in complete sentences, normal respiratory pattern, no audible wheezes and no cough Cardio Jugular venous distension: no JVD GI Inspection: Yes normal to inspection Back/Spine/Pelvis Other: No tenderness on palpation in paraspinal spinal region lumbar spine. SLR is equivocal on the right, maybe positive. Neuro General: patient oriented x3, gait normal and No confusion Cranial nerves: Yes CN's II-XII intact bilaterally, Yes Equal, round and reactive pupils present, Yes Normal hearing present and Yes Ability to odayls aterally elevate shoulders present Speech: No Abnormal speech present Gait exam (Neuro): Normal gait present Motor exam (neuro): 5/5 motor strength present throughout Sensory Exam: No Sensory deficit (Neuro) Extrem Other: Lateral and medial rotation aggravate pain in the right groin. General: No pedal edema Psych Speech and movement: Normal speech and movement present Affect: normal affect Attitude: cooperative Thought process: Normal thought process present Thought content: Normal thought content present Insight: Good insight present (Psych) Judgement: Good judgement present (Psych) Results Reviewed Results Reviewed: MR LUMBAR SPINE WITHOUT CONTRAST CLINICAL INFORMATION: M 51.369. Other intervertebral disc degeneration, lumbar region. COMPARISON: May 09, 2023. TECHNIQUE: MRI of the lumbar spine was obtained using routine sequences without contrast. FINDINGS: Last rib-bearing vertebra labeled T12. No bone marrow STIR signal abnormality. Multilevel Schmorl nodes in the endplates of T11, T12 and to the vertebral bodies and the lumbar spine. Multilevel disc desiccation throughout the axial skeleton. Small marginal osteophyte formation, L3-4 and L4-5 levels 2 mm retrolisthesis, L5-S1. 1 mm retrolisthesis at L1-2. Dextroconvex curvature apex at L1 to. Conus medullaris ends at pedicle of L1 with normal signal. T11-12: Bilateral facet joint hypertrophy. Broad-based disc bulging. No compression upon neural elements. T12-L1: Broad-based disc bulging. Facet joint and ligamentum flavum hypertrophy. Reduced AP diameter of the thecal sac. No neuroforamina stenosis. L1-2: Broad-based disc bulging. Facet joint and ligamentum flavum hypertrophy. Reduced AP diameter of the thecal sac and neuroforamina. L3-4: Broad-based disc bulging. Facet joint and ligamentum flavum flavum hypertrophy. Reduced AP diameter of the thecal sac and bilateral neuroforamina narrowing likely encroaching the neural elements of the thecal sac. L4-5: Broad-based disc bulging. Facet joint and ligamentum flavum hypertrophy. Reduced AP diameter of the thecal sac and neuroforamina likely encroaching the neural elements of the thecal sac. L5-S1: Broad-based disc bulging. Facet joint and ligamentum flavum hypertrophy. Reduced AP diameter of the thecal sac and the likely encroaching the neural elements. No prevertebral compartment hematoma, mass or fluid collection. MR/MR lumbar spine wo con IMPRESSION: Multilevel spondylosis pronounced at L4-5, L5-S1 and to a lesser extent L3-4 and L2-3 levels likely encroaching the neural elements at L4-5, L5-S1 and L3-4. Assessment & Plan Assessment & Plan (1) Right knee pain: Code(s): M25.561 - Pain in right knee Category: Medical (2) Osteoarthritis of right knee: Code(s): M17.11 - Unilateral primary osteoarthritis, right knee Category: Medical Plan: Right knee diagnostic injection. The patient was positioned sitting in the examination bed. Informed consent was thoroughly explained to the patient. Risks and benefits were explained. The benefits mostly related to diagnosis of the pain and the risks are mostly bleeding and infection. The anterior lateral surface of the right knee was prepped with ChloraPrep, 22 gauge 1-1/2 inch needle was inserted into the knee joint retropatellarly in posterior medial direction. Aspiration was performed no fluid or blood. sterilely obtained bupivacaine 0.5% 5 cc were injected into the right knee . Patient tolerated the procedure well. Needle was withdrawn Band-Aid was applied. (3) Osteoarthritis of right hip: Code(s): M16.11 - Unilateral primary osteoarthritis, right hip Category: Medical Qualifiers: Osteoarthritis type: unspecified Qualified Code(s): M16.11 - Unilateral primary osteoarthritis, right hip (4) Disc degeneration, lumbar: Code(s): M51.369 - Other intervertebral disc degeneration, lumbar region without mention of lumbar back pain or lower extremity pain Category: Medical (5) Spondylosis of lumbar region without myelopathy or radiculopathy: Code(s): M47.816 - Spondylosis without myelopathy or radiculopathy, lumbar region Category: Medical Plan After examining the MRI see as above I left on convinced that the pain of the patient is coming from the lower back. On physical examination as above there is crepitus sensation with extension of the right knee. I will send this patient for knee x-ray. I also perform diagnostic right knee injection with b upivacaine only. I will see patient in 1 week. Orders: Orders XR knee RT 2V Today M17.11 - Unilateral primary osteoarthritis, right knee, M25.561 - Pain in right knee Coding Level of Care Code Est Pt Level 3 (00808) Procedure Only Diagnoses Right knee pain M25.561 Osteoarthritis of right knee M17.11 Osteoarthritis of right hip, unspecified osteoarthritis type M16.11 Osteoarthritis type: unspecified Disc degeneration, lumbar M51.369 Spondylosis of lumbar region without myelopathy or radiculopathy M47.816
--- OUTSIDE RECORDS SUMMARY | 2025-05-22 12:42 | XMS_ITS | Clinical Summary ---
Author Organization [facility]ly [facility] Address [address] [place] [address] Care Team Providers Care Lead Mechanical Engineer Name Role Phone Madeleine Zambrano MD Primary Care Provider [phone] Allergies No known active allergies Medications No [...] LTG 1 Speech Therapy No Merari Maldonado, CCC-VIOLIN MECHANIC Note: Patient will report reduced frequency and duration of coughing and vocal hoarseness during the day following chronic cough program targeting identification of triggers, improved vocal hygiene, suppressing cough, diaphragmatic and open throat breathing. Insurance [facility] MEDICARE MEDICARE PART A & B [facility] MEDICARE Care Teams Lead Mechanical Engineer Relationship Specialty Start Date End Date Madeleine Zambrano MD [address] [place] [phone] PCP - General Internal Medicine 12/05/24
--- OUTSIDE RECORDS SUMMARY | 2025-05-22 12:42 | XMS_ITS | Patient Health Record ---
Author Organization [facility] Address [address] [place] [address] Care Team Providers Care Business Account Leader Name Role Phone Madeleine Zambrano M.D. 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 Section Notes: Nonsmoker; no alcohol Nonsmoker; no alcohol Nonsmoker; no alcohol Nonsmoker; no alcohol Problems Problem Type SNOMED Code ICD Code Onset Dates Problem Status W/U Status Risk Notes Problem Gastro-esophageal reflux disease without esophagitis (002128087) Gastro-esophageal reflux disease without esophagitis (K21.9) Active confirmed Problem Screening for malignant neoplasm of colon (172322861) Encounter for screening for malignant neoplasm of colon (Z12.11) Active confirmed Problem History of adenomatous polyp of colon (273509415) History of adenomatous polyp of colon (Z86.010) Active confirmed Problem Diverticular disease of colon (901013566) Diverticulosis of large intestine without perforation or abscess without bleeding (K57.30) Active confirmed Problem Irritable bowel syndrome with diarrhea (987777673) Irritable bowel syndrome with diarrhea (K58.0) Active confirmed Problem Gastroesophageal reflux disease (276647383) Gastroesophageal reflux disease (K21.9) Active confirmed Problem Benign neoplasm of stomach (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) Gastric polyps (K31.7) Active confirmed Problem Chronic gastritis (5723730) Chronic gastritis (K29.50) Active confirmed Problem Cough (94587981) Cough (R05.9) Active confirmed Vital Signs Temperature 98.7 degrees Fahrenheit 08/15/2024 Blood pressure diastolic 01 mm Hg 08/15/2024 Height 68.75 in 08/15/2024 Blood pressure systolic 001 mm Hg 08/15/2024 Weight 205.8 lbs 08/15/2024 BMI 30.61 kg/m2 08/15/2024 Encounters Encounter Location Date Provider Diagnosis [facility] [address] [place] [address] 08/15/2024 Toi Garsia Colon cancer screening Z12.11 [...] Insured Coverage Start Date Coverage End Date [facility] [address] [address] [place] [id number] TAYE EATON Self - patient is the insured MEDICAID OF [facility] [address] [place] [address] [phone] [id number] TAYE EATON Self - patient is the [...]
== END 2025-05-22 11:47 | disposition home or self-care (01) ==
LOC: HO.PMC 11:03
PROVIDERS: PCP Internal Medicine; Visit Provider Anesthesiology
DX: M25.561 Pain in right knee (principal); M17.11 Unilateral primary osteoarthritis, right knee; M16.11 Unilateral primary osteoarthritis, right hip; M51.369 Other intervertebral disc degeneration, lumbar region without mention of lumbar back pain or lower extremity pain; M47.816 Spondylosis without myelopathy or radiculopathy, lumbar region
CPT/HCPCS: 20610; 99213

== ENCOUNTER → 2025-05-22 11:38 | Outpatient (BNV) | payer MEDICARE, MEDICAID, SELFPAY | PROVIDERS: PCP Internal Medicine; Visit Provider Radiology Diagnostic Radiology | DX: M25.561 Pain in right knee (principal) | CPT/HCPCS: 73560 ==